=== PATIENT | male | born 1975 | race Caucasian/White ===

== ENCOUNTER 2016-04-25 22:19 | Emergency (ER) | payer SELFPAY ==
[~2016-04-25] VITALS: Ht 167.6 cm; Wt 68.0 kg
[~2016-04-25 22:19] MED LIST: AUGM875T PO; DILA8TAB4 PO; IBUP800T23 PO; MORP30SU PO; ZOFR4TAB3 SL
[2016-04-25 22:22] VITALS: BP 189/102; PULSE 88; RESP 16; TEMP 98.1; O2SAT 100
[2016-04-25 22:59] VITALS: BP 181/89; PULSE 107; RESP 18; O2SAT 100
[2016-04-25] MEDS ORDERED: SODIUM CHLORIDE 0.9% FLUSH 5 ML FLUSH IVF PRN (23:00)
[2016-04-25 23:10] VITALS: RESP 22; O2SAT 100
[2016-04-25 23:19] LABS: AUTOMATED NEUTROPHIL # 5.1 TH/MM3 (1.8-7.7); BASOPHIL # 0.1 TH/MM3 (0-0.2); BASOPHIL % 1.1 % (0.0-2.0); EOSINOPHIL # 0.7 TH/MM3 (0-0.4); EOSINOPHIL % 7.8 % (0.0-4.0); HEMATOCRIT 42.5 % (39.0-51.0); HEMO FLAGS DIFF FINAL; LYMPH % 28.8 % (9.0-44.0); LYMPHOCYTE # 2.7 TH/MM3 (1.0-4.8); MEAN CELL VOLUME 79.5 FL (80.0-100.0); MEAN CORPUSCULAR HEMOGLOBIN 27.2 PG (27.0-34.0); MEAN CORPUSCULAR HGB CONC 34.2 % (32.0-36.0); MONO % 7.2 % (0.0-8.0); NEUT % 55.1 % (16.0-70.0); PLATELET COUNT 148 TH/MM3 (150-450); RED BLOOD COUNT 5.35 MIL/MM3 (4.50-5.90); RED CELL DISTRIBUTION WIDTH 18.2 % (11.6-17.2); WHITE BLOOD COUNT 9.3 TH/MM3 (4.0-11.0)
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
[2016-04-25 23:21] LABS: AMPHETAMINE, URINE NEG (NEG); BARBITURATES, URINE NEG (NEG); COCAINE, URINE NEG (NEG)
--- NOTE | 2016-04-25 23:29 | RADRPT ---
EXAM DATE/TIME: 04/25/2016 23:21 [facility] COMPARISON: CHEST SINGLE AP, April 12, 2015, 0:45. INDICATIONS : Chest pain. MEDICAL HISTORY : None. SURGICAL HISTORY : None. ENCOUNTER: Initial ACUITY: 1 day PAIN SCORE: 6/10 LOCATION: Bilateral chest FINDINGS: A single view of the chest demonstrates the lungs to be symmetrically aerated without evidence of mas s, infiltrate or effusion. The cardiomediastinal contours are unremarkable. Osseous structures are intact. CONCLUSION: No acute disease. Silvestre Ashraf MD on April 25, 2016 at 23:27 Board Certified Radiologist. This report was verified electronically.
[2016-04-25 23:36] LABS: APTT (PATIENT) 25.6 SEC (24.3-30.1); INTERNATIONAL NORMALIZED RATIO 0.9 RATIO; PROTHROMBIN TIME - PATIENT 10.4 SEC (9.8-11.6)
[2016-04-25 23:46] LABS: ALT (GPT) 28 U/L (12-78); ANION GAP 9 MEQ/L (5-15); AST (GOT) 19 U/L (15-37); BICARBONATE 26.7 MEQ/L (21.0-32.0); BLOOD UREA NITROGEN 10 MG/DL (7-18); CHLORIDE 106 MEQ/L (98-107); GLOMERULAR FILTRATION RATE 81 ML/MIN (>89); POTASSIUM 3.6 MEQ/L (3.5-5.1); SODIUM (NA) 142 MEQ/L (136-145)
[2016-04-25 23:49] LABS: ALKALINE PHOSPHATASE 99 U/L (45-117); TOTAL BILIRUBIN ADULT 0.3 MG/DL (0.2-1.0)
[2016-04-25 23:55] LABS: CREATINE KINASE 72 U/L (39-308)
[2016-04-26] MEDS ORDERED: cloNIDine HCL 0.2 MG TAB PO ONE
[2016-04-26 00:18] VITALS: BP 170/79; PULSE 95; RESP 18; O2SAT 100
[2016-04-26] MEDS ORDERED: CLON0.2T PO (00:23)
--- NOTE | 2016-04-26 22:06 | EKG ---
Date Performed: 04/25/2016 Time Performed: 23:00:06 PTAGE: 40 years EKG: Sinus rhythm WITH MARKED SINUS ARRHYTHMIA WITH SHORT AK INTERVAL MODERATE ST DEPRESSION ABNORMAL ECG PREVIOUS TRACING : 04/12/2015 06.29 Compared to prior tracing no significant change DOCTOR: Lynne Graham Interpretating Date/Time 04/26/2016 22:05:34
== END 2016-04-26 00:51 | disposition home or self-care (01) ==
LOC: NEPC 22:19
DX: R07.89 Other chest pain (principal); F41.9 Anxiety disorder, unspecified; R00.2 Palpitations; F14.90 Cocaine use, unspecified, uncomplicated; F17.210 Nicotine dependence, cigarettes, uncomplicated; R94.31 Abnormal electrocardiogram [ECG] [EKG]
CPT/HCPCS: 71010; 80053; 80307; 82550; 83735; 84484; 85025; 85610; 85730; 93005

== ENCOUNTER 2016-09-02 13:13 | Inpatient (IN) | payer SELFPAY ==
[~2016-09-02] VITALS: Ht 167.6 cm; Wt 73.3 kg
[~2016-09-02 13:13] MED LIST changes: -AUGM875T PO; +CLON0.2T PO; -DILA8TAB4 PO; -IBUP800T23 PO; -MORP30SU PO; -ZOFR4TAB3 SL
[2016-09-02 13:17] VITALS: BP 100/67; PULSE 130; RESP 24; TEMP 99.9; O2SAT 98
[2016-09-02 13:50] VITALS: BP 105/59; PULSE 122; RESP 22; TEMP 103; O2SAT 96
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
[2016-09-02] MEDS ORDERED: IBUPROFEN 600 MG TAB PO ONE (14:00)
[2016-09-02] MEDS ORDERED: PIPERACIL-TAZO 3.375 GM PREMIX 50 ML IV ONE (14:00)
[2016-09-02] MEDS ORDERED: ACETAMINOPHEN 325 MG TAB PO ONE (14:00)
[2016-09-02] MEDS ORDERED: SODIUM CHLOR 0.9% 1000 ML INJ 1,000 ML IV ONE ×3 (14:00→16:00)
[2016-09-02 14:05] LABS: AUTOMATED NEUTROPHIL # 9.5 TH/MM3 (1.8-7.7); BASOPHIL % 0.2 % (0.0-2.0); EOSINOPHIL % 0.4 % (0.0-4.0); HEMATOCRIT 29.1 % (39.0-51.0); LYMPH % 4.9 % (9.0-44.0); LYMPHOCYTE # 0.5 TH/MM3 (1.0-4.8); MEAN CELL VOLUME 76.9 FL (80.0-100.0); MEAN CORPUSCULAR HEMOGLOBIN 25.4 PG (27.0-34.0); MONO % 8.2 % (0.0-8.0); NEUT % 86.3 % (16.0-70.0); PLATELET COUNT 112 TH/MM3 (150-450); RED BLOOD COUNT 3.78 MIL/MM3 (4.50-5.90); WHITE BLOOD COUNT 10.9 TH/MM3 (4.0-11.0)
[2016-09-02 14:07] LABS: HEMO FLAGS AUTO DIFF
--- NOTE | 2016-09-02 14:12 | RADRPT ---
EXAM DATE/TIME: 09/02/2016 13:58 [facility] COMPARISON: CHEST SINGLE AP, April 25, 2016, 23:21. INDICATIONS : Fever, flu-like symptoms for 3 days MEDICAL HISTORY : None. SURGICAL HISTORY : None. ENCOUNTER: Initial ACUITY: 3 days PAIN SCORE: 7/10 LOCATION: Bilateral chest FINDINGS: Mild basilar airspace disease predominantly on the right. Differential diagnosis includes mild bronch opneumonia. No significant effusion. No pneumothorax. CONCLUSION: 1. Mild basilar airspace disease. Differential diagnosis includes mild bronchopneumonia. No significa nt effusion. Wilfred Cho MD on September 02, 2016 at 14:09 Board Certified Radiologist. This report was verified electronically.
[2016-09-02 14:14] LABS: CHLORIDE 94 MEQ/L (98-107); POTASSIUM 3.8 MEQ/L (3.5-5.1); SODIUM (NA) 130 MEQ/L (136-145)
[2016-09-02 14:17] LABS: ANION GAP 9 MEQ/L (5-15); BLOOD UREA NITROGEN 13 MG/DL (7-18)
[2016-09-02 14:20] LABS: ALT (GPT) 20 U/L (12-78); AST (GOT) 21 U/L (15-37); GLOMERULAR FILTRATION RATE 74 ML/MIN (>89)
[2016-09-02 14:22] LABS: SCAN/DIFF AUTO DIFF CONFIRMED; TOTAL BILIRUBIN ADULT 0.5 MG/DL (0.2-1.0)
[2016-09-02 14:23] LABS: ALKALINE PHOSPHATASE 99 U/L (45-117)
[2016-09-02] MEDS ORDERED: Vancomycin Consult Pharmacy 1 EA OTHER SCH (15:00)
[2016-09-02] MEDS ORDERED: SODIUM CHLORIDE 0.9% FLUSH 10 ML FLUSH IV FLUSH PRN (15:00)
[2016-09-02 15:17] VITALS: BP 96/50; PULSE 106; RESP 20; TEMP 100; O2SAT 97
[2016-09-02 15:33] VITALS: BP 99/56; PULSE 104; RESP 18; O2SAT 98
[2016-09-02] MEDS: SODIUM CHLOR 0.9% 1000 ML INJ 1,000 ML IV SCH (15:35)
[2016-09-02 16:00] VITALS: BP 98/61; PULSE 97; RESP 21; TEMP 98.3; O2SAT 96
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
[2016-09-02] MEDS: AZITHROMYCIN INJ 500 MG in SODIUM CHLOR 0.9% 250 ML INJ 250 ML IV SCH (16:45)
[2016-09-02] MEDS: ENOXAPARIN SODIUM 80 MG/0.8 ML SYRINGE SQ SCH (16:46)
[2016-09-02 18:41] LABS: BLOOD, URINE LARGE (NEG); GLUCOSE,URINE NEG (NEG); KETONE, URINE NEG (NEG); NITRITE,URINE NEG (NEG)
[2016-09-02 18:43] LABS: METHOD OF COLLECTION CLEAN CATCH; URINE COLOR YELLOW (YELLW/STRAW)
[2016-09-02 18:44] LABS: WBC, URINE 0-2 /hpf (0-5)
[2016-09-02 18:45] LABS: COMMENT (UR) CULT NOT INDICATED; CULTURE IF INDICATED CULT NOT INDICATED
--- NOTE | 2016-09-02 19:14 | RADRPT ---
EXAM DATE/TIME: 09/02/2016 18:16 [facility] COMPARISON: No previous studies available for comparison. INDICATIONS : Left leg pain. MEDICAL HISTORY : Hepatitis C. Methicillin-resistant Staphylococcus aureus. Cervicle fracture. IV drug user. Blood transfusion. SURGICAL HISTORY : Neck surgery. Back surgery. Right leg surgery. ENCOUNTER: Initial ACUITY: 1 day PAIN SCORE: 0/10 LOCATION: Left leg. TECHNIQUE: Venous ultrasound of the leg was performed from the inguinal ligament to the proximal calf. Real-yue e, color Doppler and spectral tracing, compression and augmentation techniques were used. FINDINGS: There is normal compressibility of the deep venous system from the inguinal region to the proximal ca lf. No echogenic clot is seen in the lumen of the common femoral, femoral, popliteal, and posterior tibial veins. There is a normal response of the venous system to proximal and distal augmentation an d respiration. CONCLUSION: No DVT. Silvestre Ashraf MD on September 02, 2016 at 19:11 Board Certified Radiologist. This report was verified electronically.
[2016-09-02] MEDS: VANCOMYCIN INJ 1,000 MG in SODIUM CHLOR 0.9% 250 ML INJ 250 ML IV SCH (19:17)
[2016-09-02 20:43] VITALS: BP 88/48; PULSE 73; RESP 14; TEMP 96.9; O2SAT 99
[2016-09-02] MEDS: PIPERACIL-TAZO 4.5 GM PREMIX 100 ML IV SCH (21:36)
[2016-09-02] MEDS: SODIUM CHLORIDE 0.9% FLUSH 10 ML FLUSH IV FLUSH SCH (21:36)
[2016-09-03] VITALS (7 sets, daily range): BP systolic 90–110; BP diastolic 58–71; PULSE 83–106; RESP 12–20; TEMP 96.3–102.6; O2SAT 95–100
[2016-09-03] MEDS: ACETAMINOPHEN 325 MG TAB PO PRN ×2 (00:59→05:01)
[2016-09-03] MEDS ORDERED: IBUPROFEN 400 MG TAB PO ONE (02:30)
[2016-09-03] MEDS: SODIUM CHLOR 0.9% 1000 ML INJ 1,000 ML IV SCH ×3 (02:47→21:29)
[2016-09-03] MEDS: ENOXAPARIN SODIUM 80 MG/0.8 ML SYRINGE SQ SCH (04:49)
[2016-09-03] MEDS: PIPERACIL-TAZO 4.5 GM PREMIX 100 ML IV SCH ×3 (04:53→21:29)
[2016-09-03] MEDS: VANCOMYCIN INJ 1,000 MG in SODIUM CHLOR 0.9% 250 ML INJ 250 ML IV SCH ×2 (05:58→17:17)
[2016-09-03 07:40] LABS: AUTOMATED NEUTROPHIL # 9.5 TH/MM3 (1.8-7.7); BASOPHIL % 0.2 % (0.0-2.0); EOSINOPHIL # 0.1 TH/MM3 (0-0.4); HEMATOCRIT 28.8 % (39.0-51.0); LYMPH % 6.8 % (9.0-44.0); LYMPHOCYTE # 0.8 TH/MM3 (1.0-4.8); MEAN CELL VOLUME 79.1 FL (80.0-100.0); MEAN CORPUSCULAR HEMOGLOBIN 25.5 PG (27.0-34.0); MEAN CORPUSCULAR HGB CONC 32.2 % (32.0-36.0); PLATELET COUNT 114 TH/MM3 (150-450); RED BLOOD COUNT 3.64 MIL/MM3 (4.50-5.90); RED CELL DISTRIBUTION WIDTH 14.3 % (11.6-17.2); WHITE BLOOD COUNT 11.5 TH/MM3 (4.0-11.0)
[2016-09-03 07:42] LABS: HEMO FLAGS AUTO DIFF
[2016-09-03 08:11] LABS: POTASSIUM 3.3 MEQ/L (3.5-5.1)
--- NOTE | 2016-09-03 08:18 | HHI.PR ---
Subjective Remarks Patient seen today in follow-up for severe sepsis. Urine output improved. Blood pressure improved. Patient more awake. Still febrile with temperature 102.6. Patient's urine drug screens positive for cocaine and opioids. He is tolerating current antibiotics and is not asked for any narcotic pain medication. Care plan discussed with patient and significant other at bedside Objective Vitals Vital Signs Date Time Temp Pulse Resp B/P Pulse Ox O2 Delivery O2 Flow Rate FiO2 09/03/16 04:26 101.3 98 16 110/62 97 09/03/16 02:00 102.6 09/03/16 01:04 101.5 106 12 110/67 98 09/02/16 20:43 96.9 73 14 88/48 99 09/02/16 16:00 98.3 97 21 98/61 96 09/02/16 15:33 104 18 99/56 98 Room Air 09/02/16 15:17 100.0 106 20 96/50 97 Room Air 09/02/16 13:56 96 Room Air 09/02/16 13:50 103.0 122 22 105/59 96 Room Air 09/02/16 13:50 122 96 Room Air 09/02/16 13:17 99.9 130 24 100/67 98 I/O 09/02/16 09/02/16 09/02/16 09/03/16 09/03/16 09/03/16 07:00 15:00 23:00 07:00 15:00 23:00 Intake Total 1200 ml Output Total 620 ml Balance 1200 ml -620 ml Intake Oral 150 ml IV Total 1050 ml Output Urine Total 620 ml Result Diagram: 09/03/16 0627 09/02/16 1345 Imaging Last Impressions Chest X-Ray 09/02/16 1348 Signed Impressions: Service Date/Time: Friday, September 02, 2016 13:58 - CONCLUSION: 1. Mild basilar airspace disease. Differential diagnosis includes mild bronchopneumonia. No significant effusion. Wilfred Cho MD Lower Extremity Ultrasound 09/02/16 0000 Signed Impressions: Service Date/Time: Friday, September 02, 2016 18:16 - CONCLUSION: No DVT. Silvestre Ashraf MD Objective Remarks Diffuse track villarreal, improved swelling in the right upper extremity GENERAL: This is a well-nourished, well-developed patient, in no apparent distress. CARDIOVASCULAR: Regular rate and rhythm without murmurs, gallops, or rubs. RESPIRATORY: Clear to auscultation. Breath sounds equal bilaterally. No wheezes , rales, or rhonchi. GASTROINTESTINAL: Abdomen soft, non-tender, nondistended. Normal active bowel sounds MUSCULOSKELETAL: Extremities without clubbing, cyanosis, or edema. NEURO: Alert & Oriented x4 to person, place, time, situation. Moves all ext x4 A/P Problem List: (1) IVDU (intravenous drug user) ICD Code: F19.90 Status: Acute Plan: Patient with long-standing heroin and Dilaudid use. We'll add po narcotic pain medicine as tolerated as well as nonnarcotic medicine (2) Severe sepsis ICD Code: A41.9 Status: Acute Plan: Patient with fever and hypotension, tachypnea and tachycardia and abnormal chest x-ray possible pneumonia but with also a history of IV drug use and possible bacteremia/endocarditis. Right arm appears less swollen, no evidence of DVT Delirium is improved Continue with IV vancomycin, Zosyn and azithromycin Continue aggressive IV hydration ID consult pending echo pending (3) Thrombocytopenia ICD Code: D69.6 Status: Acute Plan: Chronic and recurrent, no evidence of bleeding at this time we'll continue to follow Ami Loco MD Sep 03, 2016 08:18
[2016-09-03] MEDS: SODIUM CHLORIDE 0.9% FLUSH 10 ML FLUSH IV FLUSH SCH ×2 (08:20→21:00)
[2016-09-03 08:35] LABS: CALCIUM-PROTEIN CORRECTED 8.1 MG/DL (8.5-10.1)
[2016-09-03 08:41] LABS: SCAN/DIFF AUTO DIFF CONFIRMED
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
--- NOTE | 2016-09-03 09:53 | ECHRPT ---
Indication: endocarditis CONCLUSIONS Normal left ventricular size. Wall thickness is normal. The left ventricular systolic function is normal with an estimated ejection fraction in the range of 55-60%. No regional wall motion abnormalities are present. The right ventricle is mildly dilated. The right ventricular systoilc function is mildly decreased. The right ventricular systoilc function is normal. The right atrial size is upper limits of normal. Mild thickening of the mitral valve leaflets. Trace mitral valve regurgitation. The aortic valve is not well visualized. No aortic valve regurgitation. No aortic valve stenosis. tricuspid valve vegetation measuring 1.1 x 1.8 There is moderate tricuspid regurgitation. There is estimated moderate pulmonary hypertension present (range 50-60 mmHg). The pulmonary valve is not well visualized. BP: / HR: Rhythm: MEASUREMENTS (Male / Female) Normal Values Technical Quality:Fair 2D ECHO LV Diastolic Diameter PLAX 4.9 cm 4.2 - 5.9 / 3.9 - 5.3 cm LV Systolic Diameter PLAX 3.8 cm IVS Diastolic Thickness 0.7 cm 0.6 - 1.0 / 0.6 - 0.9 cm LVPW Diastolic Thickness 0.8 cm 0.6 - 1.0 / 0.6 - 0.9 cm LV Relative Wall Thickness 0.3 RV Internal Dim ED PLAX 3.0 cm M-MODE Aortic Root Diameter MM 2.6 cm LA Systolic Diameter MM 3.0 cm LA Ao Ratio MM 1.2 AV Cusp Separation MM 1.8 cm DOPPLER TR Peak Velocity 326.0 cm/s TR Peak Gradient 42.5 mmHg FINDINGS LEFT VENTRICLE Normal left ventricular size. Wall thickness is normal. The left ventricular systolic function is normal with an estimated ejection fraction in the range of 55-60%. No regional wall motion abnormalities are present. RIGHT VENTRICLE The right ventricle is mildly dilated. The right ventricular systoilc function is mildly decreased. The right ventricular systoilc function is normal. LEFT ATRIUM The left atrial size is normal. RIGHT ATRIUM The right atrial size is upper limits of normal. ATRIAL SEPTUM Normal atrial septal thickness without atrial level shunting by limited color doppler interrogation. AORTA The aortic root and proximal ascending aorta are normal in size on limited imaging. MITRAL VALVE Mild thickening of the mitral valve leaflets. Trace mitral valve regurgitation. AORTIC VALVE The aortic valve is not well visualized. No aortic valve regurgitation. No aortic valve stenosis. TRICUSPID VALVE tricuspid valve vegetation measuring 1.1 x 1.8 There is moderate tricuspid regurgitation. There is estimated moderate pulmonary hypertension present (range 50-60 mmHg). PULMONARY VALVE No pulmonary valve regurgitation or stenosis. The pulmonary valve is not well visualized. VESSELS The inferior vena cava is normal in size. PERICARDIUM No pericardial effusion. Julián Santoyo MD (Electronically Signed) Final Date:03 September 2016 09:52
[2016-09-03] MEDS: ENOXAPARIN SODIUM 40 MG/0.4 ML SYRINGE SQ SCH (10:14)
[2016-09-03] MEDS: KETOROLAC TROMETHAMINE 30 MG/ML (IVP) VIAL IV PUSH PRN (11:27)
[2016-09-03] MEDS: AZITHROMYCIN INJ 500 MG in SODIUM CHLOR 0.9% 250 ML INJ 250 ML IV SCH (15:21)
[2016-09-04] VITALS (9 sets, daily range): BP systolic 101–135; BP diastolic 66–78; PULSE 78–114; RESP 16–20; TEMP 97.2–103.5; O2SAT 93–98
[2016-09-04] MEDS: ACETAMINOPHEN 325 MG TAB PO PRN (02:20)
[2016-09-04] MEDS ORDERED: IBUPROFEN 600 MG TAB PO ONE (03:30)
[2016-09-04] MEDS ORDERED: PHARMACY ORDERED LAB ONE (05:45)
[2016-09-04] MEDS: oxyCODONE/ACETAMINOPHEN 7.5 MG/325 MG TAB PO PRN ×2 (06:09→20:52)
[2016-09-04] MEDS: VANCOMYCIN INJ 1,000 MG in SODIUM CHLOR 0.9% 250 ML INJ 250 ML IV SCH ×3 (06:09→20:53)
[2016-09-04] MEDS: PIPERACIL-TAZO 4.5 GM PREMIX 100 ML IV SCH ×2 (08:26→14:11)
[2016-09-04] MEDS: SODIUM CHLOR 0.9% 1000 ML INJ 1,000 ML IV SCH (08:26)
[2016-09-04] MEDS: ENOXAPARIN SODIUM 40 MG/0.4 ML SYRINGE SQ SCH (08:26)
--- NOTE | 2016-09-04 10:31 | HHI.PR ---
Subjective Remarks Patient seen and evaluated today in follow-up for bacteremia and sepsis with known history of IV drug use. Blood cultures are positive for MRSA. Overall patient appears better although MAXIMUM TEMPERATURE was 100.5. Heart rate and blood pressure improved Treatment plan discussed with patient, significant other and nursing team Objective Vitals Vital Signs Date Time Temp Pulse Resp B/P Pulse Ox O2 Delivery O2 Flow Rate FiO2 09/04/16 08:00 97.2 78 18 101/70 98 09/04/16 07:30 22 09/04/16 06:00 98.7 09/04/16 04:35 100.4 09/04/16 03:13 103.5 09/04/16 02:20 101.5 09/04/16 00:00 99.8 90 18 105/70 96 09/03/16 20:00 99.4 96 18 110/71 100 09/03/16 16:00 97.3 95 20 97/63 96 09/03/16 12:00 96.3 83 17 90/58 95 I/O 09/03/16 09/03/16 09/03/16 09/04/16 09/04/16 09/04/16 07:00 15:00 23:00 07:00 15:00 23:00 Intake Total 1000 ml Output Total 620 ml 800 ml 350 ml 300 ml Balance -620 ml -800 ml -350 ml 700 ml Intake Oral 1000 ml Output Urine Total 620 ml 800 ml 350 ml 300 ml # Voids 1 # Bowel Movements 1 0 0 Result Diagram: 09/03/1662609/03/16626 Objective Remarks Diffuse track villarreal GENERAL: This is a well-nourished, well-developed patient, in no apparent distress. CARDIOVASCULAR: Regular rate and rhythm without murmurs, gallops, or rubs. RESPIRATORY: crackles and wheezes right greater than left GASTROINTESTINAL: Abdomen soft, non-tender, nondistended. Normal active bowel sounds MUSCULOSKELETAL: Extremities without clubbing, cyanosis, or edema. NEURO: Alert & Oriented x4 to person, place, time, situation. Moves all ext x4 A/P Problem List: (1) IVDU (intravenous drug user) ICD Code: F19.90 Status: Chronic Plan: Patient with long-standing heroin and Dilaudid use. Continue narcotic pain medicine as tolerated as well as nonnarcotic medicine Patient high-risk for outpatient treatment should long-term IV antibiotics be needed (2) Severe sepsis ICD Code: A41.9 Status: Acute Plan: Improved tachypnea and tachycardia and hypotension Fever persists Repeat chest x-ray pending IV drug use and MRSA bacteremia, possible endocarditis. Delirium is resolved Continue with IV vancomycin, Zosyn and azithromycin ID consult appreciated echo wnl (3) Thrombocytopenia ICD Code: D69.6 Status: Chronic Plan: Chronic and recurrent, no evidence of bleeding at this time we'll continue to follow Discharge Planning Will likely need long-term IV antibiotics Ami Loco MD Sep 04, 2016 10:31
--- NOTE | 2016-09-04 12:02 | RADRPT ---
EXAM DATE/TIME: 09/04/2016 11:40 [facility] COMPARISON: No previous studies available for comparison. INDICATIONS : Short of breath. MEDICAL HISTORY : None. SURGICAL HISTORY : None. ENCOUNTER: Subsequent ACUITY: 4 - 6 days PAIN SCORE: 0/10 LOCATION: Bilateral chest FINDINGS: There is a medial posterior small left pleural effusion with associated airspace disease in the media l left lower lobe. Mild diffuse interstitial prominence. Cardiomediastinal contours are within normal limits. Bony thorax is intact. CONCLUSION: 1. Medial left posterior lower lobe airspace disease and associated small pleural effusion. Cain Ferraro MD on September 04, 2016 at 11:58 Board Certified Radiologist. This report was verified electronically.
[2016-09-04] MEDS: NICOTINE 21 MG/24 HR PATCH T-DERMAL SCH (14:11)
[2016-09-04] MEDS: SODIUM CHLORIDE 0.9% FLUSH 10 ML FLUSH IV FLUSH SCH ×2 (14:12→20:52)
[2016-09-04] MEDS: AZITHROMYCIN INJ 500 MG in SODIUM CHLOR 0.9% 250 ML INJ 250 ML IV SCH (16:53)
--- NOTE | 2016-09-04 19:27 | HHI.IDPN ---
Subjective Subjective Remarks Fevers C/o pain all over Shortness of breath Antibiotics Vancomycin, Zosyn and Azithromycin Lines Peripheral IV line Past Medical History IVDU Allergies: Coded Allergies: Avocado (Verified Allergy, Severe, 04/25/16) Shrimp (Verified Allergy, Severe, Anaphylaxis, 04/25/16) *MDRO Multi-Drug Resistant Organism (Unverified Adverse Reaction, Unknown , 09/04/16) MRSA Blood 09/2016 MRSA FINGER WOUND 12/16/03 Review of Systems Constitutional Constitutional: Fever, Chills Pulmonary Respiratory: Coughing, Shortness of Breath Cardiology Cardiology: Chest Pain Objective . Vital Signs Date Time Temp Pulse Resp B/P Pulse Ox O2 Delivery O2 Flow Rate FiO2 09/04/16 16:00 99.3 92 18 124/78 98 09/04/16 12:00 98.2 87 16 102/66 93 09/04/16 08:00 97.2 78 18 101/70 98 09/04/16 07:30 22 09/04/16 06:00 98.7 09/04/16 04:35 100.4 09/04/16 03:13 103.5 09/04/16 02:20 101.5 09/04/16 00:00 99.8 90 18 105/70 96 09/03/16 20:00 99.4 96 18 110/71 100 09/03/16 09/03/16 09/04/16 15:00 23:00 07:00 Intake Total 1000 ml Output Total 800 ml 350 ml 300 ml Balance -800 ml -350 ml 700 ml Intake Oral 1000 ml Output Urine Total 800 ml 350 ml 300 ml # Voids 1 # Bowel Movements 1 0 0 . Laboratory Tests Test 09/03/16 06:27 White Blood Count 11.5 TH/MM3 Red Blood Count 3.64 MIL/MM3 Hemoglobin 9.3 GM/DL Hematocrit 28.8 % Mean Corpuscular Volume 79.1 FL Mean Corpuscular Hemoglobin 25.5 PG Mean Corpuscular Hemoglobin 32.2 % Concent Red Cell Distribution Width 14.3 % Platelet Count 114 TH/MM3 Mean Platelet Volume 10.4 FL Neutrophils (%) (Auto) 82.0 % Lymphocytes (%) (Auto) 6.8 % Monocytes (%) (Auto) 10.0 % Eosinophils (%) (Auto) 1.0 % Basophils (%) (Auto) 0.2 % Neutrophils # (Auto) 9.5 TH/MM3 Lymphocytes # (Auto) 0.8 TH/MM3 Monocytes # (Auto) 1.1 TH/MM3 Eosinophils # (Auto) 0.1 TH/MM3 Basophils # (Auto) 0.0 TH/MM3 CBC Comment AUTO DIFF Differential Comment AUTO DIFF CONFIRMED Laboratory Tests Test 09/02/16 09/03/16 22:52 06:27 Total Creatine Kinase 140 U/L Sodium Level 142 MEQ/L Potassium Level 3.3 MEQ/L Chloride Level 107 MEQ/L Carbon Dioxide Level 26.0 MEQ/L Anion Gap 9 MEQ/L Blood Urea Nitrogen 12 MG/DL Creatinine 0.82 MG/DL Estimat Glomerular Filtration 104 ML/MIN Rate Random Glucose 107 MG/DL Calcium Level 7.3 MG/DL Protein Corrected Calcium 8.1 MG/DL Total Protein 5.7 GM/DL Microbiology Date/Time Procedure Status Source Growth 09/02/16 13:45 Aerobic Blood Culture - Final Complete Blood Peripheral S. Aureus Mrsa 09/02/16 13:45 Anaerobic Blood Culture - Final Complete S. Aureus Mrsa 09/02/16 13:55 Aerobic Blood Culture - Preliminary Resulted Blood Peripheral S. Aureus Mrsa 09/02/16 13:55 Anaerobic Blood Culture - Final Resulted S. Aureus Mrsa Physical Exam GENERAL: This is a acutely ill patient - with shortness of breath. SKIN: Multiple lesions from IVDU on arms HEAD: Atraumatic. Normocephalic. No temporal or scalp tenderness. EYES: Pupils equal round and reactive. Extraocular motions intact. No scleral icterus. No injection or drainage. ENT: Nose without bleeding, purulent drainage or septal hematoma. Throat without erythema, tonsillar hypertrophy or exudate. Uvula midline. Airway patent. NECK: Trachea midline. No JVD or lymphadenopathy. Supple, nontender, no meningeal signs. CARDIOVASCULAR: Tachycardia with systolic murmur, gallops, or rubs. RESPIRATORY: . Breath sounds decreased bilaterally. No wheezes, rales, or rhonchi. GASTROINTESTINAL: Abdomen soft, non-tender, nondistended. No hepato-splenomegaly , or palpable masses. No guarding. MUSCULOSKELETAL: Extremities without clubbing, cyanosis, or edema. No joint tenderness, effusion, or edema noted. No calf tenderness. Negative Homans sign bilaterally. NEUROLOGICAL: Awake and alert. Cranial nerves II through XII intact. Motor and sensory grossly within normal limits. Five out of 5 muscle strength in all muscle groups. Normal speech. Assessment & Plan Diagnosis: (1) Sepsis Plan: Blood cultures with MRSA Echo with vegetation on Tricuspid valve Continue IV Vancomycin Stop Zosyn and Azithromycin Add Rifampin Re check Blood cultures on 09/05 Patient is going to need fdc IV antibiotics (2) Septicemia due to methicillin resistant Staphylococcus aureus (3) Endocarditis of tricuspid valve (4) IVDU (intravenous drug user) Plan: HIV test negative (5) Pneumonia Problem Qualifiers (1) Sepsis: Qualified Code: A41.02 - Sepsis due to methicillin resistant Staphylococcus aureus (MRSA) Ana Florez MD Sep 04, 2016 19:27
[2016-09-04] MEDS: RIFAMPIN 150 MG CAP PO SCH (20:52)
[2016-09-05] VITALS: BP 110/69; PULSE 102; RESP 20; TEMP 100; O2SAT 97
[2016-09-05 04:00] VITALS: TEMP 101.5
[2016-09-05] MEDS: oxyCODONE/ACETAMINOPHEN 7.5 MG/325 MG TAB PO PRN ×3 (04:44→20:05)
[2016-09-05] MEDS: VANCOMYCIN INJ 1,000 MG in SODIUM CHLOR 0.9% 250 ML INJ 250 ML IV SCH ×2 (05:40→13:55)
[2016-09-05 07:42] LABS: POTASSIUM 3.1 MEQ/L (3.5-5.1)
[2016-09-05 07:45] LABS: AUTOMATED NEUTROPHIL # 13.7 TH/MM3 (1.8-7.7); BASOPHIL # 0.1 TH/MM3 (0-0.2); BASOPHIL % 0.8 % (0.0-2.0); EOSINOPHIL # 0.3 TH/MM3 (0-0.4); EOSINOPHIL % 1.8 % (0.0-4.0); HEMATOCRIT 24.6 % (39.0-51.0); LYMPH % 9.1 % (9.0-44.0); LYMPHOCYTE # 1.5 TH/MM3 (1.0-4.8); MEAN CELL VOLUME 77.4 FL (80.0-100.0); MEAN CORPUSCULAR HGB CONC 33.6 % (32.0-36.0); MONO % 3.3 % (0.0-8.0); PLATELET COUNT 196 TH/MM3 (150-450); RED BLOOD COUNT 3.18 MIL/MM3 (4.50-5.90); WHITE BLOOD COUNT 16.1 TH/MM3 (4.0-11.0)
[2016-09-05 07:55] LABS: HEMO FLAGS AUTO DIFF
[2016-09-05 07:58] LABS: BICARBONATE 23.9 MEQ/L (21.0-32.0)
[2016-09-05 08:00] VITALS: BP 132/74; PULSE 98; RESP 18; TEMP 99.9; O2SAT 95
[2016-09-05] MEDS: NICOTINE 21 MG/24 HR PATCH T-DERMAL SCH (08:18)
[2016-09-05] MEDS: ENOXAPARIN SODIUM 40 MG/0.4 ML SYRINGE SQ SCH (08:19)
[2016-09-05] MEDS: KETOROLAC TROMETHAMINE 30 MG/ML (IVP) VIAL IV PUSH PRN ×2 (08:19→13:55)
[2016-09-05] MEDS: RIFAMPIN 150 MG CAP PO SCH ×2 (08:19→22:01)
[2016-09-05 08:46] LABS: SCAN/DIFF AUTO DIFF CONFIRMED
[2016-09-05] MEDS: SODIUM CHLORIDE 0.9% FLUSH 10 ML FLUSH IV FLUSH SCH ×2 (09:00→22:01)
[2016-09-05] MEDS: REMOVE OLD PATCH T-DERMAL SCH (09:00)
--- NOTE | 2016-09-05 09:57 | HHI.PR ---
Subjective Remarks Patient seen and evaluated today in follow-up for pneumonia and for endocarditis. Vegetation seen on transthoracic echocardiogram. Blood cultures are repeated this morning to evaluate for clearance. Patient repeat chest x- ray is positive for pneumonia. This morning patient planning of 10 out of 10 diffuse pain and reports he uses 8 mg Dilaudid at least 4 times a day illicitly. Does not seem to find relief with current dose of Percocet. I did discuss with patient regarding methadone versus Dilaudid and the patient would not like to use Dilaudid at this time. He would like to continue with the current Percocet. Apparently he had methadone in the past and did have some nausea and vomiting and associated with it. MAXIMUM TEMPERATURE 101.5 today Objective Vitals Vital Signs Date Time Temp Pulse Resp B/P Pulse Ox O2 Delivery O2 Flow Rate FiO2 09/05/16 08:00 99.9 98 18 132/74 95 09/05/16 04:00 101.5 09/05/16 00:00 100.0 102 20 110/69 97 09/04/16 20:00 100.7 114 20 135/73 96 09/04/16 16:00 99.3 92 18 124/78 98 09/04/16 12:00 98.2 87 16 102/66 93 I/O 09/04/16 09/04/16 09/04/16 09/05/16 09/05/16 09/05/16 07:00 15:00 23:00 07:00 15:00 23:00 Intake Total 1000 ml 1320 ml 1890 ml Output Total 300 ml 700 ml 350 ml Balance 700 ml 1320 ml 1190 ml -350 ml Intake Oral 1000 ml 280 ml 690 ml IV Total 1040 ml 1200 ml Output Urine Total 300 ml 700 ml 350 ml # Voids 1 1 # Bowel Movements 0 0 0 Result Diagram: 09/05/16 0715 09/05/16 0715 Objective Remarks Diffuse track villarreal GENERAL: This is a well-nourished, well-developed patient, diaphoretic and ill appearing this morning CARDIOVASCULAR: Regular rate and rhythm without murmurs, gallops, or rubs. RESPIRATORY: Clear to auscultation bilaterally, no wheezes appreciated GASTROINTESTINAL: Abdomen soft, non-tender, nondistended. Normal active bowel sounds MUSCULOSKELETAL: Extremities without clubbing, cyanosis, or edema. NEURO: Alert & Oriented x4 to person, place, time, situation. Moves all ext x4 A/P Problem List: (1) IVDU (intravenous drug user) ICD Code: F19.90 Status: Chronic Plan: Patient with long-standing heroin and Dilaudid use. Continue narcotic pain medicine as follows: Dilaudid 4mg po daily, Percocet prn , toradol prn; if this is unsuccessful ptn may need methadone trial Patient high-risk for outpatient treatment should long-term IV antibiotics be needed, once his blood cultures unclear patient may be candidate for a PICC line for IV antibiotic therapy (2) Severe sepsis ICD Code: A41.9 Status: Acute Plan: Improved tachypnea and tachycardia and hypotension Fever persists Repeat chest x-ray pending IV drug use and MRSA bacteremia and endocarditis and pneumonia Delirium is resolved Continue with IV vancomycin and Levaquin for pneumonia ID consult appreciated echo does show tricuspid valve vegetation (3) Thrombocytopenia ICD Code: D69.6 Status: Resolved Plan: Chronic and recurrent resolved Discharge Planning Will likely need long-term IV antibiotics Ami Loco MD Sep 05, 2016 09:57
[2016-09-05] MEDS ORDERED: CALCIUM GLUCONATE INJ 1 GM in SODIUM CHLORIDE 0.9% INJ 100 ML IV ONE (10:00)
[2016-09-05] MEDS ORDERED: HYDROmorphone HCL 4 MG TAB PO ONE (10:00)
[2016-09-05] MEDS: LEVOFLOXACIN 750 MG PREMIX INJ 150 ML IV SCH (10:35)
[2016-09-05 12:00] VITALS: BP 128/78; PULSE 95; RESP 19; TEMP 99.1; O2SAT 96
[2016-09-05] MEDS ORDERED: PHARMACY ORDERED LAB ONE (13:45)
[2016-09-05 16:00] VITALS: BP 130/76; PULSE 88; RESP 17; TEMP 97.7; O2SAT 98
[2016-09-05] MEDS: POTASSIUM CHLORIDE 20 MEQ CONTROLLED RELEASE TAB PO SCH (17:10)
[2016-09-05 20:00] VITALS: BP 118/80; PULSE 90; RESP 18; TEMP 97.5; O2SAT 99
[2016-09-05] MEDS: VANCOMYCIN INJ 1,100 MG in SODIUM CHLOR 0.9% 250 ML INJ 250 ML IV SCH (22:00)
[2016-09-05] MEDS: ACETAMINOPHEN 325 MG TAB PO PRN (23:53)
[2016-09-06] VITALS: BP 152/100; PULSE 111; RESP 20; TEMP 98.1; O2SAT 96
[2016-09-06] MEDS: oxyCODONE/ACETAMINOPHEN 7.5 MG/325 MG TAB PO PRN (02:04)
[2016-09-06] MEDS: VANCOMYCIN INJ 1,100 MG in SODIUM CHLOR 0.9% 250 ML INJ 250 ML IV SCH ×3 (05:58→22:05)
[2016-09-06] MEDS: RIFAMPIN 150 MG CAP PO SCH ×2 (08:26→22:05)
[2016-09-06] MEDS: POTASSIUM CHLORIDE 20 MEQ CONTROLLED RELEASE TAB PO SCH ×3 (08:26→18:21)
[2016-09-06] MEDS: ONDANSETRON HCL 4 MG/2 ML VIAL IVP PRN ×2 (08:27→22:12)
[2016-09-06] MEDS: ENOXAPARIN SODIUM 40 MG/0.4 ML SYRINGE SQ SCH (08:27)
[2016-09-06] MEDS: NICOTINE 21 MG/24 HR PATCH T-DERMAL SCH (08:27)
[2016-09-06] MEDS: LEVOFLOXACIN 750 MG PREMIX INJ 150 ML IV SCH (08:28)
[2016-09-06] MEDS: REMOVE OLD PATCH T-DERMAL SCH (08:28)
[2016-09-06] MEDS: SODIUM CHLORIDE 0.9% FLUSH 10 ML FLUSH IV FLUSH SCH ×2 (08:28→22:06)
[2016-09-06 08:42] VITALS: BP 118/71; PULSE 92; RESP 16; TEMP 99.8; O2SAT 98
[2016-09-06] MEDS ORDERED: HYDROmorphone HCL 4 MG TAB PO SCH (09:00)
[2016-09-06 12:25] VITALS: BP 117/75; PULSE 94; RESP 16; TEMP 96.3; O2SAT 97
--- NOTE | 2016-09-06 12:27 | HHI.PR ---
Subjective Remarks Patient seen today in follow-up for bacteremia/endocarditis and for pneumonia. Patient complaining of diaphoresis and anxiety and has diffuse pain with elevated blood pressure and he is requesting more narcotics. I did discuss with patient regarding methadone for his chronic heroin/Dilaudid usage. He will agree to a trial. Care plan discussed with nursing team. Patient had some dysuria with hematuria and is complaining of left knee pain. Objective Vitals Vital Signs Date Time Temp Pulse Resp B/P Pulse Ox O2 Delivery O2 Flow Rate FiO2 09/06/16 08:42 99.8 92 16 118/71 98 09/06/16 00:00 98.1 111 20 152/100 96 09/05/16 20:00 97.5 90 18 118/80 99 09/05/16 16:00 97.7 88 17 130/76 98 09/05/16 16:00 97.7 88 17 130/76 98 I/O 09/05/16 09/05/16 09/05/16 09/06/16 09/06/16 09/06/16 06:59 14:59 22:59 06:59 14:59 22:59 Intake Total 1890 ml 1320 ml 480 ml 250 ml Output Total 700 ml 1150 ml 150 ml Balance 1190 ml 170 ml 480 ml 100 ml Intake Oral 690 ml 820 ml 480 ml 250 ml IV Total 1200 ml 500 ml Output Urine Total 700 ml 1150 ml 150 ml # Voids 0 2 # Bowel Movements 0 0 Result Diagram: 09/05/16 0715 09/05/16 0715 Imaging Last Impressions Chest X-Ray 09/04/16 0000 Signed Impressions: Service Date/Time: Sunday, September 04, 2016 11:40 - CONCLUSION: 1. Medial left posterior lower lobe airspace disease and associated small pleural effusion. Cain Ferraro MD Lower Extremity Ultrasound 09/02/16 0000 Signed Impressions: Service Date/Time: Friday, September 02, 2016 18:16 - CONCLUSION: No DVT. Silvestre Ashraf MD Objective Remarks Diffuse track villarreal GENERAL: This is a well-nourished, well-developed patient, diaphoretic and ill appearing this morning CARDIOVASCULAR: Regular rate and rhythm without murmurs, gallops, or rubs. RESPIRATORY: Clear to auscultation bilaterally, no wheezes appreciated GASTROINTESTINAL: Abdomen soft, non-tender, nondistended. Normal active bowel sounds MUSCULOSKELETAL: Extremities without clubbing, cyanosis, or edema. Left knee decreased range of motion, tenderness and erythema NEURO: Alert & Oriented x4 to person, place, time, situation. Moves all ext x4 A/P Problem List: (1) IVDU (intravenous drug user) ICD Code: F19.90 Status: Chronic Plan: Patient with long-standing heroin and Dilaudid use. Evidence of withdrawal (40 mg day Dilaudid) Continue methadone tid trial Patient high-risk for outpatient treatment should long-term IV antibiotics, once his blood cultures clear patient may be candidate for a PICC line for IV antibiotic therapy (2) Severe sepsis ICD Code: A41.9 Status: Acute Plan: Improved tachypnea and tachycardia and hypotension Fever persists Repeat chest x-ray pending IV drug use and MRSA bacteremia/endocarditis and pneumonia Delirium is resolved Continue with IV vancomycin and Levaquin for pneumonia ID consult appreciated echo does show tricuspid valve vegetation (3) Thrombocytopenia ICD Code: D69.6 Status: Resolved Plan: Chronic and recurrent resolved (4) Hypomagnesemia ICD Code: E83.42 Status: Acute Plan: Replace and follow trend (5) Hypokalemia ICD Code: E87.6 Status: Acute Plan: Replace and follow trend (6) Hepatitis C ICD Code: B19.20 Status: Acute Plan: Asymptomatic at this time HIV negative Discharge Planning Will likely need long-term IV antibiotics Ami Loco MD Sep 06, 2016 12:27
[2016-09-06 12:41] LABS: AUTOMATED NEUTROPHIL # 13.8 TH/MM3 (1.8-7.7); BASOPHIL # 0.1 TH/MM3 (0-0.2); BASOPHIL % 0.7 % (0.0-2.0); EOSINOPHIL # 0.5 TH/MM3 (0-0.4); HEMATOCRIT 25.6 % (39.0-51.0); LYMPH % 8.8 % (9.0-44.0); LYMPHOCYTE # 1.4 TH/MM3 (1.0-4.8); MEAN CELL VOLUME 78.4 FL (80.0-100.0); MEAN CORPUSCULAR HEMOGLOBIN 26.1 PG (27.0-34.0); MEAN CORPUSCULAR HGB CONC 33.3 % (32.0-36.0); MONO % 3.7 % (0.0-8.0); NEUT % 83.8 % (16.0-70.0); PLATELET COUNT 266 TH/MM3 (150-450); RED BLOOD COUNT 3.27 MIL/MM3 (4.50-5.90); RED CELL DISTRIBUTION WIDTH 13.6 % (11.6-17.2); WHITE BLOOD COUNT 16.4 TH/MM3 (4.0-11.0)
[2016-09-06 12:52] LABS: HEMO FLAGS AUTO DIFF
[2016-09-06] MEDS: METHADONE HCL 10 MG TAB PO SCH ×2 (13:28→22:05)
--- NOTE | 2016-09-06 13:51 | RADRPT ---
EXAM DATE/TIME: 09/06/2016 13:06 [facility] COMPARISON: No previous studies available for comparison. INDICATIONS : Left knee pain and swelling, no known injury. MEDICAL HISTORY : None. SURGICAL HISTORY : None. ENCOUNTER: Subsequent ACUITY: 2 weeks PAIN SCORE: 10/10 LOCATION: Left knee FINDINGS: Four view examination of the left knee demonstrates no evidence of fracture or dislocation. Bony min eralization is normal. There is a nonspecific joint effusion. There is mild narrowing of the medial j oint compartment. No significant arthropathy. CONCLUSION: 1. Nonspecific joint effusion. 2. Mild narrowing of the medial joint compartment. Asaf Payne MD on September 06, 2016 at 13:47 Board Certified Radiologist. This report was verified electronically.
[2016-09-06 14:00] LABS: PLATELET ESTIMATE SMEAR NORMAL (NORMAL); PLATELET MORPHOLOGY NORMAL (NORMAL); SCAN/DIFF AUTO DIFF CONFIRMED; TOXIC GRANULATION 1+ (NORMAL)
[2016-09-06 15:21] LABS: BLOOD, URINE NEG (NEG); GLUCOSE,URINE NEG (NEG); NITRITE,URINE NEG (NEG)
[2016-09-06 15:32] LABS: KETONE, URINE 80 OR GREATER mg/dL (NEG)
[2016-09-06 15:41] LABS: METHOD OF COLLECTION CLEAN CATCH; URINE COLOR YELLOW (YELLW/STRAW)
[2016-09-06 15:42] LABS: COMMENT (UR) CULT NOT INDICATED; CULTURE IF INDICATED CULT NOT INDICATED; SQUAMOUS EPITHELIAL CELL URINE 0-2 /hpf (0-5); WBC, URINE 0-2 /hpf (0-5)
--- NOTE | 2016-09-06 16:52 | HHI.IDPN ---
Note Infectious Disease Note ID Coverage. Patient notes pain in the left knee. Notes aches and pains all over. Appears comfortable. Afebrile. Blood culture positive 09/05. Antibiotics Vancomycin. Lines Peripheral IV line Past Medical History IVDU Allergies: Coded Allergies: Avocado (Verified Allergy, Severe, 04/25/16) Shrimp (Verified Allergy, Severe, Anaphylaxis, 04/25/16) *MDRO Multi-Drug Resistant Organism (Unverified Adverse Reaction, Unknown , 09/04/16) MRSA Blood 09/2016 MRSA FINGER WOUND 12/16/03 Objective Vital Signs Date Time Temp Pulse Resp B/P Pulse Ox O2 Delivery O2 Flow Rate FiO2 09/06/16 12:25 96.3 94 16 117/75 97 09/06/16 08:42 99.8 92 16 118/71 98 09/06/16 00:00 98.1 111 20 152/100 96 09/05/16 20:00 97.5 90 18 118/80 99 09/05/16 09/05/16 09/06/16 15:00 23:00 07:00 Intake Total 1320 ml 480 ml 250 ml Output Total 1150 ml 150 ml Balance 170 ml 480 ml 100 ml Intake Oral 820 ml 480 ml 250 ml IV Total 500 ml Output Urine Total 1150 ml 150 ml # Voids 0 2 # Bowel Movements 0 0 Laboratory Tests Test 09/05/16 09/06/16 07:15 12:00 White Blood Count 16.1 TH/MM3 16.4 TH/MM3 Red Blood Count 3.18 MIL/MM3 3.27 MIL/MM3 Hemoglobin 8.3 GM/DL 8.5 GM/DL Hematocrit 24.6 % 25.6 % Mean Corpuscular Volume 77.4 FL 78.4 FL Mean Corpuscular Hemoglobin 26.0 PG 26.1 PG Mean Corpuscular Hemoglobin 33.6 % 33.3 % Concent Red Cell Distribution Width 14.0 % 13.6 % Platelet Count 196 TH/MM3 266 TH/MM3 Mean Platelet Volume 9.4 FL 8.4 FL Neutrophils (%) (Auto) 85.0 % 83.8 % Lymphocytes (%) (Auto) 9.1 % 8.8 % Monocytes (%) (Auto) 3.3 % 3.7 % Eosinophils (%) (Auto) 1.8 % 3.0 % Basophils (%) (Auto) 0.8 % 0.7 % Neutrophils # (Auto) 13.7 TH/MM3 13.8 TH/MM3 Lymphocytes # (Auto) 1.5 TH/MM3 1.4 TH/MM3 Monocytes # (Auto) 0.5 TH/MM3 0.6 TH/MM3 Eosinophils # (Auto) 0.3 TH/MM3 0.5 TH/MM3 Basophils # (Auto) 0.1 TH/MM3 0.1 TH/MM3 CBC Comment AUTO DIFF AUTO DIFF Differential Comment AUTO DIFF AUTO DIFF CONFIRMED CONFIRMED Toxic Granulation 1+ Platelet Estimate NORMAL Platelet Morphology Comment NORMAL Laboratory Tests Test 09/05/16 07:15 Sodium Level 141 MEQ/L Potassium Level 3.1 MEQ/L Chloride Level 107 MEQ/L Carbon Dioxide Level 23.9 MEQ/L Anion Gap 10 MEQ/L Blood Urea Nitrogen 9 MG/DL Creatinine 0.62 MG/DL Estimat Glomerular Filtration 144 ML/MIN Rate Random Glucose 101 MG/DL Calcium Level 7.1 MG/DL Protein Corrected Calcium 8.0 MG/DL Magnesium Level 1.4 MG/DL Total Protein 5.4 GM/DL Microbiology Date/Time Procedure Status Source Growth 09/04/16 19:52 Gram Stain - Final Complete Sputum Expectorated Sputum 09/04/16 19:52 Sputum Culture - Final Complete Sputum Expectorated Sputum HEAVY GROWTH NORMAL RESPIRATORY ABIGAIL 09/05/16 07:05 Aerobic Blood Culture - Preliminary Resulted Blood Peripheral S. Aureus Mrsa 09/05/16 07:05 Anaerobic Blood Culture - Preliminary Resulted Blood Peripheral NO GROWTH IN 1 DAY 09/05/16 07:15 Aerobic Blood Culture - Preliminary Resulted Blood Peripheral Gram Positive Cocci 09/05/16 07:15 Anaerobic Blood Culture - Preliminary Resulted Blood Peripheral NO GROWTH IN 1 DAY IMAGING: Knee X-Ray 09/06/16 0000 Signed Impressions: Service Date/Time: Tuesday, September 06, 2016 13:06 - CONCLUSION: 1. Nonspecific joint effusion. 2. Mild narrowing of the medial joint compartment. Asaf Payne MD Chest X-Ray 09/04/16 0000 Signed Impressions: Service Date/Time: Sunday, September 04, 2016 11:40 - CONCLUSION: 1. Medial left posterior lower lobe airspace disease and associated small pleural effusion. Cain Ferraro MD Lower Extremity Ultrasound 09/02/16 0000 Signed Impressions: Service Date/Time: Friday, September 02, 2016 18:16 - CONCLUSION: No DVT. Silvestre Ashraf MD Physical Exam GENERAL: Patient is in no acute distress. HEENT: EOMI, No icterus. No conjunctival erythema. NECK: Supple. no adenopathy. LUNGS: Clear breath sounds. CARDIAC: Regular rate and rhythm. DORENE LSB. ABDOMEN: Soft, non tender. EXTREMITIES: No CC, swelling at the left knee with tenderness. SKIN: No rash. Warm and moist. Assessment & Plan Diagnosis: (1) Sepsis (2) Septicemia due to methicillin resistant Staphylococcus aureus (3) Endocarditis of tricuspid valve (4) IVDU (intravenous drug user) (5) Pneumonia Plan: Follow up blood cultures with MRSA Continue IV Vancomycin Continue Rifampin Re check Blood cultures on 09/07. Consider aspiration of the left knee. Patient is going to need intermediate IV antibiotics Maicol Potter MD Sep 06, 2016 16:52
[2016-09-06 17:18] VITALS: BP 124/79; PULSE 82; RESP 15; TEMP 98.7; O2SAT 97
[2016-09-06 20:00] VITALS: BP 127/84; PULSE 84; RESP 20; TEMP 98; O2SAT 95
[2016-09-06] MEDS ORDERED: VANCOMYCIN TROUGH ONE (21:45)
[2016-09-06 22:43] LABS: ANION GAP 6 MEQ/L (5-15); BICARBONATE 24.2 MEQ/L (21.0-32.0); BLOOD UREA NITROGEN 10 MG/DL (7-18); CHLORIDE 109 MEQ/L (98-107); GLOMERULAR FILTRATION RATE 125 ML/MIN (>89); MAGNESIUM 1.7 MG/DL (1.5-2.5); POTASSIUM 4.2 MEQ/L (3.5-5.1); SODIUM (NA) 139 MEQ/L (136-145)
[2016-09-06 22:44] LABS: CREATINE KINASE 30 U/L (39-308)
[2016-09-07] VITALS: BP 125/79; PULSE 85; RESP 20; TEMP 100.1; O2SAT 94
[2016-09-07] MEDS: ACETAMINOPHEN 325 MG TAB PO PRN (00:36)
[2016-09-07 01:27] LABS: TRANSFERRIN IRON PROFILE 131 MG/DL (200-360); VANCOMYCIN TROUGH 12.3 MCG/ML (5.0-10.0)
[2016-09-07 04:00] VITALS: BP 113/70; PULSE 76; RESP 20; TEMP 97.9; O2SAT 96
[2016-09-07] MEDS: VANCOMYCIN INJ 1,100 MG in SODIUM CHLOR 0.9% 250 ML INJ 250 ML IV SCH (05:35)
[2016-09-07] MEDS: METHADONE HCL 10 MG TAB PO SCH ×3 (05:41→22:01)
[2016-09-07 08:52] VITALS: BP 113/73; PULSE 81; RESP 15; TEMP 99.7; O2SAT 99
--- NOTE | 2016-09-07 08:53 | HHI.PR ---
Subjective Remarks The patient is in bed. Says he has some pain in his left knee which is swollen. No redness. He denies any fever or chills. No shortness of breath. Has some chest pain at times. No nausea, vomiting, diarrhea or constipation. Objective Vitals Vital Signs Date Time Temp Pulse Resp B/P Pulse Ox O2 Delivery O2 Flow Rate FiO2 09/07/16 04:00 97.9 76 20 113/70 96 09/07/16 00:00 100.1 85 20 125/79 94 09/06/16 20:00 98.0 84 20 127/84 95 09/06/16 17:18 98.7 82 15 124/79 97 09/06/16 12:25 96.3 94 16 117/75 97 I/O 09/06/16 09/06/16 09/06/16 09/07/16 09/07/16 09/07/16 07:00 15:00 23:00 07:00 15:00 23:00 Intake Total 250 ml 720 ml 1460 ml Output Total 150 ml 2100 ml 1450 ml Balance 100 ml -1380 ml 10 ml Intake Oral 250 ml 720 ml 960 ml IV Total 500 ml Output Urine Total 150 ml 2100 ml 1450 ml # Voids 2 # Bowel Movements 0 Result Diagram: 09/06/16 1200 09/06/16 2155 Imaging Last Impressions Knee X-Ray 09/06/16 0000 Signed Impressions: Service Date/Time: Tuesday, September 06, 2016 13:06 - CONCLUSION: 1. Nonspecific joint effusion. 2. Mild narrowing of the medial joint compartment. Asaf Payne MD Chest X-Ray 09/04/16 0000 Signed Impressions: Service Date/Time: Sunday, September 04, 2016 11:40 - CONCLUSION: 1. Medial left posterior lower lobe airspace disease and associated small pleural effusion. Cain Ferraro MD Lower Extremity Ultrasound 09/02/16 0000 Signed Impressions: Service Date/Time: Friday, September 02, 2016 18:16 - CONCLUSION: No DVT. Silvestre Ashraf MD Objective Remarks GENERAL: This is a well-nourished, well-developed patient, diaphoretic and ill appearing this morning SKIN: Diffuse track villarreal, tattoos CARDIOVASCULAR: Regular rate and rhythm without murmurs, gallops, or rubs. RESPIRATORY: Clear to auscultation bilaterally, no wheezes appreciated GASTROINTESTINAL: Abdomen soft, non-tender, nondistended. Normal active bowel sounds MUSCULOSKELETAL: Extremities without clubbing, cyanosis, or edema. Left knee decreased range of motion, tenderness and mild edema. No erythema noted. NEURO: Alert & Oriented x4 to person, place, time, situation. Moves all ext x4 A/P Problem List: (1) IVDU (intravenous drug user) ICD Code: F19.90 Status: Chronic (2) Severe sepsis ICD Code: A41.9 Status: Acute (3) Thrombocytopenia ICD Code: D69.6 Status: Resolved (4) Hypomagnesemia ICD Code: E83.42 Status: Acute (5) Hypokalemia ICD Code: E87.6 Status: Acute (6) Hepatitis C ICD Code: B19.20 Status: Acute Assessment and Plan (1) IVDU (intravenous drug user) ICD Code: F19.90 Status: Chronic Plan: Patient with long-standing heroin and Dilaudid use. Evidence of withdrawal (40 mg day Dilaudid) Continue methadone tid trial Patient high-risk for outpatient treatment should long-term IV antibiotics, once his blood cultures clear patient may be candidate for a PICC line for IV antibiotic therapy (2) Severe sepsis ICD Code: A41.9 Status: Acute Plan: Improved tachypnea and tachycardia and hypotension Fever persists Repeat chest x-ray pending IV drug use and MRSA bacteremia/endocarditis and pneumonia Delirium is resolved Continue with IV vancomycin and Levaquin for pneumonia ID consult appreciated echo does show tricuspid valve vegetation (3) Thrombocytopenia ICD Code: D69.6 Status: Resolved Plan: Chronic and recurrent resolved (4) Hypomagnesemia ICD Code: E83.42 Status: Acute Plan: Replace and follow trend (5) Hypokalemia ICD Code: E87.6 Status: Acute Plan: Replace and follow trend (6) Hepatitis C ICD Code: B19.20 Status: Acute Plan: Asymptomatic at this time HIV negative Discharge Planning Will likely need long-term IV antibiotics Carline Troy MD Sep 07, 2016 08:53
[2016-09-07] MEDS: RIFAMPIN 150 MG CAP PO SCH ×2 (09:02→22:01)
[2016-09-07] MEDS: POTASSIUM CHLORIDE 20 MEQ CONTROLLED RELEASE TAB PO SCH ×3 (09:02→17:16)
[2016-09-07] MEDS: NICOTINE 21 MG/24 HR PATCH T-DERMAL SCH (09:03)
[2016-09-07] MEDS: REMOVE OLD PATCH T-DERMAL SCH (09:04)
[2016-09-07] MEDS: LEVOFLOXACIN 750 MG PREMIX INJ 150 ML IV SCH (09:04)
[2016-09-07] MEDS: ENOXAPARIN SODIUM 40 MG/0.4 ML SYRINGE SQ SCH (09:04)
[2016-09-07] MEDS: SODIUM CHLORIDE 0.9% FLUSH 10 ML FLUSH IV FLUSH SCH ×2 (09:05→22:02)
[2016-09-07 14:13] VITALS: BP 131/82; PULSE 95; RESP 15; TEMP 99.1; O2SAT 97
[2016-09-07] MEDS: VANCOMYCIN INJ 1,250 MG in SODIUM CHLOR 0.9% 250 ML INJ 250 ML IV SCH ×2 (15:16→22:05)
[2016-09-07] MEDS: oxyCODONE/ACETAMINOPHEN 7.5 MG/325 MG TAB PO PRN ×2 (15:27→21:39)
[2016-09-07 21:15] LABS: POTASSIUM 3.7 MEQ/L (3.5-5.1)
[2016-09-07 21:18] LABS: BICARBONATE 24.6 MEQ/L (21.0-32.0)
[2016-09-07 21:25] LABS: AUTOMATED NEUTROPHIL # 13.8 TH/MM3 (1.8-7.7); BASOPHIL % 0.3 % (0.0-2.0); EOSINOPHIL # 0.6 TH/MM3 (0-0.4); EOSINOPHIL % 3.8 % (0.0-4.0); HEMATOCRIT 28.6 % (39.0-51.0); LYMPH % 7.3 % (9.0-44.0); LYMPHOCYTE # 1.2 TH/MM3 (1.0-4.8); MEAN CELL VOLUME 79.3 FL (80.0-100.0); MEAN CORPUSCULAR HEMOGLOBIN 25.7 PG (27.0-34.0); MEAN CORPUSCULAR HGB CONC 32.4 % (32.0-36.0); MONO % 5.8 % (0.0-8.0); NEUT % 82.8 % (16.0-70.0); PLATELET COUNT 335 TH/MM3 (150-450); RED CELL DISTRIBUTION WIDTH 14.1 % (11.6-17.2); WHITE BLOOD COUNT 16.6 TH/MM3 (4.0-11.0)
[2016-09-07 21:28] LABS: HEMO FLAGS AUTO DIFF
[2016-09-07 21:56] LABS: SCAN/DIFF AUTO DIFF CONFIRMED
[2016-09-08] VITALS: BP_SYST 113; PULSE 90; RESP 21; TEMP 99.3; O2SAT 93
[2016-09-08] MEDS: oxyCODONE/ACETAMINOPHEN 7.5 MG/325 MG TAB PO PRN ×2 (03:25→09:29)
[2016-09-08] MEDS: VANCOMYCIN INJ 1,250 MG in SODIUM CHLOR 0.9% 250 ML INJ 250 ML IV SCH ×4 (06:11→22:47)
[2016-09-08] MEDS: METHADONE HCL 10 MG TAB PO SCH ×3 (06:12→20:11)
[2016-09-08 08:00] VITALS: BP 115/75; PULSE 86; RESP 18; TEMP 100.1; O2SAT 97
[2016-09-08] MEDS: POTASSIUM CHLORIDE 20 MEQ CONTROLLED RELEASE TAB PO SCH ×2 (08:41→13:30)
[2016-09-08] MEDS: RIFAMPIN 150 MG CAP PO SCH ×2 (08:41→20:11)
[2016-09-08] MEDS: REMOVE OLD PATCH T-DERMAL SCH (08:41)
[2016-09-08] MEDS: LEVOFLOXACIN 750 MG PREMIX INJ 150 ML IV SCH (08:41)
[2016-09-08] MEDS: ENOXAPARIN SODIUM 40 MG/0.4 ML SYRINGE SQ SCH (08:41)
[2016-09-08] MEDS: SODIUM CHLORIDE 0.9% FLUSH 10 ML FLUSH IV FLUSH SCH ×2 (08:42→20:10)
--- NOTE | 2016-09-08 08:49 | HHI.PR ---
Subjective Remarks In bed, says he can't move much his right knee, the knee is more swollen and painful than yesterday. No fever or chills. No n/v/d/c. No rash on his body. Objective Vitals Vital Signs Date Time Temp Pulse Resp B/P Pulse Ox O2 Delivery O2 Flow Rate FiO2 09/08/16 00:00 99.3 90 21 113/ 93 09/07/16 14:13 99.1 95 15 131/82 97 09/07/16 08:52 99.7 81 15 113/73 99 I/O 09/07/16 09/07/16 09/07/16 09/08/16 09/08/16 09/08/16 07:00 15:00 23:00 07:00 15:00 23:00 Intake Total 1460 ml 2180 ml 400 ml Output Total 1450 ml 3000 ml 200 ml Balance 10 ml -820 ml 200 ml Intake Oral 960 ml 2180 ml IV Total 500 ml 400 ml Output Urine Total 1450 ml 3000 ml 200 ml # Voids 2 # Bowel Movements 1 Result Diagram: 09/07/16204409/07/162044 Imaging Last Impressions Knee X-Ray 09/06/16 0000 Signed Impressions: Service Date/Time: Tuesday, September 06, 2016 13:06 - CONCLUSION: 1. Nonspecific joint effusion. 2. Mild narrowing of the medial joint compartment. Asaf Payne MD Chest X-Ray 09/04/16 0000 Signed Impressions: Service Date/Time: Sunday, September 04, 2016 11:40 - CONCLUSION: 1. Medial left posterior lower lobe airspace disease and associated small pleural effusion. Cain Ferraro MD Lower Extremity Ultrasound 09/02/16 0000 Signed Impressions: Service Date/Time: Friday, September 02, 2016 18:16 - CONCLUSION: No DVT. Silvestre Ashraf MD Objective Remarks GENERAL: This is a well-nourished, well-developed patient, diaphoretic and ill appearing this morning SKIN: Diffuse track villarreal, tattoos CARDIOVASCULAR: Regular rate and rhythm without murmurs, gallops, or rubs. RESPIRATORY: Clear to auscultation bilaterally, no wheezes appreciated GASTROINTESTINAL: Abdomen soft, non-tender, nondistended. Normal active bowel sounds MUSCULOSKELETAL: Extremities without clubbing, cyanosis, or edema. Left knee decreased range of motion, tenderness and worsening edema, warm and mild erythema noted. NEURO: Alert & Oriented x4 to person, place, time, situation. Moves all ext x4 A/P Problem List: (1) IVDU (intravenous drug user) ICD Code: F19.90 Status: Chronic (2) Severe sepsis ICD Code: A41.9 Status: Acute (3) Thrombocytopenia ICD Code: D69.6 Status: Resolved (4) Hypomagnesemia ICD Code: E83.42 Status: Acute (5) Hypokalemia ICD Code: E87.6 Status: Acute (6) Hepatitis C ICD Code: B19.20 Status: Acute Assessment and Plan (1) IVDU (intravenous drug user) ICD Code: F19.90 Status: Chronic Plan: Patient with long-standing heroin and Dilaudid use. Evidence of withdrawal (40 mg day Dilaudid) Continue methadone tid trial Patient high-risk for outpatient treatment should long-term IV antibiotics, once his blood cultures clear patient may be candidate for a PICC line for IV antibiotic therapy (2) Severe sepsis POss right knee septic joint ICD Code: A41.9 Status: Acute Plan: Improved tachypnea and tachycardia and hypotension Fever persists Repeat chest x-ray pending IV drug use and MRSA bacteremia/endocarditis and pneumonia Delirium is resolved Continue with IV vancomycin and Levaquin for pneumonia ID consult appreciated ECHO does show tricuspid valve vegetation Right knee edema and erythema, painful, poss septic right knee. Will do MRI of the knee. Will consult ortho for evaluation (3) Thrombocytopenia ICD Code: D69.6 Status: Resolved Plan: Chronic and recurrent resolved (4) Hypomagnesemia ICD Code: E83.42 Status: Acute Plan: Replace and follow trend (5) Hypokalemia ICD Code: E87.6 Status: Acute Plan: Replace and follow trend (6) Hepatitis C ICD Code: B19.20 Status: Acute Plan: Asymptomatic at this time HIV negative Discharge Planning Will likely need long-term IV antibiotics Carline Troy MD Sep 08, 2016 08:48
[2016-09-08] MEDS: ACETAMINOPHEN 325 MG TAB PO PRN (09:29)
[2016-09-08] MEDS: NICOTINE 21 MG/24 HR PATCH T-DERMAL SCH (09:30)
[2016-09-08] MEDS: KETOROLAC TROMETHAMINE 30 MG/ML (IVP) VIAL IV PUSH PRN ×3 (10:38→22:46)
[2016-09-08] MEDS ORDERED: GADODIAMIDE PF 287 MG/ML 5 ML VIAL (for RAD MRI) IV ONE (11:32)
[2016-09-08 12:00] VITALS: BP 113/76; PULSE 80; RESP 18; TEMP 98; O2SAT 94
--- NOTE | 2016-09-08 13:07 | RADRPT ---
EXAM DATE/TIME: 09/08/2016 11:07 [facility] COMPARISON: KNEE LEFT COMPLETE (4VWS), September 06, 2016, 13:06. INDICATIONS : Abscess. CONTRAST: 14 cc Omniscan (gadodiamide) IV MEDICAL HISTORY : Hepatitis C. Endocarditis. SURGICAL HISTORY : Cholecystectomy. Halo placement, right knee surgery ENCOUNTER: Initial ACUITY: 1 day PAIN SCORE: 7/10 LOCATION: Left Knee TECHNIQUE: Multiplanar multisequence MRI examination of the knee was performed with and without contrast. FINDINGS: CRUCIATE LIGAMENTS: ACL and PCL are intact. MENISCI: Medial and lateral menisci are intact with some grade 2 signal changes bilaterally.. COLLATERAL LIGAMENTS: MCL and LCL complexes are intact. BONE/CARTILAGE: Bone marrow signal is homogeneous. Articular cartilage signal is within normal limits. MISCELLANEOUS: There is a large joint effusion present. There is nonspecific edema in the soft tissues that surround s the knee joint. No loculated soft tissue fluid collections are seen. POST-CONTRAST: There is some enhancement of the synovium throughout the joint space. CONCLUSION: 1. There is a large nonspecific joint effusion with some enhancement of the synovial lining. This is nonspecific but is generally seen with synovitis. 2. There is normal signal intensity in the bony structures. There is no evidence of any bony erosions or destruction to suggest osteomyelitis. 3. Nonspecific soft tissue swelling and soft tissues that surrounds the knee joint. Asaf Payne MD on September 08, 2016 at 12:59 Board Certified Radiologist. This report was verified electronically.
[2016-09-08] MEDS ORDERED: PHARMACY ORDERED LAB ONE (13:45)
[2016-09-08 15:30] LABS: BLOOD GAS BASE EXCESS 1.2 mmol/L (-2-2); BLOOD GAS CARBOXYHEMOGLOBIN 2.2 % (0-4); BLOOD GAS HCO3 25 mmol/L (22-26); BLOOD GAS METHEMOGLOBIN 1.1 % (0-2); BLOOD GAS O2 HGB SATURATION 94 % (90-100); BLOOD GAS OXYGEN CONTENT 12.7 Vol % (12.0-20.0); BLOOD GAS PCO2 34 mmHG (38-42); BLOOD GAS PO2 88 mmHG (61-120); BLOOD GAS TOTAL HGB 9.5 G/DL (12.0-16.0); CRITICAL VALUE NO; DRAW SITE LT RADIAL; FIO2 21 %; NUMBER OF ARTERIAL PUNCTURES 1; STAT NO; TEMP CORR TO 98.6; ULNAR PULSE Y
[2016-09-08 16:00] VITALS: BP 105/65; PULSE 86; RESP 20; TEMP 97.6; O2SAT 98
--- NOTE | 2016-09-08 16:15 | HHI.IDPN ---
Note Infectious Disease Note ID Coverage. Patient notes severe pain in the left knee. No other complaints. Afebrile. Blood culture positive 09/05, 09/07 pending. Antibiotics Vancomycin. Rifampin. Levaquin. Lines Peripheral IV line Past Medical History IVDU Allergies: Coded Allergies: Avocado (Verified Allergy, Severe, 04/25/16) Shrimp (Verified Allergy, Severe, Anaphylaxis, 04/25/16) *MDRO Multi-Drug Resistant Organism (Unverified Adverse Reaction, Unknown , 09/04/16) MRSA Blood 09/2016 MRSA FINGER WOUND 12/16/03 Objective Vital Signs Date Time Temp Pulse Resp B/P Pulse Ox O2 Delivery O2 Flow Rate FiO2 09/08/16 12:00 98.0 80 18 113/76 94 09/08/16 08:00 100.1 86 18 115/75 97 09/08/16 00:00 99.3 90 21 113/ 93 09/07/16 09/07/16 09/08/16 15:00 23:00 07:00 Intake Total 2180 ml 400 ml Output Total 3000 ml 200 ml Balance -820 ml 200 ml Intake Oral 2180 ml IV Total 400 ml Output Urine Total 3000 ml 200 ml # Voids 2 # Bowel Movements 1 Laboratory Tests Test 09/07/16 20:45 White Blood Count 16.6 TH/MM3 Red Blood Count 3.60 MIL/MM3 Hemoglobin 9.3 GM/DL Hematocrit 28.6 % Mean Corpuscular Volume 79.3 FL Mean Corpuscular Hemoglobin 25.7 PG Mean Corpuscular Hemoglobin 32.4 % Concent Red Cell Distribution Width 14.1 % Platelet Count 335 TH/MM3 Mean Platelet Volume 8.4 FL Neutrophils (%) (Auto) 82.8 % Lymphocytes (%) (Auto) 7.3 % Monocytes (%) (Auto) 5.8 % Eosinophils (%) (Auto) 3.8 % Basophils (%) (Auto) 0.3 % Neutrophils # (Auto) 13.8 TH/MM3 Lymphocytes # (Auto) 1.2 TH/MM3 Monocytes # (Auto) 1.0 TH/MM3 Eosinophils # (Auto) 0.6 TH/MM3 Basophils # (Auto) 0.0 TH/MM3 CBC Comment AUTO DIFF Differential Comment AUTO DIFF CONFIRMED Laboratory Tests Test 09/06/16 09/07/16 21:55 20:45 Sodium Level 139 MEQ/L 136 MEQ/L Potassium Level 4.2 MEQ/L 3.7 MEQ/L Chloride Level 109 MEQ/L 104 MEQ/L Carbon Dioxide Level 24.2 MEQ/L 24.6 MEQ/L Blood Urea Nitrogen 10 MG/DL 8 MG/DL Creatinine 0.70 MG/DL 0.87 MG/DL Random Glucose 88 MG/DL 115 MG/DL Calcium Level 7.6 MG/DL 7.6 MG/DL Magnesium Level 1.7 MG/DL Anion Gap 6 MEQ/L 7 MEQ/L Estimat Glomerular Filtration 125 ML/MIN 97 ML/MIN Rate Iron Level 19 MCG/DL Total Iron Binding Capacity 183 MCG/DL Percent Iron Saturation 10.4 % Total Creatine Kinase 30 U/L Microbiology Date/Time Procedure Status Source Growth 09/07/16 20:45 Aerobic Blood Culture - Preliminary Resulted Blood Peripheral NO GROWTH IN 1 DAY 09/07/16 20:45 Anaerobic Blood Culture - Preliminary Resulted Blood Peripheral NO GROWTH IN 1 DAY 09/07/16 20:45 Aerobic Blood Culture - Preliminary Resulted Blood Peripheral NO GROWTH IN 1 DAY 09/07/16 20:45 Anaerobic Blood Culture - Preliminary Resulted Blood Peripheral NO GROWTH IN 1 DAY Microbiology Date/Time Procedure Status Source Growth 09/04/16 19:52 Gram Stain - Final Complete Sputum Expectorated Sputum 09/04/16 19:52 Sputum Culture - Final Complete Sputum Expectorated Sputum HEAVY GROWTH NORMAL RESPIRATORY ABIGAIL 09/05/16 07:05 Aerobic Blood Culture - Preliminary Resulted Blood Peripheral S. Aureus Mrsa 09/05/16 07:05 Anaerobic Blood Culture - Preliminary Resulted Blood Peripheral NO GROWTH IN 1 DAY 09/05/16 07:15 Aerobic Blood Culture - Preliminary Resulted Blood Peripheral Gram Positive Cocci 09/05/16 07:15 Anaerobic Blood Culture - Preliminary Resulted Blood Peripheral NO GROWTH IN 1 DAY IMAGING: Knee MRI 09/08/16 0000 Signed Impressions: Service Date/Time: Thursday, September 08, 2016 11:07 - CONCLUSION: 1. There is a large nonspecific joint effusion with some enhancement of the synovial lining. This is nonspecific but is generally seen with synovitis. 2. There is normal signal intensity in the bony structures. There is no evidence of any bony erosions or destruction to suggest osteomyelitis. 3. Nonspecific soft tissue swelling and soft tissues that surrounds the knee joint. Asaf Payne MD Knee X-Ray 09/06/16 0000 Signed Impressions: Service Date/Time: Tuesday, September 06, 2016 13:06 - CONCLUSION: 1. Nonspecific joint effusion. 2. Mild narrowing of the medial joint compartment. Asaf Payne MD Chest X-Ray 09/04/16 0000 Signed Impressions: Service Date/Time: Sunday, September 04, 2016 11:40 - CONCLUSION: 1. Medial left posterior lower lobe airspace disease and associated small pleural effusion. Cain Ferraro MD Lower Extremity Ultrasound 09/02/16 0000 Signed Impressions: Service Date/Time: Friday, September 02, 2016 18:16 - CONCLUSION: No DVT. Silvestre Ashraf MD Physical Exam GENERAL: Patient is in no acute distress. HEENT: EOMI, No icterus. No conjunctival erythema. NECK: Supple. no adenopathy. LUNGS: Clear breath sounds. CARDIAC: Regular rate and rhythm. DORENE LSB. ABDOMEN: Soft, non tender. EXTREMITIES: No CC, swelling at the left knee with tenderness. SKIN: No rash. Warm and moist. Assessment & Plan Diagnosis: (1) Sepsis (2) Septicemia due to methicillin resistant Staphylococcus aureus (3) Endocarditis of tricuspid valve (4) IVDU (intravenous drug user) (5) Pneumonia (6) Left knee joint effusion. Plan: Continue IV Vancomycin Continue Rifampin. Stop Levaquin. Follow blood cultures on 09/07. Consider aspiration of the left knee. Needs roasterman IV antibiotics for endocarditis. Maicol Potter MD Sep 08, 2016 16:15
[2016-09-08 20:00] VITALS: BP 107/66; PULSE 87; RESP 21; TEMP 95.9; O2SAT 98
[2016-09-09] VITALS: BP 105/57; PULSE 88; RESP 20; TEMP 97.5; O2SAT 98
[2016-09-09] MEDS: KETOROLAC TROMETHAMINE 30 MG/ML (IVP) VIAL IV PUSH PRN ×4 (04:41→23:33)
[2016-09-09] MEDS: METHADONE HCL 10 MG TAB PO SCH ×3 (04:41→20:59)
[2016-09-09] MEDS: VANCOMYCIN INJ 1,250 MG in SODIUM CHLOR 0.9% 250 ML INJ 250 ML IV SCH ×3 (07:50→23:27)
[2016-09-09 08:00] VITALS: BP 104/60; PULSE 77; RESP 15; TEMP 96.1; O2SAT 99
--- NOTE | 2016-09-09 08:32 | HHI.PR ---
Subjective Remarks This is a pleasant 41 y/o Male with IDU, admitted due to Sepsis, Septicemia due to MRSA, Endocarditis tricuspid valve Pneumonia, left knee joint effusion, on Vancomycin and Rifampin stopped Levaquin yesterday. 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 seen in his bedroom and dry mucous membranes giving IV fluids before procedure started. no nausea, vomit or diarrhea Objective Vital Signs Date Time Temp Pulse Resp B/P Pulse Ox O2 Delivery O2 Flow Rate FiO2 09/09/16 08:00 96.1 77 15 104/60 99 09/09/16 00:00 97.5 88 20 105/57 98 09/08/16 20:00 95.9 87 21 107/66 98 09/08/16 16:00 97.6 86 20 105/65 98 09/08/16 12:00 98.0 80 18 113/76 94 I/O 09/08/16 09/08/16 09/08/16 09/09/16 09/09/16 09/09/16 07:00 15:00 23:00 07:00 15:00 23:00 Intake Total 400 ml 240 ml 240 ml Output Total 200 ml 900 ml Balance 200 ml -900 ml 240 ml 240 ml Intake Oral 240 ml 240 ml IV Total 400 ml Output Urine Total 200 ml 900 ml # Voids 2 # Bowel Movements 2 Result Diagram: 09/07/16 2045 09/09/16 0356 Imaging Last Impressions Knee MRI 09/08/16 0000 Signed Impressions: Service Date/Time: Thursday, September 08, 2016 11:07 - CONCLUSION: 1. There is a large nonspecific joint effusion with some enhancement of the synovial lining. This is nonspecific but is generally seen with synovitis. 2. There is normal signal intensity in the bony structures. There is no evidence of any bony erosions or destruction to suggest osteomyelitis. 3. Nonspecific soft tissue swelling and soft tissues that surrounds the knee joint. Asaf Payne MD Knee X-Ray 09/06/16 0000 Signed Impressions: Service Date/Time: Tuesday, September 06, 2016 13:06 - CONCLUSION: 1. Nonspecific joint effusion. 2. Mild narrowing of the medial joint compartment. Asaf Payne MD Chest X-Ray 09/04/16 0000 Signed Impressions: Service Date/Time: Sunday, September 04, 2016 11:40 - CONCLUSION: 1. Medial left posterior lower lobe airspace disease and associated small pleural effusion. Cain Ferraro MD Lower Extremity Ultrasound 09/02/16 0000 Signed Impressions: Service Date/Time: Friday, September 02, 2016 18:16 - CONCLUSION: No DVT. Silvestre Ashraf MD Procedures No procedures performed. Other Results Laboratory Tests Test 09/05/16 09/06/16 09/06/16 09/06/16 07:15 11:30 12:00 15:00 Protein Corrected Calcium 8.0 MG/DL Total Protein 5.4 GM/DL Blood Type B POSITIVE Antibody Screen NEGATIVE Blood Bank Comment Toxic Granulation 1+ Platelet Estimate NORMAL Platelet Morphology Comment NORMAL Urine Collection Type CLEAN CATCH Urine Color YELLOW Urine Turbidity CLEAR Urine pH 8.0 Urine Specific [place] 1.011 Urine Protein NEG mg/dL Urine Glucose (UA) NEG mg/dL Urine Ketones 80 OR GREATER mg/dL Urine Occult Blood NEG Urine Nitrite NEG Urine Bilirubin NEG Urine Leukocyte Esterase NEG Urine WBC 0-2 /hpf Urine Squamous Epithelial 0-2 /hpf Cells Microscopic Urinalysis Comment CULT NOT INDICATED Test 09/06/16 09/07/16 09/08/16 09/08/16 21:55 20:45 15:24 15:45 Magnesium Level 1.7 MG/DL Iron Level 19 MCG/DL Total Iron Binding Capacity 183 MCG/DL Percent Iron Saturation 10.4 % Total Creatine Kinase 30 U/L White Blood Count 16.6 TH/MM3 Red Blood Count 3.60 MIL/MM3 Hemoglobin 9.3 GM/DL Hematocrit 28.6 % Mean Corpuscular Volume 79.3 FL Mean Corpuscular Hemoglobin 25.7 PG Mean Corpuscular Hemoglobin 32.4 % Concent Red Cell Distribution Width 14.1 % Platelet Count 335 TH/MM3 Mean Platelet Volume 8.4 FL Neutrophils (%) (Auto) 82.8 % Lymphocytes (%) (Auto) 7.3 % Monocytes (%) (Auto) 5.8 % Eosinophils (%) (Auto) 3.8 % Basophils (%) (Auto) 0.3 % Neutrophils # (Auto) 13.8 TH/MM3 Lymphocytes # (Auto) 1.2 TH/MM3 Monocytes # (Auto) 1.0 TH/MM3 Eosinophils # (Auto) 0.6 TH/MM3 Basophils # (Auto) 0.0 TH/MM3 CBC Comment AUTO DIFF Differential Comment AUTO DIFF CONFIRMED Sodium Level 136 MEQ/L Potassium Level 3.7 MEQ/L Chloride Level 104 MEQ/L Carbon Dioxide Level 24.6 MEQ/L Anion Gap 7 MEQ/L Blood Urea Nitrogen 8 MG/DL Random Glucose 115 MG/DL Calcium Level 7.6 MG/DL Blood Gas Puncture Site LT RADIAL Blood Gas Patient Temperature 98.6 Blood Gas HCO3 25 mmol/L Blood Gas Base Excess 1.2 mmol/L Blood Gas Oxygen Saturation 94 % Arterial Blood pH 7.48 Arterial Blood Partial 34 mmHG Pressure CO2 Arterial Blood Partial 88 mmHG Pressure O2 Arterial Blood Oxygen Content 12.7 Vol % Arterial Blood 2.2 % Carboxyhemoglobin Arterial Blood Methemoglobin 1.1 % Blood Gas Hemoglobin 9.5 G/DL Blood Gas Inspired Oxygen 21 % Vancomycin Level Trough 15.1 MCG/ML Test 09/09/16 03:56 Creatinine 0.79 MG/DL Estimat Glomerular Filtration 109 ML/MIN Rate Objective Remarks GENERAL: No acute distress, SKIN: Warm and dry. HEAD: Atraumatic. Normocephalic. EYES: Pupils equal and round. No scleral icterus. No injection or drainage. ENT: No nasal bleeding or discharge. Mucous membranes dry. NECK: Trachea midline. No JVD. CARDIOVASCULAR: Regular rate and rhythm. RESPIRATORY: Decreased breath sounds bilateral, no wheezing or crackles. GASTROINTESTINAL: Abdomen soft, non-tender, nondistended. Hepatic and splenic margins not palpable. MUSCULOSKELETAL: Extremities without clubbing, cyanosis, or edema. No obvious deformities. NEUROLOGICAL: Awake and alert. No obvious cranial nerve deficits. Motor grossly within normal limits. Five out of 5 muscle strength in the arms and legs. Normal speech. PSYCHIATRIC: Appropriate mood and affect; insight and judgment normal. Medications and IVs Current Medications Medications (Trade) Dose Ordered Sig/Jim Route Start Time Stop Time Status Last Admin (NS Flush) 2 ml UNSCH PRN IV FLUSH 09/02/16 15:00 (NS Flush) 2 ml BID IV FLUSH 09/02/16 21:00 09/08/16 20:10 (Tylenol) 650 mg Q4H PRN PO 09/02/16 15:00 09/08/16 09:29 Ondansetron HCl 4 mg 4 mg Q6H PRN IVP 09/02/16 15:00 09/06/16 22:12 (Vancomycin Consult Pharmacy) 0 ml @ 0 mls/hr UNSCH OTHER 09/02/16 15:00 (Lovenox Inj) 40 mg Q24H SQ 09/03/16 09:00 09/08/16 08:41 (Habitrol 21 Mg Patch.24 Hr) 1 patch DAILY T-DERMAL 09/04/16 10:27 09/08/16 09:30 Miscellaneous Information 1 DAILY T-DERMAL 09/05/16 09:00 09/08/16 08:41 (Rifampin) 300 mg Q12HR PO 09/04/16 21:00 09/08/16 20:11 (Dolophine) 30 mg Q8HR PO 09/06/16 14:00 09/09/16 04:41 Ketorolac Tromethamine 15 mg 15 mg Q6H PRN IV PUSH 09/08/16 09:45 09/13/16 09:44 09/09/16 04:41 (Vancomycin Inj/ NS 250 ml Inj) 262.5 ml @ 250 mls/hr Q8H IV 09/08/16 16:00 09/09/16 07:50 A/P Assessment and Plan 1. 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 strongly recommended to stop behavrior. 2. Severe Sepsis Right knee septic joint, had Tachypnea and tachycardia and Hypotension, fever persisted MRSA Bacteremia/Endocarditis and Pneumonia, Delirium resolved, on Vancomycin and Levaquin, ID specialist following, Echocardiogram showed tricuspid valve vegetation, Right Knee edema and erythema. MRI of the Knee and Orthopedic Surgery consulted. will have I and D of the left knee today. 3. Thrombocytopenia resolved. 4. Electrolyte derangement replaced and following. 5. Hepatitis C/HIV negative 6. Dehydration giving IV fluids and following. DVT prophylaxis with Lovenox. Discharge Planning Expected alarm mechanism adjuster of antibiotics. flight attendant/inflight manager consult in place. Shahram Fernando MD Sep 09, 2016 08:32
[2016-09-09] MEDS ORDERED: SODIUM CHLOR 0.9% 1000 ML INJ 1,000 ML IV ONE (08:45)
[2016-09-09] MEDS: RIFAMPIN 150 MG CAP PO SCH ×2 (09:00→20:58)
[2016-09-09] MEDS: ENOXAPARIN SODIUM 40 MG/0.4 ML SYRINGE SQ SCH (09:00)
[2016-09-09] MEDS: SODIUM CHLOR 0.9% 1000 ML INJ 1,000 ML IV SCH ×3 (09:01→23:28)
[2016-09-09] MEDS: SODIUM CHLORIDE 0.9% FLUSH 10 ML FLUSH IV FLUSH SCH ×2 (09:05→20:59)
[2016-09-09 12:00] VITALS: BP 118/66; PULSE 93; RESP 16; TEMP 96.9; O2SAT 96
[2016-09-09] MEDS ORDERED: ONDANSETRON HCL 4 MG/2 ML VIAL IV PUSH ONE (12:00)
[2016-09-09] MEDS ORDERED: PROPOFOL 200 MG/20 ML AMP IV ONE (12:00)
[2016-09-09] MEDS ORDERED: VANCOMYCIN HCL 1000 MG VIAL ONE (14:09)
[2016-09-09] MEDS ORDERED: GENTAMICIN SULFATE 80 MG/2 ML VIAL ONE (14:09)
[2016-09-09] MEDS ORDERED: DO NOT ADM ANY ANTICOAGULANT DRUGS PRN (14:38)
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
[2016-09-09] MEDS ORDERED: MIDAZOLAM HCL 2 MG/2 ML VIAL ONE (14:49)
[2016-09-09] MEDS ORDERED: fentaNYL CITRATE 250 MCG/5 ML AMP ONE (14:49)
[2016-09-09] MEDS ORDERED: *morphine SULFATE 8 MG/ML PERIprocedure ONLY ONE (15:05)
[2016-09-09 16:00] VITALS: BP 120/77; PULSE 94; RESP 19; TEMP 96.3; O2SAT 95
[2016-09-09 20:00] VITALS: BP 117/58; PULSE 89; RESP 17; TEMP 96.1; O2SAT 97
[2016-09-10] VITALS (8 sets, daily range): BP systolic 98–133; BP diastolic 58–73; PULSE 81–92; RESP 16–20; TEMP 95.5–98.8; O2SAT 94–99
[2016-09-10] MEDS: KETOROLAC TROMETHAMINE 30 MG/ML (IVP) VIAL IV PUSH PRN ×3 (05:18→19:38)
[2016-09-10] MEDS: METHADONE HCL 10 MG TAB PO SCH ×3 (05:19→20:19)
[2016-09-10 06:00] LABS: ANION GAP 7 MEQ/L (5-15); AST (GOT) 10 U/L (15-37); BICARBONATE 23.9 MEQ/L (21.0-32.0); BLOOD UREA NITROGEN 11 MG/DL (7-18); CHLORIDE 108 MEQ/L (98-107); GLOMERULAR FILTRATION RATE 131 ML/MIN (>89); SODIUM (NA) 139 MEQ/L (136-145)
[2016-09-10 06:01] LABS: ALT (GPT) 10 U/L (12-78)
[2016-09-10 06:03] LABS: ALKALINE PHOSPHATASE 69 U/L (45-117); TOTAL BILIRUBIN ADULT 0.3 MG/DL (0.2-1.0)
[2016-09-10] MEDS: REMOVE OLD PATCH T-DERMAL SCH (08:28)
[2016-09-10] MEDS: VANCOMYCIN INJ 1,250 MG in SODIUM CHLOR 0.9% 250 ML INJ 250 ML IV SCH ×3 (08:29→22:48)
[2016-09-10] MEDS: RIFAMPIN 150 MG CAP PO SCH ×2 (08:29→19:38)
[2016-09-10] MEDS: NICOTINE 21 MG/24 HR PATCH T-DERMAL SCH (08:29)
[2016-09-10] MEDS: SODIUM CHLOR 0.9% 1000 ML INJ 1,000 ML IV SCH ×3 (08:29→22:48)
[2016-09-10] MEDS: ENOXAPARIN SODIUM 40 MG/0.4 ML SYRINGE SQ SCH (08:30)
[2016-09-10] MEDS: SODIUM CHLORIDE 0.9% FLUSH 10 ML FLUSH IV FLUSH SCH ×2 (08:30→19:37)
--- NOTE | 2016-09-10 08:37 | HHI.PR ---
Subjective Remarks This is a pleasant 41 y/o Male with IDU, admitted due to Sepsis, Septicemia due to MRSA, Endocarditis tricuspid valve Pneumonia, left knee joint effusion, on Vancomycin and Rifampin stopped Levaquin yesterday. 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 seen in his bedroom and dry mucous membranes giving IV fluids. 09/10: Seen in his bedroom in the presence of his Mrs. Henry Friend asking , states has pain will add to his Medicines Tramadol 50 mg qid as needed for pain, also will add Ambien for insomnia at night, no nausea, vomit or diarrhea. Objective Vital Signs Date Time Temp Pulse Resp B/P Pulse Ox O2 Delivery O2 Flow Rate FiO2 09/10/16 06:15 20 09/10/16 06:15 20 09/10/16 04:31 95.5 84 20 120/72 98 09/10/16 00:00 97.4 90 16 120/69 97 09/09/16 20:00 96.1 89 17 117/58 97 09/09/16 16:00 96.3 94 19 120/77 95 09/09/16 15:15 97.8 85 16 107/64 98 Nasal Cannula 3 09/09/16 15:00 71 16 105/56 96 Nasal Cannula 3 09/09/16 14:45 97.5 70 15 92/53 96 Nasal Cannula 3 09/09/16 12:00 96.9 93 16 118/66 96 I/O 09/09/16 09/09/16 09/09/16 09/10/16 09/10/16 09/10/16 07:00 15:00 23:00 07:00 15:00 23:00 Intake Total 240 ml 600 ml 430 ml 440 ml Output Total 440 ml 400 ml 550 ml Balance 240 ml 160 ml 30 ml -110 ml Intake Oral 240 ml 100 ml 280 ml 440 ml IV Total 150 ml Other 500 ml Output Urine Total 425 ml 400 ml 550 ml Estimated Blood Loss 15 ml # Voids 1 # Bowel Movements 2 0 0 Result Diagram: 09/07/16204409/10/16 0515 Imaging Last Impressions Knee MRI 09/08/16 0000 Signed Impressions: Service Date/Time: Thursday, September 08, 2016 11:07 - CONCLUSION: 1. There is a large nonspecific joint effusion with some enhancement of the synovial lining. This is nonspecific but is generally seen with synovitis. 2. There is normal signal intensity in the bony structures. There is no evidence of any bony erosions or destruction to suggest osteomyelitis. 3. Nonspecific soft tissue swelling and soft tissues that surrounds the knee joint. Asaf Payne MD Knee X-Ray 09/06/16 0000 Signed Impressions: Service Date/Time: Tuesday, September 06, 2016 13:06 - CONCLUSION: 1. Nonspecific joint effusion. 2. Mild narrowing of the medial joint compartment. Asaf Payne MD Chest X-Ray 09/04/16 0000 Signed Impressions: Service Date/Time: Sunday, September 04, 2016 11:40 - CONCLUSION: 1. Medial left posterior lower lobe airspace disease and associated small pleural effusion. Cain Ferraro MD Lower Extremity Ultrasound 09/02/16 0000 Signed Impressions: Service Date/Time: Friday, September 02, 2016 18:16 - CONCLUSION: No DVT. Silvestre Ashraf MD Procedures I and D of the Left knee with diagnosis of septic arthritis. Other Results Laboratory Tests Test 09/06/16 09/06/16 09/06/16 09/06/16 11:30 12:00 15:00 21:55 Blood Type B POSITIVE Antibody Screen NEGATIVE Blood Bank Comment Toxic Granulation 1+ Platelet Estimate NORMAL Platelet Morphology Comment NORMAL Urine Collection Type CLEAN CATCH Urine Color YELLOW Urine Turbidity CLEAR Urine pH 8.0 Urine Specific [place] 1.011 Urine Protein NEG mg/dL Urine Glucose (UA) NEG mg/dL Urine Ketones 80 OR GREATER mg/dL Urine Occult Blood NEG Urine Nitrite NEG Urine Bilirubin NEG Urine Leukocyte Esterase NEG Urine WBC 0-2 /hpf Urine Squamous Epithelial 0-2 /hpf Cells Microscopic Urinalysis Comment CULT NOT INDICATED Iron Level 19 MCG/DL Total Iron Binding Capacity 183 MCG/DL Percent Iron Saturation 10.4 % Total Creatine Kinase 30 U/L Test 09/07/16 09/08/16 09/08/16 09/10/16 20:45 15:24 15:45 05:15 White Blood Count 16.6 TH/MM3 Red Blood Count 3.60 MIL/MM3 Hemoglobin 9.3 GM/DL Hematocrit 28.6 % Mean Corpuscular Volume 79.3 FL Mean Corpuscular Hemoglobin 25.7 PG Mean Corpuscular Hemoglobin 32.4 % Concent Red Cell Distribution Width 14.1 % Platelet Count 335 TH/MM3 Mean Platelet Volume 8.4 FL Neutrophils (%) (Auto) 82.8 % Lymphocytes (%) (Auto) 7.3 % Monocytes (%) (Auto) 5.8 % Eosinophils (%) (Auto) 3.8 % Basophils (%) (Auto) 0.3 % Neutrophils # (Auto) 13.8 TH/MM3 Lymphocytes # (Auto) 1.2 TH/MM3 Monocytes # (Auto) 1.0 TH/MM3 Eosinophils # (Auto) 0.6 TH/MM3 Basophils # (Auto) 0.0 TH/MM3 CBC Comment AUTO DIFF Differential Comment AUTO DIFF CONFIRMED Blood Gas Puncture Site LT RADIAL Blood Gas Patient Temperature 98.6 Blood Gas HCO3 25 mmol/L Blood Gas Base Excess 1.2 mmol/L Blood Gas Oxygen Saturation 94 % Arterial Blood pH 7.48 Arterial Blood Partial 34 mmHG Pressure CO2 Arterial Blood Partial 88 mmHG Pressure O2 Arterial Blood Oxygen Content 12.7 Vol % Arterial Blood 2.2 % Carboxyhemoglobin Arterial Blood Methemoglobin 1.1 % Blood Gas Hemoglobin 9.5 G/DL Blood Gas Inspired Oxygen 21 % Vancomycin Level Trough 15.1 MCG/ML Sodium Level 139 MEQ/L Potassium Level 4.0 MEQ/L Chloride Level 108 MEQ/L Carbon Dioxide Level 23.9 MEQ/L Anion Gap 7 MEQ/L Blood Urea Nitrogen 11 MG/DL Creatinine 0.67 MG/DL Estimat Glomerular Filtration 131 ML/MIN Rate Random Glucose 102 MG/DL Calcium Level 7.7 MG/DL Phosphorus Level 3.7 MG/DL Magnesium Level 2.0 MG/DL Total Bilirubin 0.3 MG/DL Aspartate Amino Transf 10 U/L (AST/SGOT) Alanine Aminotransferase 10 U/L (ALT/SGPT) Alkaline Phosphatase 69 U/L Total Protein 6.0 GM/DL Albumin 1.6 GM/DL Objective Remarks GENERAL: No acute distress, SKIN: Warm and dry. HEAD: Atraumatic. Normocephalic. EYES: Pupils equal and round. No scleral icterus. No injection or drainage. ENT: No nasal bleeding or discharge. Mucous membranes dry. NECK: Trachea midline. No JVD. CARDIOVASCULAR: Regular rate and rhythm. RESPIRATORY: Decreased breath sounds bilateral, no wheezing or crackles. GASTROINTESTINAL: Abdomen soft, non-tender, nondistended. MUSCULOSKELETAL: Extremities without clubbing, cyanosis, or edema. No obvious deformities. NEUROLOGICAL: Awake and alert. No obvious cranial nerve deficits. PSYCHIATRIC: Appropriate mood and affect; insight and judgment normal. Medications and IVs Current Medications Medications (Trade) Dose Ordered Sig/Jim Route Start Time Stop Time Status Last Admin (NS Flush) 2 ml UNSCH PRN IV FLUSH 09/02/16 15:00 (NS Flush) 2 ml BID IV FLUSH 09/02/16 21:00 09/10/16 08:30 (Tylenol) 650 mg Q4H PRN PO 09/02/16 15:00 09/08/16 09:29 Ondansetron HCl 4 mg 4 mg Q6H PRN IVP 09/02/16 15:00 09/06/16 22:12 (Vancomycin Consult Pharmacy) 0 ml @ 0 mls/hr UNSCH OTHER 09/02/16 15:00 (Lovenox Inj) 40 mg Q24H SQ 09/03/16 09:00 09/10/16 08:30 (Habitrol 21 Mg Patch.24 Hr) 1 patch DAILY T-DERMAL 09/04/16 10:27 09/10/16 08:29 Miscellaneous Information 1 DAILY T-DERMAL 09/05/16 09:00 09/10/16 08:28 (Rifampin) 300 mg Q12HR PO 09/04/16 21:00 09/10/16 08:29 (Dolophine) 30 mg Q8HR PO 09/06/16 14:00 09/10/16 05:19 Ketorolac Tromethamine 15 mg 15 mg Q6H PRN IV PUSH 09/08/16 09:45 09/13/16 09:44 09/10/16 05:18 Vancomycin HCl 1250 mg/Sodium Chloride 262.5 ml @ 250 mls/hr Q8H IV 09/08/16 16:00 09/10/16 08:29 (NS 1000 ml Inj) 1,000 ml @ 125 mls/hr Q8H IV 09/09/16 08:45 09/10/16 08:29 Miscellaneous Information ALL NURSING DEPARTME... UNSCH PRN .XX 09/09/16 14:38 09/10/16 14:37 A/P Assessment and Plan 1. IDU long standing Heroin and Dilaudid use had evidence of Withdrawal on Methadone TID trial he will need [facility] antibiotic use. strongly recommended to stop behavior. 2. Severe Sepsis Right knee septic joint, had Tachypnea and tachycardia and Hypotension, fever persisted MRSA Bacteremia/Endocarditis and Pneumonia, Delirium resolved, on Vancomycin and Levaquin, ID specialist following, Echocardiogram showed tricuspid valve vegetation, Right Knee edema and erythema. MRI of the Knee, status post I and D of the Left Knee. 3. Thrombocytopenia resolved. 4. Electrolyte derangement replaced and following. 5. Hepatitis C/HIV negative 6. Dehydration giving IV fluids and following. DVT prophylaxis with Lovenox. added Tramadol to his pain medicine and Ambien at night for Insomnia. Follow CBC in am tomorrow. Discharge Planning Expected correction of antibiotics. manager of pharmacy consult in place. Shahram Fernando MD Sep 10, 2016 08:37
--- NOTE | 2016-09-10 09:00 | PD.ORT.PN ---
Subjective Post Op Day #: 1 Subjective Remarks knee sore, but feels better than prior to sx. Objective Vitals Vital Signs Date Time Temp Pulse Resp B/P Pulse Ox O2 Delivery O2 Flow Rate FiO2 09/10/16 08:00 98.4 81 18 98/62 98 09/10/16 06:15 20 09/10/16 06:15 20 09/10/16 04:31 95.5 84 20 120/72 98 09/10/16 00:00 97.4 90 16 120/69 97 09/09/16 20:00 96.1 89 17 117/58 97 09/09/16 16:00 96.3 94 19 120/77 95 09/09/16 15:15 97.8 85 16 107/64 98 Nasal Cannula 3 09/09/16 15:00 71 16 105/56 96 Nasal Cannula 3 09/09/16 14:45 97.5 70 15 92/53 96 Nasal Cannula 3 09/09/16 12:00 96.9 93 16 118/66 96 I/O 09/09/16 09/09/16 09/09/16 09/10/16 09/10/16 09/10/16 07:00 15:00 23:00 07:00 15:00 23:00 Intake Total 240 ml 600 ml 430 ml 440 ml Output Total 440 ml 400 ml 550 ml Balance 240 ml 160 ml 30 ml -110 ml Intake Oral 240 ml 100 ml 280 ml 440 ml IV Total 150 ml Other 500 ml Output Urine Total 425 ml 400 ml 550 ml Estimated Blood Loss 15 ml # Voids 1 # Bowel Movements 2 0 0 Result Diagram: 09/07/16204409/10/16 0515 Objective Remarks in bed, nad dressing L knee c/d/i neg homans nvi Assessment & Plan Ortho Post Op Day #: 1 Problem List: Assessment and Plan s/p I&D septic L knee endocarditis wbat, ROM as tolerated daily dressing changes IV abx per ID med management f/up dr. soto 2 weeks Reuben Montana Sep 10, 2016 09:00
--- NOTE | 2016-09-10 16:39 | MP ---
cc: CLARKE OLGUIN M.D. DATE OF SURGERY: 09/09/2016. PREOPERATIVE DIAGNOSIS: Septic arthritis, left knee. POSTOPERATIVE DIAGNOSES Septic arthritis, left knee. OPERATIVE PROCEDURE PERFORMED: Left knee arthrotomy, irrigation and debridement. SURGEON: Dr. Clarke Olguin. RECREATION FACILITY MANAGER: Ana Napoles ANESTHESIA: General. ESTIMATED BLOOD LOSS: 50 cc. TOURNIQUET TIME: Zero minutes. COMPLICATIONS: None. JUSTIFICATION FOR THE PROCEDURE: This patient is a 41-year-old male with history of IV drug abuse and endocarditis. He has developed the acute onset of severe pain and swelling in his left knee. He was admitted for sepsis and does have methicillin-resistant staph aureus bacteremia based on blood cultures. Orthopedic surgery was consulted. The patient was counselled as to the risks, benefits and alternatives to the above-named proposed surgical procedure and did wish to proceed with surgery. DESCRIPTION OF THE PROCEDURE IN DETAIL: A written consent was obtained. The patient was identified by name and taken to the operating room and placed supine on the operating room table. General anesthesia was administered as well as 1 gram of IV vancomycin . The left lower extremity was prepped and draped using as isopropyl alcohol, Hibiclens solution and Chloraprep solution. After a time-out was performed, a longitudinal incision made over the anterior aspect of the left knee. A medial parapatellar arthrotomy was performed and there was a copious amount of purulent fluid coming from the knee joint, approximately 100 cc of pus. The knee was then thoroughly irrigated with 3 liters of sterile saline pulse lavage antibiotic-impregnated solution. The arthrotomy incision was closed with running #0 Vicryl suture. The skin incision was closed with 3-0 nylon. Sterile dressings were applied. The patient tolerated the procedure well. There were no intraoperative complications noted. MD ÁNGELA Lott/ROSS /2:38 PM /4:37 PM
--- NOTE | 2016-09-10 18:18 | HHI.IDPN ---
Note Infectious Disease Note ID Coverage. Patient is post arthrotomy, I&D of left knee. Still has positive blood cultures. No other complaints. Afebrile. Blood culture positive 09/05, 09/07 MRSA. . Antibiotics Vancomycin. Rifampin. Lines Peripheral IV line Past Medical History IVDU Allergies: Coded Allergies: Avocado (Verified Allergy, Severe, 04/25/16) Shrimp (Verified Allergy, Severe, Anaphylaxis, 04/25/16) *MDRO Multi-Drug Resistant Organism (Unverified Adverse Reaction, Unknown , 09/04/16) MRSA Blood 09/2016 MRSA FINGER WOUND 12/16/03 Objective Vital Signs Date Time Temp Pulse Resp B/P Pulse Ox O2 Delivery O2 Flow Rate FiO2 09/10/16 16:00 96.0 89 17 114/65 99 09/10/16 12:00 98.2 92 17 115/58 97 09/10/16 11:02 94 21 09/10/16 08:00 98.4 81 18 98/62 98 09/10/16 06:15 20 09/10/16 06:15 20 09/10/16 04:31 95.5 84 20 120/72 98 09/10/16 00:00 97.4 90 16 120/69 97 09/09/16 20:00 96.1 89 17 117/58 97 09/09/16 09/09/16 09/10/16 15:00 23:00 07:00 Intake Total 600 ml 430 ml 440 ml Output Total 440 ml 400 ml 550 ml Balance 160 ml 30 ml -110 ml Intake Oral 100 ml 280 ml 440 ml IV Total 150 ml Other 500 ml Output Urine Total 425 ml 400 ml 550 ml Estimated Blood Loss 15 ml # Voids 1 # Bowel Movements 0 0 Laboratory Tests Test 09/09/16 09/10/16 03:56 05:15 Creatinine 0.79 MG/DL 0.67 MG/DL Estimat Glomerular Filtration 109 ML/MIN 131 ML/MIN Rate Sodium Level 139 MEQ/L Potassium Level 4.0 MEQ/L Chloride Level 108 MEQ/L Carbon Dioxide Level 23.9 MEQ/L Anion Gap 7 MEQ/L Blood Urea Nitrogen 11 MG/DL Random Glucose 102 MG/DL Calcium Level 7.7 MG/DL Phosphorus Level 3.7 MG/DL Magnesium Level 2.0 MG/DL Total Bilirubin 0.3 MG/DL Aspartate Amino Transf 10 U/L (AST/SGOT) Alanine Aminotransferase 10 U/L (ALT/SGPT) Alkaline Phosphatase 69 U/L Total Protein 6.0 GM/DL Albumin 1.6 GM/DL Microbiology Date/Time Procedure Status Source Growth 09/07/16 20:45 Aerobic Blood Culture - Final Resulted Blood Peripheral S. Aureus Mrsa 09/07/16 20:45 Anaerobic Blood Culture - Preliminary Resulted Blood Peripheral NO GROWTH IN 3 DAYS 09/07/16 20:45 Aerobic Blood Culture - Final Resulted Blood Peripheral S. Aureus Mrsa 09/07/16 20:45 Anaerobic Blood Culture - Preliminary Resulted Blood Peripheral NO GROWTH IN 3 DAYS 09/09/16 14:15 Gram Stain - Final Resulted Wound Knee 09/09/16 14:15 Wound Culture - Preliminary Resulted Wound Knee NO GROWTH IN 24 HOURS. 09/09/16 14:15 Acid Fast Stain Received Wound Knee Pending 09/09/16 14:15 Mycobacterial Culture Received Wound Knee Pending 09/09/16 14:15 Fungal Smear - Final Resulted Wound Knee NO FUNGAL ELEMENTS SEEN. 09/09/16 14:15 Fungal Culture Resulted Wound Knee Pending Microbiology Date/Time Procedure Status Source Growth 09/04/16 19:52 Gram Stain - Final Complete Sputum Expectorated Sputum 09/04/16 19:52 Sputum Culture - Final Complete Sputum Expectorated Sputum HEAVY GROWTH NORMAL RESPIRATORY ABIGAIL 09/05/16 07:05 Aerobic Blood Culture - Preliminary Resulted Blood Peripheral S. Aureus Mrsa 09/05/16 07:05 Anaerobic Blood Culture - Preliminary Resulted Blood Peripheral NO GROWTH IN 1 DAY 09/05/16 07:15 Aerobic Blood Culture - Preliminary Resulted Blood Peripheral Gram Positive Cocci 09/05/16 07:15 Anaerobic Blood Culture - Preliminary Resulted Blood Peripheral NO GROWTH IN 1 DAY IMAGING: Knee MRI 09/08/16 0000 Signed Impressions: Service Date/Time: Thursday, September 08, 2016 11:07 - CONCLUSION: 1. There is a large nonspecific joint effusion with some enhancement of the synovial lining. This is nonspecific but is generally seen with synovitis. 2. There is normal signal intensity in the bony structures. There is no evidence of any bony erosions or destruction to suggest osteomyelitis. 3. Nonspecific soft tissue swelling and soft tissues that surrounds the knee joint. Asaf Payne MD Knee X-Ray 09/06/16 0000 Signed Impressions: Service Date/Time: Tuesday, September 06, 2016 13:06 - CONCLUSION: 1. Nonspecific joint effusion. 2. Mild narrowing of the medial joint compartment. Asaf Payne MD Chest X-Ray 09/04/16 0000 Signed Impressions: Service Date/Time: Sunday, September 04, 2016 11:40 - CONCLUSION: 1. Medial left posterior lower lobe airspace disease and associated small pleural effusion. Cain Ferraro MD Lower Extremity Ultrasound 09/02/16 0000 Signed Impressions: Service Date/Time: Friday, September 02, 2016 18:16 - CONCLUSION: No DVT. Silvestre Ashraf MD Physical Exam GENERAL: Patient is in no acute distress. HEENT: EOMI, No icterus. No conjunctival erythema. NECK: Supple. no adenopathy. LUNGS: Clear breath sounds. CARDIAC: Regular rate and rhythm. DORENE LSB. ABDOMEN: Soft, non tender. EXTREMITIES: No CCE, swelling/tenderness at the left knee. SKIN: No rash. Warm and moist. No peripheral embolic phenomena. Assessment & Plan Diagnosis: (1) Sepsis (2) Septicemia due to methicillin resistant Staphylococcus aureus. Persistent positive blood cultures. (3) Endocarditis of tricuspid valve (4) IVDU (intravenous drug user) (5) Pneumonia (6) Left knee joint effusion. Plan: Continue IV Vancomycin Continue Rifampin. Add Gentamycin. Difficulty clearing bacteremia. Follow blood cultures on 09/10. Cardiovascular consult to evaluate for valve replacement. Needs longterm IV antibiotics for endocarditis. Maicol Potter MD Sep 10, 2016 18:18
[2016-09-10] MEDS ORDERED: GENTAMICIN SULFATE 80 MG/2 ML VIAL IM SCH (18:30)
[2016-09-10] MEDS: traMADol HCL 50 MG TAB PO PRN (19:39)
[2016-09-10] MEDS: GENTAMICIN INJ 70 MG in SODIUM CHLORIDE 0.9% INJ 100 ML IV SCH (20:19)
[2016-09-10] MEDS: ZOLPIDEM TARTRATE 5 MG TAB PO PRN (20:19)
[2016-09-11] MEDS: GENTAMICIN INJ 70 MG in SODIUM CHLORIDE 0.9% INJ 100 ML IV SCH ×3 (02:26→19:37)
[2016-09-11] MEDS: KETOROLAC TROMETHAMINE 30 MG/ML (IVP) VIAL IV PUSH PRN ×4 (02:26→21:41)
[2016-09-11] MEDS: METHADONE HCL 10 MG TAB PO SCH ×3 (05:38→21:41)
[2016-09-11 06:54] LABS: AUTOMATED NEUTROPHIL # 6.9 TH/MM3 (1.8-7.7); BASOPHIL # 0.1 TH/MM3 (0-0.2); BASOPHIL % 0.9 % (0.0-2.0); EOSINOPHIL # 0.6 TH/MM3 (0-0.4); EOSINOPHIL % 6.1 % (0.0-4.0); HEMATOCRIT 24.6 % (39.0-51.0); HEMO FLAGS DIFF FINAL; LYMPH % 18.3 % (9.0-44.0); LYMPHOCYTE # 1.9 TH/MM3 (1.0-4.8); MEAN CELL VOLUME 79.1 FL (80.0-100.0); MEAN CORPUSCULAR HEMOGLOBIN 25.6 PG (27.0-34.0); MEAN CORPUSCULAR HGB CONC 32.4 % (32.0-36.0); MONO % 6.2 % (0.0-8.0); NEUT % 68.5 % (16.0-70.0); PLATELET COUNT 399 TH/MM3 (150-450); RED BLOOD COUNT 3.11 MIL/MM3 (4.50-5.90); RED CELL DISTRIBUTION WIDTH 14.3 % (11.6-17.2); WHITE BLOOD COUNT 10.1 TH/MM3 (4.0-11.0)
[2016-09-11 08:00] VITALS: BP_SYST 118; BP_SYST 147; BP_DIAS 66; BP_DIAS 70; PULSE 71; PULSE 75; RESP 12; RESP 13; TEMP 96.1; TEMP 97.6; O2SAT 96; O2SAT 97
--- NOTE | 2016-09-11 08:26 | HHI.PR ---
Subjective Remarks This is a pleasant 41 y/o Male with IDU, admitted due to Sepsis, Septicemia due to MRSA, Endocarditis tricuspid valve Pneumonia, left knee joint effusion, on Vancomycin and Rifampin stopped Levaquin yesterday. considered aspiration of the left knee and gum sprayer antibiotics needed. seen in his bedroom and dry mucous membranes giving IV fluids. 09/10: Seen in his bedroom in the presence of his Mrs. Henry Friend asking , states has pain will add to his Medicines Tramadol 50 mg qid as needed for pain, also will add Ambien for insomnia at night 09/11: Stable in his bedroom seen in the presence of his Mrs. Henry Friend , he is complaining again of Insomnia will increase the dose of Ambien, also he does not need IV fluids will discontinue and try to increase his activity to prevent complications, No nausea, vomit or diarrhea. Objective Vital Signs Date Time Temp Pulse Resp B/P Pulse Ox O2 Delivery O2 Flow Rate FiO2 09/10/16 22:58 98.8 83 16 131/73 98 09/10/16 20:00 95 21 09/10/16 20:00 98.8 91 16 133/72 98 09/10/16 16:00 96.0 89 17 114/65 99 09/10/16 12:00 98.2 92 17 115/58 97 09/10/16 11:02 94 21 I/O 09/10/16 09/10/16 09/10/16 09/11/16 09/11/16 09/11/16 07:00 15:00 23:00 07:00 15:00 23:00 Intake Total 440 ml 1991 ml 1675 ml 1440 ml Output Total 550 ml 1150 ml 1000 ml Balance -110 ml 841 ml 1675 ml 440 ml Intake Oral 440 ml 845 ml 720 ml 480 ml IV Total 1146 ml 955 ml 960 ml Output Urine Total 550 ml 1150 ml 1000 ml # Voids 2 # Bowel Movements 0 0 1 Result Diagram: 09/11/16 0534 09/11/16 0534 Imaging Last Impressions Knee MRI 09/08/16 0000 Signed Impressions: Service Date/Time: Thursday, September 08, 2016 11:07 - CONCLUSION: 1. There is a large nonspecific joint effusion with some enhancement of the synovial lining. This is nonspecific but is generally seen with synovitis. 2. There is normal signal intensity in the bony structures. There is no evidence of any bony erosions or destruction to suggest osteomyelitis. 3. Nonspecific soft tissue swelling and soft tissues that surrounds the knee joint. Asaf Payne MD Knee X-Ray 09/06/16 0000 Signed Impressions: Service Date/Time: Tuesday, September 06, 2016 13:06 - CONCLUSION: 1. Nonspecific joint effusion. 2. Mild narrowing of the medial joint compartment. Asaf Payne MD Chest X-Ray 09/04/16 0000 Signed Impressions: Service Date/Time: Sunday, September 04, 2016 11:40 - CONCLUSION: 1. Medial left posterior lower lobe airspace disease and associated small pleural effusion. Cain Ferraro MD Lower Extremity Ultrasound 09/02/16 0000 Signed Impressions: Service Date/Time: Friday, September 02, 2016 18:16 - CONCLUSION: No DVT. Silvestre Ashraf MD Procedures I and D of the Left knee with diagnosis of septic arthritis. Other Results Laboratory Tests Test 09/06/16 09/08/16 09/08/16 09/10/16 21:55 15:24 15:45 05:15 Iron Level 19 MCG/DL Total Iron Binding Capacity 183 MCG/DL Percent Iron Saturation 10.4 % Total Creatine Kinase 30 U/L Blood Gas Puncture Site LT RADIAL Blood Gas Patient Temperature 98.6 Blood Gas HCO3 25 mmol/L Blood Gas Base Excess 1.2 mmol/L Blood Gas Oxygen Saturation 94 % Arterial Blood pH 7.48 Arterial Blood Partial 34 mmHG Pressure CO2 Arterial Blood Partial 88 mmHG Pressure O2 Arterial Blood Oxygen Content 12.7 Vol % Arterial Blood 2.2 % Carboxyhemoglobin Arterial Blood Methemoglobin 1.1 % Blood Gas Hemoglobin 9.5 G/DL Blood Gas Inspired Oxygen 21 % Vancomycin Level Trough 15.1 MCG/ML Sodium Level 139 MEQ/L Potassium Level 4.0 MEQ/L Chloride Level 108 MEQ/L Carbon Dioxide Level 23.9 MEQ/L Anion Gap 7 MEQ/L Blood Urea Nitrogen 11 MG/DL Random Glucose 102 MG/DL Calcium Level 7.7 MG/DL Phosphorus Level 3.7 MG/DL Magnesium Level 2.0 MG/DL Total Bilirubin 0.3 MG/DL Aspartate Amino Transf 10 U/L (AST/SGOT) Alanine Aminotransferase 10 U/L (ALT/SGPT) Alkaline Phosphatase 69 U/L Total Protein 6.0 GM/DL Albumin 1.6 GM/DL Test 09/11/16 05:34 White Blood Count 10.1 TH/MM3 Red Blood Count 3.11 MIL/MM3 Hemoglobin 8.0 GM/DL Hematocrit 24.6 % Mean Corpuscular Volume 79.1 FL Mean Corpuscular Hemoglobin 25.6 PG Mean Corpuscular Hemoglobin 32.4 % Concent Red Cell Distribution Width 14.3 % Platelet Count 399 TH/MM3 Mean Platelet Volume 7.6 FL Neutrophils (%) (Auto) 68.5 % Lymphocytes (%) (Auto) 18.3 % Monocytes (%) (Auto) 6.2 % Eosinophils (%) (Auto) 6.1 % Basophils (%) (Auto) 0.9 % Neutrophils # (Auto) 6.9 TH/MM3 Lymphocytes # (Auto) 1.9 TH/MM3 Monocytes # (Auto) 0.6 TH/MM3 Eosinophils # (Auto) 0.6 TH/MM3 Basophils # (Auto) 0.1 TH/MM3 CBC Comment DIFF FINAL Differential Comment Creatinine 0.66 MG/DL Estimat Glomerular Filtration 134 ML/MIN Rate Objective Remarks GENERAL: No acute distress, SKIN: Warm and dry. HEAD: Atraumatic. Normocephalic. EYES: Pupils equal and round. No scleral icterus. No injection or drainage. ENT: No nasal bleeding or discharge. Mucous membranes dry. NECK: Trachea midline. No JVD. CARDIOVASCULAR: Regular rate and rhythm. RESPIRATORY: Decreased breath sounds bilateral, no wheezing or crackles. GASTROINTESTINAL: Abdomen soft, non-tender, nondistended. MUSCULOSKELETAL: Extremities without clubbing, cyanosis, dressed Left knee. NEUROLOGICAL: Awake and alert. No obvious cranial nerve deficits. PSYCHIATRIC: Appropriate mood and affect; insight and judgment normal. Medications and IVs Current Medications Medications (Trade) Dose Ordered Sig/Jim Route Start Time Stop Time Status Last Admin (NS Flush) 2 ml UNSCH PRN IV FLUSH 09/02/16 15:00 (NS Flush) 2 ml BID IV FLUSH 09/02/16 21:00 09/10/16 08:30 (Tylenol) 650 mg Q4H PRN PO 09/02/16 15:00 09/08/16 09:29 Ondansetron HCl 4 mg 4 mg Q6H PRN IVP 09/02/16 15:00 09/06/16 22:12 (Vancomycin Consult Pharmacy) 0 ml @ 0 mls/hr UNSCH OTHER 09/02/16 15:00 (Lovenox Inj) 40 mg Q24H SQ 09/03/16 09:00 09/10/16 08:30 (Habitrol 21 Mg Patch.24 Hr) 1 patch DAILY T-DERMAL 09/04/16 10:27 09/10/16 08:29 Miscellaneous Information 1 DAILY T-DERMAL 09/05/16 09:00 09/10/16 08:28 (Rifampin) 300 mg Q12HR PO 09/04/16 21:00 09/10/16 19:38 (Dolophine) 30 mg Q8HR PO 09/06/16 14:00 09/11/16 05:38 Ketorolac Tromethamine 15 mg 15 mg Q6H PRN IV PUSH 09/08/16 09:45 09/11/16 02:26 Vancomycin HCl 1250 mg/Sodium Chloride 262.5 ml @ 250 mls/hr Q8H IV 09/08/16 16:00 09/10/16 22:48 (NS 1000 ml Inj) 1,000 ml @ 83 mls/hr Q12H3M IV 09/09/16 08:45 09/10/16 22:48 (Ultram) 50 mg Q6H PRN PO 09/10/16 09:00 09/10/16 19:39 Zolpidem Tartrate 5 mg 5 mg HS PRN PO 09/10/16 21:00 09/10/16 20:19 (Gentamicin Inj/ NS Inj) 101.75 ml @ 200 mls/ hr Q8H IV 09/10/16 20:00 09/11/16 02:26 A/P Assessment and Plan 1. 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 strongly recommended to stop behavior. 2. Severe Sepsis Right knee septic joint, had Tachypnea and tachycardia and Hypotension, fever persisted MRSA Bacteremia/Endocarditis and Pneumonia, Delirium resolved, as per ID specialist to continue Vancomycin continue Rifampin, Added Gentamycin, Echocardiogram showed tricuspid valve vegetation, Leukocytosis Improving today from 16.6 to 10.1 3. Septic Arthritis of the Left knee status post I and D. Orthopedic Surgery following. 4. Electrolyte derangement replaced 5. Hepatitis C/HIV negative 6. Dehydration Improved, will discontinue IV fluids to improve activity. DVT prophylaxis with Lovenox. Discussed with patient in his bedroom, his and nurse Miss Baumann, all questions answered to the best of my abilities. Discharge Planning Expected pelletizer tender of antibiotics. litigation manager consult in place. Shahram Fernando MD Sep 11, 2016 08:26 Follow CBC in am tomorrow. Discharge Planning Expected [facility] of antibiotics. litigation manager consult in place. Shahram Fernando MD Sep 11, 2016 08:26
[2016-09-11] MEDS: REMOVE OLD PATCH T-DERMAL SCH (09:00)
[2016-09-11] MEDS: SODIUM CHLORIDE 0.9% FLUSH 10 ML FLUSH IV FLUSH SCH ×2 (09:00→19:37)
[2016-09-11] MEDS: RIFAMPIN 150 MG CAP PO SCH ×2 (09:07→19:37)
[2016-09-11] MEDS: VANCOMYCIN INJ 1,250 MG in SODIUM CHLOR 0.9% 250 ML INJ 250 ML IV SCH ×3 (09:07→23:11)
[2016-09-11] MEDS: ENOXAPARIN SODIUM 40 MG/0.4 ML SYRINGE SQ SCH (09:08)
[2016-09-11] MEDS: NICOTINE 21 MG/24 HR PATCH T-DERMAL SCH (09:09)
[2016-09-11] MEDS: traMADol HCL 50 MG TAB PO PRN ×3 (09:12→21:41)
[2016-09-11 12:00] VITALS: BP 117/68; PULSE 87; RESP 17; TEMP 96.5; O2SAT 97
--- NOTE | 2016-09-11 13:05 | PD.ORT.PN ---
Subjective Post Op Day #: 2 Subjective Remarks knee sore, but feels better than prior to sx. no new complaints. Objective Vitals Vital Signs Date Time Temp Pulse Resp B/P Pulse Ox O2 Delivery O2 Flow Rate FiO2 09/11/16 12:00 96.5 87 17 117/68 97 09/11/16 08:00 97.6 75 12 118/70 96 09/10/16 22:58 98.8 83 16 131/73 98 09/10/16 20:00 95 21 09/10/16 20:00 98.8 91 16 133/72 98 09/10/16 16:00 96.0 89 17 114/65 99 I/O 09/10/16 09/10/16 09/10/16 09/11/16 09/11/16 09/11/16 07:00 15:00 23:00 07:00 15:00 23:00 Intake Total 440 ml 1991 ml 1675 ml 1440 ml Output Total 550 ml 1150 ml 1000 ml Balance -110 ml 841 ml 1675 ml 440 ml Intake Oral 440 ml 845 ml 720 ml 480 ml IV Total 1146 ml 955 ml 960 ml Output Urine Total 550 ml 1150 ml 1000 ml # Voids 2 # Bowel Movements 0 0 1 Result Diagram: 09/11/16 0534 09/11/16533 Objective Remarks in bed, nad incision no erythema, slight bloody drainage neg homans nvi Assessment & Plan Ortho Post Op Day #: 2 Problem List: Assessment and Plan s/p I&D septic L knee endocarditis wbat, ROM as tolerated daily dressing changes IV abx per ID med management ortho stable f/up dr. soto 2 weeks Reuben Montana Sep 11, 2016 13:05
[2016-09-11 13:57] VITALS: O2SAT 97
--- NOTE | 2016-09-11 15:17 | HHI.IDPN ---
Note Infectious Disease Note ID Coverage. Still has positive blood cultures. Repeat blood culture pending. No complaints. Afebrile. Blood culture positive 09/05, 09/07 MRSA. 09/10 - pending. . Left knee culture no growth. Antibiotics Vancomycin. Rifampin. Gent added 09/10/16. Lines Peripheral IV line Past Medical History IVDU Allergies: Coded Allergies: Avocado (Verified Allergy, Severe, 04/25/16) Shrimp (Verified Allergy, Severe, Anaphylaxis, 04/25/16) *MDRO Multi-Drug Resistant Organism (Unverified Adverse Reaction, Unknown , 09/04/16) MRSA Blood 09/2016 MRSA FINGER WOUND 12/16/03 Objective Vital Signs Date Time Temp Pulse Resp B/P Pulse Ox O2 Delivery O2 Flow Rate FiO2 09/11/16 13:57 97 21 09/11/16 12:00 96.5 87 17 117/68 97 09/11/16 08:00 97.6 75 12 118/70 96 09/10/16 22:58 98.8 83 16 131/73 98 09/10/16 20:00 95 21 09/10/16 20:00 98.8 91 16 133/72 98 09/10/16 16:00 96.0 89 17 114/65 99 09/10/16 09/10/16 09/11/16 15:00 23:00 07:00 Intake Total 1991 ml 1675 ml 1440 ml Output Total 1150 ml 1000 ml Balance 841 ml 1675 ml 440 ml Intake Oral 845 ml 720 ml 480 ml IV Total 1146 ml 955 ml 960 ml Output Urine Total 1150 ml 1000 ml # Voids 2 # Bowel Movements 0 1 Laboratory Tests Test 09/11/16 05:34 White Blood Count 10.1 TH/MM3 Red Blood Count 3.11 MIL/MM3 Hemoglobin 8.0 GM/DL Hematocrit 24.6 % Mean Corpuscular Volume 79.1 FL Mean Corpuscular Hemoglobin 25.6 PG Mean Corpuscular Hemoglobin 32.4 % Concent Red Cell Distribution Width 14.3 % Platelet Count 399 TH/MM3 Mean Platelet Volume 7.6 FL Neutrophils (%) (Auto) 68.5 % Lymphocytes (%) (Auto) 18.3 % Monocytes (%) (Auto) 6.2 % Eosinophils (%) (Auto) 6.1 % Basophils (%) (Auto) 0.9 % Neutrophils # (Auto) 6.9 TH/MM3 Lymphocytes # (Auto) 1.9 TH/MM3 Monocytes # (Auto) 0.6 TH/MM3 Eosinophils # (Auto) 0.6 TH/MM3 Basophils # (Auto) 0.1 TH/MM3 CBC Comment DIFF FINAL Differential Comment Laboratory Tests Test 09/10/16 09/11/16 05:15 05:34 Sodium Level 139 MEQ/L Potassium Level 4.0 MEQ/L Chloride Level 108 MEQ/L Carbon Dioxide Level 23.9 MEQ/L Anion Gap 7 MEQ/L Blood Urea Nitrogen 11 MG/DL Creatinine 0.67 MG/DL 0.66 MG/DL Estimat Glomerular Filtration 131 ML/MIN 134 ML/MIN Rate Random Glucose 102 MG/DL Calcium Level 7.7 MG/DL Phosphorus Level 3.7 MG/DL Magnesium Level 2.0 MG/DL Total Bilirubin 0.3 MG/DL Aspartate Amino Transf 10 U/L (AST/SGOT) Alanine Aminotransferase 10 U/L (ALT/SGPT) Alkaline Phosphatase 69 U/L Total Protein 6.0 GM/DL Albumin 1.6 GM/DL Microbiology Date/Time Procedure Status Source Growth 09/09/16 14:15 Gram Stain - Final Resulted Wound Knee 09/09/16 14:15 Wound Culture - Preliminary Resulted Wound Knee NO GROWTH IN 48 HOURS. 09/09/16 14:15 Acid Fast Stain Received Wound Knee Pending 09/09/16 14:15 Mycobacterial Culture Received Wound Knee Pending 09/09/16 14:15 Fungal Smear - Final Resulted Wound Knee NO FUNGAL ELEMENTS SEEN. 09/09/16 14:15 Fungal Culture Resulted Wound Knee Pending 09/10/16 19:50 Aerobic Blood Culture - Preliminary Resulted Blood Peripheral NO GROWTH IN 1 DAY 09/10/16 19:50 Anaerobic Blood Culture - Preliminary Resulted Blood Peripheral NO GROWTH IN 1 DAY Microbiology Date/Time Procedure Status Source Growth 09/04/16 19:52 Gram Stain - Final Complete Sputum Expectorated Sputum 09/04/16 19:52 Sputum Culture - Final Complete Sputum Expectorated Sputum HEAVY GROWTH NORMAL RESPIRATORY ABIGAIL 09/05/16 07:05 Aerobic Blood Culture - Preliminary Resulted Blood Peripheral S. Aureus Mrsa 09/05/16 07:05 Anaerobic Blood Culture - Preliminary Resulted Blood Peripheral NO GROWTH IN 1 DAY 09/05/16 07:15 Aerobic Blood Culture - Preliminary Resulted Blood Peripheral Gram Positive Cocci 09/05/16 07:15 Anaerobic Blood Culture - Preliminary Resulted Blood Peripheral NO GROWTH IN 1 DAY IMAGING: Knee MRI 09/08/16 0000 Signed Impressions: Service Date/Time: Thursday, September 08, 2016 11:07 - CONCLUSION: 1. There is a large nonspecific joint effusion with some enhancement of the synovial lining. This is nonspecific but is generally seen with synovitis. 2. There is normal signal intensity in the bony structures. There is no evidence of any bony erosions or destruction to suggest osteomyelitis. 3. Nonspecific soft tissue swelling and soft tissues that surrounds the knee joint. Asaf Payne MD Knee X-Ray 09/06/16 0000 Signed Impressions: Service Date/Time: Tuesday, September 06, 2016 13:06 - CONCLUSION: 1. Nonspecific joint effusion. 2. Mild narrowing of the medial joint compartment. Asaf Payne MD Chest X-Ray 09/04/16 0000 Signed Impressions: Service Date/Time: Sunday, September 04, 2016 11:40 - CONCLUSION: 1. Medial left posterior lower lobe airspace disease and associated small pleural effusion. Cain Ferraro MD Lower Extremity Ultrasound 09/02/16 0000 Signed Impressions: Service Date/Time: Friday, September 02, 2016 18:16 - CONCLUSION: No DVT. Silvestre Ashraf MD Physical Exam GENERAL: Patient is in no acute distress. HEENT: EOMI, No icterus. No conjunctival erythema. NECK: Supple. no adenopathy. LUNGS: Clear breath sounds. CARDIAC: Regular rate and rhythm. 2/6 DORENE LSB. ABDOMEN: Soft, non tender. EXTREMITIES: No CCE, decreased swelling/tenderness at the left knee. SKIN: No rash. Warm and moist. No peripheral embolic phenomena. Assessment & Plan Diagnosis: 1. Septicemia due to methicillin resistant Staphylococcus aureus. Persistent positive blood cultures. 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 3. IVDU (intravenous drug user) 4. Pneumonia 5. Left knee joint effusion. Plan: Continue IV Vancomycin Continue Rifampin. Continue Gentamycin. Difficulty clearing bacteremia. Follow blood cultures on 09/10. Cardiovascular consult to evaluate for valve replacement. Needs longterm IV antibiotics for endocarditis. Maicol Potter MD Sep 11, 2016 15:16
[2016-09-11 16:00] VITALS: BP 120/69; PULSE 89; RESP 16; TEMP 96.3; O2SAT 99
[2016-09-11 20:00] VITALS: BP 123/71; PULSE 82; RESP 20; TEMP 97.9; O2SAT 96
[2016-09-11] MEDS: ZOLPIDEM TARTRATE 5 MG TAB PO PRN (21:41)
[2016-09-11 23:37] VITALS: BP 123/69; PULSE 77; RESP 20; TEMP 96.8; O2SAT 97
[2016-09-12] MEDS: GENTAMICIN INJ 70 MG in SODIUM CHLORIDE 0.9% INJ 100 ML IV SCH ×3 (04:17→20:24)
[2016-09-12] MEDS: METHADONE HCL 10 MG TAB PO SCH ×3 (04:17→20:25)
[2016-09-12] MEDS: KETOROLAC TROMETHAMINE 30 MG/ML (IVP) VIAL IV PUSH PRN ×2 (04:18→12:33)
[2016-09-12] MEDS: traMADol HCL 50 MG TAB PO PRN ×3 (04:18→20:25)
[2016-09-12] MEDS ORDERED: PHARMACY ORDERED LAB ONE (07:45)
[2016-09-12 08:00] VITALS: BP 120/68; PULSE 71; RESP 20; TEMP 98.7; O2SAT 98
--- NOTE | 2016-09-12 08:23 | HHI.PR ---
Subjective Remarks This is a pleasant 41 y/o Male with IDU, admitted due to Sepsis, Septicemia due to MRSA, Endocarditis tricuspid valve Pneumonia, left knee joint effusion, on Vancomycin and Rifampin stopped Levaquin yesterday. considered aspiration of the left knee and termite control servicer antibiotics needed. seen in his bedroom and dry mucous membranes giving IV fluids. 09/10: Seen in his bedroom in the presence of his Mrs. Henry Friend asking , states has pain will add to his Medicines Tramadol 50 mg qid as needed for pain, also will add Ambien for insomnia at night 09/11: Stable in his bedroom seen in the presence of his Mrs. Henry Friend , he is complaining again of Insomnia will increase the dose of Ambien, also he does not need IV fluids will discontinue and try to increase his activity to prevent complications. 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 to be followed by Orthopedic disease intervention specialist Doctor Dave in two weeks. no nausea, vomit or diarrhea, at this time with his nurse Pastor no complaint. Objective Vital Signs Date Time Temp Pulse Resp B/P Pulse Ox O2 Delivery O2 Flow Rate FiO2 09/11/16 23:37 96.8 77 20 123/69 97 09/11/16 20:56 21 09/11/16 20:00 97.9 82 20 123/71 96 09/11/16 16:00 96.3 89 16 120/69 99 09/11/16 13:57 97 21 09/11/16 12:00 96.5 87 17 117/68 97 I/O 09/11/16 09/11/16 09/11/16 09/12/16 09/12/16 09/12/16 07:00 15:00 23:00 07:00 15:00 23:00 Intake Total 1440 ml 1494 ml 360 ml 360 ml Output Total 1000 ml 1540 ml 1100 ml Balance 440 ml -46 ml 360 ml -740 ml Intake Oral 480 ml 720 ml 360 ml 360 ml IV Total 960 ml 774 ml Output Urine Total 1000 ml 1540 ml 1100 ml # Voids 2 # Bowel Movements 0 0 0 Result Diagram: 09/11/16 0534 09/11/16 0534 Imaging Last Impressions Knee MRI 09/08/16 0000 Signed Impressions: Service Date/Time: Thursday, September 08, 2016 11:07 - CONCLUSION: 1. There is a large nonspecific joint effusion with some enhancement of the synovial lining. This is nonspecific but is generally seen with synovitis. 2. There is normal signal intensity in the bony structures. There is no evidence of any bony erosions or destruction to suggest osteomyelitis. 3. Nonspecific soft tissue swelling and soft tissues that surrounds the knee joint. Asaf Payne MD Knee X-Ray 09/06/16 0000 Signed Impressions: Service Date/Time: Tuesday, September 06, 2016 13:06 - CONCLUSION: 1. Nonspecific joint effusion. 2. Mild narrowing of the medial joint compartment. Asaf Payne MD Chest X-Ray 09/04/16 0000 Signed Impressions: Service Date/Time: Sunday, September 04, 2016 11:40 - CONCLUSION: 1. Medial left posterior lower lobe airspace disease and associated small pleural effusion. Cain Ferraro MD Lower Extremity Ultrasound 09/02/16 0000 Signed Impressions: Service Date/Time: Friday, September 02, 2016 18:16 - CONCLUSION: No DVT. Silvestre Ashraf MD Procedures I and D of the Left knee with diagnosis of septic arthritis. Other Results Laboratory Tests Test 09/08/16 09/08/16 09/10/16 09/11/16 15:24 15:45 05:15 05:34 Blood Gas Puncture Site LT RADIAL Blood Gas Patient Temperature 98.6 Blood Gas HCO3 25 mmol/L Blood Gas Base Excess 1.2 mmol/L Blood Gas Oxygen Saturation 94 % Arterial Blood pH 7.48 Arterial Blood Partial 34 mmHG Pressure CO2 Arterial Blood Partial 88 mmHG Pressure O2 Arterial Blood Oxygen Content 12.7 Vol % Arterial Blood 2.2 % Carboxyhemoglobin Arterial Blood Methemoglobin 1.1 % Blood Gas Hemoglobin 9.5 G/DL Blood Gas Inspired Oxygen 21 % Vancomycin Level Trough 15.1 MCG/ML Sodium Level 139 MEQ/L Potassium Level 4.0 MEQ/L Chloride Level 108 MEQ/L Carbon Dioxide Level 23.9 MEQ/L Anion Gap 7 MEQ/L Blood Urea Nitrogen 11 MG/DL Random Glucose 102 MG/DL Calcium Level 7.7 MG/DL Phosphorus Level 3.7 MG/DL Magnesium Level 2.0 MG/DL Total Bilirubin 0.3 MG/DL Aspartate Amino Transf 10 U/L (AST/SGOT) Alanine Aminotransferase 10 U/L (ALT/SGPT) Alkaline Phosphatase 69 U/L Total Protein 6.0 GM/DL Albumin 1.6 GM/DL White Blood Count 10.1 TH/MM3 Red Blood Count 3.11 MIL/MM3 Hemoglobin 8.0 GM/DL Hematocrit 24.6 % Mean Corpuscular Volume 79.1 FL Mean Corpuscular Hemoglobin 25.6 PG Mean Corpuscular Hemoglobin 32.4 % Concent Red Cell Distribution Width 14.3 % Platelet Count 399 TH/MM3 Mean Platelet Volume 7.6 FL Neutrophils (%) (Auto) 68.5 % Lymphocytes (%) (Auto) 18.3 % Monocytes (%) (Auto) 6.2 % Eosinophils (%) (Auto) 6.1 % Basophils (%) (Auto) 0.9 % Neutrophils # (Auto) 6.9 TH/MM3 Lymphocytes # (Auto) 1.9 TH/MM3 Monocytes # (Auto) 0.6 TH/MM3 Eosinophils # (Auto) 0.6 TH/MM3 Basophils # (Auto) 0.1 TH/MM3 CBC Comment DIFF FINAL Differential Comment Creatinine 0.66 MG/DL Estimat Glomerular Filtration 134 ML/MIN Rate Objective Remarks GENERAL: No acute distress, SKIN: Warm and dry. multiple tattoo. HEAD: Atraumatic. Normocephalic. EYES: Pupils equal and round. No scleral icterus. No injection or drainage. ENT: No nasal bleeding or discharge. Mucous membranes dry. NECK: Trachea midline. No JVD. CARDIOVASCULAR: Regular rate and rhythm. RESPIRATORY: Decreased breath sounds bilateral, no wheezing or crackles. GASTROINTESTINAL: Abdomen soft, non-tender, nondistended. MUSCULOSKELETAL: Extremities without clubbing, cyanosis, dressed Left knee. NEUROLOGICAL: Awake and alert. No obvious cranial nerve deficits. PSYCHIATRIC: Appropriate mood and affect; insight and judgment normal. Medications and IVs Current Medications Medications (Trade) Dose Ordered Sig/Jim Route Start Time Stop Time Status Last Admin (NS Flush) 2 ml UNSCH PRN IV FLUSH 09/02/16 15:00 (NS Flush) 2 ml BID IV FLUSH 09/02/16 21:00 09/11/16 19:37 (Tylenol) 650 mg Q4H PRN PO 09/02/16 15:00 09/08/16 09:29 Ondansetron HCl 4 mg 4 mg Q6H PRN IVP 09/02/16 15:00 09/06/16 22:12 (Vancomycin Consult Pharmacy) 0 ml @ 0 mls/hr UNSCH OTHER 09/02/16 15:00 (Lovenox Inj) 40 mg Q24H SQ 09/03/16 09:00 09/11/16 09:08 (Habitrol 21 Mg Patch.24 Hr) 1 patch DAILY T-DERMAL 09/04/16 10:27 09/11/16 09:09 Miscellaneous Information 1 DAILY T-DERMAL 09/05/16 09:00 09/11/16 09:00 (Rifampin) 300 mg Q12HR PO 09/04/16 21:00 09/11/16 19:37 (Dolophine) 30 mg Q8HR PO 09/06/16 14:00 09/12/16 04:17 Ketorolac Tromethamine 15 mg 15 mg Q6H PRN IV PUSH 09/08/16 09:45 09/12/16 04:18 (Vancomycin Inj/ NS 250 ml Inj) 262.5 ml @ 250 mls/hr Q8H IV 09/08/16 16:00 09/11/16 23:11 (Ultram) 50 mg Q6H PRN PO 09/10/16 09:00 09/12/16 04:18 Zolpidem Tartrate 5 mg 5 mg HS PRN PO 09/10/16 21:00 09/11/16 21:41 (Gentamicin Inj/ NS Inj) 101.75 ml @ 200 mls/ hr Q8H IV 09/10/16 20:00 09/12/16 04:17 A/P Assessment and Plan 1. IDU long standing Heroin and Dilaudid use had evidence of Withdrawal on Methadone TID trial he will need termite control servicer antibiotic use. strongly recommended to stop behavior. 2. Severe Sepsis/Septicemia secondary to Methicillin resistant Staphylococcus Aureus, as per ID specialist with Persistent positive blood Cultures, has Pneumonia, Right knee septic joint , had Tachypnea and tachycardia and Hypotension, fever persisted, his Delirium has resolved, recommended to continue Vancomycin Rifampin, Gentamicin. 3. 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 as per Cardiovascular to continue antibiotics for six weeks and reevaluate to try to avoid Surgical procedure. 4. Septic Arthritis of the Left knee status post I and D. Orthopedic Surgery recommended follow up with Doctor Dave in two weeks if the patient continue Hospitalized to ask for this follow up or re consult in two weeks. 5. Electrolyte derangement replaced 6. Hepatitis C/HIV negative DVT prophylaxis with Lovenox. Discussed with patient in his bedroom and his nurse Miss Baumann, all questions answered to the best of my abilities. Discharge Planning Expected termite renewal inspector of antibiotics. location manager consult in place. Shahram Fernando MD Sep 12, 2016 08:23
[2016-09-12] MEDS: NICOTINE 21 MG/24 HR PATCH T-DERMAL SCH (08:24)
[2016-09-12] MEDS: REMOVE OLD PATCH T-DERMAL SCH (08:24)
[2016-09-12] MEDS: SODIUM CHLORIDE 0.9% FLUSH 10 ML FLUSH IV FLUSH SCH ×2 (08:25→20:25)
[2016-09-12] MEDS: RIFAMPIN 150 MG CAP PO SCH ×2 (08:25→20:25)
[2016-09-12] MEDS: ENOXAPARIN SODIUM 40 MG/0.4 ML SYRINGE SQ SCH (08:26)
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
[2016-09-12] MEDS: VANCOMYCIN INJ 1,250 MG in SODIUM CHLOR 0.9% 250 ML INJ 250 ML IV SCH (09:00)
[2016-09-12 12:00] VITALS: BP 117/72; PULSE 80; RESP 20; TEMP 96.9; O2SAT 98
[2016-09-12 16:00] VITALS: BP 131/77; PULSE 80; RESP 19; TEMP 97.2; O2SAT 98
[2016-09-12 20:00] VITALS: BP 128/75; PULSE 83; RESP 20; TEMP 97.5; O2SAT 99
[2016-09-12] MEDS: ZOLPIDEM TARTRATE 10 MG TAB PO PRN (21:55)
[2016-09-13] VITALS: BP 117/60; PULSE 78; RESP 20; TEMP 98.1; O2SAT 98
[2016-09-13] MEDS: KETOROLAC TROMETHAMINE 30 MG/ML (IVP) VIAL IV PUSH PRN ×2 (00:08→14:13)
[2016-09-13] MEDS: GENTAMICIN INJ 70 MG in SODIUM CHLORIDE 0.9% INJ 100 ML IV SCH ×3 (04:36→21:20)
[2016-09-13] MEDS: METHADONE HCL 10 MG TAB PO SCH ×3 (04:37→21:21)
[2016-09-13] MEDS: traMADol HCL 50 MG TAB PO PRN (06:23)
[2016-09-13 08:00] VITALS: BP 108/69; PULSE 80; RESP 20; TEMP 97.9; O2SAT 97
[2016-09-13] MEDS: REMOVE OLD NICOTINE PATCH T-DERMAL SCH (09:30)
[2016-09-13] MEDS ORDERED: VANCOMYCIN INJ 1,250 MG in SODIUM CHLOR 0.9% 250 ML INJ 250 ML IV SCH (10:00)
--- NOTE | 2016-09-13 10:13 | HHI.PR ---
Subjective Remarks Normalization of white blood cell count today. No further fevers. Continuing gentamicin, vancomycin, and rifampin for coverage of infective endocarditis and bacteremia. Septic joint has been draining and will be reevaluated in 2 weeks. Patient 4-6 week course of IV antibiotics to cover his infective endocarditis and bacteremia. Presently she is on methadone in an nicotine patch both of which are decreased today. Slow wean plan for both. Objective Vital Signs Date Time Temp Pulse Resp B/P Pulse Ox O2 Delivery O2 Flow Rate FiO2 09/13/16 08:00 97.9 80 20 108/69 97 09/13/16 00:00 98.1 78 20 117/60 98 09/12/16 20:00 97.5 83 20 128/75 99 09/12/16 16:00 97.2 80 19 131/77 98 09/12/16 12:00 96.9 80 20 117/72 98 I/O 09/12/16 09/12/16 09/12/16 09/13/16 09/13/16 09/13/16 07:00 15:00 23:00 07:00 15:00 23:00 Intake Total 360 ml 1496 ml 460 ml 580 ml 240 ml Output Total 1100 ml 1500 ml 1000 ml Balance -740 ml -4 ml 460 ml -420 ml 240 ml Intake Oral 360 ml 1080 ml 360 ml 480 ml 240 ml IV Total 416 ml 100 ml 100 ml Output Urine Total 1100 ml 1500 ml 1000 ml # Voids 1 # Bowel Movements 0 0 0 0 Result Diagram: 09/11/16 0534 09/13/16 0515 Procedures I and D of the Left knee with diagnosis of septic arthritis. Objective Remarks GENERAL: NAD, A&Ox3 HEAD: Normocephalic. NECK: Supple, trachea midline. No lymphadenopathy. EYES: No scleral icterus. No injection or drainage. CARDIOVASCULAR: Regular rate and rhythm without murmurs, gallops, or rubs. RESPIRATORY: Breath sounds equal bilaterally. No accessory muscle use. GASTROINTESTINAL: Abdomen soft, non-tender, nondistended. MUSCULOSKELETAL: No cyanosis, or edema. Bandage over left knee wound SKIN: Warm and dry. NEURO: No focal neurological deficitis. A/P Assessment and Plan Assessment and Plan 41-year-old male admitted with infective endocarditis, bacteremia, and septic joint secondary to IV drug abuse Sepsis Sepsis resolved Infective endocarditis Left septic knee joint Bacteremia Vancomycin, gentamicin, rifampin Follow blood cultures Infectious disease doctor following IV drug abuse history Methadone decreased to 20 mg 3 times a day today Nicotine dependence NicoDerm decreased to 14 mg today Hepatitis C Consider outpatient treatment Must abstain from drug abuse to be qualified for treatment DVT prophylaxis Lovenox. Discharge Planning Expected custodial of antibiotics. Lack of insurance and history of IV drug abuse makes this and difficult discharge situation. Nader Manrique MD Sep 13, 2016 10:13
[2016-09-13] MEDS: VANCOMYCIN INJ 1,500 MG in SODIUM CHLORID 0.9% 500 ML INJ 500 ML IV SCH ×2 (10:47→21:19)
[2016-09-13] MEDS: ENOXAPARIN SODIUM 40 MG/0.4 ML SYRINGE SQ SCH (10:47)
[2016-09-13] MEDS: NICOTINE 14 MG/24 HR PATCH T-DERMAL SCH (10:47)
[2016-09-13] MEDS: RIFAMPIN 150 MG CAP PO SCH ×2 (10:47→21:19)
[2016-09-13] MEDS: SODIUM CHLORIDE 0.9% FLUSH 10 ML FLUSH IV FLUSH SCH ×2 (10:48→21:20)
[2016-09-13 12:00] VITALS: BP 104/63; PULSE 90; RESP 20; TEMP 98; O2SAT 96
[2016-09-13 16:00] VITALS: BP 111/66; PULSE 86; RESP 20; TEMP 97.9; O2SAT 98
[2016-09-13 20:00] VITALS: BP 125/64; PULSE 89; RESP 20; TEMP 97.1; O2SAT 99
[2016-09-13] MEDS: ZOLPIDEM TARTRATE 10 MG TAB PO PRN (21:21)
[2016-09-13 23:55] VITALS: BP 131/68; PULSE 68; RESP 20; TEMP 96.8; O2SAT 99
[2016-09-14] MEDS: METHADONE HCL 10 MG TAB PO SCH ×3 (04:50→21:40)
[2016-09-14] MEDS: GENTAMICIN INJ 70 MG in SODIUM CHLORIDE 0.9% INJ 100 ML IV SCH ×3 (04:50→20:47)
[2016-09-14 06:58] LABS: HEMATOCRIT 26.6 % (39.0-51.0); MEAN CORPUSCULAR HEMOGLOBIN 25.4 PG (27.0-34.0); PLATELET COUNT 526 TH/MM3 (150-450); RED BLOOD COUNT 3.46 MIL/MM3 (4.50-5.90); RED CELL DISTRIBUTION WIDTH 14.6 % (11.6-17.2); REVIEW FLAG FINAL; WHITE BLOOD COUNT 10.3 TH/MM3 (4.0-11.0)
[2016-09-14 07:24] LABS: BICARBONATE 30.3 MEQ/L (21.0-32.0)
[2016-09-14 07:41] VITALS: BP 138/65; PULSE 102; RESP 20; TEMP 98.1; O2SAT 98
--- NOTE | 2016-09-14 08:24 | PD.ORT.PN ---
Subjective Post Op Day #: 5 Subjective Remarks doing ok. no new complaints. Objective Vitals Vital Signs Date Time Temp Pulse Resp B/P Pulse Ox O2 Delivery O2 Flow Rate FiO2 09/14/16 07:41 98.1 102 20 138/65 98 09/14/16 05:50 18 09/13/16 23:55 96.8 68 20 131/68 99 09/13/16 20:00 97.1 89 20 125/64 99 09/13/16 16:00 97.9 86 20 111/66 98 09/13/16 12:00 98.0 90 20 104/63 96 I/O 09/13/16 09/13/16 09/13/16 09/14/16 09/14/16 09/14/16 07:00 15:00 23:00 07:00 15:00 23:00 Intake Total 580 ml 1240 ml 360 ml 480 ml 240 ml Output Total 1000 ml 950 ml 1200 ml Balance -420 ml 290 ml 360 ml -720 ml 240 ml Intake Oral 480 ml 1240 ml 360 ml 480 ml 240 ml IV Total 100 ml Output Urine Total 1000 ml 950 ml 1200 ml # Voids 1 # Bowel Movements 0 0 0 0 Result Diagram: 09/14/16 0624 09/14/16 0624 Objective Remarks in bed, nad dressing c/d/i neg homans nvi Assessment & Plan Ortho Post Op Day #: 5 Problem List: Assessment and Plan s/p I&D septic L knee endocarditis wbat, ROM as tolerated daily dressing changes IV abx per ID med management ortho stable f/up dr. soto 2 weeks Reuben Montana Sep 14, 2016 08:23
[2016-09-14] MEDS: REMOVE OLD NICOTINE PATCH T-DERMAL SCH (09:00)
[2016-09-14] MEDS: RIFAMPIN 150 MG CAP PO SCH ×2 (10:00→20:47)
[2016-09-14] MEDS: SODIUM CHLORIDE 0.9% FLUSH 10 ML FLUSH IV FLUSH SCH ×2 (10:00→20:47)
[2016-09-14] MEDS: NICOTINE 14 MG/24 HR PATCH T-DERMAL SCH (10:00)
[2016-09-14] MEDS: ENOXAPARIN SODIUM 40 MG/0.4 ML SYRINGE SQ SCH (10:00)
[2016-09-14] MEDS: VANCOMYCIN INJ 1,500 MG in SODIUM CHLORID 0.9% 500 ML INJ 500 ML IV SCH ×2 (10:00→21:39)
[2016-09-14] MEDS ORDERED: ALUMINUM/MAGNESIUM/SIMETH 30 ML CUP PO PRN (11:30)
[2016-09-14 12:00] VITALS: BP 114/65; PULSE 98; RESP 20; TEMP 98.5; O2SAT 98
[2016-09-14] MEDS ORDERED: NITROGLYCERIN 0.4 MG SL 25 TABS/BTL SL PRN (12:00)
[2016-09-14 16:00] VITALS: BP 114/60; PULSE 98; RESP 17; TEMP 98.8; O2SAT 98
--- NOTE | 2016-09-14 17:18 | HHI.PR ---
Subjective Remarks Complaint of chest pain today. Etiology may be secondary to wean off methadone. EKG shows no cardiac changes. Following cardiac enzymes. Patient does have a strong history of coronary artery disease and HI in his mother heart issues started in her 30s. Objective Vital Signs Date Time Temp Pulse Resp B/P Pulse Ox O2 Delivery O2 Flow Rate FiO2 09/14/16 16:00 98.8 98 17 114/60 98 09/14/16 12:00 98.5 98 20 114/65 98 09/14/16 07:41 98.1 102 20 138/65 98 09/14/16 05:50 18 09/13/16 23:55 96.8 68 20 131/68 99 09/13/16 20:00 97.1 89 20 125/64 99 I/O 09/13/16 09/13/16 09/13/16 09/14/16 09/14/16 09/14/16 07:00 15:00 23:00 07:00 15:00 23:00 Intake Total 580 ml 1240 ml 360 ml 480 ml 2351 ml Output Total 1000 ml 950 ml 1200 ml 2500 ml Balance -420 ml 290 ml 360 ml -720 ml -149 ml Intake Oral 480 ml 1240 ml 360 ml 480 ml 1200 ml IV Total 100 ml 1151 ml Output Urine Total 1000 ml 950 ml 1200 ml 2500 ml # Voids 1 # Bowel Movements 0 0 0 0 0 Result Diagram: 09/14/1662309/14/16623 Procedures I and D of the Left knee with diagnosis of septic arthritis. Objective Remarks GENERAL: NAD, A&Ox3 HEAD: Normocephalic. NECK: Supple, trachea midline. No lymphadenopathy. EYES: No scleral icterus. No injection or drainage. CARDIOVASCULAR: Regular rate and rhythm without murmurs, gallops, or rubs. RESPIRATORY: Breath sounds equal bilaterally. No accessory muscle use. GASTROINTESTINAL: Abdomen soft, non-tender, nondistended. MUSCULOSKELETAL: No cyanosis, or edema. Bandage over left knee wound SKIN: Warm and dry. NEURO: No focal neurological deficitis. A/P Assessment and Plan Assessment and Plan 41-year-old male admitted with infective endocarditis, bacteremia, and septic joint secondary to IV drug abuse. Methadone return to 30 mg by mouth 3 times a day. Morphine IR for breakthrough at 15 mg every 6 hours. Chest pain Likely withdrawal versus related to infective endocarditis EKG shows no ischemic changes Follow cardiac enzymes Monitor on telemetry Nitroglycerin when necessary Infective endocarditis Left septic knee joint Bacteremia Vancomycin, gentamicin, rifampin Follow blood cultures Infectious disease doctor following IV drug abuse history Methadone 30 mg by mouth 3 times a day Nicotine dependence NicoDerm decreased to 14 mg today Hepatitis C Consider outpatient treatment Must abstain from drug abuse to be qualified for treatment DVT prophylaxis Lovenox. Discharge Planning Expected assisted of antibiotics. Lack of insurance and history of IV drug abuse makes this and difficult discharge situation. Nader Manrique MD Sep 14, 2016 17:18
[2016-09-14] MEDS: MORPHINE SULFATE 15 MG TAB PO PRN (18:42)
--- NOTE | 2016-09-14 18:57 | HHI.IDPN ---
Note Infectious Disease Note Patient complains of chest pain. No SOB. Sweats. Blood culture negative x 4 days. Afebrile. Blood culture positive 09/05, 09/07 MRSA. 09/10 - pending. . Left knee culture no growth. Antibiotics Vancomycin. Rifampin. Gent (added 09/10/16.) Lines Peripheral IV line Past Medical History IVDU Allergies: Coded Allergies: Avocado (Verified Allergy, Severe, 04/25/16) Shrimp (Verified Allergy, Severe, Anaphylaxis, 04/25/16) *MDRO Multi-Drug Resistant Organism (Unverified Adverse Reaction, Unknown , 09/04/16) MRSA Blood 09/2016 MRSA FINGER WOUND 12/16/03 Objective Vital Signs Date Time Temp Pulse Resp B/P Pulse Ox O2 Delivery O2 Flow Rate FiO2 09/14/16 16:00 98.8 98 17 114/60 98 09/14/16 12:00 98.5 98 20 114/65 98 09/14/16 07:41 98.1 102 20 138/65 98 09/14/16 05:50 18 09/13/16 23:55 96.8 68 20 131/68 99 09/13/16 20:00 97.1 89 20 125/64 99 Laboratory Tests Test 09/14/16 06:24 White Blood Count 10.3 TH/MM3 Red Blood Count 3.46 MIL/MM3 Hemoglobin 8.8 GM/DL Hematocrit 26.6 % Mean Corpuscular Volume 77.0 FL Mean Corpuscular Hemoglobin 25.4 PG Mean Corpuscular Hemoglobin 33.0 % Concent Red Cell Distribution Width 14.6 % Platelet Count 526 TH/MM3 Mean Platelet Volume 7.5 FL Laboratory Tests Test 09/13/16 09/14/16 09/14/16 05:15 06:24 15:20 Creatinine 0.87 MG/DL 0.83 MG/DL Estimat Glomerular Filtration 97 ML/MIN 103 ML/MIN Rate Sodium Level 140 MEQ/L Potassium Level 4.0 MEQ/L Chloride Level 102 MEQ/L Carbon Dioxide Level 30.3 MEQ/L Anion Gap 8 MEQ/L Blood Urea Nitrogen 12 MG/DL Random Glucose 93 MG/DL Calcium Level 8.6 MG/DL Troponin I LESS THAN 0.02 NG/ML Microbiology Date/Time Procedure Status Source Growth 09/09/16 14:15 Gram Stain - Final Resulted Wound Knee 09/09/16 14:15 Wound Culture - Preliminary Resulted Wound Knee NO GROWTH IN 48 HOURS. 09/09/16 14:15 Acid Fast Stain Received Wound Knee Pending 09/09/16 14:15 Mycobacterial Culture Received Wound Knee Pending 09/09/16 14:15 Fungal Smear - Final Resulted Wound Knee NO FUNGAL ELEMENTS SEEN. 09/09/16 14:15 Fungal Culture Resulted Wound Knee Pending 09/10/16 19:50 Aerobic Blood Culture - Preliminary Resulted Blood Peripheral NO GROWTH IN 1 DAY 09/10/16 19:50 Anaerobic Blood Culture - Preliminary Resulted Blood Peripheral NO GROWTH IN 1 DAY Microbiology Date/Time Procedure Status Source Growth 09/04/16 19:52 Gram Stain - Final Complete Sputum Expectorated Sputum 09/04/16 19:52 Sputum Culture - Final Complete Sputum Expectorated Sputum HEAVY GROWTH NORMAL RESPIRATORY ABIGAIL 09/05/16 07:05 Aerobic Blood Culture - Preliminary Resulted Blood Peripheral S. Aureus Mrsa 09/05/16 07:05 Anaerobic Blood Culture - Preliminary Resulted Blood Peripheral NO GROWTH IN 1 DAY 09/05/16 07:15 Aerobic Blood Culture - Preliminary Resulted Blood Peripheral Gram Positive Cocci 09/05/16 07:15 Anaerobic Blood Culture - Preliminary Resulted Blood Peripheral NO GROWTH IN 1 DAY IMAGING: Knee MRI 09/08/16 0000 Signed Impressions: Service Date/Time: Thursday, September 08, 2016 11:07 - CONCLUSION: 1. There is a large nonspecific joint effusion with some enhancement of the synovial lining. This is nonspecific but is generally seen with synovitis. 2. There is normal signal intensity in the bony structures. There is no evidence of any bony erosions or destruction to suggest osteomyelitis. 3. Nonspecific soft tissue swelling and soft tissues that surrounds the knee joint. Asaf Payne MD Knee X-Ray 09/06/16 0000 Signed Impressions: Service Date/Time: Tuesday, September 06, 2016 13:06 - CONCLUSION: 1. Nonspecific joint effusion. 2. Mild narrowing of the medial joint compartment. Asaf Payne MD Chest X-Ray 09/04/16 0000 Signed Impressions: Service Date/Time: Sunday, September 04, 2016 11:40 - CONCLUSION: 1. Medial left posterior lower lobe airspace disease and associated small pleural effusion. Cain Ferraro MD Lower Extremity Ultrasound 09/02/16 0000 Signed Impressions: Service Date/Time: Friday, September 02, 2016 18:16 - CONCLUSION: No DVT. Silvestre Ashraf MD Physical Exam GENERAL: Patient is in no acute distress. HEENT: EOMI, No icterus. No conjunctival erythema. NECK: Supple. no adenopathy. LUNGS: Clear breath sounds. CARDIAC: Regular rate and rhythm. 2/6 DORENE LSB. ABDOMEN: Soft, non tender. EXTREMITIES: No clubbing, cyanosis, edema, decreased swelling, no tenderness at the left knee. SKIN: No rash. Warm and moist. No peripheral embolic phenomena. Assessment & Plan Diagnosis: 1. Septicemia due to methicillin resistant Staphylococcus aureus. Persistent positive blood cultures. 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 CV surgery recommends antibiotic treatment prior to valve surgery. 3. IVDU (intravenous drug user) 4. Pneumonia 5. Left knee joint effusion. Plan: Continue IV Vancomycin Continue Rifampin. Continue Gentamycin. Difficulty clearing bacteremia. plan on 2 weeks of renal function allows. Follow blood cultures form 09/10. Repeat blood cultures x 2 today. Monitor weekly LFTs, CBC, while on Gent/rifampin. Monitor renal function every other day while on gentamycin and vancomycin. IV Vancomycin for 6 weeks post negative blood culture and repeat echo and reconsult cardiovascular surgery at end of treatment if no complications. sooner if not improving. Maicol Potter MD Sep 14, 2016 18:57
[2016-09-14 20:00] VITALS: BP 103/61; PULSE 101; RESP 16; TEMP 97.8; O2SAT 96
[2016-09-14] MEDS: ZOLPIDEM TARTRATE 10 MG TAB PO PRN (21:39)
[2016-09-15] VITALS (9 sets, daily range): BP systolic 97–142; BP diastolic 57–77; PULSE 92–121; RESP 16–20; TEMP 97.8–101.3; O2SAT 92–100
[2016-09-15] MEDS: MORPHINE SULFATE 15 MG TAB PO PRN ×5 (01:13→21:31)
[2016-09-15] MEDS: GENTAMICIN INJ 70 MG in SODIUM CHLORIDE 0.9% INJ 100 ML IV SCH ×3 (04:56→23:37)
[2016-09-15] MEDS: METHADONE HCL 10 MG TAB PO SCH ×4 (05:33→22:00)
[2016-09-15] MEDS: REMOVE OLD NICOTINE PATCH T-DERMAL SCH (09:00)
--- NOTE | 2016-09-15 09:12 | HHI.PR ---
Subjective Remarks Improved chest pain today. Negative cardiac workup. Pain in the leg and chest is still present and likely related to infections. Objective Vital Signs Date Time Temp Pulse Resp B/P Pulse Ox O2 Delivery O2 Flow Rate FiO2 09/15/16 08:00 99.1 116 17 97/62 95 09/15/16 06:33 18 09/15/16 04:00 100.4 99 16 112/57 98 09/15/16 01:08 114 20 142/72 100 09/15/16 00:00 97.8 101 16 142/73 92 09/14/16 20:00 97.8 101 16 103/61 96 09/14/16 19:45 18 09/14/16 16:00 98.8 98 17 114/60 98 09/14/16 12:00 98.5 98 20 114/65 98 I/O 09/14/16 09/14/16 09/14/16 09/15/16 09/15/16 09/15/16 07:00 15:00 23:00 07:00 15:00 23:00 Intake Total 480 ml 2351 ml 600 ml 340 ml Output Total 1200 ml 2500 ml 1460 ml Balance -720 ml -149 ml 600 ml -1120 ml Intake Oral 480 ml 1200 ml 240 ml IV Total 1151 ml 600 ml 100 ml Output Urine Total 1200 ml 2500 ml 1460 ml # Bowel Movements 0 0 0 Result Diagram: 09/14/1662309/14/16623 Procedures I and D of the Left knee with diagnosis of septic arthritis. Objective Remarks GENERAL: NAD, A&Ox3 HEAD: Normocephalic. NECK: Supple, trachea midline. No lymphadenopathy. EYES: No scleral icterus. No injection or drainage. CARDIOVASCULAR: Regular rate and rhythm without murmurs, gallops, or rubs. RESPIRATORY: Breath sounds equal bilaterally. No accessory muscle use. GASTROINTESTINAL: Abdomen soft, non-tender, nondistended. MUSCULOSKELETAL: No cyanosis, or edema. Bandage over left knee wound SKIN: Warm and dry. NEURO: No focal neurological deficitis. A/P Assessment and Plan Assessment and Plan 41-year-old male admitted with infective endocarditis, bacteremia, and septic joint secondary to IV drug abuse. Methadone return to 30 mg by mouth 3 times a day. Morphine IR for breakthrough at 15 mg changed every 4 hours. Chest pain is improving. Negative cardiac workup no further cardiac workup necessary. Chest pain Likely withdrawal versus related to infective endocarditis EKG shows no ischemic changes Follow cardiac enzymes Monitor on telemetry Nitroglycerin when necessary Infective endocarditis Left septic knee joint Bacteremia Vancomycin, gentamicin, rifampin Follow blood cultures Infectious disease doctor following IV drug abuse history Methadone 30 mg by mouth 3 times a day Nicotine dependence NicoDerm decreased to 14 mg today Hepatitis C Consider outpatient treatment Must abstain from drug abuse to be qualified for treatment DVT prophylaxis Lovenox. Discharge Planning Expected snf of antibiotics. Lack of insurance and history of IV drug abuse makes this and difficult discharge situation. Nader Manrique MD Sep 15, 2016 9:12 am
[2016-09-15] MEDS: RIFAMPIN 150 MG CAP PO SCH ×2 (09:21→21:31)
[2016-09-15] MEDS: NICOTINE 14 MG/24 HR PATCH T-DERMAL SCH (09:21)
[2016-09-15] MEDS: ENOXAPARIN SODIUM 40 MG/0.4 ML SYRINGE SQ SCH (09:21)
[2016-09-15] MEDS: SODIUM CHLORIDE 0.9% FLUSH 10 ML FLUSH IV FLUSH SCH (09:22)
[2016-09-15] MEDS ORDERED: PHARMACY ORDERED LAB ONE (09:45)
[2016-09-15] MEDS: VANCOMYCIN INJ 1,500 MG in SODIUM CHLORID 0.9% 500 ML INJ 500 ML IV SCH (11:54)
[2016-09-15] MEDS ORDERED: IBUPROFEN 400 MG TAB PO ONE (17:45)
[2016-09-15] MEDS: ZOLPIDEM TARTRATE 10 MG TAB PO PRN (22:43)
[2016-09-16] VITALS: BP 101/56; PULSE 111; RESP 20; TEMP 101.2; O2SAT 97
[2016-09-16] MEDS: SODIUM CHLORIDE 0.9% FLUSH 10 ML FLUSH IV FLUSH SCH ×3 (01:00→20:09)
[2016-09-16] MEDS: VANCOMYCIN INJ 1,250 MG in SODIUM CHLOR 0.9% 250 ML INJ 250 ML IV SCH ×3 (01:01→20:09)
[2016-09-16] MEDS: MORPHINE SULFATE 15 MG TAB PO PRN ×7 (01:37→23:03)
[2016-09-16] MEDS: GENTAMICIN INJ 70 MG in SODIUM CHLORIDE 0.9% INJ 100 ML IV SCH ×3 (03:23→20:09)
[2016-09-16] MEDS: METHADONE HCL 10 MG TAB PO SCH ×3 (06:30→21:28)
[2016-09-16 08:00] VITALS: BP 109/59; PULSE 97; RESP 24; TEMP 98.5; O2SAT 95
[2016-09-16] MEDS: RIFAMPIN 150 MG CAP PO SCH ×2 (08:05→20:09)
[2016-09-16] MEDS: REMOVE OLD NICOTINE PATCH T-DERMAL SCH (08:05)
[2016-09-16] MEDS: ENOXAPARIN SODIUM 40 MG/0.4 ML SYRINGE SQ SCH (08:05)
[2016-09-16] MEDS: NICOTINE 14 MG/24 HR PATCH T-DERMAL SCH (08:05)
--- NOTE | 2016-09-16 11:13 | EKG ---
Date Performed: 09/14/2016 Time Performed: 13:32:38 PTAGE: 41 years EKG: SINUS TACHYCARDIA ABNORMAL RHYTHM ECG PREVIOUS TRACING : 04/25/2016 23.00 DOCTOR: Omar Ford Interpretating Date/Time 09/16/2016 11:04:48
[2016-09-16 12:00] VITALS: BP 105/58; PULSE 109; RESP 17; TEMP 98.1; O2SAT 94
--- NOTE | 2016-09-16 14:58 | HHI.PR ---
Subjective Remarks Follow-up for endocarditis, bacteremia, and severe sepsis. Pt denied new concerns or complaints. Reported left knee pain associated with recent septic joint. Pt stated he is able to ambulate despite discomfort. Pt spoke of not wanting to take acetaminophen "because I have hepatitis C and I don't want it (the medication) messing up my liver." Denied fever, malaise, NVD, bloody urine or stool. Pt's at bedside. Per Rn (Tia) pt without acute issues or change in status overnight or since start of shift Objective Vitals Vital Signs Date Time Temp Pulse Resp B/P Pulse Ox O2 Delivery O2 Flow Rate FiO2 09/16/16 12:00 98.1 109 17 105/58 94 09/16/16 08:00 98.5 97 24 109/59 95 09/16/16 00:00 101.2 111 20 101/56 97 09/15/16 21:30 92 09/15/16 20:00 100.9 113 20 104/63 96 09/15/16 16:00 101.3 121 17 102/77 99 I/O 09/15/16 09/15/16 09/15/16 09/16/16 09/16/16 09/16/16 07:00 15:00 23:00 07:00 15:00 23:00 Intake Total 340 ml 1230 ml 490 ml Output Total 1460 ml 800 ml 1800 ml Balance -1120 ml 430 ml -1310 ml Intake Oral 240 ml 720 ml 240 ml IV Total 100 ml 510 ml 250 ml Output Urine Total 1460 ml 800 ml 1800 ml # Voids 2 # Bowel Movements 0 0 0 Result Diagram: 09/14/16 0624 09/15/16 1137 Imaging Last Impressions Knee MRI 09/08/16 0000 Signed Impressions: Service Date/Time: Thursday, September 08, 2016 11:07 - CONCLUSION: 1. There is a large nonspecific joint effusion with some enhancement of the synovial lining. This is nonspecific but is generally seen with synovitis. 2. There is normal signal intensity in the bony structures. There is no evidence of any bony erosions or destruction to suggest osteomyelitis. 3. Nonspecific soft tissue swelling and soft tissues that surrounds the knee joint. Asaf Payne MD Knee X-Ray 09/06/16 0000 Signed Impressions: Service Date/Time: Tuesday, September 06, 2016 13:06 - CONCLUSION: 1. Nonspecific joint effusion. 2. Mild narrowing of the medial joint compartment. Asaf Payne MD Chest X-Ray 09/04/16 0000 Signed Impressions: Service Date/Time: Sunday, September 04, 2016 11:40 - CONCLUSION: 1. Medial left posterior lower lobe airspace disease and associated small pleural effusion. Cain Ferraro MD Lower Extremity Ultrasound 09/02/16 0000 Signed Impressions: Service Date/Time: Friday, September 02, 2016 18:16 - CONCLUSION: No DVT. Silvestre Ashraf MD Objective Remarks GENERAL: Pt encountered laying a bed, watching TV, NAD SKIN: Warm and dry. Tattoos noted. HEAD: Normocephalic. EYES: No scleral icterus. No injection or drainage. NECK: Supple, trachea midline. No lymphadenopathy. CARDIOVASCULAR: Tachycardic rate and normal rhythm without murmurs, gallops, or rubs. RESPIRATORY: Breath sounds equal bilaterally. No accessory muscle use. GASTROINTESTINAL: Abdomen soft, non-tender, nondistended. MUSCULOSKELETAL: No cyanosis, or edema. PSYCHIATRIC: A&Ox3, pleasant and cooperative, no overt signs of anxiety or depression. Procedures Left knee arthrotomy, debridement and irrigation (09/09/16). Medications and IVs Current Medications Medications (Trade) Dose Ordered Sig/Jim Route Start Time Stop Time Status Last Admin (NS Flush) 2 ml UNSCH PRN IV FLUSH 09/02/16 15:00 (NS Flush) 2 ml BID IV FLUSH 09/02/16 21:00 09/16/16 08:06 (Tylenol) 650 mg Q4H PRN PO 09/02/16 15:00 09/08/16 09:29 Ondansetron HCl 4 mg 4 mg Q6H PRN IVP 09/02/16 15:00 09/06/16 22:12 (Vancomycin Consult Pharmacy) 0 ml @ 0 mls/hr UNSCH OTHER 09/02/16 15:00 (Lovenox Inj) 40 mg Q24H SQ 09/03/16 09:00 09/16/16 08:05 Rifampin 300 mg 300 mg Q12HR PO 09/04/16 21:00 09/16/16 08:05 (Gentamicin Inj/ NS Inj) 101.75 ml @ 200 mls/ hr Q8H IV 09/10/16 20:00 09/16/16 11:35 (Ambien) 10 mg HS PRN PO 09/12/16 08:30 09/15/16 22:43 (Habitrol 14 Mg Patch.24 Hr) 1 patch DAILY T-DERMAL 09/13/16 09:30 09/16/16 08:05 Miscellaneous Information 1 DAILY T-DERMAL 09/13/16 09:30 09/16/16 08:05 (Mag-Al Plus Susp Liq) 30 ml Q6H PRN PO 09/14/16 11:30 09/14/16 12:48 (Nitrostat Sl) 0.4 mg Q5M PRN SL 09/14/16 12:00 (Dolophine) 30 mg Q8HR PO 09/14/16 22:00 09/16/16 14:00 Morphine Sulfate 15 mg 15 mg Q4HR PRN PO 09/15/16 12:00 09/16/16 11:35 (Vancomycin Inj/ NS 250 ml Inj) 262.5 ml @ 262.5 mls/ hr Q12H IV 09/15/16 22:00 09/16/16 11:36 Miscellaneous Information SPECIFIC LAB TO BE DRAWN:[facility]... ONCE ONCE .XX 09/17/16 09:45 09/17/16 09:46 Urinary Catheter: No A/P Problem List: (1) IVDU (intravenous drug user) ICD Code: F19.90 Status: Chronic (2) Severe sepsis ICD Code: A41.9 Status: Acute (3) Thrombocytopenia ICD Code: D69.6 Status: Resolved (4) Hypomagnesemia ICD Code: E83.42 Status: Acute (5) Hypokalemia ICD Code: E87.6 Status: Acute (6) Hepatitis C ICD Code: B19.20 Status: Acute Assessment and Plan Assessment and Plan 41-year-old male admitted with infective endocarditis, bacteremia, and septic joint secondary to IV drug abuse. Methadone return to 30 mg by mouth 3 times a day. Morphine IR for breakthrough at 15 mg changed every 4 hours. Chest pain is improving. Negative cardiac workup no further cardiac workup necessary. Antibiotic regimen continues for endocarditis. Per Dr. Manrique, methadone regimen to continue for a week, then attempt reduction. Nicotine patch effective ; continue current dose. Chest pain -Likely withdrawal versus related to infective endocarditis -EKG shows no ischemic changes -Follow cardiac enzymes -Monitor on telemetry -Nitroglycerin when necessary Infective endocarditis Left septic knee joint Bacteremia -Vancomycin, gentamicin, rifampin -Follow blood cultures -Infectious disease doctor following IV drug abuse history -Methadone 30 mg by mouth 3 times a day Nicotine dependence -NicoDerm decreased to 14 mg today Hepatitis C -Consider outpatient treatment -Must abstain from drug abuse to be qualified for treatment DVT prophylaxis -Lovenox. Case discussed with pt, RN, and Dr. Manrique. Discharge Planning Discharge Planning Expected [facility] of antibiotics. Lack of insurance and history of IV drug abuse makes this and difficult discharge situation. Rusty Gamez Jr. SHANKAR Sep 16, 2016 14:58
[2016-09-16 18:00] VITALS: BP 107/63; PULSE 112; RESP 18; TEMP 99.4; O2SAT 95
[2016-09-16 20:00] VITALS: BP 101/61; PULSE 107; RESP 18; TEMP 100.2; O2SAT 94
[2016-09-16] MEDS: ZOLPIDEM TARTRATE 10 MG TAB PO PRN (21:28)
[2016-09-16] MEDS ORDERED: IBUPROFEN 800 MG TAB PO ONE (23:45)
[2016-09-17] VITALS (7 sets, daily range): BP systolic 90–111; BP diastolic 59–77; PULSE 81–114; RESP 15–20; TEMP 97.9–101.4; O2SAT 94–98
[2016-09-17] MEDS: GENTAMICIN INJ 70 MG in SODIUM CHLORIDE 0.9% INJ 100 ML IV SCH ×3 (02:57→20:15)
[2016-09-17] MEDS: MORPHINE SULFATE 15 MG TAB PO PRN ×5 (02:57→20:15)
[2016-09-17] MEDS: METHADONE HCL 10 MG TAB PO SCH ×3 (05:54→21:44)
[2016-09-17] MEDS: RIFAMPIN 150 MG CAP PO SCH ×2 (08:00→20:15)
[2016-09-17] MEDS: ENOXAPARIN SODIUM 40 MG/0.4 ML SYRINGE SQ SCH (08:00)
[2016-09-17] MEDS: SODIUM CHLORIDE 0.9% FLUSH 10 ML FLUSH IV FLUSH SCH ×2 (08:00→20:16)
[2016-09-17] MEDS: REMOVE OLD NICOTINE PATCH T-DERMAL SCH (08:00)
[2016-09-17] MEDS: NICOTINE 14 MG/24 HR PATCH T-DERMAL SCH (08:00)
[2016-09-17] MEDS ORDERED: PHARMACY ORDERED LAB ONE (09:45)
[2016-09-17] MEDS: VANCOMYCIN INJ 1,250 MG in SODIUM CHLOR 0.9% 250 ML INJ 250 ML IV SCH ×2 (10:00→20:15)
--- NOTE | 2016-09-17 14:50 | HHI.PR ---
Subjective Remarks Follow-up for endocarditis, bacteremia, and severe sepsis. Reported continued left knee pain. Stated he walks "but I don't put a lot of weight on that leg." Revisited pt's acetaminophen use and he is not wanting to take it for fear of liver damage. Pt had fever over night which was treated with ibuprofen. Pt denied new concerns or complaints. Denied malaise, NVD, bloody urine or stool. Pt's at bedside. Per RN (Tia) pt without acute issues or change in status overnight or since start of shift Objective Vitals Vital Signs Date Time Temp Pulse Resp B/P Pulse Ox O2 Delivery O2 Flow Rate FiO2 09/17/16 08:00 97.9 81 15 90/61 98 09/17/16 04:00 98.1 09/17/16 00:00 101.4 114 20 109/59 94 09/16/16 20:00 100.2 107 18 101/61 94 09/16/16 18:00 99.4 112 18 107/63 95 I/O 09/16/16 09/16/16 09/16/16 09/17/16 09/17/16 09/17/16 07:00 15:00 23:00 07:00 15:00 23:00 Intake Total 490 ml 1200 ml 360 ml 656 ml Output Total 1800 ml 900 ml 900 ml 1150 ml Balance -1310 ml 300 ml -540 ml -494 ml Intake Oral 240 ml 1200 ml 360 ml 240 ml IV Total 250 ml 416 ml Output Urine Total 1800 ml 900 ml 900 ml 1150 ml # Bowel Movements 0 Result Diagram: 09/14/16 0624 09/17/16 0358 Objective Remarks GENERAL: Pt encountered laying a bed, watching TV, NAD SKIN: Warm and dry. Tattoos noted. Left knee has bandage across it, skin to either side is warm to the touch. HEAD: Normocephalic. EYES: No scleral icterus. No injection or drainage. Upon cardinal eye movement exam, pt without noticeable lag or nystagmus. NECK: Supple, trachea midline. No lymphadenopathy. CARDIOVASCULAR: Tachycardic rate and normal rhythm without murmurs, gallops, or rubs. RESPIRATORY: Breath sounds equal bilaterally. No accessory muscle use. GASTROINTESTINAL: Abdomen soft, non-tender, nondistended. MUSCULOSKELETAL: No cyanosis, or edema. PSYCHIATRIC: A&Ox3, pleasant and cooperative, no overt signs of anxiety or depression. Procedures Left knee arthrotomy, debridement and irrigation (09/09/16). Medications and IVs Current Medications Medications (Trade) Dose Ordered Sig/Jim Route Start Time Stop Time Status Last Admin (NS Flush) 2 ml UNSCH PRN IV FLUSH 09/02/16 15:00 (NS Flush) 2 ml BID IV FLUSH 09/02/16 21:00 09/17/16 08:00 (Tylenol) 650 mg Q4H PRN PO 09/02/16 15:00 09/08/16 09:29 Ondansetron HCl 4 mg 4 mg Q6H PRN IVP 09/02/16 15:00 09/06/16 22:12 (Vancomycin Consult Pharmacy) 0 ml @ 0 mls/hr UNSCH OTHER 09/02/16 15:00 (Lovenox Inj) 40 mg Q24H SQ 09/03/16 09:00 09/17/16 08:00 Rifampin 300 mg 300 mg Q12HR PO 09/04/16 21:00 09/17/16 08:00 (Gentamicin Inj/ NS Inj) 101.75 ml @ 200 mls/ hr Q8H IV 09/10/16 20:00 09/17/16 12:17 (Ambien) 10 mg HS PRN PO 09/12/16 08:30 09/16/16 21:28 (Habitrol 14 Mg Patch.24 Hr) 1 patch DAILY T-DERMAL 09/13/16 09:30 09/17/16 08:00 Miscellaneous Information 1 DAILY T-DERMAL 09/13/16 09:30 09/17/16 08:00 (Mag-Al Plus Susp Liq) 30 ml Q6H PRN PO 09/14/16 11:30 09/14/16 12:48 (Nitrostat Sl) 0.4 mg Q5M PRN SL 09/14/16 12:00 (Dolophine) 30 mg Q8HR PO 09/14/16 22:00 09/17/16 13:55 Morphine Sulfate 15 mg 15 mg Q4HR PRN PO 09/15/16 12:00 09/17/16 12:17 (Vancomycin Inj/ NS 250 ml Inj) 262.5 ml @ 262.5 mls/ hr Q12H IV 09/15/16 22:00 09/17/16 10:00 Urinary Catheter: No A/P Problem List: (1) IVDU (intravenous drug user) ICD Code: F19.90 Status: Chronic (2) Severe sepsis ICD Code: A41.9 Status: Acute (3) Thrombocytopenia ICD Code: D69.6 Status: Resolved (4) Hypomagnesemia ICD Code: E83.42 Status: Acute (5) Hypokalemia ICD Code: E87.6 Status: Acute (6) Hepatitis C ICD Code: B19.20 Status: Acute Assessment and Plan Assessment and Plan 41-year-old male admitted with infective endocarditis, bacteremia, and septic joint secondary to IV drug abuse. Methadone return to 30 mg by mouth 3 times a day. Morphine IR for breakthrough at 15 mg changed every 4 hours. Chest pain is improving. Negative cardiac workup no further cardiac workup necessary. Antibiotic regimen continues for endocarditis. Pt reports pain with walking. Pt steadfastly declines acetaminophen use. Chest pain -Likely withdrawal versus related to infective endocarditis -EKG shows no ischemic changes -Follow cardiac enzymes -Monitor on telemetry -Nitroglycerin when necessary Infective endocarditis Left septic knee joint Bacteremia -Vancomycin, gentamicin, rifampin -Follow blood cultures -Infectious disease doctor following IV drug abuse history -Methadone 30 mg by mouth 3 times a day Nicotine dependence -NicoDerm decreased to 14 mg today Hepatitis C -Consider outpatient treatment -Must abstain from drug abuse to be qualified for treatment DVT prophylaxis -Lovenox. Case discussed with pt, RN, and Dr. Manrique. Discharge Planning Discharge Planning Expected [facility] of antibiotics. Lack of insurance and history of IV drug abuse makes this and difficult discharge situation. Rusty Gamez Jr. Sep 17, 2016 14:50
[2016-09-17] MEDS: ZOLPIDEM TARTRATE 10 MG TAB PO PRN (21:44)
[2016-09-18] VITALS (8 sets, daily range): BP systolic 94–111; BP diastolic 54–73; PULSE 80–113; RESP 16–20; TEMP 96.7–101.8; O2SAT 94–100
[2016-09-18] MEDS: MORPHINE SULFATE 15 MG TAB PO PRN ×5 (00:21→20:40)
[2016-09-18] MEDS ORDERED: IBUPROFEN 600 MG TAB PO ONE (01:00)
[2016-09-18] MEDS: GENTAMICIN INJ 70 MG in SODIUM CHLORIDE 0.9% INJ 100 ML IV SCH ×3 (05:40→20:08)
[2016-09-18] MEDS: METHADONE HCL 10 MG TAB PO SCH ×3 (06:09→21:52)
--- NOTE | 2016-09-18 08:43 | HHI.PR ---
Subjective Remarks Follow-up for endocarditis, bacteremia, and severe sepsis. Patient seen and examined. Lying in bed sleeping soundly. Awakens to voice, pleasant, alert and oriented. Does admit to spiking fevers overnight, TMAX 101.8. Does admit to associated diaphoresis. Denies any cough, headache, dizziness, shortness of breath, abdominal pain, n/v, diarrhea or dysuria. Has been tolerating PO intake. Does ambulate, admits to left knee pain with weight bearing. Dressing to left knee clean/dry/intact. Objective Vitals Vital Signs Date Time Temp Pulse Resp B/P Pulse Ox O2 Delivery O2 Flow Rate FiO2 09/18/16 06:10 86 101/56 09/18/16 04:00 97.6 80 19 94/54 94 09/18/16 00:00 101.8 107 20 108/62 94 09/17/16 20:37 111 09/17/16 20:00 100.6 84 20 111/65 95 09/17/16 16:00 98.1 110 20 98/71 96 09/17/16 12:00 98.9 105 17 97/77 97 I/O 09/17/16 09/17/16 09/17/16 09/18/16 09/18/16 09/18/16 06:59 14:59 22:59 06:59 14:59 22:59 Intake Total 656 ml 2030 ml 360 ml 710 ml Output Total 1150 ml 450 ml 500 ml 1200 ml Balance -494 ml 1580 ml -140 ml -490 ml Intake Oral 240 ml 1680 ml 360 ml 360 ml IV Total 416 ml 350 ml 350 ml Output Urine Total 1150 ml 450 ml 500 ml 1200 ml # Bowel Movements 0 0 Result Diagram: 09/14/16 0624 09/17/16 0358 Imaging Last Impressions Knee MRI 09/08/16 0000 Signed Impressions: Service Date/Time: Thursday, September 08, 2016 11:07 - CONCLUSION: 1. There is a large nonspecific joint effusion with some enhancement of the synovial lining. This is nonspecific but is generally seen with synovitis. 2. There is normal signal intensity in the bony structures. There is no evidence of any bony erosions or destruction to suggest osteomyelitis. 3. Nonspecific soft tissue swelling and soft tissues that surrounds the knee joint. Asaf Payne MD Knee X-Ray 09/06/16 0000 Signed Impressions: Service Date/Time: Tuesday, September 06, 2016 13:06 - CONCLUSION: 1. Nonspecific joint effusion. 2. Mild narrowing of the medial joint compartment. Asaf Payne MD Chest X-Ray 09/04/16 0000 Signed Impressions: Service Date/Time: Sunday, September 04, 2016 11:40 - CONCLUSION: 1. Medial left posterior lower lobe airspace disease and associated small pleural effusion. Cain Ferraro MD Lower Extremity Ultrasound 09/02/16 0000 Signed Impressions: Service Date/Time: Friday, September 02, 2016 18:16 - CONCLUSION: No DVT. Silvestre Ashraf MD Objective Remarks GENERAL: Well-nourished, well-developed patient in NAD. SKIN: Warm and dry. No rash. Left knee primapore dressing in place, c/d/i, no drainage noted. Warm to touch. HEENT: Normocephalic. Atraumatic. Pupils equal and round. No scleral icterus. No injection or drainage. No nasal bleeding or discharge. Mucous membranes pink and moist. NECK: Supple. Trachea midline. CARDIOVASCULAR: Regular rate and rhythm. S1, S2 noted. No murmur appreciated. RESPIRATORY: No accessory muscle use. Clear to auscultation. Breath sounds equal bilaterally. GASTROINTESTINAL: Abdomen soft, non-tender, nondistended. Normoactive bowel sounds x4. MUSCULOSKELETAL: No obvious deformities. Extremities without clubbing, cyanosis , or edema. NEUROLOGICAL: Awake and alert. No obvious cranial nerve deficits. Motor grossly within normal limits. 5/5 muscle strength in bilateral upper and lower extremities. Normal speech. PSYCHIATRIC: Appropriate mood and affect; insight and judgment normal. Procedures Left knee arthrotomy, debridement and irrigation (09/09/16). A/P Problem List: (1) IVDU (intravenous drug user) ICD Code: F19.90 Status: Chronic (2) Severe sepsis ICD Code: A41.9 Status: Acute (3) Thrombocytopenia ICD Code: D69.6 Status: Resolved (4) Hypomagnesemia ICD Code: E83.42 Status: Acute (5) Hypokalemia ICD Code: E87.6 Status: Acute (6) Hepatitis C ICD Code: B19.20 Status: Acute Assessment and Plan Patient is a 41-year-old homeless gentleman with a known history of IV Dilaudid and heroin use. He was brought to the emergency room by a long-time friend who said for the last 9 days he was sleeping and having fevers up to 105. He did come to the emergency room for further evaluation and has been found to the septic with evidence of pneumonia on chest x-ray and he is tachypneic, oliguric , tachycardic with gross delirium and tachypnea. Patient admitted for sepsis evaluation and treatment. 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 Patient refusing Tylenol for fever due to fear of harming liver, patient given Ibuprofen overnight. - HIV test negative. Sputum cultures negative. - Blood cultures initially with growth of MRSA on 09/02, 09/05 and 09/07. Repeat BC on 09/14 NGTD. - ID following, appreciate input. - Cardiovascular surgeon following, appreciate input. Note reviewed, patient in need of fpc IV antibiotics up to 8 weeks. Recommendations to follow up in the outpatient setting for possible repair/replacement of tricuspid valve. Chest pain suspect secondary to withdrawal versus related to infective endocarditis - Denies any further chest pain today. - EKG shows no ischemic changes - Cardiac enzymes WNL. - Monitor on telemetry - Nitroglycerin available PRN. Left septic knee joint - Knee MRI reviewed showing a large nonspecific joint effusion with some enhancement of the synovial lining. This is nonspecific but is generally seen with synovitis. Nonspecific soft tissue swelling and soft tissues that surrounds the knee joint. - Wound cultures obtained from knee NGTD. - Status post I & D of left knee joint on 09/12 by orthopedic surgeon. History of IV drug abuse - Continue Methadone 30 mg PO TID - Patient admits to adequate support from family and friends. Understands disease process and shows motivation to quit. Hepatitis C: Follow up for outpatient treatment Nicotine dependence: NicoDerm patch 14 mg. Encourage cessation. DVT prophylaxis: Lovenox. Case discussed with patient, RN, and Dr. Manrique. Discharge Planning Per cardiovascular note patient will need roughly 8 weeks of IV antibiotics. Difficult discharge, lack of insurance and IVDU. Last CM note: 09/15/16 PT BEING FOLLOWED BY [facility] FOR IV ANTIBIOTICS IF NEEDED FOR TIME OF DISCHARGE. PER [facility] HAS PROVIDED CM WITH QUOTE OF $76.00 PER DAY FOR INFUSIONS AT TIME OF DISCHARGE. [facility] WITH [facility] ALSO FOLLOWING THIS PT FOR ANY HOME HEALTH CARE NEEDS FOR DISCHARGE. CM WILL CONTINUE TO FOLLOW AND ASSESS FOR NEEDS AND MD ORDERS PRIOR TO HOSPITAL DISCHARGE. Stephie Russo Sep 18, 2016 08:43
[2016-09-18] MEDS: REMOVE OLD NICOTINE PATCH T-DERMAL SCH (09:00)
[2016-09-18] MEDS: NICOTINE 14 MG/24 HR PATCH T-DERMAL SCH (09:31)
[2016-09-18] MEDS: ENOXAPARIN SODIUM 40 MG/0.4 ML SYRINGE SQ SCH (09:32)
[2016-09-18] MEDS: RIFAMPIN 150 MG CAP PO SCH (09:32)
[2016-09-18] MEDS: SODIUM CHLORIDE 0.9% FLUSH 10 ML FLUSH IV FLUSH SCH (11:12)
[2016-09-18] MEDS: VANCOMYCIN INJ 1,250 MG in SODIUM CHLOR 0.9% 250 ML INJ 250 ML IV SCH ×2 (11:13→21:52)
--- NOTE | 2016-09-18 14:48 | HHI.IDPN ---
Note Infectious Disease Note Patient having fever last few days. No SOB, chills, N/V. Gets sweats. Has pain at prior IV sites. Blood culture negative x 4 days. Afebrile. Blood culture positive 09/05, 09/07 MRSA. 09/10 - pending. . Left knee culture no growth. Antibiotics Vancomycin. Rifampin. Gent (added 09/10/16.) Lines Peripheral IV line Past Medical History IVDU Allergies: Coded Allergies: Avocado (Verified Allergy, Severe, 04/25/16) Shrimp (Verified Allergy, Severe, Anaphylaxis, 04/25/16) *MDRO Multi-Drug Resistant Organism (Unverified Adverse Reaction, Unknown , 09/04/16) MRSA Blood 09/2016 MRSA FINGER WOUND 12/16/03 Objective Vital Signs Date Time Temp Pulse Resp B/P Pulse Ox O2 Delivery O2 Flow Rate FiO2 09/18/16 12:00 99.3 107 16 111/73 96 09/18/16 08:00 100.4 100 20 108/69 100 09/18/16 06:10 86 101/56 09/18/16 04:00 97.6 80 19 94/54 94 09/18/16 00:00 101.8 107 20 108/62 94 09/17/16 20:37 111 09/17/16 20:00 100.6 84 20 111/65 95 09/17/16 16:00 98.1 110 20 98/71 96 09/17/16 09/17/16 09/18/16 15:00 23:00 07:00 Intake Total 2030 ml 360 ml 710 ml Output Total 450 ml 500 ml 1200 ml Balance 1580 ml -140 ml -490 ml Intake Oral 1680 ml 360 ml 360 ml IV Total 350 ml 350 ml Output Urine Total 450 ml 500 ml 1200 ml # Bowel Movements 0 0 Laboratory Tests Test 09/17/16 03:58 Creatinine 1.03 MG/DL Estimat Glomerular Filtration 80 ML/MIN Rate Microbiology Date/Time Procedure Status Source Growth 09/04/16 19:52 Gram Stain - Final Complete Sputum Expectorated Sputum 09/04/16 19:52 Sputum Culture - Final Complete Sputum Expectorated Sputum HEAVY GROWTH NORMAL RESPIRATORY ABIGAIL 09/05/16 07:05 Aerobic Blood Culture - Preliminary Resulted Blood Peripheral S. Aureus Mrsa 09/05/16 07:05 Anaerobic Blood Culture - Preliminary Resulted Blood Peripheral NO GROWTH IN 1 DAY 09/05/16 07:15 Aerobic Blood Culture - Preliminary Resulted Blood Peripheral Gram Positive Cocci 09/05/16 07:15 Anaerobic Blood Culture - Preliminary Resulted Blood Peripheral NO GROWTH IN 1 DAY IMAGING: Knee MRI 09/08/16 0000 Signed Impressions: Service Date/Time: Thursday, September 08, 2016 11:07 - CONCLUSION: 1. There is a large nonspecific joint effusion with some enhancement of the synovial lining. This is nonspecific but is generally seen with synovitis. 2. There is normal signal intensity in the bony structures. There is no evidence of any bony erosions or destruction to suggest osteomyelitis. 3. Nonspecific soft tissue swelling and soft tissues that surrounds the knee joint. Asaf Payne MD Knee X-Ray 09/06/16 0000 Signed Impressions: Service Date/Time: Tuesday, September 06, 2016 13:06 - CONCLUSION: 1. Nonspecific joint effusion. 2. Mild narrowing of the medial joint compartment. Asaf Payne MD Chest X-Ray 09/04/16 0000 Signed Impressions: Service Date/Time: Sunday, September 04, 2016 11:40 - CONCLUSION: 1. Medial left posterior lower lobe airspace disease and associated small pleural effusion. Cain Ferraro MD Lower Extremity Ultrasound 09/02/16 0000 Signed Impressions: Service Date/Time: Friday, September 02, 2016 18:16 - CONCLUSION: No DVT. Silvestre Ashraf MD Physical Exam GENERAL: No acute distress. HEENT: EOMI, No icterus. No conjunctival erythema. NECK: Supple. no adenopathy. LUNGS: Clear breath sounds. CARDIAC: Regular rate and rhythm. 2/6 DORENE at LSB. ABDOMEN: Soft, non tender. EXTREMITIES: No clubbing, cyanosis, edema. No swelling, no tenderness at the left knee. tenderness over area of IV sites at the left antecubital and left inner arm above elbow. . SKIN: No rash. Warm and moist. No peripheral embolic phenomena. Assessment & Plan Diagnosis: 1. Septicemia due to methicillin resistant Staphylococcus aureus. Persistent positive blood cultures. 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 CV surgery recommends antibiotic treatment prior to valve surgery. 3. IVDU (intravenous drug user) 4. Pneumonia 5. Left knee joint effusion. 6. Fever new. ? drugs. ? Rifampin. Plan: Continue IV Vancomycin Stop Rifampin. Continue Gentamycin. Difficulty clearing bacteremia. plan on 2 weeks of renal function allows. Follow blood cultures form 09/14. Central line placement for infusions. Need to avoid PIC because of fever. Monitor weekly LFTs, CBC, while on Gent/rifampin. Monitor renal function every other day while on gentamycin and vancomycin. IV Vancomycin for 6 weeks post negative blood culture and repeat echo and reconsult cardiovascular surgery at end of treatment if no complications. sooner if not improving. Maicol Potter MD Sep 18, 2016 14:48
--- NOTE | 2016-09-18 16:08 | PD.RAD ---
Post Procedure Progress Note Pre Procedure Diagnosis: (1) IVDU history Post Procedure Diagnosis: (1) IVDU history Procedure Date: Sep 18, 2016 Supervising Radiologist: Cain Ferraro Proceduralist/Assist: Feliz Lou, RT(R), Lukas Horan RT(R) Anesthesia: Local Plan of Activity Patient to Unit: Nursing Unit Patient Condition: Good Additional Comments: placed right IJ central line See PACS Report for procedural detail/treatment Cain Ferraro MD Sep 18, 2016 16:08
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
[2016-09-18] MEDS: ZOLPIDEM TARTRATE 10 MG TAB PO PRN (21:51)
[2016-09-19] VITALS (7 sets, daily range): BP systolic 94–106; BP diastolic 55–75; PULSE 85–104; RESP 16–20; TEMP 96.3–100.6; O2SAT 93–99
[2016-09-19] MEDS: MORPHINE SULFATE 15 MG TAB PO PRN ×5 (00:59→20:13)
[2016-09-19 05:54] LABS: INDIRECT BILIRUBIN 0.2 MG/DL (0.0-0.8); TOTAL BILIRUBIN ADULT 0.3 MG/DL (0.2-1.0)
[2016-09-19] MEDS: GENTAMICIN INJ 70 MG in SODIUM CHLORIDE 0.9% INJ 100 ML IV SCH ×3 (06:07→20:13)
[2016-09-19] MEDS: METHADONE HCL 10 MG TAB PO SCH ×3 (06:07→22:51)
--- NOTE | 2016-09-19 08:16 | HHI.PR ---
Subjective Remarks Follow-up for endocarditis, bacteremia, and severe sepsis. Patient seen and examined standing up by ESTELITA beth at bedside. Patient denies any new acute events overnight. TMAX 100.6. Eating well. Pain relatively controlled on current regimen. Afebrile. Denies any recent cough, shortness of breath, abdominal pain, n/v, diarrhea or dysuria. Objective Vitals Vital Signs Date Time Temp Pulse Resp B/P Pulse Ox O2 Delivery O2 Flow Rate FiO2 09/19/16 04:00 100.6 104 20 103/55 93 09/19/16 00:00 96.8 92 19 103/60 96 09/18/16 20:00 97.5 90 19 104/69 96 09/18/16 19:59 113 09/18/16 16:00 96.7 99 20 106/59 96 09/18/16 12:00 99.3 107 16 111/73 96 I/O 09/18/16 09/18/16 09/18/16 09/19/16 09/19/16 09/19/16 07:00 15:00 23:00 07:00 15:00 23:00 Intake Total 710 ml 1460 ml 460 ml 480 ml Output Total 1200 ml 700 ml 800 ml Balance -490 ml 1460 ml -240 ml -320 ml Intake Oral 360 ml 1460 ml 360 ml 480 ml IV Total 350 ml 100 ml Output Urine Total 1200 ml 700 ml 800 ml # Bowel Movements 0 0 0 Result Diagram: 09/19/16 0511 Imaging Last Impressions Central Venous Line 09/18/16 0000 Signed Impressions: Service Date/Time: Sunday, September 18, 2016 15:39 - CONCLUSION: Uncomplicated line placement as above. Catheter tip is near the atriocaval junction. Cain Ferraro MD Knee MRI 09/08/16 0000 Signed Impressions: Service Date/Time: Thursday, September 08, 2016 11:07 - CONCLUSION: 1. There is a large nonspecific joint effusion with some enhancement of the synovial lining. This is nonspecific but is generally seen with synovitis. 2. There is normal signal intensity in the bony structures. There is no evidence of any bony erosions or destruction to suggest osteomyelitis. 3. Nonspecific soft tissue swelling and soft tissues that surrounds the knee joint. Asaf Payne MD Knee X-Ray 09/06/16 0000 Signed Impressions: Service Date/Time: Tuesday, September 06, 2016 13:06 - CONCLUSION: 1. Nonspecific joint effusion. 2. Mild narrowing of the medial joint compartment. Asaf Payne MD Chest X-Ray 09/04/16 0000 Signed Impressions: Service Date/Time: Sunday, September 04, 2016 11:40 - CONCLUSION: 1. Medial left posterior lower lobe airspace disease and associated small pleural effusion. Cain Ferraro MD Lower Extremity Ultrasound 09/02/16 0000 Signed Impressions: Service Date/Time: Friday, September 02, 2016 18:16 - CONCLUSION: No DVT. Silvestre Ashraf MD Objective Remarks GENERAL: Well-nourished, well-developed patient in NAD. SKIN: Warm and dry. No rash. Left knee primapore dressing in place, c/d/i, no drainage noted. Warm to touch. HEENT: Normocephalic. Atraumatic. Pupils equal and round. No scleral icterus. No injection or drainage. No nasal bleeding or discharge. Mucous membranes pink and moist. NECK: Supple. Trachea midline. CARDIOVASCULAR: Regular rate and rhythm. S1, S2 noted. No murmur appreciated. RESPIRATORY: No accessory muscle use. Clear to auscultation. Breath sounds equal bilaterally. GASTROINTESTINAL: Abdomen soft, non-tender, nondistended. Normoactive bowel sounds x4. MUSCULOSKELETAL: No obvious deformities. Extremities without clubbing, cyanosis , or edema. NEUROLOGICAL: Awake and alert. No obvious cranial nerve deficits. Motor grossly within normal limits. 5/5 muscle strength in bilateral upper and lower extremities. Normal speech. PSYCHIATRIC: Appropriate mood and affect; insight and judgment normal. Procedures Left knee arthrotomy, debridement and irrigation (09/09/16). A/P Problem List: (1) IVDU (intravenous drug user) ICD Code: F19.90 Status: Chronic (2) Severe sepsis ICD Code: A41.9 Status: Acute (3) Thrombocytopenia ICD Code: D69.6 Status: Resolved (4) Hypomagnesemia ICD Code: E83.42 Status: Acute (5) Hypokalemia ICD Code: E87.6 Status: Acute (6) Hepatitis C ICD Code: B19.20 Status: Acute Assessment and Plan Patient is a 41-year-old homeless gentleman with a known history of IV Dilaudid and heroin use. He was brought to the emergency room by a long-time friend who said for the last 9 days he was sleeping and having fevers up to 105. He did come to the emergency room for further evaluation and has been found to the septic with evidence of pneumonia on chest x-ray and he is tachypneic, oliguric , tachycardic with gross delirium and tachypnea. Patient admitted for sepsis evaluation and treatment. 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 Patient refusing Tylenol for fever due to fear of harming liver, patient given Ibuprofen overnight. - HIV test negative. Sputum cultures negative. - Blood cultures initially with growth of MRSA on 09/02, 09/05 and 09/07. Repeat BC on 09/14 NGTD. - ID following, appreciate input. - Cardiovascular surgeon following, appreciate input. 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 Recommendations to follow up in the outpatient setting for possible repair/replacement of tricuspid valve. Chest pain suspect secondary to withdrawal versus related to infective endocarditis, resolved. - Denies any further chest pain today. - EKG shows no ischemic changes. Continue continuous monitor technician for now , will continue to follow clinically. - Cardiac enzymes WNL. - Nitroglycerin available PRN. Constipation: No BM documented since 09/10/16. Milk of magnesium x [address] patient on ruben-colace PO BID scheduled. Please clearly document bowel movements. Left septic knee joint - Knee MRI reviewed showing a large nonspecific joint effusion with some enhancement of the synovial lining. This is nonspecific but is generally seen with synovitis. Nonspecific soft tissue swelling and soft tissues that surrounds the knee joint. - Wound cultures obtained from knee NGTD. - Status post I & D of left knee joint on 09/12 by orthopedic surgeon. History of IV drug abuse - Continue Methadone 30 mg PO TID - Patient admits to adequate support from family and friends. Understands disease process and shows motivation to quit. Hepatitis C: Follow up for outpatient treatment Nicotine dependence: NicoDerm patch 14 mg. Encourage cessation. DVT prophylaxis: Lovenox. Case discussed with patient, RN, and Dr. Manrique. Discharge Planning Per cardiovascular note patient will need roughly 8 weeks of IV antibiotics. Difficult discharge, lack of insurance and IVDU. Last CM note: * 09/18/16 PT CONTINUES WITH D/C PLANS TO RETURN TO HIS HOME ADDRESS LISTED ON THE FACE SHEET WHERE HE RESIDES WITH FAMILY. THE PT AT THIS TIME CONTINUES ON IV ABT AT THIS TIME AND POSSIBLE WILL CONTINUE FOR 6-8WEEKS. THE PT IS SELF PAY AND HAS A HISTORY OF IVDU. CM WILL CONTINUE TO FOLLOW THIS PT AND ASSESS FOR NEEDS AND MD ORDERS PRIOR TO HOSPITAL DISCHARGE. Stephie Russo Sep 19, 2016 08:15
[2016-09-19] MEDS: REMOVE OLD NICOTINE PATCH T-DERMAL SCH (09:00)
[2016-09-19] MEDS: NICOTINE 14 MG/24 HR PATCH T-DERMAL SCH (09:20)
[2016-09-19] MEDS: ENOXAPARIN SODIUM 40 MG/0.4 ML SYRINGE SQ SCH (09:21)
[2016-09-19] MEDS: SODIUM CHLORIDE 0.9% FLUSH 10 ML FLUSH IVF SCH (09:31)
[2016-09-19] MEDS: IBUPROFEN 400 MG TAB PO PRN (09:40)
[2016-09-19] MEDS: VANCOMYCIN INJ 1,250 MG in SODIUM CHLOR 0.9% 250 ML INJ 250 ML IV SCH ×2 (09:41→22:25)
[2016-09-19] MEDS: DOCUSATE SODIUM 50 MG/SENNA 8.6 MG TAB PO SCH ×2 (13:15→20:22)
[2016-09-19] MEDS ORDERED: MAGNESIUM HYDROXIDE SUSP 30 ML CUP PO ONE (13:15)
[2016-09-19] MEDS: ZOLPIDEM TARTRATE 10 MG TAB PO PRN (22:27)
[2016-09-20] VITALS (8 sets, daily range): BP systolic 102–112; BP diastolic 55–70; PULSE 74–111; RESP 16–18; TEMP 96.2–100; O2SAT 92–97
[2016-09-20] MEDS: MORPHINE SULFATE 15 MG TAB PO PRN ×6 (00:20→21:25)
[2016-09-20] MEDS: IBUPROFEN 400 MG TAB PO PRN (00:21)
[2016-09-20] MEDS: GENTAMICIN INJ 70 MG in SODIUM CHLORIDE 0.9% INJ 100 ML IV SCH ×3 (04:28→21:17)
[2016-09-20] MEDS: METHADONE HCL 10 MG TAB PO SCH ×3 (05:53→22:26)
[2016-09-20] MEDS: NICOTINE 14 MG/24 HR PATCH T-DERMAL SCH (08:31)
[2016-09-20] MEDS: ENOXAPARIN SODIUM 40 MG/0.4 ML SYRINGE SQ SCH (08:31)
[2016-09-20] MEDS: REMOVE OLD NICOTINE PATCH T-DERMAL SCH (09:00)
[2016-09-20] MEDS: DOCUSATE SODIUM 50 MG/SENNA 8.6 MG TAB PO SCH ×2 (09:00→21:00)
[2016-09-20] MEDS: SODIUM CHLORIDE 0.9% FLUSH 10 ML FLUSH IVF SCH (09:00)
--- NOTE | 2016-09-20 09:27 | HHI.PR ---
Subjective Remarks Follow-up for endocarditis, bacteremia, and severe sepsis. Patient seen and examined. at bedside. Denies any new acute events overnight. TMAX 100.0. Eating well. Denies any abdominal pain, nausea or vomiting. Denies any chest pain. Ambulating well. Objective Vitals Vital Signs Date Time Temp Pulse Resp B/P Pulse Ox O2 Delivery O2 Flow Rate FiO2 09/20/16 08:00 96.2 87 16 112/68 96 09/20/16 04:00 97.4 98 16 104/70 96 09/20/16 00:00 100.0 111 18 105/60 94 09/19/16 20:08 90 09/19/16 20:00 98.6 102 20 106/75 96 09/19/16 16:00 96.3 85 16 100/58 99 09/19/16 12:00 97.4 86 16 94/55 98 I/O 09/19/16 09/19/16 09/19/16 09/20/16 09/20/16 09/20/16 06:59 14:59 22:59 06:59 14:59 22:59 Intake Total 480 ml 1428 ml 205 ml 1080 ml Output Total 800 ml 800 ml 2050 ml Balance -320 ml 628 ml 205 ml -970 ml Intake Oral 480 ml 1080 ml 980 ml IV Total 348 ml 205 ml 100 ml Output Urine Total 800 ml 800 ml 2050 ml # Bowel Movements 0 0 0 Result Diagram: 09/19/16 0511 Imaging Last Impressions Central Venous Line 09/18/16 0000 Signed Impressions: Service Date/Time: Sunday, September 18, 2016 15:39 - CONCLUSION: Uncomplicated line placement as above. Catheter tip is near the atriocaval junction. Cain Ferraro MD Knee MRI 09/08/16 0000 Signed Impressions: Service Date/Time: Thursday, September 08, 2016 11:07 - CONCLUSION: 1. There is a large nonspecific joint effusion with some enhancement of the synovial lining. This is nonspecific but is generally seen with synovitis. 2. There is normal signal intensity in the bony structures. There is no evidence of any bony erosions or destruction to suggest osteomyelitis. 3. Nonspecific soft tissue swelling and soft tissues that surrounds the knee joint. Asaf Payne MD Knee X-Ray 09/06/16 0000 Signed Impressions: Service Date/Time: Tuesday, September 06, 2016 13:06 - CONCLUSION: 1. Nonspecific joint effusion. 2. Mild narrowing of the medial joint compartment. Asaf Payne MD Chest X-Ray 09/04/16 0000 Signed Impressions: Service Date/Time: Sunday, September 04, 2016 11:40 - CONCLUSION: 1. Medial left posterior lower lobe airspace disease and associated small pleural effusion. Cain Ferraro MD Lower Extremity Ultrasound 09/02/16 0000 Signed Impressions: Service Date/Time: Friday, September 02, 2016 18:16 - CONCLUSION: No DVT. Silvestre Ashraf MD Objective Remarks GENERAL: Well-nourished, well-developed patient in NAD. SKIN: Warm and dry. No rash. Left knee primapore dressing in place, c/d/i, no drainage noted. Right upper arm infiltrate from previous IV, reddened, small amount of serosanguineous drainage, tender to touch. HEENT: Normocephalic. Atraumatic. Pupils equal and round. No scleral icterus. No injection or drainage. No nasal bleeding or discharge. Mucous membranes pink and moist. NECK: Supple. Trachea midline. CARDIOVASCULAR: Regular rate and rhythm. S1, S2 noted. No murmur appreciated. RESPIRATORY: No accessory muscle use. Clear to auscultation. Breath sounds equal bilaterally. GASTROINTESTINAL: Abdomen soft, non-tender, nondistended. Normoactive bowel sounds x4. MUSCULOSKELETAL: No obvious deformities. Extremities without clubbing, cyanosis , or edema. NEUROLOGICAL: Awake and alert. No obvious cranial nerve deficits. Motor grossly within normal limits. 5/5 muscle strength in bilateral upper and lower extremities. Normal speech. PSYCHIATRIC: Appropriate mood and affect; insight and judgment normal. Procedures Left knee arthrotomy, debridement and irrigation (09/09/16). A/P Problem List: (1) IVDU (intravenous drug user) ICD Code: F19.90 Status: Chronic (2) Severe sepsis ICD Code: A41.9 Status: Acute (3) Thrombocytopenia ICD Code: D69.6 Status: Resolved (4) Hypomagnesemia ICD Code: E83.42 Status: Acute (5) Hypokalemia ICD Code: E87.6 Status: Acute (6) Hepatitis C ICD Code: B19.20 Status: Acute Assessment and Plan Patient is a 41-year-old homeless gentleman with a known history of IV Dilaudid and heroin use. He was brought to the emergency room by a long-time friend who said for the last 9 days he was sleeping and having fevers up to 105. He did come to the emergency room for further evaluation and has been found to the septic with evidence of pneumonia on chest x-ray and he is tachypneic, oliguric , tachycardic with gross delirium and tachypnea. Patient admitted for sepsis evaluation and treatment. Sepsis suspect secondary to ineffective carditis from IVDU Infective endocarditis with tricuspid valve vegetation secondary to history of IVDU - Continue IV Vancomycin, gentamicin, rifampin - TMAX overnight 100.0. Motrin PRN > fever 101. - HIV test negative. Sputum cultures negative. - Blood cultures initially with growth of MRSA on 09/02, 09/05 and 09/07. Repeat BC on 09/14 NGTD. - ID following, appreciate input. - Cardiovascular surgeon following, appreciate input. 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 Recommendations to follow up in the outpatient setting for possible repair/replacement of tricuspid valve. Chest pain suspect secondary to withdrawal versus related to infective endocarditis, resolved. - Denies any further chest pain today. - EKG shows no ischemic changes. Continue continuous glucose and syrup weigher for now , will continue to follow clinically. - Cardiac enzymes WNL. - Nitroglycerin available PRN. Constipation: No BM documented since 09/10/16. Continue Sarah-Colace PO BID scheduled. Please clearly document bowel movements. Left septic knee joint - Knee MRI reviewed showing a large nonspecific joint effusion with some enhancement of the synovial lining. This is nonspecific but is generally seen with synovitis. Nonspecific soft tissue swelling and soft tissues that surrounds the knee joint. - Wound cultures obtained from knee NGTD. - Status post I & D of left knee joint on 09/12 by orthopedic surgeon. History of IV drug abuse - Continue Methadone 30 mg PO TID - Patient admits to adequate support from family and friends. Understands disease process and shows motivation to quit. Hepatitis C: Follow up for outpatient treatment Nicotine dependence: NicoDerm patch 14 mg. Encourage cessation. DVT prophylaxis: Lovenox. Case discussed with patient, RN, and Dr. Manrique. Discharge Planning Per cardiovascular note patient will need roughly 8 weeks of IV antibiotics. Difficult discharge, lack of insurance and IVDU. Last CM note: * 09/18/16 PT CONTINUES WITH D/C PLANS TO RETURN TO HIS HOME ADDRESS LISTED ON THE FACE SHEET WHERE HE RESIDES WITH FAMILY. THE PT AT THIS TIME CONTINUES ON IV ABT AT THIS TIME AND POSSIBLE WILL CONTINUE FOR 6-8WEEKS. THE PT IS SELF PAY AND HAS A HISTORY OF IVDU. CM WILL CONTINUE TO FOLLOW THIS PT AND ASSESS FOR NEEDS AND MD ORDERS PRIOR TO HOSPITAL DISCHARGE. Stephie Russo Sep 20, 2016 09:27
[2016-09-20] MEDS ORDERED: PHARMACY ORDERED LAB ONE (09:45)
[2016-09-20] MEDS: VANCOMYCIN INJ 1,250 MG in SODIUM CHLOR 0.9% 250 ML INJ 250 ML IV SCH ×2 (12:37→21:17)
--- NOTE | 2016-09-20 15:19 | HHI.IDPN ---
Note Infectious Disease Note Patient notes feeling hot and feverish at night. Temp lower. Tammy chills. Blood culture positive 09/05, 09/07 MRSA. 09/10 - negative. Antibiotics Vancomycin. Rifampin stopped. Gent (added 09/10/16.) Lines Peripheral IV line Past Medical History IVDU Allergies: Coded Allergies: Avocado (Verified Allergy, Severe, 04/25/16) Shrimp (Verified Allergy, Severe, Anaphylaxis, 04/25/16) *MDRO Multi-Drug Resistant Organism (Unverified Adverse Reaction, Unknown , 09/04/16) MRSA Blood 09/2016 MRSA FINGER WOUND 12/16/03 Objective Vital Signs Date Time Temp Pulse Resp B/P Pulse Ox O2 Delivery O2 Flow Rate FiO2 09/20/16 12:00 97.9 87 18 107/60 97 09/20/16 08:00 96.2 87 16 112/68 96 09/20/16 04:00 97.4 98 16 104/70 96 09/20/16 00:00 100.0 111 18 105/60 94 09/19/16 20:08 90 09/19/16 20:00 98.6 102 20 106/75 96 09/19/16 16:00 96.3 85 16 100/58 99 Laboratory Tests Test 09/19/16 05:11 Creatinine 0.95 MG/DL Estimat Glomerular Filtration 88 ML/MIN Rate Total Bilirubin 0.3 MG/DL Direct Bilirubin 0.1 MG/DL Indirect Bilirubin 0.2 MG/DL Aspartate Amino Transf 85 U/L (AST/SGOT) Alanine Aminotransferase 84 U/L (ALT/SGPT) Alkaline Phosphatase 93 U/L Total Protein 8.0 GM/DL Albumin 2.2 GM/DL Physical Exam GENERAL: No acute distress. HEENT: EOMI, No icterus. No conjunctival erythema. NECK: Supple. no adenopathy. LUNGS: Breath sounds clear. CARDIAC: Regular rate and rhythm. 2/6 DORENE at LSB. ABDOMEN: Soft, no tenderness. EXTREMITIES: No clubbing, cyanosis, edema. SKIN: No rash. Warm and moist. No peripheral embolic phenomena. Assessment & Plan Diagnosis: 1. Septicemia due to methicillin resistant Staphylococcus aureus. Persistent positive blood cultures. 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 CV surgery recommends antibiotic treatment prior to valve surgery. 3. IVDU (intravenous drug user) 4. Pneumonia improved. 5. Left knee joint effusion. 6. Fever new. temp lower. May be due to Rifampin - stopped 09/18. Plan: Continue IV Vancomycin Continue Gentamycin. Difficulty clearing bacteremia. plan on 2 weeks of renal function allows. Monitor temps. Monitor Vancomycin levels while on Vancomycin. Monitor renal function every other day while on gentamycin and vancomycin. IV Vancomycin for 6 weeks post negative blood culture and repeat echo and reconsult cardiovascular surgery at end of treatment if no complications. sooner if not improving. Maicol Potter MD Sep 20, 2016 15:19
[2016-09-20] MEDS: ZOLPIDEM TARTRATE 10 MG TAB PO PRN (22:25)
[2016-09-21] MEDS: MORPHINE SULFATE 15 MG TAB PO PRN ×5 (02:02→19:40)
[2016-09-21] MEDS: GENTAMICIN INJ 70 MG in SODIUM CHLORIDE 0.9% INJ 100 ML IV SCH ×3 (04:24→19:39)
[2016-09-21] MEDS: METHADONE HCL 10 MG TAB PO SCH ×3 (05:57→21:26)
[2016-09-21 08:00] VITALS: BP 106/55; PULSE 83; RESP 16; TEMP 97; O2SAT 94
[2016-09-21] MEDS: NICOTINE 14 MG/24 HR PATCH T-DERMAL SCH (09:00)
[2016-09-21] MEDS: REMOVE OLD NICOTINE PATCH T-DERMAL SCH (09:00)
[2016-09-21] MEDS: DOCUSATE SODIUM 50 MG/SENNA 8.6 MG TAB PO SCH ×2 (09:00→19:44)
--- NOTE | 2016-09-21 09:43 | HHI.PR ---
Subjective Remarks Chest pain today. Patient still has left knee pain. About 17 days since surgery so sutures are removed today. No complaints from the patient. We discussed weaning his methadone that his current pain stated he does not want to attempt this yet. Objective Vital Signs Date Time Temp Pulse Resp B/P Pulse Ox O2 Delivery O2 Flow Rate FiO2 09/21/16 08:00 97.0 83 16 106/55 94 09/21/16 08:00 97.0 83 16 106/55 94 09/20/16 23:56 97.6 75 16 102/60 92 09/20/16 20:21 98.6 74 16 102/58 96 09/20/16 20:00 98.6 74 16 102/58 96 09/20/16 16:00 98.1 88 16 112/55 97 09/20/16 12:00 97.9 87 18 107/60 97 I/O 09/20/16 09/20/16 09/20/16 09/21/16 09/21/16 09/21/16 07:00 15:00 23:00 07:00 15:00 23:00 Intake Total 460 ml 1200 ml 447 ml Output Total 850 ml 775 ml 700 ml 1800 ml Balance -390 ml 425 ml -700 ml -1353 ml Intake Oral 360 ml 1200 ml IV Total 100 ml 0 ml 447 ml Output Urine Total 850 ml 775 ml 700 ml 1800 ml # Bowel Movements 0 0 Result Diagram: 09/21/16 0430 Procedures I and D of the Left knee with diagnosis of septic arthritis. Objective Remarks GENERAL: NAD, A&Ox3 HEAD: Normocephalic. NECK: Supple, trachea midline. No lymphadenopathy. EYES: No scleral icterus. No injection or drainage. CARDIOVASCULAR: Regular rate and rhythm without murmurs, gallops, or rubs. RESPIRATORY: Breath sounds equal bilaterally. No accessory muscle use. GASTROINTESTINAL: Abdomen soft, non-tender, nondistended. MUSCULOSKELETAL: No cyanosis, or edema. Bandage over left knee wound SKIN: Warm and dry. NEURO: No focal neurological deficitis. A/P Assessment and Plan Assessment and Plan 41-year-old male admitted with infective endocarditis, bacteremia, and septic joint secondary to IV drug abuse. Continue methadone 30 mg by mouth 3 times a day. When necessary morphine for breakthrough pain. Urine drug screen to ensure no cocaine abuse within the hospital, opioid levels are expected to be positive as he is on opioids here. Removed sutures at left knee. Decreased nicotine patch. Should be able to wean off his nicotine patch an approximate 7 days from now. Chest pain Likely withdrawal versus related to infective endocarditis EKG shows no ischemic changes Follow cardiac enzymes Monitor on telemetry Nitroglycerin when necessary Infective endocarditis Left septic knee joint Bacteremia Vancomycin, gentamicin, rifampin Follow blood cultures Infectious disease doctor following IV drug abuse history Methadone 30 mg by mouth 3 times a day Nicotine dependence NicoDerm decreased to 14 mg today Hepatitis C Consider outpatient treatment Must abstain from drug abuse to be qualified for treatment DVT prophylaxis Lovenox. Discharge Planning Expected senior living of antibiotics. Lack of insurance and history of IV drug abuse makes this and difficult discharge situation. Nader Manrique MD Sep 21, 2016 09:43
[2016-09-21] MEDS: ENOXAPARIN SODIUM 40 MG/0.4 ML SYRINGE SQ SCH (10:12)
[2016-09-21] MEDS: VANCOMYCIN INJ 1,250 MG in SODIUM CHLOR 0.9% 250 ML INJ 250 ML IV SCH ×2 (10:12→19:39)
[2016-09-21] MEDS: SODIUM CHLORIDE 0.9% FLUSH 10 ML FLUSH IVF SCH (10:13)
[2016-09-21 12:00] VITALS: BP 98/56; PULSE 96; RESP 16; TEMP 99; O2SAT 97
[2016-09-21 16:00] VITALS: BP 94/55; PULSE 80; RESP 16; TEMP 97.7; O2SAT 97
[2016-09-21 20:00] VITALS: BP 112/56; PULSE 110; RESP 20; TEMP 99.2; O2SAT 98
[2016-09-21] MEDS: ZOLPIDEM TARTRATE 10 MG TAB PO PRN (21:30)
[2016-09-22] VITALS: BP 112/52; PULSE 98; RESP 20; TEMP 99.6; O2SAT 98
[2016-09-22] MEDS: MORPHINE SULFATE 15 MG TAB PO PRN ×5 (01:40→23:14)
[2016-09-22] MEDS: GENTAMICIN INJ 70 MG in SODIUM CHLORIDE 0.9% INJ 100 ML IV SCH ×3 (06:08→22:07)
[2016-09-22] MEDS: METHADONE HCL 10 MG TAB PO SCH ×3 (06:08→22:06)
[2016-09-22 08:00] VITALS: BP 106/62; PULSE 89; RESP 16; TEMP 98.2; O2SAT 92
[2016-09-22] MEDS: ENOXAPARIN SODIUM 40 MG/0.4 ML SYRINGE SQ SCH (08:54)
[2016-09-22] MEDS: NICOTINE 7 MG/24 HR PATCH T-DERMAL SCH (08:55)
[2016-09-22] MEDS: DOCUSATE SODIUM 50 MG/SENNA 8.6 MG TAB PO SCH ×2 (08:56→21:00)
[2016-09-22] MEDS: REMOVE OLD PATCH T-DERMAL SCH (08:56)
[2016-09-22] MEDS: VANCOMYCIN INJ 1,250 MG in SODIUM CHLOR 0.9% 250 ML INJ 250 ML IV SCH ×2 (08:56→22:07)
[2016-09-22] MEDS: SODIUM CHLORIDE 0.9% FLUSH 10 ML FLUSH IVF SCH (08:57)
[2016-09-22 12:00] VITALS: BP 110/60; PULSE 91; RESP 16; TEMP 97.3; O2SAT 94
--- NOTE | 2016-09-22 13:50 | HHI.PR ---
Subjective Remarks Follow-up for endocarditis, bacteremia, and severe sepsis. Patient seen and examined. Sleeping comfortably in bed. Awakens to voice. Denies any new acute complaints overnight. Eating well. Positive BM. Pain continued but tolerable at this time. Objective Vitals Vital Signs Date Time Temp Pulse Resp B/P Pulse Ox O2 Delivery O2 Flow Rate FiO2 09/22/16 12:00 97.3 91 16 110/60 94 09/22/16 08:00 98.2 89 16 106/62 92 09/22/16 00:00 99.6 98 20 112/52 98 09/21/16 20:00 99.2 110 20 112/56 98 09/21/16 16:00 97.7 80 16 94/55 97 I/O 09/21/16 09/21/16 09/21/16 09/22/16 09/22/16 09/22/16 07:00 15:00 23:00 07:00 15:00 23:00 Intake Total 447 ml 340 ml 360 ml 450 ml 240 ml Output Total 1800 ml 530 ml 1000 ml 1250 ml 525 ml Balance -1353 ml -190 ml -640 ml -800 ml -285 ml Intake Oral 340 ml 360 ml 240 ml IV Total 447 ml 450 ml Output Urine Total 1800 ml 530 ml 1000 ml 1250 ml 525 ml # Bowel Movements 0 Result Diagram: 09/21/16 0430 Imaging Last Impressions Central Venous Line 09/18/16 0000 Signed Impressions: Service Date/Time: Sunday, September 18, 2016 15:39 - CONCLUSION: Uncomplicated line placement as above. Catheter tip is near the atriocaval junction. Cain Ferraro MD Knee MRI 09/08/16 0000 Signed Impressions: Service Date/Time: Thursday, September 08, 2016 11:07 - CONCLUSION: 1. There is a large nonspecific joint effusion with some enhancement of the synovial lining. This is nonspecific but is generally seen with synovitis. 2. There is normal signal intensity in the bony structures. There is no evidence of any bony erosions or destruction to suggest osteomyelitis. 3. Nonspecific soft tissue swelling and soft tissues that surrounds the knee joint. Asaf Payne MD Knee X-Ray 09/06/16 0000 Signed Impressions: Service Date/Time: Tuesday, September 06, 2016 13:06 - CONCLUSION: 1. Nonspecific joint effusion. 2. Mild narrowing of the medial joint compartment. Asaf Payne MD Chest X-Ray 09/04/16 0000 Signed Impressions: Service Date/Time: Sunday, September 04, 2016 11:40 - CONCLUSION: 1. Medial left posterior lower lobe airspace disease and associated small pleural effusion. Cain Ferraro MD Lower Extremity Ultrasound 09/02/16 0000 Signed Impressions: Service Date/Time: Friday, September 02, 2016 18:16 - CONCLUSION: No DVT. Silvestre Ashraf MD Objective Remarks GENERAL: Well-nourished, well-developed patient in NAD. SKIN: Warm and dry. No rash. Left leg incision JULIETTE, d/i. HEENT: Normocephalic. Atraumatic. Pupils equal and round. No scleral icterus. No injection or drainage. No nasal bleeding or discharge. Mucous membranes pink and moist. NECK: Supple. Trachea midline. CARDIOVASCULAR: Regular rate and rhythm. S1, S2 noted. No murmur appreciated. RESPIRATORY: No accessory muscle use. Clear to auscultation. Breath sounds equal bilaterally. GASTROINTESTINAL: Abdomen soft, non-tender, nondistended. Normoactive bowel sounds x4. MUSCULOSKELETAL: No obvious deformities. Extremities without clubbing, cyanosis , or edema. NEUROLOGICAL: Awake and alert. No obvious cranial nerve deficits. Motor grossly within normal limits. 5/5 muscle strength in bilateral upper and lower extremities. Normal speech. PSYCHIATRIC: Appropriate mood and affect; insight and judgment normal. Procedures Left knee arthrotomy, debridement and irrigation (09/09/16). A/P Problem List: (1) IVDU (intravenous drug user) ICD Code: F19.90 Status: Chronic (2) Severe sepsis ICD Code: A41.9 Status: Acute (3) Thrombocytopenia ICD Code: D69.6 Status: Resolved (4) Hypomagnesemia ICD Code: E83.42 Status: Acute (5) Hypokalemia ICD Code: E87.6 Status: Acute (6) Hepatitis C ICD Code: B19.20 Status: Acute Assessment and Plan Patient is a 41-year-old homeless gentleman with a known history of IV Dilaudid and heroin use. He was brought to the emergency room by a long-time friend who said for the last 9 days he was sleeping and having fevers up to 105. He did come to the emergency room for further evaluation and has been found to the septic with evidence of pneumonia on chest x-ray and he is tachypneic, oliguric , tachycardic with gross delirium and tachypnea. Patient admitted for sepsis evaluation and treatment. 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 Motrin PRN > fever 101. - HIV test negative. Sputum cultures negative. - Blood cultures initially with growth of MRSA on 09/02, 09/05 and 09/07. Repeat BC on 09/14 NGTD. - ID following, appreciate input. - Cardiovascular surgeon following, appreciate input. Patient in need of oil heaterman IV antibiotics up to 8 weeks. Recommendations to follow up in the outpatient setting for possible repair/replacement of tricuspid valve. - Knee MRI reviewed showing a large nonspecific joint effusion with some enhancement of the synovial lining. This is nonspecific but is generally seen with synovitis. Nonspecific soft tissue swelling and soft tissues that surrounds the knee joint. - Wound cultures obtained from knee NGTD. - Status post I & D of left knee joint on 09/12 by orthopedic surgeon. Chest pain suspect secondary to withdrawal versus related to infective endocarditis, resolved. - Denies any further chest pain today. - EKG shows no ischemic changes. 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 - Cardiac enzymes WNL. - Nitroglycerin available PRN. Constipation: Positive BM noted. Continue Sarah-Colace PO BID scheduled. History of IV drug abuse - Continue Methadone 30 mg PO TID Hepatitis C: Follow up for outpatient treatment Nicotine dependence: NicoDerm patch 7 mg. Encourage cessation. DVT prophylaxis: Lovenox. Case discussed with patient and Dr. Manrique. Discharge Planning Per cardiovascular note patient will need roughly 8 weeks of IV antibiotics. Difficult discharge, lack of insurance and IVDU. Last CM note: * 09/21/16 PT CONTINUES TO HAVE D/C PLANS TO RETURN TO HIS OWN HOME WITH FAMILY AT TIME OF HOSPITAL DISCHARGE. THE PT MAY REQUIRE EXTESNSIVE PERIOD OF IV ABT AND HAS A HISTORY OF IVDU. CM WILL CONTINUE TO FOLLOW AND ASSESS FOR NEEDS AND MD ORDERS PRIOR TO HOSPITAL DISCHARGE. Stephie Russo Sep 22, 2016 13:50
[2016-09-22 16:00] VITALS: BP 92/55; PULSE 98; RESP 16; TEMP 98; O2SAT 91
[2016-09-22 20:00] VITALS: BP 103/58; PULSE 59; RESP 16; TEMP 98.6; O2SAT 97
[2016-09-22] MEDS: ZOLPIDEM TARTRATE 10 MG TAB PO PRN (23:14)
[2016-09-23] VITALS: BP 113/61; PULSE 79; RESP 16; TEMP 98.3; O2SAT 96
[2016-09-23] MEDS: GENTAMICIN INJ 70 MG in SODIUM CHLORIDE 0.9% INJ 100 ML IV SCH ×3 (03:20→22:43)
[2016-09-23] MEDS: MORPHINE SULFATE 15 MG TAB PO PRN ×3 (03:20→13:26)
[2016-09-23] MEDS: METHADONE HCL 10 MG TAB PO SCH ×3 (06:16→22:20)
[2016-09-23 08:00] VITALS: BP 103/57; PULSE 88; RESP 16; TEMP 99.1; O2SAT 92
[2016-09-23] MEDS: DOCUSATE SODIUM 50 MG/SENNA 8.6 MG TAB PO SCH ×2 (08:55→21:00)
[2016-09-23] MEDS: NICOTINE 7 MG/24 HR PATCH T-DERMAL SCH (08:56)
[2016-09-23] MEDS: REMOVE OLD PATCH T-DERMAL SCH (08:56)
[2016-09-23] MEDS: ENOXAPARIN SODIUM 40 MG/0.4 ML SYRINGE SQ SCH (08:56)
[2016-09-23] MEDS: VANCOMYCIN INJ 1,250 MG in SODIUM CHLOR 0.9% 250 ML INJ 250 ML IV SCH (08:57)
[2016-09-23] MEDS: SODIUM CHLORIDE 0.9% FLUSH 10 ML FLUSH IVF SCH (09:00)
[2016-09-23 12:00] VITALS: BP 97/55; PULSE 93; RESP 18; TEMP 98; O2SAT 93
[2016-09-23 13:25] VITALS: BP 115/93
[2016-09-23 16:00] VITALS: BP 129/69; PULSE 96; RESP 16; TEMP 97.6; O2SAT 93
--- NOTE | 2016-09-23 17:14 | HHI.PR ---
Subjective Remarks Follow-up for endocarditis, bacteremia, and severe sepsis. Patient seen and examined. RN and at bedside. Patient awake and alert, admits to pain being controlled. Denies any new acute complaint overnight. Spoke to bedside RN, expresses concern with Morphine dose and intermittent lethargy and labile BP. Objective Vitals Vital Signs Date Time Temp Pulse Resp B/P Pulse Ox O2 Delivery O2 Flow Rate FiO2 09/23/16 16:00 97.6 96 16 129/69 93 09/23/16 13:25 115/93 09/23/16 12:00 98.0 93 18 97/55 93 09/23/16 08:00 99.1 88 16 103/57 92 09/23/16 00:00 98.3 79 16 113/61 96 09/22/16 20:00 98.6 59 16 103/58 97 I/O 09/22/16 09/22/16 09/22/16 09/23/16 09/23/16 09/23/16 07:00 15:00 23:00 07:00 15:00 23:00 Intake Total 450 ml 980 ml 720 ml 985 ml Output Total 1250 ml 1125 ml 1175 ml 300 ml 1725 ml Balance -800 ml -145 ml -1175 ml 420 ml -740 ml Intake Oral 580 ml 720 ml 985 ml IV Total 450 ml 400 ml Output Urine Total 1250 ml 1125 ml 1175 ml 300 ml 1725 ml # Bowel Movements 0 0 Result Diagram: 09/23/16 0600 Imaging Last Impressions Central Venous Line 09/18/16 0000 Signed Impressions: Service Date/Time: Sunday, September 18, 2016 15:39 - CONCLUSION: Uncomplicated line placement as above. Catheter tip is near the atriocaval junction. Cain Ferraro MD Knee MRI 09/08/16 0000 Signed Impressions: Service Date/Time: Thursday, September 08, 2016 11:07 - CONCLUSION: 1. There is a large nonspecific joint effusion with some enhancement of the synovial lining. This is nonspecific but is generally seen with synovitis. 2. There is normal signal intensity in the bony structures. There is no evidence of any bony erosions or destruction to suggest osteomyelitis. 3. Nonspecific soft tissue swelling and soft tissues that surrounds the knee joint. Asaf Payne MD Knee X-Ray 09/06/16 0000 Signed Impressions: Service Date/Time: Tuesday, September 06, 2016 13:06 - CONCLUSION: 1. Nonspecific joint effusion. 2. Mild narrowing of the medial joint compartment. Asaf Payne MD Chest X-Ray 09/04/16 0000 Signed Impressions: Service Date/Time: Sunday, September 04, 2016 11:40 - CONCLUSION: 1. Medial left posterior lower lobe airspace disease and associated small pleural effusion. Cain Ferraro MD Lower Extremity Ultrasound 09/02/16 0000 Signed Impressions: Service Date/Time: Friday, September 02, 2016 18:16 - CONCLUSION: No DVT. Silvestre Ashraf MD Objective Remarks GENERAL: Well-nourished, well-developed patient in NAD. SKIN: Warm and dry. No rash. 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 HEENT: Normocephalic. Atraumatic. Pupils equal and round. No scleral icterus. No injection or drainage. No nasal bleeding or discharge. Mucous membranes pink and moist. NECK: Supple. Trachea midline. CARDIOVASCULAR: Regular rate and rhythm. S1, S2 noted. No murmur appreciated. RESPIRATORY: No accessory muscle use. Clear to auscultation. Breath sounds equal bilaterally. GASTROINTESTINAL: Abdomen soft, non-tender, nondistended. Normoactive bowel sounds x4. MUSCULOSKELETAL: No obvious deformities. Extremities without clubbing, cyanosis , or edema. NEUROLOGICAL: Awake and alert. No obvious cranial nerve deficits. Motor grossly within normal limits. 5/5 muscle strength in bilateral upper and lower extremities. Normal speech. PSYCHIATRIC: Appropriate mood and affect; insight and judgment normal. Procedures Left knee arthrotomy, debridement and irrigation (09/09/16). A/P Problem List: (1) IVDU (intravenous drug user) ICD Code: F19.90 Status: Chronic (2) Severe sepsis ICD Code: A41.9 Status: Acute (3) Thrombocytopenia ICD Code: D69.6 Status: Resolved (4) Hypomagnesemia ICD Code: E83.42 Status: Acute (5) Hypokalemia ICD Code: E87.6 Status: Acute (6) Hepatitis C ICD Code: B19.20 Status: Acute Assessment and Plan Patient is a 41-year-old homeless gentleman with a known history of IV Dilaudid and heroin use. He was brought to the emergency room by a long-time friend who said for the last 9 days he was sleeping and having fevers up to 105. He did come to the emergency room for further evaluation and has been found to the septic with evidence of pneumonia on chest x-ray and he is tachypneic, oliguric , tachycardic with gross delirium and tachypnea. Patient admitted for sepsis evaluation and treatment. Sepsis suspect secondary to ineffective carditis from IVDU Infective endocarditis with tricuspid valve vegetation secondary to history of IVDU Left septic knee joint - Continue IV Vancomycin, gentamicin, rifampin - Fevers resolved. Motrin PRN > fever 101. - HIV test negative. Sputum cultures negative. - Blood cultures initially with growth of MRSA on 09/02, 09/05 and 09/07. Repeat BC on 09/14 NGTD. - ID following, appreciate input. - Cardiovascular surgeon following, appreciate input. Patient in need of intermediate IV antibiotics up to 8 weeks. Recommendations to follow up in the outpatient setting for possible repair/replacement of tricuspid valve. - Knee MRI showing a large nonspecific joint effusion with some enhancement of the synovial lining. This is nonspecific but is generally seen with synovitis. Nonspecific soft tissue swelling and soft tissues that surrounds the knee joint. - Wound cultures obtained from knee NGTD. - Status post I & D of left knee joint on 09/12 by orthopedic surgeon. - Wean Morphine 15 mg q4h PO PRN due to occasional lethargy. Place hold parameters. History of IV drug abuse - Continue Methadone 30 mg PO TID Hepatitis C: Follow up for outpatient treatment Nicotine dependence: NicoDerm patch 7 mg. Encourage cessation. DVT prophylaxis: Lovenox. Case discussed with patient and Dr. Malik Discharge Planning Per cardiovascular note patient will need roughly 8 weeks of IV antibiotics. Difficult discharge, lack of insurance and IVDU. Last CM note: * 09/21/16 PT CONTINUES TO HAVE D/C PLANS TO RETURN TO HIS OWN HOME WITH FAMILY AT TIME OF HOSPITAL DISCHARGE. THE PT MAY REQUIRE EXTESNSIVE PERIOD OF IV ABT AND HAS A HISTORY OF IVDU. CM WILL CONTINUE TO FOLLOW AND ASSESS FOR NEEDS AND MD ORDERS PRIOR TO HOSPITAL DISCHARGE. Stephie Russo Sep 23, 2016 17:14
[2016-09-23] MEDS ORDERED: MORPHINE SULFATE 15 MG TAB PO PRN (17:30)
[2016-09-23] MEDS: MORPHINE SULFATE ORAL SOLN 10 MG/0.5 ML SYRINGE PO PRN (18:15)
[2016-09-23 20:00] VITALS: BP 104/65; PULSE 97; RESP 18; TEMP 98.8; O2SAT 99
[2016-09-23] MEDS: ZOLPIDEM TARTRATE 10 MG TAB PO PRN (22:21)
[2016-09-24] VITALS: BP 114/58; PULSE 103; RESP 18; TEMP 98.6; O2SAT 97
[2016-09-24] MEDS: VANCOMYCIN INJ 1,250 MG in SODIUM CHLOR 0.9% 250 ML INJ 250 ML IV SCH ×3 (00:19→22:00)
[2016-09-24] MEDS: MORPHINE SULFATE ORAL SOLN 10 MG/0.5 ML SYRINGE PO PRN ×5 (00:19→15:27)
[2016-09-24] MEDS: GENTAMICIN INJ 70 MG in SODIUM CHLORIDE 0.9% INJ 100 ML IV SCH ×3 (03:16→21:34)
[2016-09-24 03:48] LABS: AUTOMATED NEUTROPHIL # 5.4 TH/MM3 (1.8-7.7); BASOPHIL # 0.1 TH/MM3 (0-0.2); BASOPHIL % 0.7 % (0.0-2.0); EOSINOPHIL # 2.3 TH/MM3 (0-0.4); EOSINOPHIL % 22.7 % (0.0-4.0); HEMATOCRIT 23.9 % (39.0-51.0); HEMO FLAGS DIFF FINAL; LYMPH % 16.2 % (9.0-44.0); LYMPHOCYTE # 1.6 TH/MM3 (1.0-4.8); MEAN CELL VOLUME 76.5 FL (80.0-100.0); MEAN CORPUSCULAR HEMOGLOBIN 25.4 PG (27.0-34.0); MEAN CORPUSCULAR HGB CONC 33.3 % (32.0-36.0); MONO % 6.6 % (0.0-8.0); NEUT % 53.8 % (16.0-70.0); PLATELET COUNT 206 TH/MM3 (150-450); RED BLOOD COUNT 3.13 MIL/MM3 (4.50-5.90); RED CELL DISTRIBUTION WIDTH 15.1 % (11.6-17.2)
[2016-09-24 04:03] LABS: BICARBONATE 29.6 MEQ/L (21.0-32.0); POTASSIUM 4.4 MEQ/L (3.5-5.1)
[2016-09-24] MEDS: METHADONE HCL 10 MG TAB PO SCH ×3 (06:01→21:33)
[2016-09-24 08:00] VITALS: BP 109/57; PULSE 102; RESP 19; TEMP 97.9; O2SAT 92
[2016-09-24] MEDS: DOCUSATE SODIUM 50 MG/SENNA 8.6 MG TAB PO SCH ×2 (09:00→21:32)
[2016-09-24] MEDS: REMOVE OLD PATCH T-DERMAL SCH (09:00)
--- NOTE | 2016-09-24 09:03 | HHI.PR ---
Subjective Remarks Follow-up for endocarditis, bacteremia, and severe sepsis. Patient seen and examined, lying in bed comfortably. at bedside. Patient states no new acute events overnight. Does complain of continued pain in left knee and swelling. Eating well. Ambulating well. Afebrile. Plan is to send patient to [facility] to finish IV antibiotic therapy. Objective Vitals Vital Signs Date Time Temp Pulse Resp B/P Pulse Ox O2 Delivery O2 Flow Rate FiO2 09/24/16 08:00 97.9 102 19 109/57 92 09/24/16 00:00 98.6 103 18 114/58 97 09/23/16 20:00 98.8 97 18 104/65 99 09/23/16 16:00 97.6 96 16 129/69 93 09/23/16 13:25 115/93 09/23/16 12:00 98.0 93 18 97/55 93 I/O 09/23/16 09/23/16 09/23/16 09/24/16 09/24/16 09/24/16 07:00 15:00 23:00 07:00 15:00 23:00 Intake Total 720 ml 985 ml 585 ml Output Total 300 ml 1725 ml 900 ml Balance 420 ml -740 ml -900 ml 585 ml Intake Oral 720 ml 985 ml IV Total 585 ml Output Urine Total 300 ml 1725 ml 900 ml # Voids 1 # Bowel Movements 0 0 Result Diagram: 09/24/16 0330 09/24/16 0330 Imaging Last Impressions Central Venous Line 09/18/16 0000 Signed Impressions: Service Date/Time: Sunday, September 18, 2016 15:39 - CONCLUSION: Uncomplicated line placement as above. Catheter tip is near the atriocaval junction. Cain Ferraro MD Knee MRI 09/08/16 0000 Signed Impressions: Service Date/Time: Thursday, September 08, 2016 11:07 - CONCLUSION: 1. There is a large nonspecific joint effusion with some enhancement of the synovial lining. This is nonspecific but is generally seen with synovitis. 2. There is normal signal intensity in the bony structures. There is no evidence of any bony erosions or destruction to suggest osteomyelitis. 3. Nonspecific soft tissue swelling and soft tissues that surrounds the knee joint. Asaf Payne MD Knee X-Ray 09/06/16 0000 Signed Impressions: Service Date/Time: Tuesday, September 06, 2016 13:06 - CONCLUSION: 1. Nonspecific joint effusion. 2. Mild narrowing of the medial joint compartment. Asaf Payne MD Chest X-Ray 09/04/16 0000 Signed Impressions: Service Date/Time: Sunday, September 04, 2016 11:40 - CONCLUSION: 1. Medial left posterior lower lobe airspace disease and associated small pleural effusion. Cain Ferraro MD Lower Extremity Ultrasound 09/02/16 0000 Signed Impressions: Service Date/Time: Friday, September 02, 2016 18:16 - CONCLUSION: No DVT. Silvestre Ashraf MD Objective Remarks GENERAL: Well-nourished, well-developed patient in NAD. SKIN: Warm and dry. No rash. Left leg incision JULIETTE, d/i. Slight swelling noted. HEENT: Normocephalic. Atraumatic. Pupils equal and round. No scleral icterus. No injection or drainage. No nasal bleeding or discharge. Mucous membranes pink and moist. NECK: Supple. Trachea midline. CARDIOVASCULAR: Regular rate and rhythm. S1, S2 noted. RESPIRATORY: No accessory muscle use. Clear to auscultation. Breath sounds equal bilaterally. GASTROINTESTINAL: Abdomen soft, non-tender, nondistended. Normoactive bowel sounds x4. MUSCULOSKELETAL: No obvious deformities. Extremities without clubbing, cyanosis , or edema. NEUROLOGICAL: Awake and alert. No obvious cranial nerve deficits. Motor grossly within normal limits. 5/5 muscle strength in bilateral upper and lower extremities. Normal speech. PSYCHIATRIC: Appropriate mood and affect; insight and judgment normal. Procedures Left knee arthrotomy, debridement and irrigation (09/09/16). A/P Problem List: (1) IVDU (intravenous drug user) ICD Code: F19.90 Status: Chronic (2) Severe sepsis ICD Code: A41.9 Status: Acute (3) Thrombocytopenia ICD Code: D69.6 Status: Resolved (4) Hypomagnesemia ICD Code: E83.42 Status: Acute (5) Hypokalemia ICD Code: E87.6 Status: Acute (6) Hepatitis C ICD Code: B19.20 Status: Acute Assessment and Plan Patient is a 41-year-old homeless gentleman with a known history of IV Dilaudid and heroin use. He was brought to the emergency room by a long-time friend who said for the last 9 days he was sleeping and having fevers up to 105. He did come to the emergency room for further evaluation and has been found to the septic with evidence of pneumonia on chest x-ray and he is tachypneic, oliguric , tachycardic with gross delirium and tachypnea. Patient admitted for sepsis evaluation and treatment. Sepsis suspect secondary to ineffective carditis from IVDU Infective endocarditis with tricuspid valve vegetation secondary to history of IVDU Left septic knee joint - Continue IV Vancomycin, gentamicin. - Fevers resolved. Motrin PRN > fever 101. - HIV test negative. Sputum cultures negative. - Blood cultures initially with growth of MRSA on 09/02, 09/05 and 09/07. Repeat BC on 09/14 NGTD. - ID following, appreciate input. - Cardiovascular surgeon following, appreciate input. Patient in need of halfway IV antibiotics up to 8 weeks. Recommendations to follow up in the outpatient setting for possible repair/replacement of tricuspid valve. - Knee MRI showing a large nonspecific joint effusion with some enhancement of the synovial lining. Status post I & D of left knee joint on 09/12 by orthopedic surgeon. - Wound cultures obtained from knee NGTD. - Morphine 10 mg q4h PO PRN. Hold parameters. History of IV drug abuse: Methadone 30 mg PO TID. Repeat EKG ordered, check for OT changes with dose change. Will follow. Hepatitis C: Follow up for outpatient treatment Nicotine dependence: NicoDerm patch 7 mg. Encourage cessation. DVT prophylaxis: Lovenox. Case discussed with patient and Dr. Malik Discharge Planning Per cardiovascular note patient will need roughly 8 weeks of IV antibiotics. Plan to transfer patient to [facility] to finish IV antibiotic course. Stephie Russo Sep 24, 2016 09:03
[2016-09-24] MEDS: ENOXAPARIN SODIUM 40 MG/0.4 ML SYRINGE SQ SCH (10:08)
[2016-09-24] MEDS: SODIUM CHLORIDE 0.9% FLUSH 10 ML FLUSH IVF SCH (10:08)
[2016-09-24] MEDS: NICOTINE 7 MG/24 HR PATCH T-DERMAL SCH (10:09)
[2016-09-24 12:00] VITALS: BP 108/58; PULSE 95; RESP 17; TEMP 98.9; O2SAT 94
--- NOTE | 2016-09-24 16:52 | EKG ---
Date Performed: 09/24/2016 Time Performed: 13:18:22 PTAGE: 41 years EKG: Sinus rhythm WITH SHORT VA INTERVAL BORDERLINE ECG PREVIOUS TRACING : 09/14/2016 13.32 No significant change from previous tracing noted. DOCTOR: Esau Cortés Interpretating Date/Time 09/24/2016 16:50:31
[2016-09-24 20:00] VITALS: BP 122/74; PULSE 90; RESP 20; TEMP 96.6; O2SAT 97
[2016-09-24] MEDS: ZOLPIDEM TARTRATE 10 MG TAB PO PRN (21:48)
[2016-09-25] MEDS: GENTAMICIN INJ 70 MG in SODIUM CHLORIDE 0.9% INJ 100 ML IV SCH ×2 (04:18→12:13)
[2016-09-25] MEDS: METHADONE HCL 10 MG TAB PO SCH (06:42)
[2016-09-25] MEDS: MORPHINE SULFATE ORAL SOLN 10 MG/0.5 ML SYRINGE PO PRN (08:59)
[2016-09-25 09:00] VITALS: BP 99/58; PULSE 84; RESP 14; TEMP 98.9; O2SAT 92
[2016-09-25] MEDS: DOCUSATE SODIUM 50 MG/SENNA 8.6 MG TAB PO SCH ×3 (09:00→21:24)
[2016-09-25] MEDS: REMOVE OLD PATCH T-DERMAL SCH (09:00)
[2016-09-25] MEDS: SODIUM CHLORIDE 0.9% FLUSH 10 ML FLUSH IVF SCH ×2 (09:02→09:06)
[2016-09-25] MEDS: NICOTINE 7 MG/24 HR PATCH T-DERMAL SCH (09:02)
[2016-09-25] MEDS: ENOXAPARIN SODIUM 40 MG/0.4 ML SYRINGE SQ SCH (09:03)
[2016-09-25] MEDS: VANCOMYCIN INJ 1,250 MG in SODIUM CHLOR 0.9% 250 ML INJ 250 ML IV SCH ×2 (10:38→21:29)
[2016-09-25] MEDS ORDERED: oxyCODONE/ACETAMINOPHEN 5 MG/325 MG TAB PO PRN (11:30)
--- NOTE | 2016-09-25 11:51 | HHI.PR ---
Subjective Remarks 41 year-old male who originally presented to hospital on 09/02/16 because of febrile illness. Patient does have history of IV drug use in which he states that is clean for a while however he started back up again injecting Dilaudid and heroin. 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 Patient also had significant left knee pain and swelling in which he underwent surgical intervention on 09/09/16 for septic arthritis. Patient underwent left knee arthrotomy with urination and debridement. Patient did have evaluation with cardiovascular surgery who agreed to entertain the possibility of valvular replacement when patient completes antibiotic regimen, repeat echocardiogram and clean drug screen. Patient is undergoing antibiotic treatment at this time with gentamicin and vancomycin. Patient has remained afebrile since 09/19/16. Patient has had clean blood cultures since 09/10/16. Infectious disease is following the patient and recommended total of 6 weeks of antibiotics from last negative blood culture which would be October 22, 2016. Patient is still requiring significant narcotic medication for subjective pain control. Dr. Forbes and myself reviewed the medication records. Patient was on Percocet 7.5 up until 09/06 when he was changed to methadone 30 mg every 8 hours. Then morphine breakthrough medication was added on 09/08/16. It was discussed with the patient extensively on need to wean off all pain medication and ordered to have a clean drug screen in order to undergo surgical intervention. Patient is reluctant to discontinue pain medication and is trying to manipulate and asked to start weaning in one week. This causes problems with him and his significant other in which they started fighting in the room because she wants him to live, however he wants to continue using the medication. After discussing with Dr. Forbes will plan on weaning off medication today. Objective Vitals Vital Signs Date Time Temp Pulse Resp B/P Pulse Ox O2 Delivery O2 Flow Rate FiO2 09/25/16 09:00 98.9 84 14 99/58 92 09/24/16 20:00 96.6 90 20 122/74 97 09/24/16 12:00 98.9 95 17 108/58 94 I/O 09/24/16 09/24/16 09/24/16 09/25/16 09/25/16 09/25/16 07:00 15:00 23:00 07:00 15:00 23:00 Intake Total 585 ml 940 ml 480 ml 720 ml 262 ml Output Total 600 ml 1000 ml Balance 585 ml 340 ml 480 ml -280 ml 262 ml Intake Oral 940 ml 480 ml 720 ml IV Total 585 ml 262 ml Output Urine Total 600 ml 1000 ml # Voids 1 2 # Bowel Movements 0 0 0 Result Diagram: 09/24/16 0330 09/25/16 0645 Objective Remarks GENERAL: Well-developed, well-nourished, in no acute distress. alert and orientated HEENT: Head is normocephalic without any lesions or masses noted. Facial features are symmetric. Eyes: extraocular muscles are intact. Conjunctivae were clear. NECK: Trachea midline no deviation. Rate that, right internal jugular central line noted CARDIAC: Regular rhythm, regular rate. S1/S2 are heard. No murmurs gallops or rubs. LUNGS: Clear to auscultation bilaterally. No wheeze, rhonchi or rales. No use of accessory muscles on inspiration or expiration. ABDOMEN: Soft, nontender. Nondistended. Bowel sounds heard in all 4 quadrants. No organomegaly or masses. Negative rebound, negative guarding EXTREMITIES: No edema, pulses are equal bilaterally. No cyanosis or clubbing NEUROLOGY: Mood and affect appear appropriate. Cranial nerves II through XII grossly intact. Moving all extremities, speech is clear Procedures Left knee arthrotomy, debridement and irrigation (09/09/16). Urinary Catheter: No Vascular Central Line Catheter: Yes Assessment to: Continue Date of Insertion: Sep 18, 2016 Line: Central Venous Catheter Side: Right Location: Internal, Jugular A/P Assessment and Plan 41 year-old male with known history of significant IV drug use with Dilaudid and heroin who presented initially because of febrile illness Bacterial endocarditis with tricuspid valve vegetation MRSA bacteremia Left septic knee joint Patient remains afebrile since 09/19/16 Echocardiogram indicates tricuspid valve vegetation 1.1 x 1.8 cm, repeat echocardiogram requested by cardiovascular surgeon after antibiotics completed MRI of the knee shows large nonspecific joint effusion with enhancement of synovial lining which is generally seen with synovitis Status post left knee arthrotomy, irrigation and debridement on 09/09/16 Negative blood culture since 09/10/16 Infectious disease following the patient and recommended total of 6 weeks of antibiotics from first negative culture, patient currently on vancomycin/ gentamicin, end date would be October 22, 2016 Cardiovascular surgery evaluated patient and recommended antibiotic therapy, and follow-up in the office but will need to have repeat echocardiogram will need to have a clean negative urine toxicology screen to evaluate for possible surgery Pain control, this will need to be adjusted weekly in order to be completely clean before discharge in order to meet criteria for surgical intervention Discontinue Methadone 30 mg every 8 hours Discontinue Morphine 10 mg every 4 hours as needed for breakthrough pain Start Percocet 5 every 6 hours as needed for pain 17 Start Percocet 10 every 6 hours as needed for pain 810 History of IV drug abuse: Patient counseled on cessation HIV testing negative Symptomatic treatment for withdrawal symptoms Insomnia Start trazodone 25 mg at bedtime Muscle spasms Flexeril 5 mg 3 times daily as needed Nausea vomiting Zofran Diarrhea Imodium Anxiety Benadryl Hepatitis C: Follow up for outpatient treatment Nicotine dependence: NicoDerm patch 7 mg. Encourage cessation. DVT prophylaxis: Lovenox. Mann Ramsey Sep 25, 2016 11:51
[2016-09-25] MEDS ORDERED: LOPERAMIDE HCL 2 MG CAP PO PRN (12:00)
[2016-09-25] MEDS ORDERED: diphenhydrAMINE HCL 50 MG CAP PO PRN (12:00)
[2016-09-25] MEDS ORDERED: PILL SPLITTER OTHER PRN (12:15)
[2016-09-25] MEDS: oxyCODONE/ACETAMINOPHEN 10 MG/325 MG TAB PO PRN ×2 (15:11→21:23)
[2016-09-25 20:00] VITALS: BP 104/63; PULSE 93; RESP 22; TEMP 97.3; O2SAT 98
[2016-09-25] MEDS: CYCLOBENZAPRINE HCL 10 MG TAB PO PRN (21:22)
[2016-09-25] MEDS: traZODone HCL 50 MG TAB PO PRN (21:23)
[2016-09-25] MEDS: SODIUM CHLORIDE 0.9% FLUSH 10 ML FLUSH IVF PRN (21:24)
[2016-09-26] MEDS: oxyCODONE/ACETAMINOPHEN 10 MG/325 MG TAB PO PRN ×3 (04:07→18:02)
[2016-09-26 08:39] VITALS: BP 88/52; PULSE 79; RESP 19; TEMP 97.3; O2SAT 97
[2016-09-26] MEDS: REMOVE OLD PATCH T-DERMAL SCH (09:00)
[2016-09-26] MEDS: DOCUSATE SODIUM 50 MG/SENNA 8.6 MG TAB PO SCH ×2 (09:00→21:00)
[2016-09-26] MEDS: CYCLOBENZAPRINE HCL 10 MG TAB PO PRN ×2 (09:47→21:45)
[2016-09-26] MEDS: NICOTINE 7 MG/24 HR PATCH T-DERMAL SCH (09:49)
[2016-09-26] MEDS: ENOXAPARIN SODIUM 40 MG/0.4 ML SYRINGE SQ SCH (09:50)
[2016-09-26] MEDS: SODIUM CHLORIDE 0.9% FLUSH 10 ML FLUSH IVF SCH (09:51)
[2016-09-26] MEDS: VANCOMYCIN INJ 1,250 MG in SODIUM CHLOR 0.9% 250 ML INJ 250 ML IV SCH ×2 (09:51→21:45)
[2016-09-26 10:03] VITALS: BP 95/54
--- NOTE | 2016-09-26 10:50 | HHI.PR ---
Subjective Remarks Follow-up for bacteremia, tricuspid valve endocarditis, septic arthritis left knee. Patient complains of significant pain in his entire body including his left knee. Notes a history of chronic pain from fractures to his cervical and lumbar spine as well. He states his pain is "through the roof" rating it an 11/ 10. He states he had chills overnight; crying due to the pain. He denies any lightheadedness, dizziness, chest pain, shortness of breath, vomiting, or diarrhea. States he is not eating and drinking well. Complains about his methadone being stopped. He states he was taking five to six 8 [address] out on [address]. Complains about receiving poor care since being here at [facility]. Objective Vitals Vital Signs Date Time Temp Pulse Resp B/P Pulse Ox O2 Delivery O2 Flow Rate FiO2 09/26/16 10:03 95/54 09/26/16 08:39 97.3 79 19 88/52 97 09/26/16 07:00 18 09/25/16 20:00 97.3 93 22 104/63 98 I/O 09/25/16 09/25/16 09/25/16 09/26/16 09/26/16 09/26/16 07:00 15:00 23:00 07:00 15:00 23:00 Intake Total 720 ml 262 ml 1740 ml 250 ml Output Total 1000 ml 700 ml Balance -280 ml 262 ml 1040 ml 250 ml Intake Oral 720 ml 1440 ml IV Total 262 ml 300 ml 250 ml Output Urine Total 1000 ml 700 ml # Voids 3 # Bowel Movements 0 1 Result Diagram: 09/24/16 0330 09/25/16 0645 Objective Remarks GENERAL: Well-nourished, well-developed patient in no apparent distress, but grimacing in pain. SKIN: Warm and dry. Incision is well-healed to the left knee. No erythema. NECK: R IJ central line noted. CARDIOVASCULAR: Tachycardic rate and regular rhythm. RESPIRATORY: No accessory muscle use. Clear to auscultation. Breath sounds equal bilaterally. GASTROINTESTINAL: Abdomen soft, non-tender, nondistended. MUSCULOSKELETAL: Mildly warm swelling to left knee. Limitation with active flexion of the left knee. Passive flexion not pursued due to patient's pain. 2 + DP and TP pulses bilaterally. NEUROLOGICAL: Awake and alert. Motor grossly within normal limits. Normal speech. PSYCHIATRIC: Disgruntled mood and affect. Procedures Left knee arthrotomy, debridement and irrigation (09/09/16). Urinary Catheter: No Vascular Central Line Catheter: Yes Assessment to: Continue Date of Insertion: Sep 18, 2016 Line: Central Venous Catheter Side: Right Location: Internal, Jugular Reason for Continuation antibiotics A/P Problem List: (1) IVDU (intravenous drug user) ICD Code: F19.90 Status: Chronic (2) Severe sepsis ICD Code: A41.9 Status: Acute (3) Thrombocytopenia ICD Code: D69.6 Status: Resolved (4) Hypomagnesemia ICD Code: E83.42 Status: Acute (5) Hypokalemia ICD Code: E87.6 Status: Acute (6) Hepatitis C ICD Code: B19.20 Status: Acute Assessment and Plan 41 year-old male with known history of significant IV drug use with Dilaudid and heroin who presented initially because of febrile illness 09/26: Hypotension this morning, but repeat manual pressure MAP improved. CBC today reviewed with normal WBC count. Hemoglobin stable at 8.1. BMP unremarkable. Likely attributed to narcotics. Patient advised to increase eating and oral hydration. 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 Afebrile since 09/19/1609/14 Blood cultures x 2 No growth in 5 days. Infectious disease following the patient and recommended total of 6 weeks of antibiotics from first negative culture, patient currently on vancomycin, end date would be October 22, 2016. Gentamicin ended 09/25/16. Monitor renal function every other day while on vancomycin. Cardiovascular surgery evaluated patient and recommended antibiotic therapy, and follow-up in the office but will need to have repeat echocardiogram and will need to have a clean negative urine toxicology screen to evaluate for possible surgery. Ortho last evaluated patient on 09/14/16. Advises WBAT, ROM as tolerated, f/u with Dr. Acosta 2 weeks which would be 09/28. Pain control, this will need to be adjusted weekly in order to be completely clean before discharge in order to meet criteria for surgical intervention Methadone was discontinued Continue Percocet 5 every 6 hours as needed for pain 17 Continue Percocet 10 every 6 hours as needed for pain 810 09/25: Dr. Forbes and Mann Ramsey PA-C spoke with patient regarding use of pain medication. Morphine 10 mg every 6 hours as needed for breakthrough pain was restarted. 09/26: Patient complains about receiving Percocet rather than oxycodone stating he does not take Tylenol due to his hepatitis. I discussed this with Dr. Forbes who advises having the patient remain on Percocet. L knee is swollen likely normal post-op and patient refuses ice application. Monitor clinically. History of IV drug abuse: Patient counseled on cessation HIV testing negative Symptomatic treatment for withdrawal symptoms Insomnia Trazodone 25 mg at bedtime Muscle spasms Flexeril 5 mg 3 times daily as needed Nausea vomiting Zofran Diarrhea Imodium Anxiety Benadryl Hepatitis C: Follow up for outpatient treatment Nicotine dependence: NicoDerm patch 7 mg. Encourage cessation. DVT prophylaxis: Lovenox. Reshma Acosta Sep 26, 2016 10:50
[2016-09-26 11:30] VITALS: BP 105/70; PULSE 70; RESP 18
[2016-09-26 11:44] LABS: AUTOMATED NEUTROPHIL # 3.5 TH/MM3 (1.8-7.7); BASOPHIL # 0.1 TH/MM3 (0-0.2); BASOPHIL % 0.7 % (0.0-2.0); EOSINOPHIL # 1.7 TH/MM3 (0-0.4); EOSINOPHIL % 23.1 % (0.0-4.0); HEMATOCRIT 25.1 % (39.0-51.0); LYMPH % 21.7 % (9.0-44.0); LYMPHOCYTE # 1.6 TH/MM3 (1.0-4.8); MEAN CELL VOLUME 76.7 FL (80.0-100.0); MEAN CORPUSCULAR HEMOGLOBIN 24.9 PG (27.0-34.0); MEAN CORPUSCULAR HGB CONC 32.5 % (32.0-36.0); MONO % 6.7 % (0.0-8.0); NEUT % 47.8 % (16.0-70.0); PLATELET COUNT 261 TH/MM3 (150-450); RED BLOOD COUNT 3.27 MIL/MM3 (4.50-5.90); RED CELL DISTRIBUTION WIDTH 14.5 % (11.6-17.2); WHITE BLOOD COUNT 7.4 TH/MM3 (4.0-11.0)
[2016-09-26 11:47] LABS: HEMO FLAGS AUTO DIFF
[2016-09-26] MEDS: MORPHINE SULFATE ORAL SOLN 10 MG/0.5 ML SYRINGE PO PRN ×3 (11:47→21:46)
[2016-09-26 11:50] LABS: POTASSIUM 3.7 MEQ/L (3.5-5.1)
[2016-09-26 11:53] LABS: BICARBONATE 29.1 MEQ/L (21.0-32.0)
[2016-09-26 12:17] LABS: SCAN/DIFF AUTO DIFF CONFIRMED
[2016-09-26 15:40] VITALS: BP 110/70; PULSE 72; RESP 18
[2016-09-26 20:00] VITALS: BP 104/67; PULSE 98; RESP 20; TEMP 97.4; O2SAT 98
[2016-09-26] MEDS: traZODone HCL 50 MG TAB PO PRN (21:46)
[2016-09-27] MEDS: oxyCODONE/ACETAMINOPHEN 10 MG/325 MG TAB PO PRN ×4 (00:04→18:15)
[2016-09-27] MEDS: MORPHINE SULFATE ORAL SOLN 10 MG/0.5 ML SYRINGE PO PRN ×6 (04:23→22:38)
[2016-09-27 08:00] VITALS: BP 104/68; PULSE 96; RESP 18; TEMP 97.7; O2SAT 97
[2016-09-27] MEDS: REMOVE OLD PATCH T-DERMAL SCH (09:00)
[2016-09-27] MEDS: DOCUSATE SODIUM 50 MG/SENNA 8.6 MG TAB PO SCH ×2 (09:00→21:00)
[2016-09-27] MEDS ORDERED: PHARMACY ORDERED LAB ONE (09:45)
--- NOTE | 2016-09-27 09:58 | HHI.PR ---
Subjective Remarks Follow-up for bacteremia, tricuspid valve endocarditis, septic arthritis left knee. The patient complains of having a lot of pain primarily in the left leg. He denies any fevers or chills, shortness of breath, vomiting, or diarrhea. Objective Vitals Vital Signs Date Time Temp Pulse Resp B/P Pulse Ox O2 Delivery O2 Flow Rate FiO2 09/27/16 07:00 18 09/27/16 05:23 16 09/26/16 20:00 97.4 98 20 104/67 98 09/26/16 15:40 72 18 110/70 09/26/16 11:30 70 18 105/70 09/26/16 10:03 95/54 I/O 09/26/16 09/26/16 09/26/16 09/27/16 09/27/16 09/27/16 06:59 14:59 22:59 06:59 14:59 22:59 Intake Total 500 ml 300 ml 480 ml Output Total 400 ml 300 ml Balance 100 ml 0 ml 480 ml Intake Oral 250 ml 300 ml 480 ml IV Total 250 ml Output Urine Total 400 ml 300 ml # Voids 2 Result Diagram: 09/26/16 1130 09/27/16 0615 Objective Remarks GENERAL: Well-nourished, well-developed patient in no apparent distress. SKIN: Warm and dry. Incision is well-healed to the left knee. No erythema. NECK: R IJ central line noted. CARDIOVASCULAR: Regular rate and rhythm. RESPIRATORY: No accessory muscle use. Clear to auscultation. Breath sounds equal bilaterally. GASTROINTESTINAL: Active bowel sounds in all 4 quadrants. Abdomen soft, non- tender, nondistended. MUSCULOSKELETAL: Tender swelling to the left knee. 2+ DP and TP pulses bilaterally. NEUROLOGICAL: Awake and alert. Motor grossly within normal limits. Normal speech. PSYCHIATRIC: Appears in pain. Procedures Left knee arthrotomy, debridement and irrigation (09/09/16). Urinary Catheter: No Vascular Central Line Catheter: Yes Assessment to: Continue Date of Insertion: Sep 18, 2016 Line: Central Venous Catheter Side: Right Location: Internal, Jugular A/P Problem List: (1) IVDU (intravenous drug user) ICD Code: F19.90 Status: Chronic (2) Severe sepsis ICD Code: A41.9 Status: Acute (3) Thrombocytopenia ICD Code: D69.6 Status: Resolved (4) Hypomagnesemia ICD Code: E83.42 Status: Acute (5) Hypokalemia ICD Code: E87.6 Status: Acute (6) Hepatitis C ICD Code: B19.20 Status: Acute Assessment and Plan 41 year-old male with known history of significant IV drug use with Dilaudid and heroin who presented initially because of febrile illness Bacterial endocarditis with tricuspid valve vegetation MRSA bacteremia Left septic knee joint Echocardiogram indicates tricuspid valve vegetation 1.1 x 1.8 cm, repeat echocardiogram requested by cardiovascular surgeon after antibiotics completed MRI of the knee shows large nonspecific joint effusion with enhancement of synovial lining which is generally seen with synovitis Status post left knee arthrotomy, irrigation and debridement on 09/09/16. Afebrile since 09/19/1609/14 Blood cultures x 2 No growth in 5 days. Infectious disease following the patient and recommended total of 6 weeks of antibiotics from first negative culture, patient currently on vancomycin, end date would be October 22, 2016. Gentamicin ended 09/25/16. Monitor renal function every other day while on vancomycin. Cardiovascular surgery evaluated patient and recommended antibiotic therapy, and follow-up in the office but will need to have repeat echocardiogram and will need to have a clean negative urine toxicology screen to evaluate for possible surgery. Ortho last evaluated patient on 09/14/16. Advises WBAT, ROM as tolerated, f/u with Dr. Acosta 2 weeks which would be 09/28. Pain control, this will need to be adjusted weekly in order to be completely clean before discharge in order to meet criteria for surgical intervention Methadone was discontinued Continue Percocet 5 every 6 hours as needed for pain 17 Continue Percocet 10 every 6 hours as needed for pain 810 Morphine 10 mg every 6 hours as needed for breakthrough pain. 09/26: Patient complains about receiving Percocet rather than oxycodone stating he does not take Tylenol due to his hepatitis. I discussed this with Dr. Forbes who advises having the patient remain on Percocet. L knee is swollen likely normal post-op and patient refuses ice application. Monitor clinically. 09/27: Patient did not request any increase in pain medication today, but states he is in significant pain. His left knee is swollen and quite tender. Afebrile. I have called [facility] and requested that Dr. Acosta or his PA re-evaluate the patient tomorrow as it will have been 2 weeks since last eval. [employer] states they are in surgery today, but will leave message on patient's chart for them as they will be in clinic tomorrow. History of IV drug abuse: Patient counseled on cessation HIV testing negative Symptomatic treatment for withdrawal symptoms Insomnia Trazodone 25 mg at bedtime Muscle spasms Flexeril 5 mg 3 times daily as needed Nausea vomiting Zofran Diarrhea Imodium Anxiety Benadryl Hepatitis C: Follow up for outpatient treatment Nicotine dependence: NicoDerm patch 7 mg. Encourage cessation. DVT prophylaxis: Lovenox. Discharge Planning Patient to remain hospitalized until completion of IV antibiotics. Reshma Acosta Sep 27, 2016 09:58
[2016-09-27] MEDS: ENOXAPARIN SODIUM 40 MG/0.4 ML SYRINGE SQ SCH (10:02)
[2016-09-27] MEDS: SODIUM CHLORIDE 0.9% FLUSH 10 ML FLUSH IVF SCH (10:02)
[2016-09-27] MEDS: NICOTINE 7 MG/24 HR PATCH T-DERMAL SCH (10:03)
[2016-09-27 10:20] VITALS: BP 110/72; RESP 20
[2016-09-27] MEDS: VANCOMYCIN INJ 1,250 MG in SODIUM CHLOR 0.9% 250 ML INJ 250 ML IV SCH ×2 (11:01→22:04)
[2016-09-27 20:00] VITALS: BP 100/72; PULSE 100; RESP 18; TEMP 97; O2SAT 99
[2016-09-27] MEDS: CYCLOBENZAPRINE HCL 10 MG TAB PO PRN ×2 (22:05→22:38)
[2016-09-27] MEDS: traZODone HCL 50 MG TAB PO PRN (22:35)
[2016-09-28] MEDS: oxyCODONE/ACETAMINOPHEN 10 MG/325 MG TAB PO PRN ×5 (00:04→18:42)
[2016-09-28] MEDS: MORPHINE SULFATE ORAL SOLN 10 MG/0.5 ML SYRINGE PO PRN ×4 (04:52→22:31)
[2016-09-28 08:00] VITALS: BP 106/74; PULSE 105; RESP 18; TEMP 100; O2SAT 97
[2016-09-28] MEDS: ENOXAPARIN SODIUM 40 MG/0.4 ML SYRINGE SQ SCH (08:37)
[2016-09-28] MEDS: DOCUSATE SODIUM 50 MG/SENNA 8.6 MG TAB PO SCH ×2 (08:37→21:00)
[2016-09-28] MEDS: SODIUM CHLORIDE 0.9% FLUSH 10 ML FLUSH IVF SCH (08:38)
[2016-09-28] MEDS: REMOVE OLD PATCH T-DERMAL SCH (08:49)
[2016-09-28] MEDS: VANCOMYCIN INJ 1,250 MG in SODIUM CHLOR 0.9% 250 ML INJ 250 ML IV SCH ×2 (11:24→22:28)
--- NOTE | 2016-09-28 11:48 | HHI.PR ---
Subjective Remarks Follow-up for bacteremia, tricuspid valve endocarditis, septic arthritis left knee. Patient admits to fevers and chills, but states this is because his methadone was discontinued. He denies any shortness of breath. Denies any vomiting or diarrhea. Objective Vitals Vital Signs Date Time Temp Pulse Resp B/P Pulse Ox O2 Delivery O2 Flow Rate FiO2 09/28/16 08:00 100.0 105 18 106/74 97 09/28/16 05:52 16 09/28/16 01:04 16 09/27/16 20:00 97.0 100 18 100/72 99 I/O 09/27/16 09/27/16 09/27/16 09/28/16 09/28/16 09/28/16 07:00 15:00 23:00 07:00 15:00 23:00 Intake Total 480 ml 280 ml 480 ml 480 ml Output Total 1400 ml 1025 ml 900 ml Balance 480 ml -1120 ml -545 ml -420 ml Intake Oral 480 ml 480 ml 480 ml IV Total 280 ml Output Urine Total 1400 ml 1025 ml 900 ml # Voids 2 2 # Bowel Movements 1 0 Result Diagram: 09/26/16 1130 09/27/16 0615 Objective Remarks GENERAL: Well-nourished, well-developed patient in no apparent distress. SKIN: Warm and dry. Incision is well-healed to the left knee. No erythema. NECK: R IJ central line noted. CARDIOVASCULAR: Tachycardic rate and regular rhythm. RESPIRATORY: No accessory muscle use. Clear to auscultation. Breath sounds equal bilaterally. GASTROINTESTINAL: Normoactive bowel sounds. Abdomen soft, non-tender, nondistended. MUSCULOSKELETAL: Swelling to the left knee, no worse than prior exam. 2+ DP and TP pulses bilaterally. NEUROLOGICAL: Awake and alert. Normal speech. Procedures Left knee arthrotomy, debridement and irrigation (09/09/16). Urinary Catheter: No Vascular Central Line Catheter: Yes Assessment to: Continue Date of Insertion: Sep 18, 2016 Line: Central Venous Catheter Side: Right Location: Internal, Jugular Reason for Continuation fdc antibiotics A/P Problem List: (1) IVDU (intravenous drug user) ICD Code: F19.90 Status: Chronic (2) Severe sepsis ICD Code: A41.9 Status: Acute (3) Thrombocytopenia ICD Code: D69.6 Status: Resolved (4) Hypomagnesemia ICD Code: E83.42 Status: Acute (5) Hypokalemia ICD Code: E87.6 Status: Acute (6) Hepatitis C ICD Code: B19.20 Status: Acute Assessment and Plan 41 year-old male with known history of significant IV drug use with Dilaudid and heroin who presented initially because of febrile illness. 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 09/14 Blood cultures x 2 No growth in 5 days. Infectious disease following the patient and recommended total of 6 weeks of antibiotics from first negative culture, patient currently on vancomycin, end date would be October 22, 2016. Gentamicin ended 09/25/16. Monitor renal function every other day while on vancomycin. Cardiovascular surgery evaluated patient and recommended antibiotic therapy, and follow-up in the office but will need to have repeat echocardiogram and will need to have a clean negative urine toxicology screen to evaluate for possible surgery. Ortho last evaluated patient on 09/14/16. Advises WBAT, ROM as tolerated, f/u with Dr. Acosta 2 weeks which would be 09/28. Pain control, this will need to be adjusted weekly in order to be completely clean before discharge in order to meet criteria for surgical intervention Methadone was discontinued Continue Percocet 5 every 6 hours as needed for pain 17 Continue Percocet 10 every 6 hours as needed for pain 810 Morphine 10 mg every 6 hours as needed for breakthrough pain. 09/26: Patient complains about receiving Percocet rather than oxycodone stating he does not take Tylenol due to his hepatitis. I discussed this with attending who advises having the patient remain on Percocet. L knee is swollen likely normal post-op and patient refuses ice application. 09/27: Patient did not request any increase in pain medication today, but states he is in significant pain. His left knee is swollen and quite tender. I have called [facility] and requested that Dr. Acosta or his PA re-evaluate the patient tomorrow as it will have been 2 weeks since last eval. [employer] states they are in surgery today, but will leave message on patient's chart for them as they will be in clinic tomorrow. 09/28: Patient had a low grade temp of 100 F this morning; could be due to Vancomycin. CBC today with normal WBC count. Normal neutrophil count. BMP relatively unremarkable. AST and ALT improved, now wnl. Discussed with Dr. Loco. No further workup necessary at this time. Monitor. Awaiting ortho to evaluate patient again. Will need to place formal consult if he is not evaluated today. History of IV drug abuse: Patient counseled on cessation HIV testing negative Symptomatic treatment for withdrawal symptoms Insomnia Trazodone 25 mg at bedtime Muscle spasms Flexeril 5 mg 3 times daily as needed Nausea vomiting Zofran Diarrhea Imodium Anxiety Benadryl Hepatitis C: Follow up for outpatient treatment Anemia: Microcytic. Hemoglobin stable at 8.3. Previous iron studies indicate anemia of chronic disease/inflammation. Nicotine dependence: NicoDerm patch 7 mg. Encourage cessation. DVT prophylaxis: Lovenox. Discharge Planning Patient to remain hospitalized until completion of IV antibiotics. Reshma Acosta Sep 28, 2016 11:48
[2016-09-28 14:41] LABS: AUTOMATED NEUTROPHIL # 5.7 TH/MM3 (1.8-7.7); BASOPHIL % 0.5 % (0.0-2.0); EOSINOPHIL # 0.9 TH/MM3 (0-0.4); EOSINOPHIL % 11.8 % (0.0-4.0); HEMATOCRIT 26.9 % (39.0-51.0); LYMPH % 13.7 % (9.0-44.0); LYMPHOCYTE # 1.1 TH/MM3 (1.0-4.8); MEAN CORPUSCULAR HEMOGLOBIN 23.8 PG (27.0-34.0); MEAN CORPUSCULAR HGB CONC 30.9 % (32.0-36.0); MONO % 4.3 % (0.0-8.0); NEUT % 69.7 % (16.0-70.0); PLATELET COUNT 264 TH/MM3 (150-450); RED BLOOD COUNT 3.49 MIL/MM3 (4.50-5.90)
[2016-09-28 14:46] LABS: CHLORIDE 103 MEQ/L (98-107); HEMO FLAGS AUTO DIFF; POTASSIUM 3.8 MEQ/L (3.5-5.1); SODIUM (NA) 138 MEQ/L (136-145)
[2016-09-28 14:49] LABS: ANION GAP 8 MEQ/L (5-15); BLOOD UREA NITROGEN 15 MG/DL (7-18)
[2016-09-28 14:52] LABS: ALT (GPT) 19 U/L (12-78)
[2016-09-28 14:53] LABS: AST (GOT) 12 U/L (15-37); GLOMERULAR FILTRATION RATE 67 ML/MIN (>89)
[2016-09-28 14:54] LABS: TOTAL BILIRUBIN ADULT 0.2 MG/DL (0.2-1.0)
[2016-09-28 14:55] LABS: ALKALINE PHOSPHATASE 90 U/L (45-117)
[2016-09-28 15:25] LABS: PLATELET ESTIMATE SMEAR NORMAL (NORMAL); PLATELET MORPHOLOGY NORMAL (NORMAL); SCAN/DIFF AUTO DIFF CONFIRMED
[2016-09-28 20:00] VITALS: BP 110/66; PULSE 91; RESP 20; TEMP 98.4; O2SAT 98
[2016-09-28] MEDS: CYCLOBENZAPRINE HCL 10 MG TAB PO PRN (22:27)
[2016-09-28] MEDS: traZODone HCL 50 MG TAB PO PRN (22:27)
[2016-09-29] MEDS: oxyCODONE/ACETAMINOPHEN 10 MG/325 MG TAB PO PRN ×4 (00:25→19:51)
[2016-09-29] MEDS: MORPHINE SULFATE ORAL SOLN 10 MG/0.5 ML SYRINGE PO PRN ×3 (06:21→18:48)
[2016-09-29 08:00] VITALS: BP 110/76; PULSE 92; RESP 18; TEMP 98.3; O2SAT 96
[2016-09-29] MEDS: ENOXAPARIN SODIUM 40 MG/0.4 ML SYRINGE SQ SCH (09:00)
[2016-09-29] MEDS: REMOVE OLD PATCH T-DERMAL SCH ×2 (09:00→14:00)
[2016-09-29] MEDS: DOCUSATE SODIUM 50 MG/SENNA 8.6 MG TAB PO SCH ×2 (09:00→19:51)
[2016-09-29] MEDS: SODIUM CHLORIDE 0.9% FLUSH 10 ML FLUSH IVF SCH (10:32)
[2016-09-29] MEDS: VANCOMYCIN INJ 1,250 MG in SODIUM CHLOR 0.9% 250 ML INJ 250 ML IV SCH ×2 (10:33→21:32)
[2016-09-29] MEDS ORDERED: ALTEPLASE RECOMBINANT 2 MG VIAL INTRACATH PRN (11:30)
--- NOTE | 2016-09-29 11:30 | HHI.PR ---
Subjective Remarks Follow-up for bacteremia, tricuspid valve endocarditis, septic arthritis left knee. Patient complains of abdominal pain on the right side attributing it to Tylenol use and also states he has had 2 episodes of diarrhea. When I ask him if it was complete water vs softer stools he states he does not know. He denies any vomiting. He admits to subjective fevers and chills overnight. He denies any shortness of breath. He states he can't sleep and he doesn't like the trazodone because it causes vivid dreams. He states he doesn't know why he was taken off of the Ambien. He again states he does not like taking the Tylenol present in the Percocet and states he never took Tylenol on the streets either. Objective Vitals Vital Signs Date Time Temp Pulse Resp B/P Pulse Ox O2 Delivery O2 Flow Rate FiO2 09/29/16 08:00 98.3 92 18 110/76 96 09/29/16 07:21 18 09/29/16 07:21 18 09/28/16 20:00 98.4 91 20 110/66 98 I/O 09/28/16 09/28/16 09/28/16 09/29/16 09/29/16 09/29/16 07:00 15:00 23:00 07:00 15:00 23:00 Intake Total 480 ml 1105 ml 120 ml Output Total 900 ml 275 ml 725 ml Balance -420 ml 830 ml -605 ml Intake Oral 480 ml 840 ml 120 ml IV Total 265 ml Output Urine Total 900 ml 275 ml 725 ml # Voids 4 3 # Bowel Movements 0 0 0 Result Diagram: 09/28/16 1430 09/29/16 0630 Objective Remarks GENERAL: Well-nourished, well-developed patient. SKIN: Warm and dry. No erythema to the L knee. EYES: No scleral icterus. NECK: R IJ central line noted. CARDIOVASCULAR: Regular rhythm. No murmurs. RESPIRATORY: No accessory muscle use. Clear to auscultation. Breath sounds equal bilaterally. GASTROINTESTINAL: Hyperactive bowel sounds. Abdomen soft, nondistended. Generalized abdominal tenderness. No hepatomegaly. MUSCULOSKELETAL: Swelling to the left knee, no worse than prior exam. NEUROLOGICAL: Awake and alert. Normal speech. Procedures Left knee arthrotomy, debridement and irrigation (09/09/16). Urinary Catheter: No Vascular Central Line Catheter: Yes Assessment to: Continue Date of Insertion: Sep 18, 2016 Line: Central Venous Catheter Side: Right Location: Internal, Jugular A/P Problem List: (1) IVDU (intravenous drug user) ICD Code: F19.90 Status: Chronic (2) Severe sepsis ICD Code: A41.9 Status: Acute (3) Thrombocytopenia ICD Code: D69.6 Status: Resolved (4) Hypomagnesemia ICD Code: E83.42 Status: Acute (5) Hypokalemia ICD Code: E87.6 Status: Acute (6) Hepatitis C ICD Code: B19.20 Status: Acute Assessment and Plan 41 year-old male with known history of significant IV drug use with Dilaudid and heroin who presented initially because of febrile illness. 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 09/14 Blood cultures x 2 No growth in 5 days. Infectious disease following the patient and recommended total of 6 weeks of antibiotics from first negative culture, patient currently on vancomycin, end date would be October 22, 2016. Gentamicin ended 09/25/16. Monitor renal function every other day while on vancomycin. Cardiovascular surgery evaluated patient and recommended antibiotic therapy, and follow-up in the office but will need to have repeat echocardiogram and will need to have a clean negative urine toxicology screen to evaluate for possible surgery. Ortho last evaluated patient on 09/14/16. Advises WBAT, ROM as tolerated, f/u with Dr. Acosta 2 weeks which would be 09/28. Pain control, this will need to be adjusted weekly in order to be completely clean before discharge in order to meet criteria for surgical intervention Methadone was discontinued Continue Percocet 5 every 6 hours as needed for pain 17 Continue Percocet 10 every 6 hours as needed for pain 810 Morphine 10 mg every 6 hours as needed for breakthrough pain. 09/28: Patient had a low grade temp of 100 F this morning; could be due to Vancomycin. CBC today with normal WBC count. Normal neutrophil count. BMP relatively unremarkable. AST and ALT improved, now wnl. Discussed with Dr. Loco. No further workup necessary at this time. Monitor. 09/29: Patient is afebrile. He believes the Tylenol present in the Percocet is responsible for his abdominal pain and diarrhea. The patient has some generalized abdominal tenderness on exam and hyperactive bowel sounds. I informed him I do not believe the Tylenol is causing his symptoms and informed him that his LFTs are within normal limits. I asked the nurse to monitor his bowel movements and if he does have persistent diarrhea we will need to order a C. difficile test as he is on antibiotics. I discussed patient with Dr. Loco who recommends a Tylenol level. She would like the patient to remain on Percocet as opposed to plain oxycodone. I placed new consult for orthopedics, Dr. Melissa Acosta and spoke with him today. He states he will come and see the patient next week. History of IV drug abuse: Patient counseled on cessation HIV testing negative Symptomatic treatment for withdrawal symptoms Insomnia Discontinue Trazodone. Start Vistaril 50 mg po hs prn. Muscle spasms Flexeril 5 mg 3 times daily as needed Nausea vomiting Zofran Diarrhea Patient does not desire to take Imodium Anxiety Benadryl Hepatitis C: Follow up for outpatient treatment Anemia: Microcytic. Hemoglobin stable. Previous iron studies indicate anemia of chronic disease inflammation. Nicotine dependence: NicoDerm patch 7 mg. Encourage cessation. DVT prophylaxis: Lovenox. Discharge Planning Patient to remain hospitalized until completion of IV antibiotics. Reshma Acosta Sep 29, 2016 11:30
[2016-09-29] MEDS: NICOTINE 7 MG/24 HR PATCH T-DERMAL SCH (15:24)
[2016-09-29 20:42] VITALS: BP 134/67; PULSE 97; RESP 20; TEMP 98.2; O2SAT 99
[2016-09-30] MEDS: MORPHINE SULFATE ORAL SOLN 10 MG/0.5 ML SYRINGE PO PRN ×2 (00:40→06:49)
[2016-09-30] MEDS: CYCLOBENZAPRINE HCL 10 MG TAB PO PRN (01:53)
[2016-09-30] MEDS: oxyCODONE/ACETAMINOPHEN 10 MG/325 MG TAB PO PRN ×2 (01:53→08:25)
[2016-09-30 08:00] VITALS: BP 111/79; PULSE 88; RESP 16; TEMP 98.1; O2SAT 99
[2016-09-30] MEDS: DOCUSATE SODIUM 50 MG/SENNA 8.6 MG TAB PO SCH ×2 (08:26→20:08)
[2016-09-30] MEDS: SODIUM CHLORIDE 0.9% FLUSH 10 ML FLUSH IVF SCH (08:26)
[2016-09-30] MEDS: REMOVE OLD PATCH T-DERMAL SCH (08:27)
[2016-09-30] MEDS: NICOTINE 7 MG/24 HR PATCH T-DERMAL SCH (08:27)
[2016-09-30] MEDS: ENOXAPARIN SODIUM 40 MG/0.4 ML SYRINGE SQ SCH (08:27)
[2016-09-30] MEDS: VANCOMYCIN INJ 1,250 MG in SODIUM CHLOR 0.9% 250 ML INJ 250 ML IV SCH ×2 (10:54→20:22)
--- NOTE | 2016-09-30 11:47 | HHI.PR ---
Subjective Remarks Patient seen and evaluated today in follow-up for narcotic dependency and endocarditis. Patient complaining increased anxiety, tearful and apologetic in regards to previous agitated behavior and outbursts. I did explain the goals of therapy. Patient agreeable to discontinue morphine and oxycodone. Patient will resume a low-dose of methadone and continue with plans for medical management of his narcotic dependency. Objective Vitals Vital Signs Date Time Temp Pulse Resp B/P Pulse Ox O2 Delivery O2 Flow Rate FiO2 09/30/16 08:00 98.1 88 16 111/79 99 09/29/16 20:42 98.2 97 20 134/67 99 09/29/16 14:47 18 09/29/16 13:47 18 I/O 09/29/16 09/29/16 09/29/16 09/30/16 09/30/16 09/30/16 06:59 14:59 22:59 06:59 14:59 22:59 Intake Total 390 ml 250 ml Output Total 1225 ml 650 ml 975 ml Balance -835 ml -400 ml -975 ml Intake Oral 120 ml IV Total 270 ml 250 ml Output Urine Total 1225 ml 650 ml 975 ml # Voids 3 2 2 # Bowel Movements 0 0 Result Diagram: 09/28/16 1430 09/29/16 0630 Objective Remarks GENERAL: This is a well-nourished, well-developed patient, in no acute distress CARDIOVASCULAR: Regular rate and rhythm without murmurs, gallops, or rubs. RESPIRATORY: Clear to auscultation bilaterally, no wheezes appreciated GASTROINTESTINAL: Abdomen soft, non-tender, nondistended. Normal active bowel sounds MUSCULOSKELETAL: Extremities without clubbing, cyanosis, or edema. Left knee decreased range of motion, tenderness and erythema NEURO: Alert & Oriented x4 to person, place, time, situation. Moves all ext x4 Procedures Left knee arthrotomy, debridement and irrigation (09/09/16). Date of Insertion: Sep 18, 2016 Line: Central Venous Catheter Side: Right Location: Internal, Jugular A/P Problem List: (1) IVDU (intravenous drug user) ICD Code: F19.90 Status: Chronic Plan: Patient with long-standing heroin and Dilaudid use. Chart reviewed regarding previous treatment plans with morphine/percocet and abrupt dc of methadone. Patient struggled with severe opioid addiction for many years. He is currently still experiencing opiate cravings, nausea, insomnia, muscle aches and anxiety. He is more likely to tolerate weaning with the addition of mood stabilizing medication such as anxiolytic therapy. Patient agreeable as he would like to be a candidate for surgery and must be drug free. He is likely to relapse to street drugs without an appropriate group home plan for dealing with his severe and longstanding narcotic dependence. He may be a candidate for Suboxone therapy at discharge. DC morphine, DC oxycodone, add NSAID indication for breakthrough pain Rx methadone 20 mg 3 times a day, possibly plans to continue to wean slowly with a gradual reduction 5-10 mg every 3 days through October. Add Klonopin as needed for anxiety and Ambien as needed for insomnia (2) Hepatitis C ICD Code: B19.20 Status: Acute Plan: Decreased Tylenol load (3) Endocarditis of tricuspid valve ICD Code: I36.8 Status: Acute Plan: MRSA + Blood cultures clean blood cultures since 09/10/16. continue IV vanco through October 22, 2016. He completed gentamicin 09/25 Discharge Planning Poor candidate for outpatient IV abx due to drug history Ami Loco MD Sep 30, 2016 11:47
[2016-09-30] MEDS: clonazePAM 0.5 MG TAB PO SCH ×2 (12:35→20:07)
[2016-09-30] MEDS: METHADONE HCL 10 MG TAB PO SCH ×2 (12:35→20:08)
[2016-09-30 20:00] VITALS: BP 130/83; PULSE 101; RESP 20; TEMP 97.3; O2SAT 96
[2016-09-30] MEDS: SODIUM CHLORIDE 0.9% FLUSH 10 ML FLUSH IVF PRN (20:08)
[2016-09-30] MEDS: ZOLPIDEM TARTRATE 10 MG TAB PO PRN (20:22)
[2016-10-01] MEDS: METHADONE HCL 10 MG TAB PO SCH ×3 (03:52→20:20)
[2016-10-01 08:00] VITALS: BP_SYST 116; BP_SYST 134; BP_DIAS 82; BP_DIAS 97; PULSE 103; PULSE 118; RESP 18; TEMP 98.7; TEMP 99.9; O2SAT 97
[2016-10-01] MEDS: REMOVE OLD PATCH T-DERMAL SCH (09:00)
[2016-10-01] MEDS: DOCUSATE SODIUM 50 MG/SENNA 8.6 MG TAB PO SCH ×2 (09:43→20:18)
[2016-10-01] MEDS: NICOTINE 7 MG/24 HR PATCH T-DERMAL SCH (09:43)
[2016-10-01] MEDS: ENOXAPARIN SODIUM 40 MG/0.4 ML SYRINGE SQ SCH (09:44)
[2016-10-01] MEDS: SODIUM CHLORIDE 0.9% FLUSH 10 ML FLUSH IVF SCH (09:44)
[2016-10-01] MEDS: VANCOMYCIN INJ 1,250 MG in SODIUM CHLOR 0.9% 250 ML INJ 250 ML IV SCH ×2 (09:44→22:13)
[2016-10-01] MEDS: clonazePAM 0.5 MG TAB PO SCH ×2 (09:44→20:19)
[2016-10-01] MEDS ORDERED: VANCOMYCIN TROUGH ONE (09:45)
--- NOTE | 2016-10-01 10:01 | HHI.PR ---
Subjective Remarks Follow-up for bacteremia, tricuspid valve endocarditis, septic arthritis left knee, narcotic dependency. Patient was started back on methadone by Dr. Loco yesterday. The patient denies any fevers or chills. Denies any abdominal pain , vomiting, or diarrhea. States his symptoms have resolved. He and his significant are apologetic regarding their behavior when I saw him the day before last. Objective Vitals Vital Signs Date Time Temp Pulse Resp B/P Pulse Ox O2 Delivery O2 Flow Rate FiO2 10/01/16 04:52 20 09/30/16 20:00 97.3 101 20 130/83 96 I/O 09/30/16 09/30/16 09/30/16 10/01/16 10/01/16 10/01/16 07:00 15:00 23:00 07:00 15:00 23:00 Intake Total 794 ml 250 ml Output Total 975 ml 900 ml Balance -975 ml -106 ml 250 ml Intake Oral 480 ml IV Total 314 ml 250 ml Output Urine Total 975 ml 900 ml # Voids 2 4 Result Diagram: 09/28/16 1430 10/01/16 0640 Objective Remarks GENERAL: Well-nourished, well-developed patient in no apparent distress. Appears comfortable. SKIN: Warm and dry. Scar over the L knee. No erythema to the L knee. NECK: R IJ central line noted. CARDIOVASCULAR: Tachycardic rate with regular rhythm RESPIRATORY: No accessory muscle use. Scattered mild inspiratory wheezing, but no rales. GASTROINTESTINAL: Active bowel sounds. Abdomen soft, non-tender, nondistended. MUSCULOSKELETAL: Tender swelling to the left knee, same. 2+ DP and TP pulses bilaterally. NEUROLOGICAL: Awake and alert. Normal speech. PSYCHIATRIC: Calm mood and affect. Procedures Left knee arthrotomy, debridement and irrigation (09/09/16). Urinary Catheter: No Vascular Central Line Catheter: Yes Assessment to: Continue Date of Insertion: Sep 18, 2016 Line: Central Venous Catheter Side: Right Location: Internal, Jugular Reason for Continuation alf antibiotics A/P Assessment and Plan 41 year-old male with known history of significant IV drug use with Dilaudid and heroin who presented initially because of febrile illness. 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 09/14 Blood cultures x 2 No growth in 5 days. Infectious disease following the patient and recommended total of 6 weeks of antibiotics from first negative culture, patient currently on vancomycin, end date would be October 22, 2016. Gentamicin ended 09/25/16. Monitor renal function every other day while on vancomycin. Cardiovascular surgery evaluated patient and recommended antibiotic therapy, and follow-up in the office but will need to have repeat echocardiogram and will need to have a clean negative urine toxicology screen to evaluate for possible surgery. Ortho last evaluated patient on 09/14/16. Advises WBAT, ROM as tolerated. 09/29: I spoke with Dr. Acosta, orthopedics. He will come to see patient this week. Continue Methadone 20 mg po q8h. Wean slowly with a gradual reduction 5-10 mg every 3 days through October. 09/30: Patient much more calm and relaxed today. Appears comfortable since restarting Methadone. History of IV drug abuse: Patient counseled on cessation HIV testing negative Symptomatic treatment for withdrawal symptoms Insomnia Ambien Muscle spasms Flexeril 5 mg 3 times daily as needed Nausea/vomiting Zofran Diarrhea Imodium Anxiety Klonopin Hepatitis C: Follow up for outpatient treatment Anemia: Microcytic. Hemoglobin stable. Previous iron studies indicate anemia of chronic disease inflammation. Nicotine dependence: NicoDerm patch 7 mg. Encourage cessation. DVT prophylaxis: Lovenox. Discharge Planning Patient to remain hospitalized until completion of IV antibiotics. Reshma Acosta Oct 01, 2016 10:01 Nicotine dependence: NicoDerm patch 7 mg. Encourage cessation. DVT prophylaxis: Lovenox. Discharge Planning Patient to remain hospitalized until completion of IV antibiotics. Reshma Acosta Oct 01, 2016 10:01
[2016-10-01 20:00] VITALS: BP 120/65; PULSE 126; RESP 18; TEMP 100.8; O2SAT 96
[2016-10-01] MEDS: ZOLPIDEM TARTRATE 10 MG TAB PO PRN (20:20)
[2016-10-01] MEDS: CYCLOBENZAPRINE HCL 10 MG TAB PO PRN (20:20)
[2016-10-02] MEDS: METHADONE HCL 10 MG TAB PO SCH ×3 (04:11→20:12)
[2016-10-02] MEDS: ACETAMINOPHEN 325 MG TAB PO PRN (07:47)
[2016-10-02] MEDS: ENOXAPARIN SODIUM 40 MG/0.4 ML SYRINGE SQ SCH (07:48)
[2016-10-02] MEDS: clonazePAM 0.5 MG TAB PO SCH ×2 (07:48→20:12)
[2016-10-02] MEDS: REMOVE OLD PATCH T-DERMAL SCH (07:48)
[2016-10-02] MEDS: NICOTINE 7 MG/24 HR PATCH T-DERMAL SCH (07:48)
[2016-10-02] MEDS: DOCUSATE SODIUM 50 MG/SENNA 8.6 MG TAB PO SCH ×2 (07:49→20:13)
[2016-10-02] MEDS: SODIUM CHLORIDE 0.9% FLUSH 10 ML FLUSH IVF SCH (07:49)
[2016-10-02] MEDS ORDERED: RESP: ALBUTEROL 2.5 MG/IPRATROPIUM 0.5 MG NEB (SCH) NEB STA (07:55)
--- NOTE | 2016-10-02 07:55 | HHI.PR ---
Subjective Remarks Follow-up for bacteremia, tricuspid valve endocarditis, septic arthritis left knee, narcotic dependency. Nurse called me and was suspicious that the patient may have used illicit drugs as he appeared "high", and also states he has a fever of 102.9 and an oxygen saturation of 85%. The [employer] states the patient he was picking at his blanket. He states he feels the best he has ever felt. Does have some pain in the left leg. He denies any headache, dizziness, visual changes, fevers or chills, chest pain or shortness of breath, cough, abdominal pain, nausea, vomiting, or diarrhea. Denies any AH or VH. Patient denies any new wounds to his body. He does complain of a bulge in the right inguinal region when he stands up, but states it is not visible currently. Objective Vitals Vital Signs Date Time Temp Pulse Resp B/P Pulse Ox O2 Delivery O2 Flow Rate FiO2 10/01/16 21:20 16 10/01/16 20:00 100.8 126 18 120/65 96 10/01/16 08:00 99.9 118 18 134/82 97 I/O 10/01/16 10/01/16 10/01/16 10/02/16 10/02/16 10/02/16 06:59 14:59 22:59 06:59 14:59 22:59 Intake Total 794 ml 250 ml 960 ml 420 ml Output Total 900 ml 400 ml Balance -106 ml 250 ml 960 ml 20 ml Intake Oral 480 ml 960 ml 420 ml IV Total 314 ml 250 ml Output Urine Total 900 ml 400 ml # Voids 4 3 # Bowel Movements 1 Result Diagram: 09/28/16 1430 10/02/16 0630 Imaging Last Impressions Chest X-Ray 10/02/16 0755 Signed Impressions: Service Date/Time: Sunday, October 02, 2016 08:30 - CONCLUSION: No acute cardiopulmonary abnormality is identified. Silvestre Brunner MD Central Venous Line 09/18/16 0000 Signed Impressions: Service Date/Time: Sunday, September 18, 2016 15:39 - CONCLUSION: Uncomplicated line placement as above. Catheter tip is near the atriocaval junction. Cain Ferraro MD Knee MRI 09/08/16 0000 Signed Impressions: Service Date/Time: Thursday, September 08, 2016 11:07 - CONCLUSION: 1. There is a large nonspecific joint effusion with some enhancement of the synovial lining. This is nonspecific but is generally seen with synovitis. 2. There is normal signal intensity in the bony structures. There is no evidence of any bony erosions or destruction to suggest osteomyelitis. 3. Nonspecific soft tissue swelling and soft tissues that surrounds the knee joint. Asaf Payne MD Knee X-Ray 09/06/16 0000 Signed Impressions: Service Date/Time: Tuesday, September 06, 2016 13:06 - CONCLUSION: 1. Nonspecific joint effusion. 2. Mild narrowing of the medial joint compartment. Asaf Payne MD Lower Extremity Ultrasound 09/02/16 0000 Signed Impressions: Service Date/Time: Friday, September 02, 2016 18:16 - CONCLUSION: No DVT. Silvestre Ashraf MD Objective Remarks Patient examined in the presence of a nurse. GENERAL: Well-nourished, well-developed patient in no apparent distress. Appears comfortable. SKIN: Warm and dry. No erythema to the L knee. EYES: 2 mm pupils equal round. NECK: R IJ central line noted. CARDIOVASCULAR: Tachycardic rate with regular rhythm. RESPIRATORY: No accessory muscle use. Inspiratory wheezing and mildly decreased expiratory breath sounds diffusely, but no rales. RR normal. GASTROINTESTINAL: Active bowel sounds on the right. Abdomen soft, non-tender, nondistended. There is no palpable protrusion noted at the R inguinal region when patient stands. MUSCULOSKELETAL: Warm swelling to the left knee; swelling no worse than prior exams. Intact distal pulses bilaterally. NEUROLOGICAL: Awake and alert. Oriented to place, date, month, year, and president. Normal speech. PSYCHIATRIC: Calm mood and affect. Procedures Left knee arthrotomy, debridement and irrigation (09/09/16). 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 SIRS: Acute. Fever 102.9. Tachycardic. Hypoxic. White blood cell count 12.8. Lactic acid normal. No new source of infection identified at this time. -Chest x-ray personally interpreted without obvious consolidation. Radiologist indicates there is a linear opacity R mid lung zone representing atelectasis. -EKG personally interpreted with sinus tachycardia 124 bpm; no ischemia. -Blood cultures x 2 pending. -UA pending. -1 L NS bolus ordered followed by IV NS @ 125 mL/hr. -Re-consult ID. -Continue antibiotics for existing endocarditis -UDS ordered -Monitor telemetry -Repeat am CBC with diff. Hypoxia: Acute. 85%. Rapidly improved with O2. ABG personally interpreted, relatively unremarkable with O2 saturation at 91% on RA. Patient has inspiratory wheezing on exam yet this was present yesterday with normal O2 saturation and patient appears to be breathing normally again today. Patient on Lovenox daily. -Continue O2 via NC prn -Chest x-ray as above with only atelectasis. Order Incentive spirometry. -Stat Duoneb with prn Duonebs was initially ordered but RT informed me patient' s HR was in the 140's. Will hold on breathing treatments for now as patient is stable. JORGE: Acute. BUN/Cr 22/1.50. Cr previously normal. Could be related to infection if present. 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 09/14 Blood cultures x 2 No growth in 5 days. Infectious disease following the patient and recommended total of 6 weeks of antibiotics from first negative culture, patient currently on vancomycin, end date would be October 22, 2016. Gentamicin ended 09/25/16. Monitor renal function every other day while on vancomycin. Cardiovascular surgery evaluated patient and recommended antibiotic therapy, and follow-up in the office but will need to have repeat echocardiogram and will need to have a clean negative urine toxicology screen to evaluate for possible surgery. Ortho last evaluated patient on 09/14/16. Advises WBAT, ROM as tolerated. 09/29: I spoke with Dr. Acsota, orthopedics. He will come to see patient this week. Continue Methadone 20 mg po q8h. Wean slowly with a gradual reduction 5-10 mg every 3 days through October. Patient comfortable since restarting Methadone. History of IV drug abuse: Patient counseled on cessation HIV testing negative Symptomatic treatment for withdrawal symptoms Insomnia Ambien Muscle spasms Flexeril 5 mg 3 times daily as needed Nausea/vomiting Zofran Diarrhea Imodium Anxiety Klonopin Hepatitis C: Follow up for outpatient treatment Anemia: Microcytic. Hemoglobin stable at 8.8. Previous iron studies indicate anemia of chronic disease inflammation. Nicotine dependence: NicoDerm patch 7 mg. Encourage cessation. DVT prophylaxis: Lovenox. Patient discussed with Dr. Loco, attending. Discharge Planning Patient to remain hospitalized until completion of IV antibiotics. Reshma Acosta Oct 02, 2016 07:54
[2016-10-02] MEDS ORDERED: RESP: ALBUTEROL 2.5 MG/IPRATROPIUM 0.5 MG NEB (PRN) NEB (08:00)
[2016-10-02] MEDS: IBUPROFEN 400 MG TAB PO PRN (08:02)
[2016-10-02 08:15] VITALS: BP 118/69; PULSE 129; RESP 20; TEMP 102.9; O2SAT 85; O2SAT 95
[2016-10-02] MEDS ORDERED: SODIUM CHLOR 0.9% 1000 ML INJ 1,000 ML IV ONE (08:15)
[2016-10-02] MEDS: SODIUM CHLOR 0.9% 1000 ML INJ 1,000 ML IV SCH ×2 (08:29→16:26)
[2016-10-02 08:51] LABS: AUTOMATED NEUTROPHIL # 8.4 TH/MM3 (1.8-7.7); BASOPHIL # 0.1 TH/MM3 (0-0.2); BASOPHIL % 0.5 % (0.0-2.0); EOSINOPHIL # 1.7 TH/MM3 (0-0.4); HEMATOCRIT 27.4 % (39.0-51.0); LYMPH % 14.1 % (9.0-44.0); LYMPHOCYTE # 1.8 TH/MM3 (1.0-4.8); MEAN CELL VOLUME 74.2 FL (80.0-100.0); MEAN CORPUSCULAR HEMOGLOBIN 23.9 PG (27.0-34.0); MEAN CORPUSCULAR HGB CONC 32.2 % (32.0-36.0); MONO % 6.2 % (0.0-8.0); NEUT % 66.2 % (16.0-70.0); PLATELET COUNT 237 TH/MM3 (150-450); RED CELL DISTRIBUTION WIDTH 14.2 % (11.6-17.2); WHITE BLOOD COUNT 12.8 TH/MM3 (4.0-11.0)
[2016-10-02 08:56] LABS: HEMO FLAGS AUTO DIFF
[2016-10-02 08:59] LABS: CHLORIDE 99 MEQ/L (98-107); SODIUM (NA) 134 MEQ/L (136-145)
--- NOTE | 2016-10-02 09:01 | RADRPT ---
EXAM DATE/TIME: 10/02/2016 08:30 [facility] COMPARISON: CHEST SINGLE AP, September 02, 2016, 13:58. INDICATIONS : Short of Breath MEDICAL HISTORY : Hepatitis C. Endocarditis SURGICAL HISTORY : Cholecystectomy. Halo placement, right knee surgery ENCOUNTER: Subsequent ACUITY: 1 month PAIN SCORE: 0/10 LOCATION: Bilateral chest FINDINGS: Portable AP view of the chest demonstrates a normal-sized cardiac silhouette. No effusion, consolidat ion, or pneumothorax is visualized. There is a linear opacity right mid lung zone, likely representin g atelectasis. The bones and soft tissues demonstrate no acute abnormality. Right IJ line distal tip is in the superior vena cava. CONCLUSION: No acute cardiopulmonary abnormality is identified. Silvestre Brunner MD on October 02, 2016 at 8:57 Board Certified Radiologist. This report was verified electronically.
[2016-10-02 09:02] LABS: ANION GAP 10 MEQ/L (5-15); BICARBONATE 24.8 MEQ/L (21.0-32.0)
[2016-10-02 09:03] LABS: APTT (PATIENT) 35.2 SEC (24.3-30.1); BLOOD UREA NITROGEN 22 MG/DL (7-18); INTERNATIONAL NORMALIZED RATIO 1.1 RATIO
[2016-10-02 09:05] LABS: ALT (GPT) 19 U/L (12-78); AST (GOT) 46 U/L (15-37)
[2016-10-02 09:06] LABS: GLOMERULAR FILTRATION RATE 52 ML/MIN (>89)
[2016-10-02 09:07] LABS: TOTAL BILIRUBIN ADULT 0.6 MG/DL (0.2-1.0)
[2016-10-02 09:08] LABS: ALKALINE PHOSPHATASE 89 U/L (45-117)
[2016-10-02 10:01] LABS: BANDS 1 % (0-6); BASOPHILS 3 % (0-2); EOSINOPHILS 11 % (0-4); NEUTROPHIL # MANUAL DIFF 9.1 TH/MM3 (1.8-7.7); POLYS (SEG NEUTROPHILS) 70 % (16-70); WBC DIFF SAMPLE 100
[2016-10-02 10:03] LABS: PLATELET ESTIMATE SMEAR NORMAL (NORMAL); PLATELET MORPHOLOGY NORMAL (NORMAL); SCAN/DIFF FINAL DIFF MANUAL; TOXIC GRANULATION 1+ (NORMAL)
[2016-10-02] MEDS: VANCOMYCIN INJ 1,250 MG in SODIUM CHLOR 0.9% 250 ML INJ 250 ML IV SCH (10:29)
[2016-10-02 11:38] LABS: BLOOD GAS BASE EXCESS 1.3 mmol/L (-2-2); BLOOD GAS CARBOXYHEMOGLOBIN 2.2 % (0-4); BLOOD GAS HCO3 25 mmol/L (22-26); BLOOD GAS O2 HGB SATURATION 91 % (90-100); BLOOD GAS OXYGEN CONTENT 11.2 Vol % (12.0-20.0); BLOOD GAS PCO2 39 mmHg (38-42); BLOOD GAS PO2 67 mmHg (61-120); BLOOD GAS TOTAL HGB 8.8 G/DL (12.0-16.0); CRITICAL VALUE NO; DRAW SITE RT RADIAL; FIO2 21 %; OXYGEN DEVICE RA
[2016-10-02 11:39] LABS: NUMBER OF ARTERIAL PUNCTURES 1; STAT NO; ULNAR PULSE PRESENT
[2016-10-02 12:05] VITALS: O2SAT 94
--- NOTE | 2016-10-02 13:58 | HHI.IDPN ---
Note Infectious Disease Note ID Xcover for . 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 ID Reconsulted for new fever/sepsis. Overnight events reviewed with RN. Fevers 102 F Syringe found at bedside today. Short of breath with sats 89 this am. Appears lethargic but arousable. On scheduled methadone. RN reports CL Rt IJ has access issues last few days. No rash No diarrhea No itching. Blood culture positive 09/05, 09/07 MRSA. 09/10 - negative. Antibiotics Vancomycin. Current Medications Medications (Trade) Dose Ordered Sig/Jim Route Start Time Stop Time Status Last Admin (Tylenol) 650 mg Q4H PRN PO 09/02/16 15:00 09/08/16 09:29 Ondansetron HCl 4 mg 4 mg Q6H PRN IVP 09/02/16 15:00 09/06/16 22:12 (Vancomycin Consult Pharmacy) 0 ml @ 0 mls/hr UNSCH OTHER 09/02/16 15:00 (Lovenox Inj) 40 mg Q24H SQ 09/03/16 09:00 10/02/16 07:48 (Mag-Al Plus Susp Liq) 30 ml Q6H PRN PO 09/14/16 11:30 09/14/16 12:48 (Nitrostat Sl) 0.4 mg Q5M PRN SL 09/14/16 12:00 (NS Flush) DAILY IVF 09/19/16 09:00 10/02/16 07:49 (NS Flush) UNSCH PRN IVF 09/18/16 16:15 09/30/16 20:08 (Motrin) 400 mg Q4H PRN PO 09/19/16 08:15 10/02/16 08:02 (Sarah-Colace) 2 tab BID PO 09/19/16 13:15 10/01/16 09:43 (Benadryl) 50 mg Q6H PRN PO 09/25/16 12:00 (Flexeril) 5 mg Q12HR PRN PO 09/25/16 12:00 10/01/16 20:20 (Imodium) 2 mg UNSCH PRN PO 09/25/16 12:00 (Pill Splitter) 1 ea UNSCH PRN OTHER 09/25/16 12:15 (Cathflo Activase Inj) 2 mg Q2H PRN INTRACATH 09/29/16 11:30 09/29/16 12:30 (Habitrol 7 Mg Patch.24 Hr) 1 patch DAILY T-DERMAL 09/29/16 14:00 10/02/16 07:48 Miscellaneous Information 1 DAILY T-DERMAL 09/29/16 14:00 (KlonoPIN) 0.5 mg Q12HR PO 09/30/16 12:00 10/02/16 07:48 (Ambien) 10 mg HS PRN PO 09/30/16 11:30 10/01/16 20:20 Methadone HCl 20 mg 20 mg Q8H PO 09/30/16 12:00 10/02/16 13:06 Sodium Chloride 1,000 ml @ 125 mls/hr Q8H IV 10/02/16 08:15 10/02/16 08:29 (Vancomycin Inj/ NS 250 ml Inj) 261 ml @ 262.5 mls/ hr Q18H IV 10/03/16 06:00 Lines Peripheral IV line Past Medical History IVDU Allergies: Coded Allergies: Avocado (Verified Allergy, Severe, 04/25/16) Shrimp (Verified Allergy, Severe, Anaphylaxis, 04/25/16) *MDRO Multi-Drug Resistant Organism (Unverified Adverse Reaction, Unknown , 09/04/16) MRSA Blood 09/2016 MRSA FINGER WOUND 12/16/03 Objective Vital Signs Date Time Temp Pulse Resp B/P Pulse Ox O2 Delivery O2 Flow Rate FiO2 10/02/16 12:05 94 Nasal Cannula 2.00 10/02/16 08:15 102.9 129 20 118/69 85 10/01/16 21:20 16 10/01/16 20:00 100.8 126 18 120/65 96 10/01/16 10/01/16 10/02/16 15:00 23:00 07:00 Intake Total 250 ml 960 ml 420 ml Output Total 400 ml Balance 250 ml 960 ml 20 ml Intake Oral 960 ml 420 ml IV Total 250 ml Output Urine Total 400 ml # Voids 3 # Bowel Movements 1 Laboratory Tests Laboratory Tests Test 10/02/16 10/02/16 10/02/16 06:30 08:25 11:25 Creatinine 1.50 MG/DL 1.50 MG/DL Estimat Glomerular Filtration 52 ML/MIN 52 ML/MIN Rate White Blood Count 12.8 TH/MM3 Red Blood Count 3.70 MIL/MM3 Hemoglobin 8.8 GM/DL Hematocrit 27.4 % Mean Corpuscular Volume 74.2 FL Mean Corpuscular Hemoglobin 23.9 PG Mean Corpuscular Hemoglobin 32.2 % Concent Red Cell Distribution Width 14.2 % Platelet Count 237 TH/MM3 Mean Platelet Volume 8.8 FL Neutrophils (%) (Auto) 66.2 % Lymphocytes (%) (Auto) 14.1 % Monocytes (%) (Auto) 6.2 % Eosinophils (%) (Auto) 13.0 % Basophils (%) (Auto) 0.5 % Neutrophils # (Auto) 8.4 TH/MM3 Lymphocytes # (Auto) 1.8 TH/MM3 Monocytes # (Auto) 0.8 TH/MM3 Eosinophils # (Auto) 1.7 TH/MM3 Basophils # (Auto) 0.1 TH/MM3 CBC Comment AUTO DIFF Differential Total Cells 100 Counted Neutrophils % (Manual) 70 % Band Neutrophils % 1 % Lymphocytes % 12 % Monocytes % 3 % Eosinophils % 11 % Basophils % 3 % Neutrophils # (Manual) 9.1 TH/MM3 Differential Comment FINAL DIFF MANUAL Toxic Granulation 1+ Platelet Estimate NORMAL Platelet Morphology Comment NORMAL Prothrombin Time 12.0 SEC Prothromb Time International 1.1 RATIO Ratio Activated Partial 35.2 SEC Thromboplast Time Sodium Level 134 MEQ/L Potassium Level 4.0 MEQ/L Chloride Level 99 MEQ/L Carbon Dioxide Level 24.8 MEQ/L Anion Gap 10 MEQ/L Blood Urea Nitrogen 22 MG/DL Random Glucose 99 MG/DL Lactic Acid Level 1.1 mmol/L Calcium Level 8.3 MG/DL Total Bilirubin 0.6 MG/DL Aspartate Amino Transf 46 U/L (AST/SGOT) Alanine Aminotransferase 19 U/L (ALT/SGPT) Alkaline Phosphatase 89 U/L Total Protein 8.1 GM/DL Albumin 2.8 GM/DL Blood Gas Puncture Site RT RADIAL Blood Gas Patient Temperature 37.0 Blood Gas HCO3 25 mmol/L Blood Gas Base Excess 1.3 mmol/L Blood Gas Oxygen Saturation 91 % Arterial Blood pH 7.43 Arterial Blood Partial 39 mmHg Pressure CO2 Arterial Blood Partial 67 mmHg Pressure O2 Arterial Blood Oxygen Content 11.2 Vol % Arterial Blood 2.2 % Carboxyhemoglobin Arterial Blood Methemoglobin 1.0 % Blood Gas Hemoglobin 8.8 G/DL Oxygen Delivery Device RA Blood Gas Inspired Oxygen 21 % Test 09/19/16 05:11 Creatinine 0.95 MG/DL Estimat Glomerular Filtration 88 ML/MIN Rate Total Bilirubin 0.3 MG/DL Direct Bilirubin 0.1 MG/DL Indirect Bilirubin 0.2 MG/DL Aspartate Amino Transf 85 U/L (AST/SGOT) Alanine Aminotransferase 84 U/L (ALT/SGPT) Alkaline Phosphatase 93 U/L Total Protein 8.0 GM/DL Albumin 2.2 GM/DL Microbiology Date/Time Procedure Status Source Growth 10/02/16 08:25 Aerobic Blood Culture Received Blood Peripheral Pending 10/02/16 08:25 Anaerobic Blood Culture Received Blood Peripheral Pending Physical Exam GENERAL: No acute distress. HEENT: EOMI, No icterus. No conjunctival erythema. NECK: Supple. no adenopathy. LUNGS: Breath sounds clear. CARDIAC: Regular rate and rhythm. 2/6 DORENE at LSB. ABDOMEN: Soft, no tenderness. EXTREMITIES: No clubbing, cyanosis, edema. SKIN: No rash. Warm and moist. No peripheral embolic phenomena. Neuro: lethargic, arousable, no focal deficit, no neck stiffness. UO good. No purvis. CL in RIJ site ok. Assessment & Plan Diagnosis: New Sepsis (fever, leucocytosis, source: possible new bacteremia or pneumonia. MRSA 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 IVDU (intravenous drug user) Possible new Pneumonia. Left knee joint effusion. Eosinophilia Acute renal failure: ? AIN from Vanco Plan: DC IV Vancomycin Start Teflaro IV (ASP: Vanco induced AIN, new sepsis on Vanco IV) Start Cefepime IV CT Pulm Angiogram (r/o new septic emboli or pneumonia) CXR reviewed by me. Doppler RUE include neck to r/o septic thrombophlebitis. follow cultures Follow clinically. to start covering [facility] from 10/03/2016. Cass Stovall MD Oct 02, 2016 13:58
[2016-10-02] MEDS: CEFEPIME INJ 2,000 MG in SODIUM CHLORIDE 0.9% INJ 100 ML IV SCH ×2 (14:24→21:42)
--- NOTE | 2016-10-02 15:04 | RADRPT ---
EXAM DATE/TIME: 10/02/2016 14:27 [facility] COMPARISON: No previous studies available for comparison. INDICATIONS : Right arm swelling. MEDICAL HISTORY : Hypertension. Hepatitis C. Methicillin-resistant Staphylococcus aureus. IV drug abuse. SURGICAL HISTORY : Cholecystectomy. Neck surgery. Back surgery. Right leg surgery. ENCOUNTER: Initial ACUITY: 2 day PAIN SCORE: 3/10 LOCATION: Right arm. FINDINGS: There is occlusive thrombus within the cephalic vein. There is spontaneous flow documented in the bra chial, basilic, axillary, and subclavian veins. The vessels are compressible and augmentation respon se is documented. No filling defects are seen. The flow is phasic with respiration. Direction of f low in the jugular vein is caudal. CONCLUSION: There is thrombus within the cephalic vein. Vero Murphy MD on October 02, 2016 at 15:02 Board Certified Radiologist. This report was verified electronically.
--- NOTE | 2016-10-02 15:34 | EKG ---
Date Performed: 10/02/2016 Time Performed: 08:23:11 PTAGE: 41 years EKG: SINUS TACHYCARDIA ABNORMAL RHYTHM ECG Compared to PREVIOUS TRACING , sinus rate has increased. PREVIOUS TRACIN09/24/2016 13.18 DOCTOR: Saúl Deluca Interpretating Date/Time 10/02/2016 15:33:40
[2016-10-02] MEDS ORDERED: IOHEXOL 350 MG/ML 10 ML VIAL (for RAD DIAG) IV ONE (15:57)
[2016-10-02] MEDS: CEFTAROLINE INJ 600 MG in SODIUM CHLORIDE 0.9% INJ 100 ML IV SCH (16:26)
--- NOTE | 2016-10-02 16:31 | RADRPT ---
EXAM DATE/TIME: 10/02/2016 15:40 [facility] COMPARISON: CT ABDOMEN & PELVIS W/O CONTRAST, September 30, 2013, 10:02. INDICATIONS : Evaluate for embolism. IV CONTRAST: 65 cc Omnipaque 350 (iohexol) IV RADIATION DOSE: 10.70 CTDIvol (mGy) MEDICAL HISTORY : MRSA tricuspid valve infection. Hypertension. SURGICAL HISTORY : Cholecystectomy. Orthopedic surgery. ENCOUNTER: Initial ACUITY: 1 day PAIN SCALE: 0/10 LOCATION: chest TECHNIQUE: Volumetric scanning of the chest was performed using a pulmonary embolism protocol MIP images were re constructed. Using automated exposure control and adjustment of the mA and/or kV according to patien t size, radiation dose was kept as low as reasonably achievable to obtain optimal diagnostic quality images. DICOM format image data is available electronically for review and comparison. Follow-up recommendations for incidentally detected pulmonary nodules are based at a minimum on nodul e size and patient risk factors according to Fleischner Society Guidelines. FINDINGS: Examination quality is significantly degraded by respiratory motion artifact. PULMONARY ARTERIES: No filling defects are seen in the pulmonary arteries through the segmental level. LUNGS: There is dependent atelectasis bilaterally possible consolidation in the left lower lobe. There are a t least 10 small pulmonary nodules bilaterally measuring up to 7 mm. There is no pneumothorax. PLEURAE: There is no pleural thickening or pleural effusion. MEDIASTINUM: The heart and great vessels demonstrate no acute finding. However, right atrium is mildly enlarged. T here is an enlarged pretracheal lymph node in the superior mediastinum measuring 14 mm and there are large bilateral hilar lymph nodes measuring 16 mm in short axis diameter. An enlarged subcarinal lymp h node measures 15 mm in short axis diameter. Right IJ line is present. MUSCULOSKELETAL: No acute osseous abnormality is identified. MISCELLANEOUS: The visualized upper abdominal organs demonstrate no acute abnormality. Spleen is enlarged measuring 15.3 cm. CONCLUSION: 1. Examination quality is degraded by respiratory motion artifact. However, no PE is identified. 2. There are at least 10 small pulmonary nodules bilaterally involving all lobes. The appearance and distribution is suggestive of either septic emboli or metastatic disease. Given the patient's history of endocarditis, septic emboli is the most likely etiology. 3. Mediastinal and bilateral hilar lymphadenopathy. 4. Mild splenomegaly. Silvestre Brunner MD on October 02, 2016 at 16:21 Board Certified Radiologist. This report was verified electronically.
[2016-10-02 20:00] VITALS: BP 98/62; PULSE 91; RESP 16; TEMP 98.8; O2SAT 95
[2016-10-02 20:10] LABS: BLOOD, URINE NEG (NEG); GLUCOSE,URINE NEG (NEG); KETONE, URINE NEG (NEG); NITRITE,URINE NEG (NEG)
[2016-10-02] MEDS: ZOLPIDEM TARTRATE 10 MG TAB PO PRN (20:12)
[2016-10-02 20:22] LABS: URINE COLOR YELLOW (YELLW/STRAW)
[2016-10-02 20:25] LABS: WHITE BLOOD CELL CAST, URINE 0-2 /lpf
[2016-10-02 20:26] LABS: COMMENT (UR) CULT NOT INDICATED; CULTURE IF INDICATED CULT NOT INDICATED; RBC, URINE 0-3 /hpf (0-3); SQUAMOUS EPITHELIAL CELL URINE 0-5 /hpf (0-5); WBC, URINE 0-2 /hpf (0-5)
[2016-10-03] MEDS: SODIUM CHLOR 0.9% 1000 ML INJ 1,000 ML IV SCH ×3 (00:03→15:19)
[2016-10-03] MEDS: METHADONE HCL 10 MG TAB PO SCH ×3 (03:37→20:17)
[2016-10-03] MEDS: CEFTAROLINE INJ 600 MG in SODIUM CHLORIDE 0.9% INJ 100 ML IV SCH ×2 (03:37→15:23)
[2016-10-03] MEDS: CEFEPIME INJ 2,000 MG in SODIUM CHLORIDE 0.9% INJ 100 ML IV SCH ×2 (05:32→12:32)
[2016-10-03 05:58] LABS: AUTOMATED NEUTROPHIL # 5.3 TH/MM3 (1.8-7.7); BASOPHIL # 0.1 TH/MM3 (0-0.2); BASOPHIL % 0.6 % (0.0-2.0); EOSINOPHIL # 1.7 TH/MM3 (0-0.4); EOSINOPHIL % 18.9 % (0.0-4.0); HEMATOCRIT 22.3 % (39.0-51.0); LYMPH % 13.6 % (9.0-44.0); LYMPHOCYTE # 1.2 TH/MM3 (1.0-4.8); MEAN CELL VOLUME 75.3 FL (80.0-100.0); MEAN CORPUSCULAR HEMOGLOBIN 24.2 PG (27.0-34.0); MEAN CORPUSCULAR HGB CONC 32.2 % (32.0-36.0); MONO % 6.5 % (0.0-8.0); NEUT % 60.4 % (16.0-70.0); PLATELET COUNT 192 TH/MM3 (150-450); RED BLOOD COUNT 2.96 MIL/MM3 (4.50-5.90); RED CELL DISTRIBUTION WIDTH 14.2 % (11.6-17.2); WHITE BLOOD COUNT 8.9 TH/MM3 (4.0-11.0)
[2016-10-03 06:00] LABS: HEMO FLAGS AUTO DIFF
[2016-10-03] MEDS ORDERED: VANCOMYCIN INJ 1,100 MG in SODIUM CHLOR 0.9% 250 ML INJ 250 ML IV SCH (06:00)
[2016-10-03 06:06] LABS: POTASSIUM 4.3 MEQ/L (3.5-5.1)
[2016-10-03 06:48] LABS: SCAN/DIFF AUTO DIFF CONFIRMED
[2016-10-03 08:00] VITALS: BP 116/73; PULSE 112; RESP 19; TEMP 101.4; O2SAT 93
[2016-10-03] MEDS: clonazePAM 0.5 MG TAB PO SCH ×2 (08:06→20:16)
[2016-10-03] MEDS: NICOTINE 7 MG/24 HR PATCH T-DERMAL SCH (08:07)
[2016-10-03] MEDS: IBUPROFEN 400 MG TAB PO PRN (08:07)
[2016-10-03] MEDS: REMOVE OLD PATCH T-DERMAL SCH (08:08)
[2016-10-03] MEDS: ENOXAPARIN SODIUM 40 MG/0.4 ML SYRINGE SQ SCH (08:08)
[2016-10-03] MEDS: DOCUSATE SODIUM 50 MG/SENNA 8.6 MG TAB PO SCH ×2 (08:08→20:18)
[2016-10-03] MEDS: SODIUM CHLORIDE 0.9% FLUSH 10 ML FLUSH IVF SCH (08:09)
--- NOTE | 2016-10-03 09:34 | PD.ORT.PN ---
Subjective Subjective Remarks complains of increase pain in L knee and lateral left hip since med changed his pain meds. Objective Vitals Vital Signs Date Time Temp Pulse Resp B/P Pulse Ox O2 Delivery O2 Flow Rate FiO2 10/03/16 08:00 101.4 112 19 116/73 93 10/03/16 04:49 18 10/02/16 21:00 Nasal Cannula 2.00 10/02/16 20:00 98.8 91 16 98/62 95 10/02/16 12:05 94 Nasal Cannula 2.00 I/O 10/02/16 10/02/16 10/02/16 10/03/16 10/03/16 10/03/16 07:00 15:00 23:00 07:00 15:00 23:00 Intake Total 420 ml 100 ml 1000 ml 1000 ml Output Total 400 ml 500 ml Balance 20 ml 100 ml 500 ml 1000 ml Intake Oral 420 ml 100 ml IV Total 1000 ml 1000 ml Output Urine Total 400 ml 500 ml # Bowel Movements 1 Result Diagram: 10/03/16 0530 10/03/16 0530 Objective Remarks in bed, nad L knee: incision well healed, swelling, no significant pain with PROM 0-60 degrees neg homans nvi L hip pain to palpation lateral hip over bursa. Assessment & Plan Assessment and Plan s/p I&D septic L knee endocarditis L knee arthrofibrosis - wbat, ROM as tolerated. needs to work on ROM L hip possible bursitis, MRI L hip IV abx per ID med management Reuben Montana Oct 03, 2016 09:34
--- NOTE | 2016-10-03 11:14 | HHI.PR ---
Subjective Remarks Patient seen and examined today for follow-up on sepsis, endocarditis, chronic pain, IV drug abuse, narcotic dependency. Patient with recurrent sepsis again. Patient still with fever, MAXIMUM TEMPERATURE 102.9. Patient indicating that have been worsened pain in his left hip as well as a mass in his right groin. Patient states that he cannot bear weight on his left lower extremity because the pain. Objective Vitals Vital Signs Date Time Temp Pulse Resp B/P Pulse Ox O2 Delivery O2 Flow Rate FiO2 10/03/16 08:00 101.4 112 19 116/73 93 10/03/16 04:49 18 10/02/16 21:00 Nasal Cannula 2.00 10/02/16 20:00 98.8 91 16 98/62 95 10/02/16 12:05 94 Nasal Cannula 2.00 I/O 10/02/16 10/02/16 10/02/16 10/03/16 10/03/16 10/03/16 07:00 15:00 23:00 07:00 15:00 23:00 Intake Total 420 ml 100 ml 1000 ml 1000 ml Output Total 400 ml 500 ml Balance 20 ml 100 ml 500 ml 1000 ml Intake Oral 420 ml 100 ml IV Total 1000 ml 1000 ml Output Urine Total 400 ml 500 ml # Bowel Movements 1 Result Diagram: 10/03/16 0530 10/03/16 0530 Objective Remarks GENERAL: Well-developed, well-nourished, in no acute distress. alert and orientated HEENT: Head is normocephalic without any lesions or masses noted. Facial features are symmetric. Eyes: extraocular muscles are intact. Conjunctivae were clear. NECK: Trachea midline no deviation. Rate that, right internal jugular central line noted CARDIAC: Regular rhythm, regular rate. S1/S2 are heard. No murmurs gallops or rubs. LUNGS: Clear to auscultation bilaterally. No wheeze, rhonchi or rales. No use of accessory muscles on inspiration or expiration. ABDOMEN: Soft, nontender. Nondistended. Bowel sounds heard in all 4 quadrants. No organomegaly or masses. Negative rebound, negative guarding, patient has enlarged lymph node in the right inguinal region EXTREMITIES: No edema, pulses are equal bilaterally. No cyanosis or clubbing. Pain noted over left greater trochanter NEUROLOGY: Mood and affect appear appropriate. Cranial nerves II through XII grossly intact. Moving all extremities, speech is clear Procedures Left knee arthrotomy, debridement and irrigation (09/09/16). Urinary Catheter: No Vascular Central Line Catheter: Yes (day 15) Date of Insertion: Sep 18, 2016 Line: Central Venous Catheter Side: Right Location: Internal, Jugular A/P Assessment and Plan 41 year-old male with known history of significant IV drug use with Dilaudid and heroin who presented initially because of febrile illness Recurrent sepsis, hypotensive, febrile, tachycardia. Unknown etiology at this time, could be secondary to recurrent endocarditis, septic arthritis, line sepsis, continued IV drug use while in the hospital Patient still febrile, MAXIMUM TEMPERATURE 102.9 Infectious disease consulted for recommendations CT scan chest shows septic emboli of at least 10 small areas involving all lobes. Previous chest x-rays do not indicate any abnormality indicating septic pneumonia Blood cultures are pending Likely need to remove central line, will defer this to infectious disease Antibiotics changed to Teflaro and cefepime Continue IV fluids Acute renal failure Could be secondary to sepsis, dehydration, septic emboli to the kidney Continue IV fluids Continue monitor renal function Avoid nephrotoxins Bacterial endocarditis with tricuspid valve vegetation MRSA bacteremia Left septic knee joint Patient remains afebrile since 09/19/16 Echocardiogram indicates tricuspid valve vegetation 1.1 x 1.8 cm, repeat echocardiogram requested by cardiovascular surgeon after antibiotics completed MRI of the knee shows large nonspecific joint effusion with enhancement of synovial lining which is generally seen with synovitis Status post left knee arthrotomy, irrigation and debridement on 09/09/16 Orthopedic following the patient Negative blood culture since 09/10/16 Infectious disease following the patient and recommended total of 6 weeks of antibiotics from first negative culture, end date would be October 22, 2016 Antibiotics changed to Teflaro, cefepime Cardiovascular surgery evaluated patient and recommended antibiotic therapy, and follow-up in the office but will need to have repeat echocardiogram will need to have a clean negative urine toxicology screen to evaluate for possible surgery Narcotic dependency, Pain control, patient is manipulative with his pain management and withdrawal symptoms, patient was restarted on methadone Methadone 20 mg every 8 hours, as indicated to wean down 510 milligrams every 3 days History of IV drug abuse, narcotic dependency: Patient counseled on cessation HIV testing negative Symptomatic treatment for withdrawal symptoms Insomnia Ambien 10 mg as needed Muscle spasms Flexeril 5 mg twice daily as needed Nausea vomiting Zofran Diarrhea Imodium Anxiety Klonopin 0.5 mg every 12 hours Benadryl Hepatitis C: Follow up for outpatient treatment Nicotine dependence: NicoDerm patch 7 mg. Encourage cessation. DVT prophylaxis: Lovenox. Discharge Planning Discharge planning after completion of antibiotics Mann Ramsey Oct 03, 2016 11:14
[2016-10-03 11:30] VITALS: O2SAT 97
[2016-10-03] MEDS ORDERED: GADODIAMIDE PF 287 MG/ML 5 ML VIAL (for RAD MRI) IV ONE (13:35)
--- NOTE | 2016-10-03 15:55 | RADRPT ---
EXAM DATE/TIME: 10/03/2016 13:02 [facility] COMPARISON: No previous studies available for comparison. INDICATIONS : Abscess. Left lateral hip pain. CONTRAST: 13 cc Omniscan (gadodiamide) IV MEDICAL HISTORY : Hepatitis C. Methicillin-resistant Staphylococcus aureus. IVDU. Endocarditis. SURGICAL HISTORY : Discectomy, cervical. Cholecystectomy. Right knee. ENCOUNTER: Subsequent ACUITY: 1 month PAIN SCORE: 4/10 LOCATION: Left hip5 TECHNIQUE: Multiplanar, multisequence MRI examination was performed without contrast and after the intravenous a dministration of gadolinium. FINDINGS: There is abnormal edema and swelling in the posterior gluteal musculature laterally, worse on the lef t side. There is also extensive subcutaneous edema in the lateral gluteal region extending into the p roximal thigh. There is also some edema around the proximal quadriceps muscle and there is some mild marrow edema in the greater trochanter. Similar findings on the right are noted, but less severe on t he right. There is no discrete or drainable fluid or no enhancing fluid collection to suggest abscess . No evidence for fracture. No significant hip joint effusion. CONCLUSION: 1. Abnormal edema and swelling in the lateral gluteal musculature, left greater than right extending over the greater trochanter into the proximal lateral thigh musculature. There is also subcutaneous e bree. Findings are most characteristic of a cellulitis and myositis. No enhancing fluid collections t o suggest abscess formation. There is a mild marrow edema in the greater trochanter on the left side and to a lesser extent on the right probably representing some reactive edema. Wilfred Cho MD on October 03, 2016 at 15:47 Board Certified Radiologist. This report was verified electronically.
--- NOTE | 2016-10-03 17:30 | HHI.IDPN ---
Note Infectious Disease Note ID Coverage. Notes reviewed. patient has fevers. Currently has severe itching and profuse sweating. Notes pain in the left hip and knee. Central line notes to not be infusing well. MRSA TV endocarditis. Cultures negative. Blood culture positive 09/05, 09/07 MRSA. 09/10 - negative. Antibiotics Vancomycin stopped. Ceftaroline. Cefepime. Lines R. central line. Past Medical History IVDU Allergies: Coded Allergies: Avocado (Verified Allergy, Severe, 04/25/16) Shrimp (Verified Allergy, Severe, Anaphylaxis, 04/25/16) *MDRO Multi-Drug Resistant Organism (Unverified Adverse Reaction, Unknown , 09/04/16) MRSA Blood 09/2016 MRSA FINGER WOUND 12/16/03 Objective Vital Signs Date Time Temp Pulse Resp B/P Pulse Ox O2 Delivery O2 Flow Rate FiO2 10/03/16 11:30 97 21 10/03/16 08:00 101.4 112 19 116/73 93 10/03/16 04:49 18 10/02/16 21:00 Nasal Cannula 2.00 10/02/16 20:00 98.8 91 16 98/62 95 10/02/16 10/02/16 10/03/16 15:00 23:00 07:00 Intake Total 100 ml 1000 ml 1000 ml Output Total 500 ml Balance 100 ml 500 ml 1000 ml Intake Oral 100 ml IV Total 1000 ml 1000 ml Output Urine Total 500 ml Laboratory Tests Test 10/02/16 10/03/16 08:25 05:30 White Blood Count 12.8 TH/MM3 8.9 TH/MM3 Red Blood Count 3.70 MIL/MM3 2.96 MIL/MM3 Hemoglobin 8.8 GM/DL 7.2 GM/DL Hematocrit 27.4 % 22.3 % Mean Corpuscular Volume 74.2 FL 75.3 FL Mean Corpuscular Hemoglobin 23.9 PG 24.2 PG Mean Corpuscular Hemoglobin 32.2 % 32.2 % Concent Red Cell Distribution Width 14.2 % 14.2 % Platelet Count 237 TH/MM3 192 TH/MM3 Mean Platelet Volume 8.8 FL 8.9 FL Neutrophils (%) (Auto) 66.2 % 60.4 % Lymphocytes (%) (Auto) 14.1 % 13.6 % Monocytes (%) (Auto) 6.2 % 6.5 % Eosinophils (%) (Auto) 13.0 % 18.9 % Basophils (%) (Auto) 0.5 % 0.6 % Neutrophils # (Auto) 8.4 TH/MM3 5.3 TH/MM3 Lymphocytes # (Auto) 1.8 TH/MM3 1.2 TH/MM3 Monocytes # (Auto) 0.8 TH/MM3 0.6 TH/MM3 Eosinophils # (Auto) 1.7 TH/MM3 1.7 TH/MM3 Basophils # (Auto) 0.1 TH/MM3 0.1 TH/MM3 CBC Comment AUTO DIFF AUTO DIFF Differential Total Cells 100 Counted Neutrophils % (Manual) 70 % Band Neutrophils % 1 % Lymphocytes % 12 % Monocytes % 3 % Eosinophils % 11 % Basophils % 3 % Neutrophils # (Manual) 9.1 TH/MM3 Differential Comment FINAL DIFF AUTO DIFF MANUAL CONFIRMED Toxic Granulation 1+ Platelet Estimate NORMAL Platelet Morphology Comment NORMAL Laboratory Tests Test 10/02/16 10/02/16 10/03/16 06:30 08:25 05:30 Creatinine 1.50 MG/DL 1.50 MG/DL 1.40 MG/DL Estimat Glomerular Filtration 52 ML/MIN 52 ML/MIN 56 ML/MIN Rate Sodium Level 134 MEQ/L 138 MEQ/L Potassium Level 4.0 MEQ/L 4.3 MEQ/L Chloride Level 99 MEQ/L 105 MEQ/L Carbon Dioxide Level 24.8 MEQ/L 25.0 MEQ/L Anion Gap 10 MEQ/L 8 MEQ/L Blood Urea Nitrogen 22 MG/DL 22 MG/DL Random Glucose 99 MG/DL 129 MG/DL Lactic Acid Level 1.1 mmol/L Calcium Level 8.3 MG/DL 7.8 MG/DL Total Bilirubin 0.6 MG/DL Aspartate Amino Transf 46 U/L (AST/SGOT) Alanine Aminotransferase 19 U/L (ALT/SGPT) Alkaline Phosphatase 89 U/L Total Protein 8.1 GM/DL Albumin 2.8 GM/DL Microbiology Date/Time Procedure Status Source Growth 10/02/16 08:15 Aerobic Blood Culture - Preliminary Resulted Blood Peripheral NO GROWTH IN 1 DAY 10/02/16 08:15 Anaerobic Blood Culture - Preliminary Resulted Blood Peripheral NO GROWTH IN 1 DAY 10/02/16 08:25 Aerobic Blood Culture - Preliminary Resulted Blood Peripheral NO GROWTH IN 1 DAY 10/02/16 08:25 Anaerobic Blood Culture - Preliminary Resulted Blood Peripheral NO GROWTH IN 1 DAY IMAGING: Hip MRI 10/03/16 0000 Signed Impressions: Service Date/Time: Monday, October 03, 2016 13:02 - CONCLUSION: 1. Abnormal edema and swelling in the lateral gluteal musculature, left greater than right extending over the greater trochanter into the proximal lateral thigh musculature. There is also subcutaneous edema. Findings are most characteristic of a cellulitis and myositis. No enhancing fluid collections to suggest abscess formation. There is a mild marrow edema in the greater trochanter on the left side and to a lesser extent on the right probably representing some reactive edema. Wilfred Cho MD Chest X-Ray 10/02/16 0755 Signed Impressions: Service Date/Time: Sunday, October 02, 2016 08:30 - CONCLUSION: No acute cardiopulmonary abnormality is identified. Silvestre Brunner MD Upper Extremity Ultrasound 10/02/16 0000 Signed Impressions: Service Date/Time: Sunday, October 02, 2016 14:27 - CONCLUSION: There is thrombus within the cephalic vein. Vero Murphy MD CT Angiography 10/02/16 0000 Signed Impressions: Service Date/Time: Sunday, October 02, 2016 15:40 - CONCLUSION: 1. Examination quality is degraded by respiratory motion artifact. However, no PE is identified. 2. There are at least 10 small pulmonary nodules bilaterally involving all lobes. The appearance and distribution is suggestive of either septic emboli or metastatic disease. Given the patient's history of endocarditis, septic emboli is the most likely etiology. 3. Mediastinal and bilateral hilar lymphadenopathy. 4. Mild splenomegaly. Silvestre Brunner MD Physical Exam GENERAL: No acute distress. HEENT: EOMI, No icterus. No conjunctival erythema. NECK: Supple. no adenopathy or swelling. LUNGS: Breath sounds clear. CARDIAC: Regular rate and rhythm. DORENE. ABDOMEN: (+) bowel sounds. Soft, no tenderness. EXTREMITIES: Tenderness at the left lateral thigh. No erythema. No clubbing, cyanosis, edema. SKIN: No rash. Warm and moist. No peripheral embolic phenomena. Assessment & Plan Diagnosis: 1. Septicemia due to methicillin resistant Staphylococcus aureus. 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 CV surgery recommends antibiotic treatment prior to valve surgery. 3. IVDU (intravenous drug user) 4. Septic lung lesions. 5. Left knee joint effusion. 6. Fever. ? infection. 7. L. thigh myositis. 8. Acute Renal Failure. 9. R. Cephalic vein thrombus. Plan: Continue Ceftaroline. D/C Cefepime. D/C central line and culture the tip. Monitor temps. Monitor cultures. IV antibiotic for 6 weeks ( till October 19) post negative blood culture and repeat echo and reconsult cardiovascular surgery at end of treatment if no complications. sooner if not improving. Maicol Potter MD Oct 03, 2016 17:30
[2016-10-03 20:00] VITALS: BP 111/71; PULSE 89; RESP 20; TEMP 96.1; O2SAT 98
[2016-10-03] MEDS: ZOLPIDEM TARTRATE 10 MG TAB PO PRN (20:18)
[2016-10-03] MEDS: CYCLOBENZAPRINE HCL 10 MG TAB PO PRN (20:18)
[2016-10-03 20:50] VITALS: O2SAT 94
[2016-10-04] VITALS (9 sets, daily range): BP systolic 96–118; BP diastolic 64–77; PULSE 100–111; RESP 16; TEMP 97.8–98.3; O2SAT 88–98
[2016-10-04] MEDS: SODIUM CHLOR 0.9% 1000 ML INJ 1,000 ML IV SCH ×3 (00:15→17:15)
[2016-10-04] MEDS: CEFTAROLINE INJ 600 MG in SODIUM CHLORIDE 0.9% INJ 100 ML IV SCH ×2 (03:50→17:14)
[2016-10-04] MEDS: METHADONE HCL 10 MG TAB PO SCH ×4 (03:51→21:00)
[2016-10-04 07:06] LABS: POTASSIUM 4.5 MEQ/L (3.5-5.1)
[2016-10-04 07:09] LABS: BICARBONATE 26.1 MEQ/L (21.0-32.0); MAGNESIUM 1.6 MG/DL (1.5-2.5)
[2016-10-04 07:14] LABS: AUTOMATED NEUTROPHIL # 4.8 TH/MM3 (1.8-7.7); BASOPHIL # 0.1 TH/MM3 (0-0.2); BASOPHIL % 0.6 % (0.0-2.0); EOSINOPHIL # 1.9 TH/MM3 (0-0.4); EOSINOPHIL % 22.3 % (0.0-4.0); HEMATOCRIT 21.9 % (39.0-51.0); LYMPH % 13.5 % (9.0-44.0); LYMPHOCYTE # 1.2 TH/MM3 (1.0-4.8); MEAN CELL VOLUME 75.9 FL (80.0-100.0); MEAN CORPUSCULAR HEMOGLOBIN 23.9 PG (27.0-34.0); MEAN CORPUSCULAR HGB CONC 31.5 % (32.0-36.0); MONO % 5.9 % (0.0-8.0); NEUT % 57.7 % (16.0-70.0); PLATELET COUNT 185 TH/MM3 (150-450); RED BLOOD COUNT 2.89 MIL/MM3 (4.50-5.90); WHITE BLOOD COUNT 8.5 TH/MM3 (4.0-11.0)
[2016-10-04 07:25] LABS: HEMO FLAGS AUTO DIFF
--- NOTE | 2016-10-04 07:28 | PD.ORT.PN ---
Subjective Subjective Remarks Objective Vitals Vital Signs Date Time Temp Pulse Resp B/P Pulse Ox O2 Delivery O2 Flow Rate FiO2 10/04/16 04:51 16 10/03/16 20:50 94 21 10/03/16 20:00 96.1 89 20 111/71 98 10/03/16 11:30 97 21 10/03/16 08:00 101.4 112 19 116/73 93 I/O 10/03/16 10/03/16 10/03/16 10/04/16 10/04/16 10/04/16 07:00 15:00 23:00 07:00 15:00 23:00 Intake Total 1000 ml 480 ml Output Total 800 ml Balance 1000 ml -800 ml 480 ml Intake Oral 480 ml IV Total 1000 ml Output Urine Total 800 ml # Voids 3 # Bowel Movements 0 Result Diagram: 10/03/16 0530 10/04/16 0650 Assessment & Plan Assessment and Plan s/p I&D septic L knee endocarditis, sepsis L knee arthrofibrosis - wbat, ROM as tolerated. needs to work on ROM L hip pain, MRI L hip showed no definable abscess continue IV abx per ID med management Reubne Montana Oct 04, 2016 07:28
[2016-10-04 07:35] LABS: PLATELET ESTIMATE SMEAR NORMAL (NORMAL); PLATELET MORPHOLOGY NORMAL (NORMAL); ROULEAUX PRESENT (NORMAL); SCAN/DIFF AUTO DIFF CONFIRMED
[2016-10-04 07:38] LABS: CKMB 2.3 NG/ML (0.5-3.6)
[2016-10-04] MEDS: clonazePAM 0.5 MG TAB PO SCH ×2 (07:50→21:00)
[2016-10-04] MEDS: NICOTINE 7 MG/24 HR PATCH T-DERMAL SCH (07:50)
[2016-10-04] MEDS: ENOXAPARIN SODIUM 40 MG/0.4 ML SYRINGE SQ SCH (07:50)
[2016-10-04] MEDS: DOCUSATE SODIUM 50 MG/SENNA 8.6 MG TAB PO SCH ×2 (07:51→21:00)
[2016-10-04] MEDS: SODIUM CHLORIDE 0.9% FLUSH 10 ML FLUSH IVF SCH (07:51)
[2016-10-04] MEDS: REMOVE OLD PATCH T-DERMAL SCH (07:51)
--- NOTE | 2016-10-04 11:02 | HHI.PR ---
Subjective Remarks Patient seen and examined today for follow-up on febrile illness, bacterial endocarditis, left knee pain, left hip pain. Patient continues to be febrile. MAXIMUM TEMPERATURE 101.4. Discussed with the patient was continued fever, sepsis. Patient was notified that central line will need to come out and peripheral IV will need replaced. Patient was not too happy about that. I also notify the patient of his anemia and the possible reason was because of antibiotic treatment. Patient is adamant that all of his problems is because he came to [place] and was started on acetaminophen. Objective Vitals Vital Signs Date Time Temp Pulse Resp B/P Pulse Ox O2 Delivery O2 Flow Rate FiO2 10/04/16 10:24 98.1 111 16 112/77 96 10/04/16 04:51 16 10/03/16 20:50 94 21 10/03/16 20:00 96.1 89 20 111/71 98 10/03/16 11:30 97 21 I/O 10/03/16 10/03/16 10/03/16 10/04/16 10/04/16 10/04/16 07:00 15:00 23:00 07:00 15:00 23:00 Intake Total 1000 ml 480 ml 100 ml Output Total 800 ml Balance 1000 ml -800 ml 480 ml 100 ml Intake Oral 480 ml 100 ml IV Total 1000 ml Output Urine Total 800 ml # Voids 3 # Bowel Movements 0 Result Diagram: 10/04/16 0650 10/04/16 0650 Objective Remarks GENERAL: Well-developed, well-nourished, in no acute distress. alert and orientated HEENT: Head is normocephalic without any lesions or masses noted. Facial features are symmetric. Eyes: extraocular muscles are intact. Conjunctivae were clear. NECK: Trachea midline no deviation. Rate that, right internal jugular central line noted CARDIAC: Regular rhythm, regular rate. S1/S2 are heard. No murmurs gallops or rubs. LUNGS: Clear to auscultation bilaterally. No wheeze, rhonchi or rales. No use of accessory muscles on inspiration or expiration. ABDOMEN: Soft, nontender. Nondistended. Bowel sounds heard in all 4 quadrants. No organomegaly or masses. Negative rebound, negative guarding, patient has enlarged lymph node in the right inguinal region EXTREMITIES: No edema, pulses are equal bilaterally. No cyanosis or clubbing. Pain noted over left greater trochanter NEUROLOGY: Mood and affect appear appropriate. Cranial nerves II through XII grossly intact. Moving all extremities, speech is clear Procedures Left knee arthrotomy, debridement and irrigation (09/09/16). Urinary Catheter: No Vascular Central Line Catheter: Yes (day 16) Assessment to: Remove Date of Insertion: Sep 18, 2016 Date of Removal: Oct 04, 2016 Line: Central Venous Catheter Side: Right Location: Internal, Jugular A/P Assessment and Plan 41 year-old male with known history of significant IV drug use with Dilaudid and heroin who presented initially because of febrile illness Recurrent sepsis, hypotensive, febrile, tachycardia. Unknown etiology at this time, could be secondary to recurrent endocarditis, septic arthritis, line sepsis, continued IV drug use while in the hospital Patient still febrile, MAXIMUM TEMPERATURE 101.4 Infectious disease consulted for recommendations CT scan chest shows septic emboli of at least 10 small areas involving all lobes. Previous chest x-rays do not indicate any abnormality indicating septic pneumonia Blood cultures negative for 1 day plus far Discontinue central line per infectious disease, place peripheral IV Antibiotics changed to Teflaro Continue IV fluids 10/04/16, discussed with infectious disease who recommended removal of central line. Continuation of Teflaro. Monitoring blood cultures. Acute on chronic microcytic anemia. With rouleaux effect on blood smear Possible etiology would be secondary to vancomycin, will need to rule out other etiologies Check B12, folate, ferritin, sedimentation rate, reticulocyte count, LDH, haptoglobin, stool for occult blood Continue monitor additional labs, if hemoglobin is still below 7.0 at 1300 will plan transfusion of one unit of packed red blood cells Acute renal failure, improving with IV fluids Could be secondary to sepsis, dehydration, septic emboli to the kidney Continue IV fluids Continue monitor renal function Avoid nephrotoxins Left hip pain MRI shows myositis and possible bone marrow edema Orthopedic to follow-up, who indicates continuation of IV antibiotics per ID and medical management Bacterial endocarditis with tricuspid valve vegetation MRSA bacteremia Left septic knee joint Patient remains afebrile since 09/19/16 Echocardiogram indicates tricuspid valve vegetation 1.1 x 1.8 cm, repeat echocardiogram requested by cardiovascular surgeon after antibiotics completed MRI of the knee shows large nonspecific joint effusion with enhancement of synovial lining which is generally seen with synovitis Status post left knee arthrotomy, irrigation and debridement on 09/09/16 Orthopedic following the patient Negative blood culture since 09/10/16 Infectious disease following the patient and recommended total of 6 weeks of antibiotics from first negative culture, end date would be October 19, 2016 Antibiotics changed to Teflaro, Cardiovascular surgery evaluated patient and recommended antibiotic therapy, and follow-up in the office but will need to have repeat echocardiogram will need to have a clean negative urine toxicology screen to evaluate for possible surgery Narcotic dependency, Pain control, patient is manipulative with his pain management and withdrawal symptoms, patient was restarted on methadone, will be unable to wean patient off methadone prior to completion of antibiotics. Patient will need outpatient rehabilitation upon discharge Methadone 20 mg every 8 hours, as indicated to wean down 510 milligrams every 3 days History of IV drug abuse, narcotic dependency: Patient counseled on cessation HIV testing negative Symptomatic treatment for withdrawal symptoms Insomnia Ambien 10 mg as needed Muscle spasms Flexeril 5 mg twice daily as needed Nausea vomiting Zofran Diarrhea Imodium Anxiety Klonopin 0.5 mg every 12 hours Benadryl Hepatitis C: Follow up for outpatient treatment Nicotine dependence: NicoDerm patch 7 mg. Encourage cessation. DVT prophylaxis: Lovenox. Discharge Planning Discharge planning after completion of antibiotics Mann Ramsey Oct 04, 2016 11:02
[2016-10-04 11:15] LABS: RETIC % 1.5 % (0.4-3.0)
[2016-10-04 11:22] LABS: REVIEW FLAG FINAL
[2016-10-04 11:41] LABS: FERRITIN 142 NG/ML (26-388); LDH SERUM 170 U/L (87-241)
[2016-10-04 14:28] LABS: HEMATOCRIT 22.5 % (39.0-51.0)
[2016-10-04] MEDS ORDERED: diphenhydrAMINE HCL 25 MG CAP PO PRN (15:00)
[2016-10-04] MEDS ORDERED: SODIUM CHLOR 0.9% 250 ML INJ 250 ML IV ONE (15:00)
[2016-10-04 15:17] LABS: CKMB 2.3 NG/ML (0.5-3.6)
[2016-10-04 19:49] LABS: CREATINE KINASE 275 U/L (39-308)
[2016-10-04 20:08] LABS: CKMB 1.8 NG/ML (0.5-3.6)
[2016-10-05] MEDS: SODIUM CHLOR 0.9% 1000 ML INJ 1,000 ML IV SCH ×3 (00:15→16:11)
[2016-10-05] MEDS: CEFTAROLINE INJ 600 MG in SODIUM CHLORIDE 0.9% INJ 100 ML IV SCH ×2 (04:00→16:10)
[2016-10-05] MEDS: METHADONE HCL 10 MG TAB PO SCH ×3 (04:00→20:06)
[2016-10-05 04:18] LABS: CREATINE KINASE 171 U/L (39-308)
[2016-10-05 04:37] LABS: CKMB 1.5 NG/ML (0.5-3.6)
[2016-10-05 08:00] VITALS: BP 123/74; PULSE 106; RESP 18; TEMP 99; O2SAT 97
[2016-10-05 08:36] LABS: AUTOMATED NEUTROPHIL # 5.2 TH/MM3 (1.8-7.7); BASOPHIL # 0.1 TH/MM3 (0-0.2); BASOPHIL % 0.8 % (0.0-2.0); EOSINOPHIL # 2.2 TH/MM3 (0-0.4); EOSINOPHIL % 23.3 % (0.0-4.0); LYMPH % 14.6 % (9.0-44.0); LYMPHOCYTE # 1.4 TH/MM3 (1.0-4.8); MEAN CELL VOLUME 76.3 FL (80.0-100.0); MEAN CORPUSCULAR HEMOGLOBIN 24.8 PG (27.0-34.0); MEAN CORPUSCULAR HGB CONC 32.5 % (32.0-36.0); MONO % 6.2 % (0.0-8.0); NEUT % 55.1 % (16.0-70.0); PLATELET COUNT 217 TH/MM3 (150-450); RED BLOOD COUNT 3.28 MIL/MM3 (4.50-5.90); WHITE BLOOD COUNT 9.5 TH/MM3 (4.0-11.0)
[2016-10-05 08:47] LABS: HEMO FLAGS AUTO DIFF
[2016-10-05] MEDS: REMOVE OLD PATCH T-DERMAL SCH (09:00)
[2016-10-05] MEDS: SODIUM CHLORIDE 0.9% FLUSH 10 ML FLUSH IVF SCH (09:00)
[2016-10-05] MEDS: ENOXAPARIN SODIUM 40 MG/0.4 ML SYRINGE SQ SCH (09:13)
[2016-10-05] MEDS: clonazePAM 0.5 MG TAB PO SCH ×2 (09:13→21:00)
[2016-10-05] MEDS: DOCUSATE SODIUM 50 MG/SENNA 8.6 MG TAB PO SCH ×2 (09:13→21:00)
[2016-10-05] MEDS: NICOTINE 7 MG/24 HR PATCH T-DERMAL SCH (09:14)
[2016-10-05 09:15] VITALS: O2SAT 96
[2016-10-05 09:57] LABS: PLATELET ESTIMATE SMEAR NORMAL (NORMAL); PLATELET MORPHOLOGY NORMAL (NORMAL); SCAN/DIFF AUTO DIFF CONFIRMED; TEARDROP RBCS 1+ (NORMAL)
[2016-10-05 12:03] VITALS: BP 106/59; PULSE 101; RESP 17; TEMP 99.1; O2SAT 94
--- NOTE | 2016-10-05 13:03 | HHI.PR ---
Subjective Remarks Patient seen and examined today for follow-up on endocarditis, narcotic dependency. Patient resting comfortably. States that he is still having pain in his right groin area where the palpable is a lymph node. Patient states that he has a hernia there that it's larger throughout the day and then just goes away periodically. Discussed with the patient that there is no way that we would be only get him weaned off methadone prior to his discharge unless he would want to change the way he can be detoxed. Patient is adamant that he does not want to stop the methadone at this time. Notified patient that he will not make the deadline to be evaluated by cardiac arrest for surgery and that he'll need a follow-up upon discharge. Objective Vitals Vital Signs Date Time Temp Pulse Resp B/P Pulse Ox O2 Delivery O2 Flow Rate FiO2 10/05/16 12:03 99.1 101 17 106/59 94 10/05/16 09:15 96 21 10/05/16 05:00 16 10/04/16 23:45 98.3 100 16 118/76 94 10/04/16 23:45 98.3 100 16 118/76 94 10/04/16 22:45 97.8 108 16 96/66 97 10/04/16 22:45 97.8 108 16 106/64 97 10/04/16 21:45 98.1 100 16 106/64 97 10/04/16 21:45 98.1 100 16 106/64 97 10/04/16 21:30 88 21 10/04/16 21:15 98.2 101 16 118/67 98 10/04/16 21:15 98.2 101 16 118/67 98 10/04/16 20:45 98.0 101 16 110/66 98 10/04/16 20:45 98.0 101 16 110/66 98 10/04/16 20:30 97.8 100 16 108/74 98 10/04/16 20:30 97.8 100 16 108/71 98 I/O 10/04/16 10/04/16 10/04/16 10/05/16 10/05/16 10/05/16 07:00 15:00 23:00 07:00 15:00 23:00 Intake Total 100 ml 1200 ml Balance 100 ml 1200 ml Intake Oral 100 ml 1200 ml # Voids 4 Result Diagram: 10/05/16 0820 10/05/16 0350 Objective Remarks GENERAL: Well-developed, well-nourished, in no acute distress. alert and orientated HEENT: Head is normocephalic without any lesions or masses noted. Facial features are symmetric. Eyes: extraocular muscles are intact. Conjunctivae were clear. NECK: Trachea midline no deviation. Rate that, right internal jugular central line noted CARDIAC: Regular rhythm, regular rate. S1/S2 are heard. No murmurs gallops or rubs. LUNGS: Clear to auscultation bilaterally. No wheeze, rhonchi or rales. No use of accessory muscles on inspiration or expiration. ABDOMEN: Soft, nontender. Nondistended. Bowel sounds heard in all 4 quadrants. No organomegaly or masses. Negative rebound, negative guarding, patient has enlarged lymph node in the right inguinal region EXTREMITIES: No edema, pulses are equal bilaterally. No cyanosis or clubbing. Pain noted over left greater trochanter NEUROLOGY: Mood and affect appear appropriate. Cranial nerves II through XII grossly intact. Moving all extremities, speech is clear Procedures Left knee arthrotomy, debridement and irrigation (09/09/16). Urinary Catheter: No Vascular Central Line Catheter: No Date of Insertion: Sep 18, 2016 Date of Removal: Oct 04, 2016 A/P Assessment and Plan 41 year-old male with known history of significant IV drug use with Dilaudid and heroin who presented initially because of febrile illness Recurrent sepsis, hypotensive, febrile, tachycardia. Unknown etiology at this time, could be secondary to recurrent endocarditis, septic arthritis, line sepsis, continued IV drug use while in the hospital Patient afebrile now, since central line removed Infectious disease consulted for recommendations CT scan chest shows septic emboli of at least 10 small areas involving all lobes. Previous chest x-rays do not indicate any abnormality indicating septic pneumonia Blood cultures negative for 3 day Discontinued central line per infectious disease, placed peripheral IV Antibiotics changed to Teflaro Continue IV fluids 10/04/16, discussed with infectious disease who recommended removal of central line. Continuation of Teflaro. Monitoring blood cultures. Acute on chronic microcytic anemia. With rouleaux effect on blood smear Possible etiology would be secondary to vancomycin, will need to rule out other etiologies B12 was mildly low, folate normal, ferritin was normal, sedimentation rate elevated, reticulocyte count was normal, LDH was normal, haptoglobin mildly elevated, stool for occult blood negative Status post transfusion of one unit packed red blood cell Acute renal failure, improving with IV fluids Could be secondary to sepsis, dehydration, septic emboli to the kidney Continue IV fluids Continue monitor renal function Avoid nephrotoxins Left hip pain MRI shows myositis and possible bone marrow edema Orthopedic to follow-up, who indicates continuation of IV antibiotics per ID and medical management CK was originally elevated, we continued IV fluids and CK has returned to normal Bacterial endocarditis with tricuspid valve vegetation MRSA bacteremia Left septic knee joint Patient remains afebrile since 09/19/16 Echocardiogram indicates tricuspid valve vegetation 1.1 x 1.8 cm, repeat echocardiogram requested by cardiovascular surgeon after antibiotics completed MRI of the knee shows large nonspecific joint effusion with enhancement of synovial lining which is generally seen with synovitis Status post left knee arthrotomy, irrigation and debridement on 09/09/16 Orthopedic following the patient Negative blood culture since 09/10/16 Infectious disease following the patient and recommended total of 6 weeks of antibiotics from first negative culture, end date would be October 19, 2016 Antibiotics changed to Teflaro, Cardiovascular surgery evaluated patient and recommended antibiotic therapy, and follow-up in the office but will need to have repeat echocardiogram will need to have a clean negative urine toxicology screen to evaluate for possible surgery Narcotic dependency, Pain control, patient is manipulative with his pain management and withdrawal symptoms, patient was restarted on methadone, will be unable to wean patient off methadone prior to completion of antibiotics. Patient will need outpatient rehabilitation upon discharge Methadone 20 mg every 8 hours, as indicated to wean down 510 milligrams every 3 days History of IV drug abuse, narcotic dependency: Patient counseled on cessation HIV testing negative Symptomatic treatment for withdrawal symptoms Insomnia Ambien 10 mg as needed Muscle spasms Flexeril 5 mg twice daily as needed Nausea vomiting Zofran Diarrhea Imodium Anxiety Klonopin 0.5 mg every 12 hours Benadryl Hepatitis C: Follow up for outpatient treatment Nicotine dependence: NicoDerm patch 7 mg. Encourage cessation. DVT prophylaxis: Lovenox. Discharge Planning Discharge planning after completion of antibiotics Mann Ramsey Oct 05, 2016 13:03
--- NOTE | 2016-10-05 15:23 | HHI.IDPN ---
Note Infectious Disease Note Patient is very somnolent. Awakens. Appears drowsy. Notes pain in the left hip and knee particularly when he walks. Afebrile. MRSA TV endocarditis. Blood culture positive 09/05, 09/07 MRSA. 09/10 - negative. Antibiotics Vancomycin stopped. Ceftaroline. Lines peripheral. central line removed 10/03/16. Past Medical History IVDU Allergies: Coded Allergies: Avocado (Verified Allergy, Severe, 04/25/16) Shrimp (Verified Allergy, Severe, Anaphylaxis, 04/25/16) *MDRO Multi-Drug Resistant Organism (Unverified Adverse Reaction, Unknown , 09/04/16) MRSA Blood 09/2016 MRSA FINGER WOUND 12/16/03 Objective Vital Signs Date Time Temp Pulse Resp B/P Pulse Ox O2 Delivery O2 Flow Rate FiO2 10/05/16 12:03 99.1 101 17 106/59 94 10/05/16 09:15 96 21 10/05/16 08:00 99.0 106 18 123/74 97 10/05/16 05:00 16 10/04/16 23:45 98.3 100 16 118/76 94 10/04/16 23:45 98.3 100 16 118/76 94 10/04/16 22:45 97.8 108 16 96/66 97 10/04/16 22:45 97.8 108 16 106/64 97 10/04/16 21:45 98.1 100 16 106/64 97 10/04/16 21:45 98.1 100 16 106/64 97 10/04/16 21:30 88 21 10/04/16 21:15 98.2 101 16 118/67 98 10/04/16 21:15 98.2 101 16 118/67 98 10/04/16 20:45 98.0 101 16 110/66 98 10/04/16 20:45 98.0 101 16 110/66 98 10/04/16 20:30 97.8 100 16 108/74 98 10/04/16 20:30 97.8 100 16 108/71 98 10/04/16 10/04/16 10/05/16 14:59 22:59 06:59 Intake Total 100 ml 1200 ml Balance 100 ml 1200 ml Intake Oral 100 ml 1200 ml # Voids 4 Vital Signs Date Time Temp Pulse Resp B/P Pulse Ox O2 Delivery O2 Flow Rate FiO2 10/03/16 11:30 97 21 10/03/16 08:00 101.4 112 19 116/73 93 10/03/16 04:49 18 10/02/16 21:00 Nasal Cannula 2.00 10/02/16 20:00 98.8 91 16 98/62 95 10/02/16 10/02/16 10/03/16 15:00 23:00 07:00 Intake Total 100 ml 1000 ml 1000 ml Output Total 500 ml Balance 100 ml 500 ml 1000 ml Intake Oral 100 ml IV Total 1000 ml 1000 ml Output Urine Total 500 ml Laboratory Tests Test 10/02/16 10/03/16 08:25 05:30 White Blood Count 12.8 TH/MM3 8.9 TH/MM3 Red Blood Count 3.70 MIL/MM3 2.96 MIL/MM3 Hemoglobin 8.8 GM/DL 7.2 GM/DL Hematocrit 27.4 % 22.3 % Mean Corpuscular Volume 74.2 FL 75.3 FL Mean Corpuscular Hemoglobin 23.9 PG 24.2 PG Mean Corpuscular Hemoglobin 32.2 % 32.2 % Concent Red Cell Distribution Width 14.2 % 14.2 % Platelet Count 237 TH/MM3 192 TH/MM3 Mean Platelet Volume 8.8 FL 8.9 FL Neutrophils (%) (Auto) 66.2 % 60.4 % Lymphocytes (%) (Auto) 14.1 % 13.6 % Monocytes (%) (Auto) 6.2 % 6.5 % Eosinophils (%) (Auto) 13.0 % 18.9 % Basophils (%) (Auto) 0.5 % 0.6 % Neutrophils # (Auto) 8.4 TH/MM3 5.3 TH/MM3 Lymphocytes # (Auto) 1.8 TH/MM3 1.2 TH/MM3 Monocytes # (Auto) 0.8 TH/MM3 0.6 TH/MM3 Eosinophils # (Auto) 1.7 TH/MM3 1.7 TH/MM3 Basophils # (Auto) 0.1 TH/MM3 0.1 TH/MM3 CBC Comment AUTO DIFF AUTO DIFF Differential Total Cells 100 Counted Neutrophils % (Manual) 70 % Band Neutrophils % 1 % Lymphocytes % 12 % Monocytes % 3 % Eosinophils % 11 % Basophils % 3 % Neutrophils # (Manual) 9.1 TH/MM3 Differential Comment FINAL DIFF AUTO DIFF MANUAL CONFIRMED Toxic Granulation 1+ Platelet Estimate NORMAL Platelet Morphology Comment NORMAL Laboratory Tests Test 10/02/16 10/02/16 10/03/16 06:30 08:25 05:30 Creatinine 1.50 MG/DL 1.50 MG/DL 1.40 MG/DL Estimat Glomerular Filtration 52 ML/MIN 52 ML/MIN 56 ML/MIN Rate Sodium Level 134 MEQ/L 138 MEQ/L Potassium Level 4.0 MEQ/L 4.3 MEQ/L Chloride Level 99 MEQ/L 105 MEQ/L Carbon Dioxide Level 24.8 MEQ/L 25.0 MEQ/L Anion Gap 10 MEQ/L 8 MEQ/L Blood Urea Nitrogen 22 MG/DL 22 MG/DL Random Glucose 99 MG/DL 129 MG/DL Lactic Acid Level 1.1 mmol/L Calcium Level 8.3 MG/DL 7.8 MG/DL Total Bilirubin 0.6 MG/DL Aspartate Amino Transf 46 U/L (AST/SGOT) Alanine Aminotransferase 19 U/L (ALT/SGPT) Alkaline Phosphatase 89 U/L Total Protein 8.1 GM/DL Albumin 2.8 GM/DL Microbiology Date/Time Procedure Status Source Growth 10/02/16 08:15 Aerobic Blood Culture - Preliminary Resulted Blood Peripheral NO GROWTH IN 1 DAY 10/02/16 08:15 Anaerobic Blood Culture - Preliminary Resulted Blood Peripheral NO GROWTH IN 1 DAY 10/02/16 08:25 Aerobic Blood Culture - Preliminary Resulted Blood Peripheral NO GROWTH IN 1 DAY 10/02/16 08:25 Anaerobic Blood Culture - Preliminary Resulted Blood Peripheral NO GROWTH IN 1 DAY Physical Exam GENERAL: No acute distress. HEENT: EOMI, No icterus. No conjunctival erythema. NECK: Supple. no adenopathy or swelling. LUNGS: Breath sounds clear. CARDIAC: Regular rate and rhythm. DORENE at LSB. ABDOMEN: (+) bowel sounds. Soft, non tender. EXTREMITIES: Tenderness at the left lateral thigh. No erythema. No clubbing, cyanosis, edema. SKIN: No rash. Warm and moist. No peripheral embolic phenomena. Assessment & Plan Diagnosis: 1. Septicemia due to methicillin resistant Staphylococcus aureus. 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 CV surgery recommends antibiotic treatment prior to valve surgery. 3. IVDU (intravenous drug user) 4. Septic lung lesions. 5. Left knee joint effusion. 6. Fever. ? infection. improved after removing central line. 7. L. thigh myositis. 8. Acute Renal Failure. 9. R. Cephalic vein thrombus. Plan: Continue Ceftaroline. Monitor temps. Monitor cultures. IV Ceftaroline until (October 19) ( 6 weeks antibiotics post negative blood culture) Would repeat ECHO next week. Reconsult cardiovascular surgery re surgery at end of antibiotic treatment as per their recommendation. Maicol Potter MD Oct 05, 2016 15:23
[2016-10-05 20:00] VITALS: BP 132/91; PULSE 93; RESP 18; TEMP 96; O2SAT 98
[2016-10-05 20:25] VITALS: O2SAT 98
[2016-10-05] MEDS: CYCLOBENZAPRINE HCL 10 MG TAB PO PRN ×2 (21:54→21:56)
[2016-10-05] MEDS: ZOLPIDEM TARTRATE 10 MG TAB PO PRN (21:54)
[2016-10-06] MEDS: SODIUM CHLOR 0.9% 1000 ML INJ 1,000 ML IV SCH ×2 (00:15→09:42)
[2016-10-06] MEDS: CEFTAROLINE INJ 600 MG in SODIUM CHLORIDE 0.9% INJ 100 ML IV SCH ×3 (04:00→23:28)
[2016-10-06] MEDS: METHADONE HCL 10 MG TAB PO SCH ×3 (04:54→12:26)
[2016-10-06 08:00] VITALS: BP 106/69; PULSE 84; RESP 18; TEMP 98.1; O2SAT 96
[2016-10-06 08:58] VITALS: O2SAT 98
[2016-10-06] MEDS: REMOVE OLD PATCH T-DERMAL SCH (09:00)
[2016-10-06] MEDS: DOCUSATE SODIUM 50 MG/SENNA 8.6 MG TAB PO SCH ×2 (09:00→21:00)
[2016-10-06] MEDS: SODIUM CHLORIDE 0.9% FLUSH 10 ML FLUSH IVF SCH (09:00)
[2016-10-06] MEDS: NICOTINE 7 MG/24 HR PATCH T-DERMAL SCH (09:50)
[2016-10-06] MEDS: clonazePAM 0.5 MG TAB PO SCH ×2 (09:50→21:00)
[2016-10-06] MEDS: ENOXAPARIN SODIUM 40 MG/0.4 ML SYRINGE SQ SCH (09:50)
--- NOTE | 2016-10-06 10:37 | HHI.PR ---
Subjective Remarks Patient seen and examined today for follow-up on bacterial endocarditis, narcotic dependency. Patient denies any new complaints today. No change in clinical status. Continue present treatment plan. Patient has remained afebrile since remove central line Objective Vitals Vital Signs Date Time Temp Pulse Resp B/P Pulse Ox O2 Delivery O2 Flow Rate FiO2 10/06/16 08:58 98 21 10/06/16 08:00 98.1 84 18 106/69 96 10/06/16 05:54 16 10/05/16 20:25 98 21 10/05/16 20:00 96.0 93 18 132/91 98 10/05/16 12:03 99.1 101 17 106/59 94 I/O 10/05/16 10/05/16 10/05/16 10/06/16 10/06/16 10/06/16 06:59 14:59 22:59 06:59 14:59 22:59 Intake Total 2880 ml 360 ml Output Total 850 ml 1500 ml 800 ml Balance -850 ml 1380 ml -440 ml Intake Oral 1380 ml 360 ml IV Total 1500 ml Output Urine Total 850 ml 1500 ml 800 ml # Voids 4 1 # Bowel Movements 1 Result Diagram: 10/05/16 0820 10/05/16 0350 Objective Remarks GENERAL: Well-developed, well-nourished, in no acute distress. alert and orientated HEENT: Head is normocephalic without any lesions or masses noted. Facial features are symmetric. Eyes: extraocular muscles are intact. Conjunctivae were clear. NECK: Trachea midline no deviation. Rate that, right internal jugular central line noted CARDIAC: Regular rhythm, regular rate. S1/S2 are heard. No murmurs gallops or rubs. LUNGS: Clear to auscultation bilaterally. No wheeze, rhonchi or rales. No use of accessory muscles on inspiration or expiration. ABDOMEN: Soft, nontender. Nondistended. Bowel sounds heard in all 4 quadrants. No organomegaly or masses. Negative rebound, negative guarding, patient has enlarged lymph node in the right inguinal region EXTREMITIES: No edema, pulses are equal bilaterally. No cyanosis or clubbing. Pain noted over left greater trochanter NEUROLOGY: Mood and affect appear appropriate. Cranial nerves II through XII grossly intact. Moving all extremities, speech is clear Procedures Left knee arthrotomy, debridement and irrigation (09/09/16). Urinary Catheter: No Vascular Central Line Catheter: No Date of Insertion: Sep 18, 2016 Date of Removal: Oct 04, 2016 A/P Assessment and Plan 41 year-old male with known history of significant IV drug use with Dilaudid and heroin who presented initially because of febrile illness Recurrent sepsis, hypotensive, febrile, tachycardia. Unknown etiology at this time, could be secondary to recurrent endocarditis, septic arthritis, line sepsis, continued IV drug use while in the hospital Patient afebrile now, since central line removed Infectious disease consulted for recommendations CT scan chest shows septic emboli of at least 10 small areas involving all lobes. Previous chest x-rays do not indicate any abnormality indicating septic pneumonia Blood cultures negative for 3 day Discontinued central line per infectious disease, placed peripheral IV Antibiotics changed to Teflaro Discontinue IV fluids 10/04/16, discussed with infectious disease who recommended removal of central line. Continuation of Teflaro. Monitoring blood cultures. Acute on chronic microcytic anemia. With rouleaux effect on blood smear Possible etiology would be secondary to vancomycin, will need to rule out other etiologies B12 was mildly low, folate normal, ferritin was normal, sedimentation rate elevated, reticulocyte count was normal, LDH was normal, haptoglobin mildly elevated, stool for occult blood negative Status post transfusion of one unit packed red blood cell Acute renal failure, improving with IV fluids Could be secondary to sepsis, dehydration, septic emboli to the kidney Continue IV fluids Continue monitor renal function Avoid nephrotoxins Left hip pain MRI shows myositis and possible bone marrow edema Orthopedic to follow-up, who indicates continuation of IV antibiotics per ID and medical management CK was originally elevated, we continued IV fluids and CK has returned to normal Bacterial endocarditis with tricuspid valve vegetation MRSA bacteremia Left septic knee joint Patient remains afebrile since 09/19/16 Echocardiogram indicates tricuspid valve vegetation 1.1 x 1.8 cm, repeat echocardiogram requested by cardiovascular surgeon after antibiotics completed MRI of the knee shows large nonspecific joint effusion with enhancement of synovial lining which is generally seen with synovitis Status post left knee arthrotomy, irrigation and debridement on 09/09/16 Orthopedic following the patient Negative blood culture since 09/10/16 Infectious disease following the patient and recommended total of 6 weeks of antibiotics from first negative culture, end date would be October 19, 2016 Antibiotics changed to Teflaro, Cardiovascular surgery evaluated patient and recommended antibiotic therapy, and follow-up in the office but will need to have repeat echocardiogram will need to have a clean negative urine toxicology screen to evaluate for possible surgery Narcotic dependency, Pain control, patient is manipulative with his pain management and withdrawal symptoms, patient was restarted on methadone, will be unable to wean patient off methadone prior to completion of antibiotics. Patient will need outpatient rehabilitation upon discharge Methadone 20 mg every 8 hours, History of IV drug abuse, narcotic dependency: Patient counseled on cessation HIV testing negative Symptomatic treatment for withdrawal symptoms Insomnia Ambien 10 mg as needed Muscle spasms Flexeril 5 mg twice daily as needed Nausea vomiting Zofran Diarrhea Imodium Anxiety Klonopin 0.5 mg every 12 hours Benadryl Hepatitis C: Follow up for outpatient treatment Nicotine dependence: NicoDerm patch 7 mg. Encourage cessation. DVT prophylaxis: Lovenox. Discharge Planning Discharge planning after completion of antibiotics Mann Ramsey Oct 06, 2016 10:37
[2016-10-06] MEDS ORDERED: ONDANSETRON ODT 4 MG TAB PO PRN (10:45)
[2016-10-06] MEDS ORDERED: METHADONE HCL 10 MG/10 ML ORAL SOLUTION PO SCH (14:45)
[2016-10-06 20:00] VITALS: BP 109/80; PULSE 90; RESP 18; TEMP 96.3; O2SAT 96
[2016-10-06] MEDS: METHADONE HCL 10 MG/10 ML ORAL SOLUTION PO SCH (20:00)
[2016-10-06 20:20] VITALS: O2SAT 95
[2016-10-07] MEDS: METHADONE HCL 10 MG/10 ML ORAL SOLUTION PO SCH ×3 (05:10→21:15)
[2016-10-07 09:00] VITALS: O2SAT 95
[2016-10-07] MEDS: DOCUSATE SODIUM 50 MG/SENNA 8.6 MG TAB PO SCH ×2 (09:00→21:16)
[2016-10-07] MEDS: REMOVE OLD PATCH T-DERMAL SCH (09:00)
[2016-10-07] MEDS: ENOXAPARIN SODIUM 40 MG/0.4 ML SYRINGE SQ SCH (09:02)
[2016-10-07] MEDS: NICOTINE 7 MG/24 HR PATCH T-DERMAL SCH (09:02)
[2016-10-07] MEDS: SODIUM CHLORIDE 0.9% FLUSH 10 ML FLUSH IVF SCH (09:03)
[2016-10-07] MEDS: clonazePAM 0.5 MG TAB PO SCH ×2 (09:03→21:15)
[2016-10-07 11:41] VITALS: BP 102/72; PULSE 89; RESP 16; TEMP 97.6; O2SAT 95
[2016-10-07] MEDS: CEFTAROLINE INJ 600 MG in SODIUM CHLORIDE 0.9% INJ 100 ML IV SCH ×2 (11:49→22:49)
--- NOTE | 2016-10-07 11:54 | HHI.PR ---
Subjective Remarks Patient seen and examined today on follow-up for endocarditis. Patient denies any new complaints. Patient's indicates that he had a really good day yesterday. Patient is afebrile. Apparently pain is controlled Objective Vitals Vital Signs Date Time Temp Pulse Resp B/P Pulse Ox O2 Delivery O2 Flow Rate FiO2 10/07/16 11:41 97.6 89 16 102/72 95 10/06/16 20:20 95 21 10/06/16 20:00 96.3 90 18 109/80 96 I/O 10/06/16 10/06/16 10/06/16 10/07/16 10/07/16 10/07/16 07:00 15:00 23:00 07:00 15:00 23:00 Intake Total 360 ml 900 ml 100 ml Output Total 800 ml 700 ml 1100 ml Balance -440 ml 200 ml -1100 ml 100 ml Intake Oral 360 ml 900 ml 100 ml Output Urine Total 800 ml 700 ml 1100 ml # Voids 1 4 # Bowel Movements 1 1 Result Diagram: 10/05/16 0820 10/05/16 0350 Objective Remarks GENERAL: Well-developed, well-nourished, in no acute distress. alert and orientated HEENT: Head is normocephalic without any lesions or masses noted. Facial features are symmetric. Eyes: extraocular muscles are intact. Conjunctivae were clear. NECK: Trachea midline no deviation. Rate that, right internal jugular central line noted CARDIAC: Regular rhythm, regular rate. S1/S2 are heard. No murmurs gallops or rubs. LUNGS: Clear to auscultation bilaterally. No wheeze, rhonchi or rales. No use of accessory muscles on inspiration or expiration. ABDOMEN: Soft, nontender. Nondistended. Bowel sounds heard in all 4 quadrants. No organomegaly or masses. Negative rebound, negative guarding, patient has enlarged lymph node in the right inguinal region EXTREMITIES: No edema, pulses are equal bilaterally. No cyanosis or clubbing. Pain noted over left greater trochanter NEUROLOGY: Mood and affect appear appropriate. Cranial nerves II through XII grossly intact. Moving all extremities, speech is clear Procedures Left knee arthrotomy, debridement and irrigation (09/09/16). Urinary Catheter: No Vascular Central Line Catheter: No Date of Insertion: Sep 18, 2016 Date of Removal: Oct 04, 2016 A/P Assessment and Plan 41 year-old male with known history of significant IV drug use with Dilaudid and heroin who presented initially because of febrile illness Recurrent sepsis, hypotensive, febrile, tachycardia. Unknown etiology at this time, could be secondary to recurrent endocarditis, septic arthritis, line sepsis, continued IV drug use while in the hospital Patient afebrile now, since central line removed Infectious disease consulted for recommendations CT scan chest shows septic emboli of at least 10 small areas involving all lobes. Previous chest x-rays do not indicate any abnormality indicating septic pneumonia Blood cultures negative for 3 day Discontinued central line per infectious disease, placed peripheral IV Antibiotics changed to Teflaro Discontinue IV fluids 10/04/16, discussed with infectious disease who recommended removal of central line. Continuation of Teflaro. Monitoring blood cultures. Acute on chronic microcytic anemia. With rouleaux effect on blood smear Possible etiology would be secondary to vancomycin, will need to rule out other etiologies B12 was mildly low, folate normal, ferritin was normal, sedimentation rate elevated, reticulocyte count was normal, LDH was normal, haptoglobin mildly elevated, stool for occult blood negative Status post transfusion of one unit packed red blood cell Acute renal failure, improving with IV fluids Could be secondary to sepsis, dehydration, septic emboli to the kidney Continue IV fluids Continue monitor renal function Avoid nephrotoxins Left hip pain MRI shows myositis and possible bone marrow edema Orthopedic to follow-up, who indicates continuation of IV antibiotics per ID and medical management CK was originally elevated, we continued IV fluids and CK has returned to normal Bacterial endocarditis with tricuspid valve vegetation MRSA bacteremia Left septic knee joint Patient remains afebrile since 09/19/16 Echocardiogram indicates tricuspid valve vegetation 1.1 x 1.8 cm, repeat echocardiogram requested by cardiovascular surgeon after antibiotics completed MRI of the knee shows large nonspecific joint effusion with enhancement of synovial lining which is generally seen with synovitis Status post left knee arthrotomy, irrigation and debridement on 09/09/16 Orthopedic following the patient Negative blood culture since 09/10/16 Infectious disease following the patient and recommended total of 6 weeks of antibiotics from first negative culture, end date would be October 19, 2016 Antibiotics changed to Teflaro, Cardiovascular surgery evaluated patient and recommended antibiotic therapy, and follow-up in the office but will need to have repeat echocardiogram will need to have a clean negative urine toxicology screen to evaluate for possible surgery Narcotic dependency, Pain control, patient is manipulative with his pain management and withdrawal symptoms, patient was restarted on methadone, will be unable to wean patient off methadone prior to completion of antibiotics. Patient will need outpatient rehabilitation upon discharge Methadone 20 mg every 8 hours, History of IV drug abuse, narcotic dependency: Patient counseled on cessation HIV testing negative Symptomatic treatment for withdrawal symptoms Insomnia Ambien 10 mg as needed Muscle spasms Flexeril 5 mg twice daily as needed Nausea vomiting Zofran Diarrhea Imodium Anxiety Klonopin 0.5 mg every 12 hours Benadryl Hepatitis C: Follow up for outpatient treatment Nicotine dependence: NicoDerm patch 7 mg. Encourage cessation. DVT prophylaxis: Lovenox. Discharge Planning Discharge planning after completion of antibiotics Mann Ramsey Oct 07, 2016 11:53
[2016-10-07 20:57] VITALS: BP 103/71; PULSE 95; RESP 14; TEMP 96.3; O2SAT 98
[2016-10-07] MEDS: CYCLOBENZAPRINE HCL 10 MG TAB PO PRN (21:16)
[2016-10-07] MEDS: ZOLPIDEM TARTRATE 10 MG TAB PO PRN (21:16)
[2016-10-07 23:30] VITALS: O2SAT 95
[2016-10-08] MEDS: METHADONE HCL 10 MG/10 ML ORAL SOLUTION PO SCH ×3 (05:10→21:02)
[2016-10-08 07:35] VITALS: O2SAT 94
[2016-10-08] MEDS: REMOVE OLD PATCH T-DERMAL SCH (08:10)
[2016-10-08] MEDS: NICOTINE 7 MG/24 HR PATCH T-DERMAL SCH (08:10)
[2016-10-08] MEDS: SODIUM CHLORIDE 0.9% FLUSH 10 ML FLUSH IVF SCH (08:11)
[2016-10-08] MEDS: DOCUSATE SODIUM 50 MG/SENNA 8.6 MG TAB PO SCH ×2 (08:11→21:03)
[2016-10-08] MEDS: clonazePAM 0.5 MG TAB PO SCH ×2 (08:11→21:03)
[2016-10-08] MEDS: ENOXAPARIN SODIUM 40 MG/0.4 ML SYRINGE SQ SCH (08:11)
--- NOTE | 2016-10-08 10:03 | HHI.PR ---
Subjective Remarks Patient seen and examined today for follow-up on bacterial endocarditis. Patient denies any new complaints today. Does not indicate that his pain is not controlled. Objective Vitals Vital Signs Date Time Temp Pulse Resp B/P Pulse Ox O2 Delivery O2 Flow Rate FiO2 10/07/16 23:30 95 21 10/07/16 20:57 96.3 95 14 103/71 98 10/07/16 11:41 97.6 89 16 102/72 95 I/O 10/07/16 10/07/16 10/07/16 10/08/16 10/08/16 10/08/16 07:00 15:00 23:00 07:00 15:00 23:00 Intake Total 100 ml Output Total 1100 ml Balance -1100 ml 100 ml Intake Oral 100 ml Output Urine Total 1100 ml # Voids 2 # Bowel Movements 1 Result Diagram: 10/05/16 0820 10/05/16 0350 Objective Remarks GENERAL: Well-developed, well-nourished, in no acute distress. alert and orientated HEENT: Head is normocephalic without any lesions or masses noted. Facial features are symmetric. Eyes: extraocular muscles are intact. Conjunctivae were clear. NECK: Trachea midline no deviation. Rate that, right internal jugular central line noted CARDIAC: Regular rhythm, regular rate. S1/S2 are heard. No murmurs gallops or rubs. LUNGS: Clear to auscultation bilaterally. No wheeze, rhonchi or rales. No use of accessory muscles on inspiration or expiration. ABDOMEN: Soft, nontender. Nondistended. Bowel sounds heard in all 4 quadrants. No organomegaly or masses. Negative rebound, negative guarding, patient has enlarged lymph node in the right inguinal region EXTREMITIES: No edema, pulses are equal bilaterally. No cyanosis or clubbing. Pain noted over left greater trochanter NEUROLOGY: Mood and affect appear appropriate. Cranial nerves II through XII grossly intact. Moving all extremities, speech is clear Procedures Left knee arthrotomy, debridement and irrigation (09/09/16). Urinary Catheter: No Vascular Central Line Catheter: No Date of Insertion: Sep 18, 2016 Date of Removal: Oct 04, 2016 A/P Assessment and Plan 41 year-old male with known history of significant IV drug use with Dilaudid and heroin who presented initially because of febrile illness Recurrent sepsis, hypotensive, febrile, tachycardia. Unknown etiology at this time, could be secondary to recurrent endocarditis, septic arthritis, line sepsis, continued IV drug use while in the hospital Patient afebrile now, since central line removed Infectious disease consulted for recommendations CT scan chest shows septic emboli of at least 10 small areas involving all lobes. Previous chest x-rays do not indicate any abnormality indicating septic pneumonia Blood cultures negative for 3 day Discontinued central line per infectious disease, placed peripheral IV Antibiotics changed to Teflaro Discontinue IV fluids 10/04/16, discussed with infectious disease who recommended removal of central line. Continuation of Teflaro. Monitoring blood cultures. Acute on chronic microcytic anemia. With rouleaux effect on blood smear Possible etiology would be secondary to vancomycin, will need to rule out other etiologies B12 was mildly low, folate normal, ferritin was normal, sedimentation rate elevated, reticulocyte count was normal, LDH was normal, haptoglobin mildly elevated, stool for occult blood negative Status post transfusion of one unit packed red blood cell Acute renal failure, improving with IV fluids Could be secondary to sepsis, dehydration, septic emboli to the kidney Continue IV fluids Continue monitor renal function Avoid nephrotoxins Left hip pain MRI shows myositis and possible bone marrow edema Orthopedic to follow-up, who indicates continuation of IV antibiotics per ID and medical management CK was originally elevated, we continued IV fluids and CK has returned to normal Bacterial endocarditis with tricuspid valve vegetation MRSA bacteremia Left septic knee joint Patient remains afebrile since 09/19/16 Echocardiogram indicates tricuspid valve vegetation 1.1 x 1.8 cm, repeat echocardiogram requested by cardiovascular surgeon after antibiotics completed MRI of the knee shows large nonspecific joint effusion with enhancement of synovial lining which is generally seen with synovitis Status post left knee arthrotomy, irrigation and debridement on 09/09/16 Orthopedic following the patient Negative blood culture since 09/10/16 Infectious disease following the patient and recommended total of 6 weeks of antibiotics from first negative culture, end date would be October 19, 2016 Antibiotics changed to Teflaro, Cardiovascular surgery evaluated patient and recommended antibiotic therapy, and follow-up in the office but will need to have repeat echocardiogram will need to have a clean negative urine toxicology screen to evaluate for possible surgery Narcotic dependency, Pain control, patient is manipulative with his pain management and withdrawal symptoms, patient was restarted on methadone, will be unable to wean patient off methadone prior to completion of antibiotics. Patient will need outpatient rehabilitation upon discharge Methadone 18 mg every 8 hours, History of IV drug abuse, narcotic dependency: Patient counseled on cessation HIV testing negative Symptomatic treatment for withdrawal symptoms Insomnia Ambien 10 mg as needed Muscle spasms Flexeril 5 mg twice daily as needed Nausea vomiting Zofran Diarrhea Imodium Anxiety Klonopin 0.5 mg every 12 hours Benadryl Hepatitis C: Follow up for outpatient treatment Nicotine dependence: NicoDerm patch 7 mg. Encourage cessation. DVT prophylaxis: Lovenox. Discharge Planning Discharge planning after completion of antibiotics Mann Ramsey Oct 08, 2016 10:02
[2016-10-08 10:08] VITALS: BP 99/54; PULSE 103; RESP 14; TEMP 98.3; O2SAT 93
[2016-10-08] MEDS: CEFTAROLINE INJ 600 MG in SODIUM CHLORIDE 0.9% INJ 100 ML IV SCH ×2 (12:05→23:25)
[2016-10-08 19:02] VITALS: BP 115/70; PULSE 99; RESP 14; TEMP 97.7; O2SAT 97
[2016-10-08 20:00] VITALS: BP 115/70; PULSE 99; RESP 14; TEMP 97.7; O2SAT 95; O2SAT 97
[2016-10-08] MEDS: ZOLPIDEM TARTRATE 10 MG TAB PO PRN (21:03)
[2016-10-08] MEDS: CYCLOBENZAPRINE HCL 10 MG TAB PO PRN (21:03)
[2016-10-09] MEDS: METHADONE HCL 10 MG/10 ML ORAL SOLUTION PO SCH ×3 (04:44→20:15)
[2016-10-09] MEDS: NICOTINE 7 MG/24 HR PATCH T-DERMAL SCH (07:14)
[2016-10-09] MEDS: SODIUM CHLORIDE 0.9% FLUSH 10 ML FLUSH IVF SCH (07:14)
[2016-10-09] MEDS: DOCUSATE SODIUM 50 MG/SENNA 8.6 MG TAB PO SCH ×2 (07:14→20:16)
[2016-10-09] MEDS: ENOXAPARIN SODIUM 40 MG/0.4 ML SYRINGE SQ SCH (07:14)
[2016-10-09] MEDS: clonazePAM 0.5 MG TAB PO SCH ×2 (07:15→20:14)
[2016-10-09] MEDS: REMOVE OLD PATCH T-DERMAL SCH (07:15)
--- NOTE | 2016-10-09 07:44 | HHI.PR ---
Subjective Remarks Patient seen and examined today for follow-up on endocarditis, narcotic dependency. Patient still mentions his right inguinal hernia. States that it does bulge whenever he stands up and when he lays down it goes away. I counseled patient extensively on inguinal hernia. It is reducible, nonincarcerated. Offer the patient a truss to wear, however he deferred it. Patient is eating well, vitals are stable, afebrile, denies any diarrhea Objective Vitals Vital Signs Date Time Temp Pulse Resp B/P Pulse Ox O2 Delivery O2 Flow Rate FiO2 10/08/16 20:00 95 21 10/08/16 20:00 97.7 99 14 115/70 97 10/08/16 19:02 97.7 99 14 115/70 97 10/08/16 10:08 98.3 103 14 99/54 93 I/O 10/08/16 10/08/16 10/08/16 10/09/16 10/09/16 10/09/16 07:00 15:00 23:00 07:00 15:00 23:00 Intake Total 100 ml 1960 ml Output Total 750 ml Balance 100 ml 1210 ml Intake Oral 100 ml 1960 ml Output Urine Total 750 ml # Voids 3 # Bowel Movements 1 Result Diagram: 10/05/16 0820 10/05/16 0350 Objective Remarks GENERAL: Well-developed, well-nourished, in no acute distress. alert and orientated HEENT: Head is normocephalic without any lesions or masses noted. Facial features are symmetric. Eyes: extraocular muscles are intact. Conjunctivae were clear. NECK: Trachea midline no deviation. CARDIAC: Regular rhythm, regular rate. S1/S2 are heard. No murmurs gallops or rubs. LUNGS: Clear to auscultation bilaterally. No wheeze, rhonchi or rales. No use of accessory muscles on inspiration or expiration. ABDOMEN: Soft, nontender. Nondistended. Bowel sounds heard in all 4 quadrants. No organomegaly or masses. Negative rebound, negative guarding, right inguinal hernia, does have a bulge when standing up, however goes away when he lays down EXTREMITIES: No edema, pulses are equal bilaterally. No cyanosis or clubbing. NEUROLOGY: Mood and affect appear appropriate. Cranial nerves II through XII grossly intact. Moving all extremities, speech is clear. Patient jumped up out of bed today to show me his hernia, did not indicate or observe any painful movement when standing. Patient was lying in bed with his left leg crossed over his right leg, does not appear to be any pain Procedures Left knee arthrotomy, debridement and irrigation (09/09/16). Urinary Catheter: No Vascular Central Line Catheter: No Date of Insertion: Sep 18, 2016 Date of Removal: Oct 04, 2016 A/P Assessment and Plan 41 year-old male with known history of significant IV drug use with Dilaudid and heroin who presented initially because of febrile illness Recurrent sepsis, hypotensive, febrile, tachycardia. Unknown etiology at this time, could be secondary to recurrent endocarditis, septic arthritis, line sepsis, continued IV drug use while in the hospital Patient afebrile now, since central line removed Infectious disease consulted for recommendations CT scan chest shows septic emboli of at least 10 small areas involving all lobes. Previous chest x-rays do not indicate any abnormality indicating septic pneumonia Blood cultures negative for 5 day Discontinued central line per infectious disease, placed peripheral IV Antibiotics changed to Teflaro 10/04/16, discussed with infectious disease who recommended removal of central line. Continuation of Teflaro. Monitoring blood cultures. Acute on chronic microcytic anemia. With rouleaux effect on blood smear Possible etiology would be secondary to vancomycin, will need to rule out other etiologies B12 was mildly low, folate normal, ferritin was normal, sedimentation rate elevated, reticulocyte count was normal, LDH was normal, haptoglobin mildly elevated, stool for occult blood negative Status post transfusion of one unit packed red blood cell Acute renal failure, improving with IV fluids Could be secondary to sepsis, dehydration, septic emboli to the kidney Continue IV fluids Continue monitor renal function Avoid nephrotoxins Left hip pain MRI shows myositis and possible bone marrow edema Orthopedic to follow-up, who indicates continuation of IV antibiotics per ID and medical management CK was originally elevated, we continued IV fluids and CK has returned to normal Bacterial endocarditis with tricuspid valve vegetation MRSA bacteremia Left septic knee joint Patient remains afebrile since 09/19/16 Echocardiogram indicates tricuspid valve vegetation 1.1 x 1.8 cm, repeat echocardiogram requested by cardiovascular surgeon after antibiotics completed MRI of the knee shows large nonspecific joint effusion with enhancement of synovial lining which is generally seen with synovitis Status post left knee arthrotomy, irrigation and debridement on 09/09/16 Orthopedic following the patient Negative blood culture since 09/10/16 Infectious disease following the patient and recommended total of 6 weeks of antibiotics from first negative culture, end date would be October 19, 2016 Infectious disease recommended repeat echocardiogram to be done this week Antibiotics changed to Teflaro, Cardiovascular surgery evaluated patient and recommended antibiotic therapy, and follow-up in the office but will need to have repeat echocardiogram will need to have a clean negative urine toxicology screen to evaluate for possible surgery Narcotic dependency, Pain control, patient is manipulative with his pain management and withdrawal symptoms, patient was restarted on methadone, will be unable to wean patient off methadone prior to completion of antibiotics. Patient will need outpatient rehabilitation upon discharge Pain control, continue to wean off methadone every 5 days, if pain allows Methadone 18 mg every 8 hours, History of IV drug abuse, narcotic dependency: Patient counseled on cessation HIV testing negative Symptomatic treatment for withdrawal symptoms Insomnia Ambien 10 mg as needed Muscle spasms Flexeril 5 mg twice daily as needed Nausea vomiting Zofran Diarrhea Imodium Anxiety Klonopin 0.5 mg every 12 hours Benadryl Hepatitis C: Follow up for outpatient treatment Nicotine dependence: NicoDerm patch 7 mg. Encourage cessation. DVT prophylaxis: Lovenox. Discharge Planning Discharge planning after completion of antibiotics Mann Ramsey Oct 09, 2016 07:44
[2016-10-09 08:40] VITALS: BP 127/74; PULSE 107; RESP 19; TEMP 98.9; O2SAT 97
[2016-10-09] MEDS: CEFTAROLINE INJ 600 MG in SODIUM CHLORIDE 0.9% INJ 100 ML IV SCH ×2 (11:06→23:06)
[2016-10-09 19:50] VITALS: O2SAT 95
[2016-10-09 20:00] VITALS: BP 98/64; PULSE 85; RESP 16; TEMP 98.7; O2SAT 97
[2016-10-09] MEDS: CYCLOBENZAPRINE HCL 10 MG TAB PO PRN (20:14)
[2016-10-09] MEDS: ZOLPIDEM TARTRATE 10 MG TAB PO PRN (20:14)
[2016-10-10] MEDS: METHADONE HCL 10 MG/10 ML ORAL SOLUTION PO SCH ×3 (04:01→20:55)
[2016-10-10] MEDS: NICOTINE 7 MG/24 HR PATCH T-DERMAL SCH (07:20)
[2016-10-10] MEDS: REMOVE OLD PATCH T-DERMAL SCH (07:20)
[2016-10-10] MEDS: clonazePAM 0.5 MG TAB PO SCH ×2 (07:20→20:54)
[2016-10-10] MEDS: SODIUM CHLORIDE 0.9% FLUSH 10 ML FLUSH IVF SCH (07:21)
[2016-10-10] MEDS: ENOXAPARIN SODIUM 40 MG/0.4 ML SYRINGE SQ SCH (07:21)
[2016-10-10] MEDS: DOCUSATE SODIUM 50 MG/SENNA 8.6 MG TAB PO SCH ×2 (07:21→20:55)
[2016-10-10 08:00] VITALS: BP 110/74; PULSE 95; RESP 18; TEMP 98.5; O2SAT 95
--- NOTE | 2016-10-10 11:01 | HHI.PR ---
Subjective Remarks Follow-up for tricuspid valve endocarditis, septic emboli, septic arthritis left knee, narcotic dependency. When I ask the patient how he is he states "I' m alive". He denies any fevers or chills. Denies shortness of breath, abdominal pain, vomiting, or diarrhea. Objective Vitals Vital Signs Date Time Temp Pulse Resp B/P Pulse Ox O2 Delivery O2 Flow Rate FiO2 10/10/16 05:03 18 10/09/16 20:00 98.7 85 16 98/64 97 10/09/16 19:50 95 21 I/O 10/09/16 10/09/16 10/09/16 10/10/16 10/10/16 10/10/16 07:00 15:00 23:00 07:00 15:00 23:00 Intake Total 100 ml 1670 ml 100 ml Balance 100 ml 1670 ml 100 ml Intake Oral 100 ml 1670 ml 100 ml # Voids 6 # Bowel Movements 1 Objective Remarks GENERAL: Well-nourished, well-developed patient in no apparent distress. Appears comfortable. SKIN: Warm and dry. No erythema to the L knee. CARDIOVASCULAR: Regular rate and rhythm. Murmur over pulmonic region. RESPIRATORY: No accessory muscle use. CTAB. GASTROINTESTINAL: Normoactive bowel sounds in all 4 quadrants. Abdomen soft, non -tender, nondistended. MUSCULOSKELETAL: Swelling to the left knee, unchanged. Intact DP and TP pulses bilaterally. Patient witnessed to have his L knee flexed at 90 comfortably resting on his opposite knee while lying supine in bed. NEUROLOGICAL: Awake and alert. Normal speech. PSYCHIATRIC: Calm mood and affect. Procedures Left knee arthrotomy, debridement and irrigation (09/09/16). Urinary Catheter: No Vascular Central Line Catheter: No Date of Insertion: Sep 18, 2016 Date of Removal: Oct 04, 2016 A/P Problem List: (1) Sepsis ICD Code: A41.9 Status: Resolved (2) Endocarditis of tricuspid valve ICD Code: I36.8 Status: Acute (3) Septic embolism ICD Code: I26.90 Status: Acute (4) Myositis of thigh ICD Code: M60.859 Status: Acute (5) JORGE (acute kidney injury) ICD Code: N17.9 Status: Resolved (6) Hypoxia ICD Code: R09.02 Status: Resolved (7) IVDU (intravenous drug user) ICD Code: F19.90 Status: Chronic (8) Hepatitis C ICD Code: B19.20 Status: Chronic Assessment and Plan 41 year-old male with known history of significant IV drug use with Dilaudid and heroin who presented initially because of febrile illness. Recurrent Sepsis: Resolved. -Septic emboli on CTA. RUE Doppler with thrombus within the cephalic vein. L thigh cellulitis/myositis on hip MRI. -Central line removed. -Catheter tip culture without growth -10/02 Blood cultures x 2 NGTD. -10/02 UA clean -10/02 chest x-ray with atelectasis -ID reevaluated patient, changed antibiotics as below. 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 MRI of the knee shows large nonspecific joint effusion with enhancement of synovial lining which is generally seen with synovitis Status post left knee arthrotomy, irrigation and debridement on 09/09/16. Orthopedics following, recommends WBAT, ROM as tolerated. Multiple blood cultures with MRSA. Blood cultures without growth since 09/10. Infectious disease following the patient and recommended total of 6 weeks of antibiotics from first negative culture, end date would be October 19, 2016. S/p gentamicin and vancomycin. Changed to Teflaro. Cardiovascular surgery evaluated patient and recommended antibiotic therapy, and follow-up in the office but will need to have repeat echocardiogram and will need to have a clean negative urine toxicology screen to evaluate for possible surgery. Per ID reconsult cardiovascular surgery re surgery at end of antibiotic treatment as per their recommendation. Pain control, continue to wean off methadone every 5 days, if pain allows Methadone 18 mg every 8 hours 10/10: Repeat Echo advised by ID, performed today. Results pending. Left hip pain: MRI shows myositis and mild bone marrow edema Orthopedics following; indicates continuation of IV antibiotics per ID and medical management CK was originally elevated, but CK has returned to normal s/p IVF. Acute on chronic microcytic anemia: Improved. With rouleaux effect on blood smear Possible etiology could be secondary to vancomycin B12 was mildly low, folate normal, ferritin was normal, sedimentation rate elevated, reticulocyte count was normal, LDH was normal, haptoglobin mildly elevated, stool for occult blood negative Status post transfusion of one unit packed red blood cell on 10/04 Follow CBC Hypoxia: Resolved. -10/02 Chest x-ray with only atelectasis. -CTA with septic emboli -Incentive spirometry. -Lung exam now normal. JORGE: Resolved. Could be related to sepsis. Infectious disease thought it could be AIN related to Vancomycin. -S/p IVF -Monitor BMP periodically History of IV drug abuse: Patient counseled on cessation; currently on methadone but weaning. HIV testing negative Symptomatic treatment for withdrawal symptoms Insomnia Ambien Muscle spasms Flexeril 5 mg 3 times daily as needed Nausea/vomiting Zofran Diarrhea Imodium Anxiety Klonopin Benadryl Hepatitis C: Follow up for outpatient treatment Nicotine dependence: NicoDerm patch 7 mg. Encourage cessation. DVT prophylaxis: Lovenox. Discharge Planning Patient to remain hospitalized until completion of IV antibiotics. Problem Qualifiers (1) Sepsis: Qualified Code: A41.02 - Sepsis due to methicillin resistant Staphylococcus aureus (MRSA) Reshma Acosta Oct 10, 2016 11:01
--- NOTE | 2016-10-10 12:35 | ECHRPT ---
Indication: Acute and subacute endocarditis, unspecified CONCLUSIONS Normal left ventricular size. Wall thickness is normal. The left ventricular systolic function is low normal with an estimated ejection fraction in the rang e of 50- 55%. The right atrial size is mildly dilated. Trace aortic valve regurgitation. There is moderate tricuspid regurgitation. Findings consistent with vegetation on the tricuspid valve 1.3 x 1.6 cm on the inflow side of the an terior leaflet.The pulmonary valve is not well visualized. BP: / HR: Rhythm: Sinus MEASUREMENTS (Male / Female) Normal Values Technical Quality:Good 2D ECHO LV Diastolic Diameter PLAX 4.5 cm 4.2 - 5.9 / 3.9 - 5.3 cm LV Systolic Diameter PLAX 3.5 cm IVS Diastolic Thickness 0.9 cm 0.6 - 1.0 / 0.6 - 0.9 cm LVPW Diastolic Thickness 0.8 cm 0.6 - 1.0 / 0.6 - 0.9 cm LV Relative Wall Thickness 0.4 DOPPLER Mitral E Point Velocity 75.5 cm/s Mitral A Point Velocity 72.1 cm/s Mitral E to A Ratio 1.0 LV E' Lateral Velocity 16.9 cm/s Mitral E to LV E' Lateral Ratio 4.5 TR Peak Velocity 289.0 cm/s TR Peak Gradient 33.4 mmHg FINDINGS LEFT VENTRICLE Normal left ventricular size. Wall thickness is normal. The left ventricular systolic function is low normal with an estimated ejection fraction in the rang e of 50- 55%. RIGHT VENTRICLE Normal right ventricular size and systolic function. LEFT ATRIUM The left atrial size is normal. RIGHT ATRIUM The right atrial size is mildly dilated. ATRIAL SEPTUM Normal atrial septal thickness without atrial level shunting by limited color doppler interrogation. AORTA The aortic root and proximal ascending aorta are normal in size on limited imaging. MITRAL VALVE Structurally normal mitral valve. No mitral valve stenosis or regurgitation. AORTIC VALVE Trace aortic valve regurgitation. TRICUSPID VALVE There is moderate tricuspid regurgitation. Findings consistent with vegetation on the tricuspid valve 1.3 x 1.6 cm on the inflow side of the an terior leaflet. PULMONARY VALVE The pulmonary valve is not well visualized. VESSELS The inferior vena cava is normal in size. PERICARDIUM No pericardial effusion. Omar Ford MD, FACC (Electronically Signed) Final Date:10 October 2016 12:35
[2016-10-10] MEDS: CEFTAROLINE INJ 600 MG in SODIUM CHLORIDE 0.9% INJ 100 ML IV SCH ×2 (13:07→23:07)
[2016-10-10 20:00] VITALS: BP 97/65; PULSE 83; RESP 22; TEMP 97; O2SAT 98
[2016-10-10] MEDS: CYCLOBENZAPRINE HCL 10 MG TAB PO PRN (20:54)
[2016-10-10] MEDS: ZOLPIDEM TARTRATE 10 MG TAB PO PRN (20:54)
[2016-10-11] MEDS: METHADONE HCL 10 MG/10 ML ORAL SOLUTION PO SCH ×3 (04:00→19:59)
[2016-10-11 08:00] VITALS: BP 101/63; PULSE 88; RESP 18; TEMP 98; O2SAT 97
[2016-10-11] MEDS: clonazePAM 0.5 MG TAB PO SCH ×2 (08:06→20:00)
[2016-10-11] MEDS: NICOTINE 7 MG/24 HR PATCH T-DERMAL SCH (08:06)
[2016-10-11] MEDS: DOCUSATE SODIUM 50 MG/SENNA 8.6 MG TAB PO SCH ×2 (08:06→20:03)
[2016-10-11] MEDS: REMOVE OLD PATCH T-DERMAL SCH (08:06)
[2016-10-11] MEDS: ENOXAPARIN SODIUM 40 MG/0.4 ML SYRINGE SQ SCH (08:07)
[2016-10-11] MEDS: SODIUM CHLORIDE 0.9% FLUSH 10 ML FLUSH IVF SCH (08:09)
[2016-10-11] MEDS: CEFTAROLINE INJ 600 MG in SODIUM CHLORIDE 0.9% INJ 100 ML IV SCH ×2 (11:07→23:00)
--- NOTE | 2016-10-11 11:55 | HHI.PR ---
Subjective Remarks Follow-up for tricuspid valve endocarditis, septic emboli, septic arthritis left knee, narcotic dependency. Nurse is suspicious that the patient may be shooting up his liquid methadone stating he follows it with drinking soda but there is residue on the can implying that he may be spitting it back up. Significant other expresses concern that the patient was not woken up for his methadone so he did not receive it this morning. Patient sleeping when I enter the room. Patient denies any fevers or chills, chest pain, shortness of breath , abdominal pain, vomiting, or diarrhea. Objective Vitals Vital Signs Date Time Temp Pulse Resp B/P Pulse Ox O2 Delivery O2 Flow Rate FiO2 10/10/16 20:00 97.0 83 22 97/65 98 I/O 10/10/16 10/10/16 10/10/16 10/11/16 10/11/16 10/11/16 07:00 15:00 23:00 07:00 15:00 23:00 Intake Total 100 ml 480 ml 340 ml Balance 100 ml 480 ml 340 ml Intake Oral 100 ml 480 ml 240 ml IV Total 100 ml # Voids 2 2 # Bowel Movements 0 0 Objective Remarks GENERAL: Well-nourished, well-developed patient in no apparent distress sleeping when I enter the room. SKIN: Warm and dry. Well healed incision L knee. No erythema to the L knee. EYES: Pupils normal in size, equal. No scleral icterus. CARDIOVASCULAR: Regular rate and rhythm. Murmur over LLSB. RESPIRATORY: No accessory muscle use. CTAB. GASTROINTESTINAL: Abdomen soft, non-tender, nondistended. MUSCULOSKELETAL: Swelling to the left knee, unchanged. NEUROLOGICAL: Awake and alert. Normal speech. PSYCHIATRIC: Calm mood and affect. Procedures Left knee arthrotomy, debridement and irrigation (09/09/16). Urinary Catheter: No Vascular Central Line Catheter: No Date of Insertion: Sep 18, 2016 Date of Removal: Oct 04, 2016 A/P Problem List: (1) Sepsis ICD Code: A41.9 Status: Resolved (2) Endocarditis of tricuspid valve ICD Code: I36.8 Status: Acute (3) Septic embolism ICD Code: I26.90 Status: Acute (4) Myositis of thigh ICD Code: M60.859 Status: Acute (5) JORGE (acute kidney injury) ICD Code: N17.9 Status: Resolved (6) Hypoxia ICD Code: R09.02 Status: Resolved (7) IVDU (intravenous drug user) ICD Code: F19.90 Status: Chronic (8) Hepatitis C ICD Code: B19.20 Status: Chronic Assessment and Plan 41 year-old male with known history of significant IV drug use with Dilaudid and heroin who presented initially because of febrile illness. Recurrent Sepsis: Resolved. -Septic emboli on CTA. RUE Doppler with thrombus within the cephalic vein. L thigh cellulitis/myositis on hip MRI. -Central line removed. -Catheter tip culture without growth -10/02 Blood cultures x 2 NGTD. -10/02 UA clean -10/02 chest x-ray with atelectasis -ID reevaluated patient, changed antibiotics as below. 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 MRI of the knee shows large nonspecific joint effusion with enhancement of synovial lining which is generally seen with synovitis Status post left knee arthrotomy, irrigation and debridement on 09/09/16. Orthopedics following, recommends WBAT, ROM as tolerated. Multiple blood cultures with MRSA. Blood cultures without growth since 09/10. Infectious disease following the patient and recommended total of 6 weeks of antibiotics from first negative culture, end date would be October 19, 2016. S/p gentamicin and vancomycin. Changed to Teflaro. Cardiovascular surgery evaluated patient and recommended antibiotic therapy, and follow-up in the office but will need to have repeat echocardiogram and will need to have a clean negative urine toxicology screen to evaluate for possible surgery. Per ID reconsult cardiovascular surgery re surgery at end of antibiotic treatment as per their recommendation. Pain control, continue to wean off methadone every 5 days, if pain allows Methadone 18 mg every 8 hours decreased to 16 mg every 8 hours starting morning of 10/12 Repeat Echo 10/10 (advised by ID) still showing tricuspid valve vegetation measuring 1.3 x 1.6 cm. Left hip pain: MRI shows myositis and mild bone marrow edema Orthopedics following; indicates continuation of IV antibiotics per ID and medical management CK was originally elevated, but CK has returned to normal s/p IVF. Acute on chronic microcytic anemia: Improved. With rouleaux effect on blood smear Possible etiology could be secondary to vancomycin B12 was mildly low, folate normal, ferritin was normal, sedimentation rate elevated, reticulocyte count was normal, LDH was normal, haptoglobin mildly elevated, stool for occult blood negative Status post transfusion of one unit packed red blood cell on 10/04 Follow CBC Hypoxia: Resolved. -10/02 Chest x-ray with only atelectasis. -CTA with septic emboli -Incentive spirometry. -Lung exam now normal. JORGE: Resolved. Could be related to sepsis. Infectious disease thought it could be AIN related to Vancomycin. -S/p IVF -Monitor BMP periodically History of IV drug abuse: Patient counseled on cessation; currently on methadone but weaning. Nurse concerned about patient possibly injecting his liquid methadone. She is advised that patient needs to open his mouth after swallowing it to ensure he is not retaining any in his mouth. HIV testing negative Symptomatic treatment for withdrawal symptoms Insomnia Ambien Muscle spasms Flexeril 5 mg 3 times daily as needed Nausea/vomiting Zofran Diarrhea Imodium Anxiety Klonopin Benadryl Hepatitis C: Follow up for outpatient treatment Nicotine dependence: NicoDerm patch 7 mg. Encourage cessation. DVT prophylaxis: Lovenox Discharge Planning Patient to remain hospitalized until completion of IV antibiotics. Problem Qualifiers (1) Sepsis: Qualified Code: A41.02 - Sepsis due to methicillin resistant Staphylococcus aureus (MRSA) Reshma Acosta Oct 11, 2016 11:55
[2016-10-11 20:00] VITALS: BP 97/67; PULSE 91; RESP 16; TEMP 97; O2SAT 93
[2016-10-11] MEDS: CYCLOBENZAPRINE HCL 10 MG TAB PO PRN (20:17)
[2016-10-11] MEDS: ZOLPIDEM TARTRATE 10 MG TAB PO PRN (20:17)
[2016-10-12] MEDS: METHADONE HCL 10 MG/10 ML ORAL SOLUTION PO SCH ×3 (04:08→20:37)
[2016-10-12 07:17] LABS: AUTOMATED NEUTROPHIL # 5.2 TH/MM3 (1.8-7.7); BASOPHIL # 0.1 TH/MM3 (0-0.2); BASOPHIL % 0.7 % (0.0-2.0); EOSINOPHIL # 2.4 TH/MM3 (0-0.4); EOSINOPHIL % 25.3 % (0.0-4.0); HEMATOCRIT 28.7 % (39.0-51.0); LYMPH % 15.6 % (9.0-44.0); LYMPHOCYTE # 1.5 TH/MM3 (1.0-4.8); MEAN CELL VOLUME 75.9 FL (80.0-100.0); MEAN CORPUSCULAR HGB CONC 31.6 % (32.0-36.0); MONO % 5.4 % (0.0-8.0); PLATELET COUNT 272 TH/MM3 (150-450); RED BLOOD COUNT 3.79 MIL/MM3 (4.50-5.90); RED CELL DISTRIBUTION WIDTH 15.9 % (11.6-17.2); WHITE BLOOD COUNT 9.7 TH/MM3 (4.0-11.0)
[2016-10-12 07:18] LABS: HEMO FLAGS DIFF FINAL
[2016-10-12 07:25] LABS: CHLORIDE 100 MEQ/L (98-107); POTASSIUM 4.2 MEQ/L (3.5-5.1); SODIUM (NA) 136 MEQ/L (136-145)
[2016-10-12 07:30] LABS: ANION GAP 5 MEQ/L (5-15); BICARBONATE 30.7 MEQ/L (21.0-32.0); BLOOD UREA NITROGEN 22 MG/DL (7-18)
[2016-10-12 07:33] LABS: ALT (GPT) 12 U/L (12-78); AST (GOT) 11 U/L (15-37); GLOMERULAR FILTRATION RATE 61 ML/MIN (>89)
[2016-10-12 07:35] LABS: TOTAL BILIRUBIN ADULT 0.2 MG/DL (0.2-1.0)
[2016-10-12 07:36] LABS: ALKALINE PHOSPHATASE 96 U/L (45-117)
[2016-10-12 07:39] LABS: CREATINE KINASE 22 U/L (39-308)
[2016-10-12 08:00] VITALS: BP 102/60; PULSE 89; RESP 18; TEMP 96.8; O2SAT 96
[2016-10-12 08:51] LABS: WESTERGREN SEDIMENTATION RATE 79 mm/hr (0-15)
[2016-10-12] MEDS: REMOVE OLD PATCH T-DERMAL SCH (09:00)
[2016-10-12] MEDS: DOCUSATE SODIUM 50 MG/SENNA 8.6 MG TAB PO SCH ×2 (09:00→20:38)
[2016-10-12] MEDS: SODIUM CHLORIDE 0.9% FLUSH 10 ML FLUSH IVF SCH (09:00)
[2016-10-12] MEDS ORDERED: IBUPROFEN 800 MG TAB PO ONE (09:00)
[2016-10-12] MEDS: ENOXAPARIN SODIUM 40 MG/0.4 ML SYRINGE SQ SCH (09:35)
[2016-10-12] MEDS: clonazePAM 0.5 MG TAB PO SCH ×2 (09:35→20:38)
[2016-10-12] MEDS: NICOTINE 7 MG/24 HR PATCH T-DERMAL SCH (09:35)
--- NOTE | 2016-10-12 10:27 | HHI.PR ---
Subjective Remarks Follow-up for tricuspid valve endocarditis, septic emboli, septic arthritis left knee, narcotic dependency. Patient eating breakfast when I enter the room. Patient states his IV blew out in his R arm. He denies any fevers or chills, chest pain or shortness of breath, abdominal pain, vomiting, or diarrhea. Urinating normally. Objective Vitals Vital Signs Date Time Temp Pulse Resp B/P Pulse Ox O2 Delivery O2 Flow Rate FiO2 10/12/16 08:00 96.8 89 18 102/60 96 10/12/16 05:08 16 10/11/16 20:00 97.0 91 16 97/67 93 I/O 10/11/16 10/11/16 10/11/16 10/12/16 10/12/16 10/12/16 06:59 14:59 22:59 06:59 14:59 22:59 Intake Total 340 ml 580 ml 480 ml Balance 340 ml 580 ml 480 ml Intake Oral 240 ml 580 ml 480 ml IV Total 100 ml # Voids 2 2 3 # Bowel Movements 0 0 0 Result Diagram: 10/12/16 0700 10/12/16 0700 Objective Remarks GENERAL: Well-nourished, well-developed patient in no apparent distress. SKIN: Warm and dry. Light erythema to volar R forearm. Well healed incision L knee. No erythema or warmth of the L knee. CARDIOVASCULAR: Regular rate and rhythm. Left sided 2/6 murmur. RESPIRATORY: No accessory muscle use. CTAB. GASTROINTESTINAL: Normoactive bowel sounds. Abdomen soft, non-tender, nondistended. MUSCULOSKELETAL: Swelling and tender palpable cord to lateral volar Right forearm in area of previous peripheral IV. Much improved swelling of the left knee. Intact distal lower extremity pulses. NEUROLOGICAL: Awake and alert. Normal speech. PSYCHIATRIC: Calm mood and affect. Procedures Left knee arthrotomy, debridement and irrigation (09/09/16). Urinary Catheter: No Vascular Central Line Catheter: No Date of Insertion: Sep 18, 2016 Date of Removal: Oct 04, 2016 A/P Problem List: (1) Sepsis ICD Code: A41.9 Status: Resolved (2) Endocarditis of tricuspid valve ICD Code: I36.8 Status: Acute (3) Septic embolism ICD Code: I26.90 Status: Acute (4) Myositis of thigh ICD Code: M60.859 Status: Acute (5) JORGE (acute kidney injury) ICD Code: N17.9 Status: Resolved (6) Hypoxia ICD Code: R09.02 Status: Resolved (7) IVDU (intravenous drug user) ICD Code: F19.90 Status: Chronic (8) Hepatitis C ICD Code: B19.20 Status: Chronic Assessment and Plan 41 year-old male with known history of significant IV drug use with Dilaudid and heroin who presented initially because of febrile illness. Superficial thrombophlebitis: Acute SVT in R forearm today based on clinical exam. Had previously diagnosed thrombus in cephalic vein. -Patient advised to apply warm compresses and elevate the R arm. -One dose of 800 mg po ibuprofen ordered now, but will avoid regular use for now due to increasing Cr level. -Monitor clinically. If swelling worsens, will need to obtain Doppler to evaluate for DVT. 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 MRI of the knee shows large nonspecific joint effusion with enhancement of synovial lining which is generally seen with synovitis Status post left knee arthrotomy, irrigation and debridement on 09/09/16. Orthopedics following, recommends WBAT, ROM as tolerated. Multiple blood cultures with MRSA. Blood cultures without growth since 09/10. Infectious disease following the patient and recommended total of 6 weeks of antibiotics from first negative culture, end date would be October 19, 2016. S/p gentamicin and vancomycin. Changed to Teflaro. Cardiovascular surgery evaluated patient and recommended antibiotic therapy, and follow-up in the office but will need to have repeat echocardiogram and will need to have a clean negative urine toxicology screen to evaluate for possible surgery. Per ID reconsult cardiovascular surgery re surgery at end of antibiotic treatment as per their recommendation. Pain control, continue to wean off methadone every 5 days, if pain allows Methadone 16 mg every 8 hours (last adjusted 10/12) Repeat Echo 10/10 (advised by ID) still showing tricuspid valve vegetation measuring 1.3 x 1.6 cm. 10/12: WBC normal. ESR increasing 67-->79 and CRP elevated at 5.9 although could be related to superficial clots. LFTs normal. I have informed ID, Dr. Mello, who has been reconsulted. Myositis L hip: Stable. MRI shows myositis and mild bone marrow edema Orthopedics following; indicates continuation of IV antibiotics per ID and medical management CK was originally elevated, but CK has returned to normal s/p IVF. 10/12: CK today normal. Recurrent Sepsis: Resolved. -Septic emboli on CTA. RUE Doppler with thrombus within the cephalic vein. L thigh cellulitis/myositis on hip MRI. -Central line removed. -Catheter tip culture without growth -10/02 Blood cultures x 2 NGTD. -10/02 UA clean -10/02 chest x-ray with atelectasis -ID reevaluated patient, changed antibiotics as below. Acute on chronic microcytic anemia: Improved. With rouleaux effect on blood smear Possible etiology could be secondary to vancomycin B12 was mildly low, folate normal, ferritin was normal, sedimentation rate elevated, reticulocyte count was normal, LDH was normal, haptoglobin mildly elevated, stool for occult blood negative Status post transfusion of one unit packed red blood cell on 10/04 10/12: Anemia improving. Hemoglobin 9.1. Hypoxia: Resolved. -10/02 Chest x-ray with only atelectasis. -CTA with septic emboli -Incentive spirometry. -Lung exam now normal. JORGE: Resolved. Could be related to sepsis. Infectious disease thought it could be AIN related to Vancomycin. -S/p IVF -Avoid nephrotoxins -Monitor BMP periodically -10/12: Cr increasing but still wnl, 1.30 today. BUN mildly elevated at 22. Patient advised to push po fluids (water) although does not appear to be pre- renal. Repeat am BMP. History of IV drug abuse: Patient counseled on cessation; currently on methadone but weaning. Nurse concerned about patient possibly injecting his liquid methadone. She is advised that patient needs to open his mouth after swallowing it to ensure he is not retaining any in his mouth. HIV testing negative Symptomatic treatment for withdrawal symptoms Insomnia Ambien Muscle spasms Flexeril 5 mg 3 times daily as needed Nausea/vomiting Zofran Diarrhea Imodium Anxiety Klonopin Benadryl Hepatitis C: Follow up for outpatient treatment Nicotine dependence: NicoDerm patch 7 mg. Encourage cessation. DVT prophylaxis: Lovenox Discharge Planning Patient to remain hospitalized until completion of IV antibiotics. Problem Qualifiers (1) Sepsis: Qualified Code: A41.02 - Sepsis due to methicillin resistant Staphylococcus aureus (MRSA) Reshma Acosta Oct 12, 2016 10:27
[2016-10-12] MEDS: CEFTAROLINE INJ 600 MG in SODIUM CHLORIDE 0.9% INJ 100 ML IV SCH ×2 (11:00→23:05)
[2016-10-12 20:00] VITALS: BP 99/53; PULSE 85; RESP 16; TEMP 96.8; O2SAT 96
[2016-10-12] MEDS: ZOLPIDEM TARTRATE 10 MG TAB PO PRN (20:38)
[2016-10-12] MEDS: CYCLOBENZAPRINE HCL 10 MG TAB PO PRN (20:38)
[2016-10-12] MEDS: SODIUM CHLORIDE 0.9% FLUSH 10 ML FLUSH IVF PRN (20:38)
[2016-10-13] MEDS: METHADONE HCL 10 MG/10 ML ORAL SOLUTION PO SCH ×4 (04:06→23:13)
[2016-10-13 06:57] LABS: POTASSIUM 4.6 MEQ/L (3.5-5.1)
[2016-10-13 07:00] LABS: BICARBONATE 29.4 MEQ/L (21.0-32.0)
[2016-10-13 08:00] VITALS: BP 92/54; PULSE 76; RESP 18; TEMP 97.2; O2SAT 96
[2016-10-13] MEDS: DOCUSATE SODIUM 50 MG/SENNA 8.6 MG TAB PO SCH ×2 (09:00→21:00)
[2016-10-13] MEDS: REMOVE OLD PATCH T-DERMAL SCH (09:00)
[2016-10-13] MEDS: clonazePAM 0.5 MG TAB PO SCH ×2 (09:39→20:24)
[2016-10-13] MEDS: SODIUM CHLORIDE 0.9% FLUSH 10 ML FLUSH IVF SCH (09:39)
[2016-10-13] MEDS: ENOXAPARIN SODIUM 40 MG/0.4 ML SYRINGE SQ SCH (09:40)
[2016-10-13] MEDS: NICOTINE 7 MG/24 HR PATCH T-DERMAL SCH (09:40)
[2016-10-13] MEDS: CEFTAROLINE INJ 600 MG in SODIUM CHLORIDE 0.9% INJ 100 ML IV SCH ×2 (11:09→23:15)
--- NOTE | 2016-10-13 12:59 | HHI.PR ---
Subjective Remarks Follow-up for tricuspid valve endocarditis, septic emboli, septic arthritis left knee, narcotic dependency, and superficial thrombophlebitis R forearm. Patient states the swelling is worse in his right forearm today. His significant other states he was crying in pain because of it last night. Patient denies any fevers or chills, vomiting, or diarrhea. Objective Vitals Vital Signs Date Time Temp Pulse Resp B/P Pulse Ox O2 Delivery O2 Flow Rate FiO2 10/13/16 08:00 97.2 76 18 92/54 96 10/12/16 20:00 96.8 85 16 99/53 96 I/O 10/12/16 10/12/16 10/12/16 10/13/16 10/13/16 10/13/16 07:00 15:00 23:00 07:00 15:00 23:00 Intake Total 480 ml 1350 ml 580 ml 580 ml Balance 480 ml 1350 ml 580 ml 580 ml Intake Oral 480 ml 1350 ml 580 ml 480 ml IV Total 100 ml # Voids 3 3 2 2 # Bowel Movements 0 0 1 0 Result Diagram: 10/12/16 0700 10/13/16 0640 Objective Remarks GENERAL: Well-nourished, well-developed patient in no apparent distress. SKIN: Warm and dry. Well healed incision L knee. No erythema to the L knee. CARDIOVASCULAR: Regular rate and rhythm. Left sided 2/6 murmur. RESPIRATORY: No accessory muscle use. Mild wheeze on the left but otherwise clear. GASTROINTESTINAL: Normoactive bowel sounds. Abdomen soft, non-tender, nondistended. MUSCULOSKELETAL: Significantly tender palpable cord along the lateral volar right forearm. Swelling of the volar Right forearm. R upper arm is soft and non -edematous. 2+ B/L distal radial pulses. Mildly swollen Left knee. 2+ DP and TP pulses bilaterally. NEUROLOGICAL: Awake and alert. Normal speech. Procedures Left knee arthrotomy, debridement and irrigation (09/09/16). Urinary Catheter: No Vascular Central Line Catheter: No Date of Insertion: Sep 18, 2016 Date of Removal: Oct 04, 2016 A/P Problem List: (1) Sepsis ICD Code: A41.9 Status: Resolved (2) Endocarditis of tricuspid valve ICD Code: I36.8 Status: Acute (3) Septic embolism ICD Code: I26.90 Status: Acute (4) Myositis of thigh ICD Code: M60.859 Status: Acute (5) JORGE (acute kidney injury) ICD Code: N17.9 Status: Resolved (6) Hypoxia ICD Code: R09.02 Status: Resolved (7) IVDU (intravenous drug user) ICD Code: F19.90 Status: Chronic (8) Hepatitis C ICD Code: B19.20 Status: Chronic Assessment and Plan 41 year-old male with known history of significant IV drug use with Dilaudid and heroin who presented initially because of febrile illness. Superficial thrombophlebitis: Worse. Acute SVT in R forearm based on clinical exam. Had previously diagnosed thrombus in cephalic vein related to central line Right IJ. -Patient advised to apply warm compresses and elevate the R arm. -One dose of 800 mg po ibuprofen was given on 10/12 but did want to start regular use due to increasing Cr. -10/13: Pain in R forearm is worse today and is quite swollen. Doppler US ordered and shows occlusive thrombus throughout the cephalic vein. No DVT. Discussed with Dr. Monte, attending. Considering worsening symptoms and previously diagnosed cephalic vein thrombosis likely more proximal related to Right IJ on 10/02, will consult hematology for consideration of anticoagulation in this case. 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 MRI of the knee shows large nonspecific joint effusion with enhancement of synovial lining which is generally seen with synovitis Status post left knee arthrotomy, irrigation and debridement on 09/09/16. Orthopedics following, recommends WBAT, ROM as tolerated. Multiple blood cultures with MRSA. Blood cultures without growth since 09/10. Infectious disease following the patient and recommended total of 6 weeks of antibiotics from first negative culture, end date would be October 19, 2016. S/p gentamicin and vancomycin. Changed to Teflaro. Cardiovascular surgery evaluated patient and recommended antibiotic therapy, and follow-up in the office but will need to have repeat echocardiogram and will need to have a clean negative urine toxicology screen to evaluate for possible surgery. Per ID reconsult cardiovascular surgery re surgery at end of antibiotic treatment as per their recommendation. Pain control, continue to wean off methadone every 5 days, if pain allows Methadone 16 mg every 8 hours (last adjusted 10/12) Repeat Echo 10/10 (advised by ID) still showing tricuspid valve vegetation measuring 1.3 x 1.6 cm. 10/12: WBC normal. ESR increasing 67-->79 and CRP elevated at 5.9 although could be related to superficial clots. LFTs normal. I have informed ID, Dr. Mello, who has been reconsulted. 10/13: ID reevaluation pending. Remains afebrile. Myositis L hip: Stable. MRI shows myositis and mild bone marrow edema Orthopedics following; indicates continuation of IV antibiotics per ID and medical management CK was originally elevated, but CK has returned to normal s/p IVF. Recurrent Sepsis: Resolved. -Septic emboli on CTA. RUE Doppler with thrombus within the cephalic vein. L thigh cellulitis/myositis on hip MRI. -Central line removed. -Catheter tip culture without growth -10/02 Blood cultures x 2 NGTD. -10/02 UA clean -10/02 chest x-ray with atelectasis -ID reevaluated patient, changed antibiotics as below. Acute on chronic microcytic anemia: Improved. With rouleaux effect on blood smear Possible etiology could be secondary to vancomycin B12 was mildly low, folate normal, ferritin was normal, sedimentation rate elevated, reticulocyte count was normal, LDH was normal, haptoglobin mildly elevated, stool for occult blood negative Status post transfusion of one unit packed red blood cell on 10/04 Hypoxia: Resolved. -10/02 Chest x-ray with only atelectasis. -CTA with septic emboli -Incentive spirometry. -Lung exam now normal. JORGE: Resolved. Could be related to sepsis. Infectious disease thought it could be AIN related to Vancomycin. -S/p IVF -Avoid nephrotoxins -Monitor BMP periodically Azotemia: Worse. -10/12: Cr increasing but still wnl, 1.30 today. BUN mildly elevated at 22. Patient advised to push po fluids (water) although does not appear to be pre- renal. -10/13: Cr stable at 1.30 but BUN worse at 24. Hypotensive but MAP intact and this is chronic. Nurse states patient is drinking fluids. Repeat Bun/Cr in the am. History of IV drug abuse: Patient counseled on cessation; currently on methadone but weaning. Nurse concerned about patient possibly injecting his liquid methadone. She is advised that patient needs to open his mouth after swallowing it to ensure he is not retaining any in his mouth. HIV testing negative Symptomatic treatment for withdrawal symptoms Insomnia Ambien Muscle spasms Flexeril 5 mg 3 times daily as needed Nausea/vomiting Zofran Diarrhea Imodium Anxiety Klonopin Benadryl Hepatitis C: Follow up for outpatient treatment Nicotine dependence: NicoDerm patch 7 mg. Encourage cessation. DVT prophylaxis: Lovenox Discharge Planning Patient to remain hospitalized until completion of IV antibiotics. Problem Qualifiers (1) Sepsis: Qualified Code: A41.02 - Sepsis due to methicillin resistant Staphylococcus aureus (MRSA) Reshma Acosta Oct 13, 2016 12:59
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
[2016-10-13 16:17] VITALS: BP 92/62
[2016-10-13] MEDS: PANTOPRAZOLE SOD 20 MG DELAYED RELEASE TAB PO SCH ×2 (18:15→18:53)
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
--- NOTE | 2016-10-13 19:42 | HHI.IDPN ---
Subjective Subjective Remarks ID reconsult 2/2 increasing ESR chart reviewed 41 yo M with IVDU tricuspid valve encocarditis co R forearm pain swelling aw IV line (removed) co back pain, old, unchanged in many yrs co new CP Antibiotics teflaro Lines Peripheral IV line Past Medical History IVDU Allergies: Coded Allergies: Avocado (Verified Allergy, Severe, 04/25/16) Shrimp (Verified Allergy, Severe, Anaphylaxis, 04/25/16) *MDRO Multi-Drug Resistant Organism (Verified Adverse Reaction, Unknown, ) MRSA (blood)-09/02/16, 09/05/16 MRSA (finger)-12/16/03 Objective . Vital Signs Date Time Temp Pulse Resp B/P Pulse Ox O2 Delivery O2 Flow Rate FiO2 10/13/16 16:17 92/62 10/13/16 13:35 18 10/13/16 08:00 97.2 76 18 92/54 96 10/12/16 20:00 96.8 85 16 99/53 96 10/12/16 10/12/16 10/13/16 15:00 23:00 07:00 Intake Total 1350 ml 580 ml 580 ml Balance 1350 ml 580 ml 580 ml Intake Oral 1350 ml 580 ml 480 ml IV Total 100 ml # Voids 3 2 2 # Bowel Movements 0 1 0 . Laboratory Tests Test 10/12/16 07:00 White Blood Count 9.7 TH/MM3 Red Blood Count 3.79 MIL/MM3 Hemoglobin 9.1 GM/DL Hematocrit 28.7 % Mean Corpuscular Volume 75.9 FL Mean Corpuscular Hemoglobin 24.0 PG Mean Corpuscular Hemoglobin 31.6 % Concent Red Cell Distribution Width 15.9 % Platelet Count 272 TH/MM3 Mean Platelet Volume 8.2 FL Neutrophils (%) (Auto) 53.0 % Lymphocytes (%) (Auto) 15.6 % Monocytes (%) (Auto) 5.4 % Eosinophils (%) (Auto) 25.3 % Basophils (%) (Auto) 0.7 % Neutrophils # (Auto) 5.2 TH/MM3 Lymphocytes # (Auto) 1.5 TH/MM3 Monocytes # (Auto) 0.5 TH/MM3 Eosinophils # (Auto) 2.4 TH/MM3 Basophils # (Auto) 0.1 TH/MM3 CBC Comment DIFF FINAL Differential Comment Erythrocyte Sedimentation Rate 79 mm/hr Laboratory Tests Test 10/12/16 10/13/16 07:00 06:40 Sodium Level 136 MEQ/L 139 MEQ/L Potassium Level 4.2 MEQ/L 4.6 MEQ/L Chloride Level 100 MEQ/L 103 MEQ/L Carbon Dioxide Level 30.7 MEQ/L 29.4 MEQ/L Anion Gap 5 MEQ/L 7 MEQ/L Blood Urea Nitrogen 22 MG/DL 24 MG/DL Creatinine 1.30 MG/DL 1.30 MG/DL Estimat Glomerular Filtration 61 ML/MIN 61 ML/MIN Rate Random Glucose 105 MG/DL 86 MG/DL Calcium Level 8.9 MG/DL 9.3 MG/DL Total Bilirubin 0.2 MG/DL Aspartate Amino Transf 11 U/L (AST/SGOT) Alanine Aminotransferase 12 U/L (ALT/SGPT) Alkaline Phosphatase 96 U/L Total Creatine Kinase 22 U/L C-Reactive Protein 5.90 MG/DL Total Protein 8.0 GM/DL Albumin 2.7 GM/DL Imaging Last Impressions Upper Extremity Ultrasound 10/13/16 1111 Signed Impressions: Service Date/Time: Thursday, October 13, 2016 12:06 - CONCLUSION: Superficial venous thrombosis involving the cephalic vein. No evidence of DVT. Jacob Najera MD Hip MRI 10/03/16 0000 Signed Impressions: Service Date/Time: Monday, October 03, 2016 13:02 - CONCLUSION: 1. Abnormal edema and swelling in the lateral gluteal musculature, left greater than right extending over the greater trochanter into the proximal lateral thigh musculature. There is also subcutaneous edema. Findings are most characteristic of a cellulitis and myositis. No enhancing fluid collections to suggest abscess formation. There is a mild marrow edema in the greater trochanter on the left side and to a lesser extent on the right probably representing some reactive edema. Wilfred Cho MD Chest X-Ray 10/02/16 0755 Signed Impressions: Service Date/Time: Sunday, October 02, 2016 08:30 - CONCLUSION: No acute cardiopulmonary abnormality is identified. Silvestre Brunner MD CT Angiography 10/02/16 0000 Signed Impressions: Service Date/Time: Sunday, October 02, 2016 15:40 - CONCLUSION: 1. Examination quality is degraded by respiratory motion artifact. However, no PE is identified. 2. There are at least 10 small pulmonary nodules bilaterally involving all lobes. The appearance and distribution is suggestive of either septic emboli or metastatic disease. Given the patient's history of endocarditis, septic emboli is the most likely etiology. 3. Mediastinal and bilateral hilar lymphadenopathy. 4. Mild splenomegaly. Silvestre Brunner MD Central Venous Line 09/18/16 0000 Signed Impressions: Service Date/Time: Sunday, September 18, 2016 15:39 - CONCLUSION: Uncomplicated line placement as above. Catheter tip is near the atriocaval junction. Cain Ferraro MD Knee MRI 09/08/16 0000 Signed Impressions: Service Date/Time: Thursday, September 08, 2016 11:07 - CONCLUSION: 1. There is a large nonspecific joint effusion with some enhancement of the synovial lining. This is nonspecific but is generally seen with synovitis. 2. There is normal signal intensity in the bony structures. There is no evidence of any bony erosions or destruction to suggest osteomyelitis. 3. Nonspecific soft tissue swelling and soft tissues that surrounds the knee joint. Asaf Payne MD Knee X-Ray 09/06/16 0000 Signed Impressions: Service Date/Time: Tuesday, September 06, 2016 13:06 - CONCLUSION: 1. Nonspecific joint effusion. 2. Mild narrowing of the medial joint compartment. Asaf Payne MD Lower Extremity Ultrasound 09/02/16 0000 Signed Impressions: Service Date/Time: Friday, September 02, 2016 18:16 - CONCLUSION: No DVT. Silvestre Ashraf MD Physical Exam GENERAL: No acute distress. Chronically ill appearing HEENT: EOMI, No icterus. No conjunctival erythema. oral mucosae moist, no oral thrush NECK: Supple. no adenopathy or swelling. LUNGS: Breath sounds clear. CARDIAC: Regular rate and rhythm. systolic ejection murmur 2-3/6 LLSB ABDOMEN: (+) bowel sounds. Soft, non tender. No hepatosplenomegaly R inguinal fully reducible hernia EXTREMITIES: Tenderness at the left lateral thigh. No edema No erythema. No clubbing, cyanosis, edema. R forearm is mildly ewelina,atous, non erythematous, no fluctuance L knee incision well healed SKIN: No rash. Warm and moist. No peripheral embolic phenomena. NEURO: awake, alert, non focal; moving all 4 extremeties PSYCH: calm and cooperative Assessment & Plan Remarks Diagnosis: 1. Septicemia due to methicillin resistant Staphylococcus aureus. 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 CV surgery recommends antibiotic treatment prior to valve surgery. repeat echo with 1.3x1.6 veg 3. IVDU (intravenous drug user) 4. Septic lung lesions. 5. Left knee joint effusion. sp surgery 6. Fever. ? infection. improved after removing central line. 7. L. thigh myositis. 8. Acute Renal Failure. 9. R. Cephalic vein thrombus. - superficial worsning ESR New CP Plan: Continue Ceftaroline.IV Ceftaroline until (October 19) ( 6 weeks antibiotics post negative blood culture) Monitor temps. chk CXR rechk blood cultures. Reconsult cardiovascular surgery re surgery at end of antibiotic treatment as per their recommendation. Shanice Mello MD Oct 13, 2016 19:42
[2016-10-13 20:00] VITALS: BP 119/74; PULSE 98; RESP 20; TEMP 97.1; O2SAT 98
[2016-10-13] MEDS ORDERED: IRON SUCROSE INJ 100 MG in SODIUM CHLORIDE 0.9% INJ 100 ML IV ONE (20:00)
[2016-10-13] MEDS: CYCLOBENZAPRINE HCL 10 MG TAB PO PRN (20:24)
[2016-10-13] MEDS: ZOLPIDEM TARTRATE 10 MG TAB PO PRN (20:24)
[2016-10-13] MEDS: IBUPROFEN 400 MG TAB PO SCH ×2 (20:25→23:14)
[2016-10-14] MEDS: METHADONE HCL 10 MG/10 ML ORAL SOLUTION PO SCH ×3 (04:18→20:30)
--- NOTE | 2016-10-14 06:43 | RADRPT ---
EXAM DATE/TIME: 10/14/2016 06:05 [facility] COMPARISON: CHEST SINGLE AP, October 02, 2016, 8:30. INDICATIONS : Chest pain. MEDICAL HISTORY : Hypertension. Hepatitis C. Palpitations. Asthma. Dyspnea. Depression. Anxiety, Dilaudid IV user. MRSA . Anticoagulant therapy, Lovenox SURGICAL HISTORY : Cholecystectomy. Fracture neck with halo. Right leg surgery, ORIF right ankle ENCOUNTER: Subsequent ACUITY: 2 weeks PAIN SCORE: 2/10 LOCATION: Bilateral chest FINDINGS: A single view of the chest demonstrates subtle patchy densities. Heart normal in size. Questionable r ight apical pneumothorax. The cardiomediastinal contours are unremarkable. Osseous structures are i ntact. CONCLUSION: 1. Subtle patchy densities. 2. Questionable tiny right apical pneumothorax. Vel Mariano MD on October 14, 2016 at 6:39 Board Certified Radiologist. This report was verified electronically.
[2016-10-14 08:00] VITALS: BP_SYST 106; BP_SYST 142; BP_DIAS 85; BP_DIAS 93; PULSE 81; PULSE 86; RESP 20; TEMP 96.3; TEMP 96.6; O2SAT 98; O2SAT 99
[2016-10-14] MEDS: DOCUSATE SODIUM 50 MG/SENNA 8.6 MG TAB PO SCH ×2 (09:00→20:40)
[2016-10-14] MEDS: REMOVE OLD PATCH T-DERMAL SCH (09:00)
[2016-10-14] MEDS: NICOTINE 7 MG/24 HR PATCH T-DERMAL SCH (09:17)
[2016-10-14] MEDS: SODIUM CHLORIDE 0.9% FLUSH 10 ML FLUSH IVF SCH (09:17)
[2016-10-14] MEDS: ENOXAPARIN SODIUM 40 MG/0.4 ML SYRINGE SQ SCH (09:17)
[2016-10-14] MEDS: clonazePAM 0.5 MG TAB PO SCH ×2 (09:18→20:30)
[2016-10-14] MEDS: PANTOPRAZOLE SOD 20 MG DELAYED RELEASE TAB PO SCH (09:18)
[2016-10-14] MEDS: CEFTAROLINE INJ 600 MG in SODIUM CHLORIDE 0.9% INJ 100 ML IV SCH (11:26)
--- NOTE | 2016-10-14 12:20 | HHI.PR ---
Subjective Remarks Follow-up for tricuspid valve endocarditis, septic emboli, septic arthritis left knee, narcotic dependency, and superficial venous thromboses of the cephalic vein. Nurse informed me that the patient was much better than usual, pleasant, more awake and alert, walking around without pain, and without hypotension this morning. When I walked into the room the patient was squatting down on the floor cleaning up coffee, and when I told him we could have someone clean it up, he expressed that he didn't mind doing it. He admits to having more energy today. The patient was evaluated by radio mechanic yesterday and did receive IV dose of iron last night. States his pain is much improved in the R forearm. Denies any fevers or chills, abdominal pain, vomiting, or diarrhea. ID ordered chest x-ray this morning which does show questionable tiny right apical pneumothorax, but patient denies any chest pain, pleuritic pain, or shortness of breath. Objective Vitals Vital Signs Date Time Temp Pulse Resp B/P Pulse Ox O2 Delivery O2 Flow Rate FiO2 10/14/16 08:00 96.3 86 20 142/93 99 10/13/16 20:00 97.1 98 20 119/74 98 10/13/16 16:17 92/62 10/13/16 13:35 18 I/O 10/13/16 10/13/16 10/13/16 10/14/16 10/14/16 10/14/16 06:59 14:59 22:59 06:59 14:59 22:59 Intake Total 580 ml 480 ml Balance 580 ml 480 ml Intake Oral 480 ml 480 ml IV Total 100 ml # Voids 2 3 # Bowel Movements 0 Result Diagram: 10/12/16 0700 10/14/16 0608 Imaging Last Impressions Chest X-Ray 10/14/16 0600 Signed Impressions: Service Date/Time: Friday, October 14, 2016 06:05 - CONCLUSION: 1. Subtle patchy densities. 2. Questionable tiny right apical pneumothorax. Vel Mariano MD Upper Extremity Ultrasound 10/13/16 1111 Signed Impressions: Service Date/Time: Thursday, October 13, 2016 12:06 - CONCLUSION: Superficial venous thrombosis involving the cephalic vein. No evidence of DVT. Jacob Najera MD Hip MRI 10/03/16 0000 Signed Impressions: Service Date/Time: Monday, October 03, 2016 13:02 - CONCLUSION: 1. Abnormal edema and swelling in the lateral gluteal musculature, left greater than right extending over the greater trochanter into the proximal lateral thigh musculature. There is also subcutaneous edema. Findings are most characteristic of a cellulitis and myositis. No enhancing fluid collections to suggest abscess formation. There is a mild marrow edema in the greater trochanter on the left side and to a lesser extent on the right probably representing some reactive edema. Wilfred Cho MD CT Angiography 10/02/16 0000 Signed Impressions: Service Date/Time: Sunday, October 02, 2016 15:40 - CONCLUSION: 1. Examination quality is degraded by respiratory motion artifact. However, no PE is identified. 2. There are at least 10 small pulmonary nodules bilaterally involving all lobes. The appearance and distribution is suggestive of either septic emboli or metastatic disease. Given the patient's history of endocarditis, septic emboli is the most likely etiology. 3. Mediastinal and bilateral hilar lymphadenopathy. 4. Mild splenomegaly. Silvestre rBunner MD Central Venous Line 09/18/16 0000 Signed Impressions: Service Date/Time: Sunday, September 18, 2016 15:39 - CONCLUSION: Uncomplicated line placement as above. Catheter tip is near the atriocaval junction. Cain Ferraro MD Knee MRI 09/08/16 0000 Signed Impressions: Service Date/Time: Thursday, September 08, 2016 11:07 - CONCLUSION: 1. There is a large nonspecific joint effusion with some enhancement of the synovial lining. This is nonspecific but is generally seen with synovitis. 2. There is normal signal intensity in the bony structures. There is no evidence of any bony erosions or destruction to suggest osteomyelitis. 3. Nonspecific soft tissue swelling and soft tissues that surrounds the knee joint. Asaf Payne MD Knee X-Ray 09/06/16 0000 Signed Impressions: Service Date/Time: Tuesday, September 06, 2016 13:06 - CONCLUSION: 1. Nonspecific joint effusion. 2. Mild narrowing of the medial joint compartment. Asaf Payne MD Lower Extremity Ultrasound 09/02/16 0000 Signed Impressions: Service Date/Time: Friday, September 02, 2016 18:16 - CONCLUSION: No DVT. Silvestre Ashraf MD Objective Remarks GENERAL: Well-nourished, well-developed patient in no apparent distress. SKIN: Healed incision to L knee. No erythema or warmth to the L knee. CARDIOVASCULAR: Regular rate and rhythm. RESPIRATORY: No accessory muscle use. CTAB. Decreased expiratory breath sound at R apex. GASTROINTESTINAL: Normoactive bowel sounds. Abdomen soft, non-tender, nondistended. MUSCULOSKELETAL: Palpable cord along the lateral volar right forearm. Swelling of the volar Right forearm is improved from yesterday; the compartment is soft compared to tense feeling yesterday. 2+ B/L distal radial pulses. Mildly swollen Left knee. 2+ DP and TP pulses bilaterally. Ambulating with ease and without visible pain. NEUROLOGICAL: Awake and alert. Normal speech. PSYCHIATRIC: Improved mood and affect, pleasant. Procedures Left knee arthrotomy, debridement and irrigation (09/09/16). Urinary Catheter: No Vascular Central Line Catheter: No Date of Insertion: Sep 18, 2016 Date of Removal: Oct 04, 2016 A/P Problem List: (1) Sepsis ICD Code: A41.9 Status: Resolved (2) Endocarditis of tricuspid valve ICD Code: I36.8 Status: Acute (3) Septic embolism ICD Code: I26.90 Status: Acute (4) Myositis of thigh ICD Code: M60.859 Status: Acute (5) JORGE (acute kidney injury) ICD Code: N17.9 Status: Resolved (6) Hypoxia ICD Code: R09.02 Status: Resolved (7) IVDU (intravenous drug user) ICD Code: F19.90 Status: Chronic (8) Hepatitis C ICD Code: B19.20 Status: Chronic Assessment and Plan 41 year-old male with known history of significant IV drug use with Dilaudid and heroin who presented initially because of febrile illness. Superficial thrombophlebitis: Improved. Acute SVT in R forearm based on clinical exam. Had previously diagnosed thrombus in cephalic vein related to central line Right IJ. -Patient advised to apply warm compresses and elevate the R arm. -One dose of 800 mg po ibuprofen was given on 10/12 but did want to start regular use due to increasing Cr. -10/13: Pain in R forearm is worse today and is quite swollen. Doppler US ordered and shows occlusive thrombus throughout the cephalic vein. No DVT. Considering worsening symptoms and previously diagnosed cephalic vein thrombosis likely more proximal related to Right IJ on 10/02, will consult hematology for consideration of anticoagulation in this case. -10/14: Swelling improved. Pain in R forearm greatly improved. Hematology evaluated the patient yesterday. Started scheduled Motrin 400 mg po bid with Protonix; advised continuing prophylactic Lovenox dose. Bacterial endocarditis with tricuspid valve vegetation: Stable MRSA bacteremia Left septic knee joint Echocardiogram indicates tricuspid valve vegetation 1.1 x 1.8 cm. MRI of the knee shows large nonspecific joint effusion with enhancement of synovial lining which is generally seen with synovitis Status post left knee arthrotomy, irrigation and debridement on 09/09/16. Orthopedics following, recommends WBAT, ROM as tolerated. Multiple blood cultures with MRSA. Blood cultures without growth since 09/10. Infectious disease following the patient and recommended total of 6 weeks of antibiotics from first negative culture, end date would be October 19, 2016. S/p gentamicin and vancomycin. Changed to Teflaro. Cardiovascular surgery evaluated patient and recommended antibiotic therapy, and follow-up in the office but will need to have repeat echocardiogram and will need to have a clean negative urine toxicology screen to evaluate for possible surgery. Per ID reconsult cardiovascular surgery re surgery at end of antibiotic treatment as per their recommendation. Pain control, continue to wean off methadone every 5 days, if pain allows Methadone 16 mg every 8 hours (last adjusted 10/12) Repeat Echo 10/10 (advised by ID) still showing tricuspid valve vegetation measuring 1.3 x 1.6 cm. 10/12: WBC normal. ESR increasing 67-->79 and CRP elevated at 5.9 although could be related to superficial clots. LFTs normal. I have informed ID, Dr. Mello, who has been reconsulted. 10/14: ID reevaluated the patient yesterday. New blood cultures x 2 show no growth in 1 day. Chest x-ray shows a questionable Right apical pneumothorax and subtle patchy densities as read by radiologist. Chest x-ray was personally interpreted by myself and Dr. Monte and there does appear to be a tiny R apical pneumothorax; otherwise film appears similar to previous chest x-ray on . Patient's oxygen saturation is normal at 99% on RA. Lungs clear although expiratory sounds diminished over R apex. He is afebrile and asymptomatic. No indication of pneumonia. Will monitor clinically. Patient informed to alert the nurse if he feels short of breath. Myositis L hip: Stable. MRI shows myositis and mild bone marrow edema Orthopedics following; indicates continuation of IV antibiotics per ID and medical management CK was originally elevated, but CK has returned to normal s/p IVF. Recurrent Sepsis: Resolved. -Septic emboli on CTA. RUE Doppler with thrombus within the cephalic vein. L thigh cellulitis/myositis on hip MRI. -Central line removed. -Catheter tip culture without growth -10/02 Blood cultures x 2 NGTD. -10/02 UA clean -10/02 chest x-ray with atelectasis -ID following on antibiotics as above. Acute on chronic microcytic anemia: Improved. With rouleaux effect on blood smear Fe low, TIBC and %saturation low, ferritin normal. B12 was mildly low, folate normal, reticulocyte count was normal, LDH was normal, haptoglobin mildly elevated, stool for occult blood negative Status post transfusion of one unit packed red blood cell on 10/04 10/14: Evaluated by hematology yesterday and transfused with IV iron. Patient's clinical condition is much improved today. He has a lot of energy compared to lethargy and pain in prior days. Hypoxia: Resolved. -10/02 Chest x-ray with only atelectasis. -CTA with septic emboli -Incentive spirometry. -Lung exam now normal. JORGE: Resolved. Could be related to sepsis. Infectious disease thought it could be AIN related to Vancomycin. -S/p IVF -Avoid nephrotoxins -Monitor BMP periodically Azotemia: Worse. -10/14: Cr stable at 1.30 but BUN worse at 25. Patient drinking fluids normally, although does not appear to be prerenal. -Continue to monitor renal function. -Needs to continue ibuprofen on short term basis, but avoid nephrotoxins if possible. History of IV drug abuse: Patient counseled on cessation; currently on methadone but weaning. Nurse concerned about patient possibly injecting his liquid methadone. She is advised that patient needs to open his mouth after swallowing it to ensure he is not retaining any in his mouth. HIV testing negative Symptomatic treatment for withdrawal symptoms Insomnia Ambien Muscle spasms Flexeril 5 mg 3 times daily as needed Nausea/vomiting Zofran Diarrhea Imodium Anxiety Klonopin Benadryl Hepatitis C: Follow up for outpatient treatment Nicotine dependence: NicoDerm patch 7 mg. Encourage cessation. DVT prophylaxis: Lovenox Discharge Planning Patient to remain hospitalized until completion of IV antibiotics. Problem Qualifiers (1) Sepsis: Qualified Code: A41.02 - Sepsis due to methicillin resistant Staphylococcus aureus (MRSA) Reshma Acosta Oct 14, 2016 12:20
[2016-10-14 20:00] VITALS: BP 107/63; PULSE 87; RESP 18; TEMP 97.9; O2SAT 97
[2016-10-14] MEDS: CYCLOBENZAPRINE HCL 10 MG TAB PO PRN (20:29)
[2016-10-14] MEDS: ZOLPIDEM TARTRATE 10 MG TAB PO PRN (20:30)
[2016-10-14] MEDS: IBUPROFEN 400 MG TAB PO SCH (20:30)
[2016-10-15] MEDS: CEFTAROLINE INJ 600 MG in SODIUM CHLORIDE 0.9% INJ 100 ML IV SCH ×2 (00:37→12:34)
[2016-10-15] MEDS: METHADONE HCL 10 MG/10 ML ORAL SOLUTION PO SCH ×3 (03:54→21:11)
[2016-10-15 08:00] VITALS: BP 99/67; PULSE 88; RESP 18; TEMP 98.3; O2SAT 96
[2016-10-15] MEDS: IBUPROFEN 400 MG TAB PO SCH ×2 (08:03→21:11)
[2016-10-15] MEDS: clonazePAM 0.5 MG TAB PO SCH ×2 (08:03→21:11)
[2016-10-15] MEDS: DOCUSATE SODIUM 50 MG/SENNA 8.6 MG TAB PO SCH ×2 (08:03→21:00)
[2016-10-15] MEDS: NICOTINE 7 MG/24 HR PATCH T-DERMAL SCH (08:03)
[2016-10-15] MEDS: REMOVE OLD PATCH T-DERMAL SCH (08:03)
[2016-10-15] MEDS: PANTOPRAZOLE SOD 20 MG DELAYED RELEASE TAB PO SCH (08:03)
[2016-10-15] MEDS: ENOXAPARIN SODIUM 40 MG/0.4 ML SYRINGE SQ SCH (08:03)
[2016-10-15] MEDS: SODIUM CHLORIDE 0.9% FLUSH 10 ML FLUSH IVF SCH (08:05)
--- NOTE | 2016-10-15 10:18 | HHI.PR ---
Subjective Remarks Follow-up for tricuspid valve endocarditis, septic emboli, septic arthritis left knee, narcotic dependency, superficial venous thromboses of the cephalic vein, and questionable R apical pneumothorax. He states the pain in his right forearm is improved. The patient denies any fevers or chills, chest pain, pleuritic pain, shortness of breath, abdominal pain, nausea, vomiting, or diarrhea. Objective Vitals Vital Signs Date Time Temp Pulse Resp B/P Pulse Ox O2 Delivery O2 Flow Rate FiO2 10/15/16 08:00 98.3 88 18 99/67 96 10/14/16 20:00 97.9 87 18 107/63 97 10/14/16 13:10 18 I/O 10/14/16 10/14/16 10/14/16 10/15/16 10/15/16 10/15/16 06:59 14:59 22:59 06:59 14:59 22:59 Intake Total 480 ml 720 ml Balance 480 ml 720 ml Intake Oral 480 ml 720 ml # Voids 3 5 Result Diagram: 10/12/16 0700 10/14/16 0608 Objective Remarks GENERAL: Well-nourished, well-developed patient in no apparent distress. SKIN: Healed incision to L knee. No erythema or notable warmth to the L knee. CARDIOVASCULAR: Regular rate and rhythm. 2/6 murmur at LLSB. RESPIRATORY: No accessory muscle use. CTAB. Normal breath sounds at R apex. GASTROINTESTINAL: Bowel sounds slightly hyperactive at RLQ but otherwise normal. Abdomen soft, non-tender, nondistended. MUSCULOSKELETAL: Palpable cord along the lateral volar right forearm, but it is less extensive than prior exams. Swelling of the volar Right forearm same as yesterday; the compartment is soft. New palpable cord over Left upper arm proximal to current IV. Mildly swollen Left knee, same. 2+ DP and TP pulses bilaterally. Ambulating with ease and without visible pain. NEUROLOGICAL: Awake and alert. Normal speech. PSYCHIATRIC: Pleasant mood and affect. Insight normal. Procedures Left knee arthrotomy, debridement and irrigation (09/09/16). Urinary Catheter: No Vascular Central Line Catheter: No Date of Insertion: Sep 18, 2016 Date of Removal: Oct 04, 2016 A/P Problem List: (1) Superficial venous thrombosis of both arms ICD Code: I82.613 Status: Acute (2) Sepsis ICD Code: A41.9 Status: Resolved (3) Endocarditis of tricuspid valve ICD Code: I36.8 Status: Acute (4) Septic embolism ICD Code: I26.90 Status: Acute (5) Myositis of thigh ICD Code: M60.859 Status: Acute (6) JORGE (acute kidney injury) ICD Code: N17.9 Status: Resolved (7) Hypoxia ICD Code: R09.02 Status: Resolved (8) IVDU (intravenous drug user) ICD Code: F19.90 Status: Chronic (9) Hepatitis C ICD Code: B19.20 Status: Chronic Assessment and Plan 41 year-old male with known history of significant IV drug use with Dilaudid and heroin who presented initially because of febrile illness. Superficial thrombophlebitis: SVT in R forearm with previously diagnosed thrombus in cephalic vein related to central line Right IJ. -Doppler US 10/13 RUE with occlusive thrombus throughout the cephalic vein. No DVT. -Patient advised to apply warm compresses and elevate the R arm. -Currently on ibuprofen 400 mg po bid per hematology. -Continue Lovenox at prophylactic dose per hematology. -R forearm swelling and pain improving. -10/15: New SVT to Left upper arm in area of current IV. Vascular access consulted to place new peripheral line. Bacterial endocarditis with tricuspid valve vegetation: Stable MRSA bacteremia Left septic knee joint Echocardiogram indicates tricuspid valve vegetation 1.1 x 1.8 cm. MRI of the knee shows large nonspecific joint effusion with enhancement of synovial lining which is generally seen with synovitis Status post left knee arthrotomy, irrigation and debridement on 09/09/16. Orthopedics following, recommends WBAT, ROM as tolerated. Multiple blood cultures with MRSA. Blood cultures without growth since 09/10. Infectious disease following the patient and recommended total of 6 weeks of antibiotics from first negative culture, end date would be October 19, 2016. S/p gentamicin and vancomycin. Changed to Teflaro. Cardiovascular surgery evaluated patient and recommended antibiotic therapy, and follow-up in the office but will need to have repeat echocardiogram and will need to have a clean negative urine toxicology screen to evaluate for possible surgery. Pain control, continue to wean off methadone every 5 days, if pain allows Methadone 16 mg every 8 hours (last adjusted 10/12) Repeat Echo 10/10 (advised by ID) still showing tricuspid valve vegetation measuring 1.3 x 1.6 cm. 10/12: WBC normal. ESR increasing 67-->79 and CRP elevated at 5.9 although could be related to superficial clots. LFTs normal. I have informed ID, Dr. Mello, who has been reconsulted. ID reevaluated the patient on 10/13. New blood cultures x 2 show no growth in 2 days. Continue with current antibiotics. Reconsult cardiovascular surgery regarding surgery at end of antibiotic treatment as per their recommendation. R apical pneumothorax: Stable -10/14 chest x-ray shows a questionable Right apical pneumothorax and subtle patchy densities as read by radiologist. Chest x-ray was reviewed by myself and Dr. Monte and there does appear to be a tiny R apical pneumothorax; otherwise film appears similar to previous chest x-ray on 10/02. Patient's oxygen saturation is normal at 96% on RA. He is afebrile and asymptomatic. No indication of pneumonia. Will monitor clinically. Patient informed to alert the nurse if he feels short of breath. Myositis L hip: Stable. MRI shows myositis and mild bone marrow edema Orthopedics following; indicates continuation of IV antibiotics per ID and medical management CK was originally elevated, but CK has returned to normal s/p IVF. Recurrent Sepsis: Resolved. -Septic emboli on CTA. RUE Doppler with thrombus within the cephalic vein. L thigh cellulitis/myositis on hip MRI. -Central line removed. -Catheter tip culture without growth -10/02 Blood cultures x 2 NGTD. -10/02 UA clean -10/02 chest x-ray with atelectasis -ID following on antibiotics as above. Acute on chronic microcytic anemia: Improved. With rouleaux effect on blood smear Fe low, TIBC and %saturation low, ferritin normal. B12 was mildly low, folate normal, reticulocyte count was normal, LDH was normal, haptoglobin mildly elevated, stool for occult blood negative Status post transfusion of one unit packed red blood cell on 10/04 Evaluated by hematology on 10/13 and transfused with IV iron. Patient's clinical condition improved with more energy. Hypoxia: Resolved. -10/02 Chest x-ray with only atelectasis. -CTA with septic emboli -Incentive spirometry. -Lung exam now normal. JORGE: Resolved. Could be related to sepsis. Infectious disease thought it could be AIN related to Vancomycin. -S/p IVF -Avoid nephrotoxins -Monitor BMP periodically Azotemia: Worse. -10/14: Cr stable at 1.30 but BUN worse at 25. Patient drinking fluids normally, although does not appear to be prerenal. -Needs to continue ibuprofen on short term basis, but avoid nephrotoxins if possible. -10/15: Repeat Bun/Cr tomorrow morning. History of IV drug abuse: Patient counseled on cessation; currently on methadone but weaning. Nurse concerned about patient possibly injecting his liquid methadone. She is advised that patient needs to open his mouth after swallowing it to ensure he is not retaining any in his mouth. HIV testing negative Symptomatic treatment for withdrawal symptoms Insomnia Ambien Muscle spasms Flexeril 5 mg 3 times daily as needed Nausea/vomiting Zofran Diarrhea Imodium Anxiety Klonopin Benadryl Hepatitis C: Follow up for outpatient treatment Nicotine dependence: NicoDerm patch 7 mg. Encourage cessation. DVT prophylaxis: Lovenox Discharge Planning Patient to remain hospitalized until completion of IV antibiotics. Problem Qualifiers (1) Sepsis: Qualified Code: A41.02 - Sepsis due to methicillin resistant Staphylococcus aureus (MRSA) Reshma Acosta Oct 15, 2016 10:18
[2016-10-15 20:00] VITALS: BP 114/72; PULSE 95; RESP 16; TEMP 96.3; O2SAT 100
[2016-10-15] MEDS: CYCLOBENZAPRINE HCL 10 MG TAB PO PRN (21:11)
[2016-10-15] MEDS: ZOLPIDEM TARTRATE 10 MG TAB PO PRN (21:11)
[2016-10-16] MEDS: METHADONE HCL 10 MG/10 ML ORAL SOLUTION PO SCH ×3 (04:06→20:52)
[2016-10-16 08:00] VITALS: BP 99/63; PULSE 86; RESP 19; TEMP 97.7; O2SAT 99
[2016-10-16] MEDS: DOCUSATE SODIUM 50 MG/SENNA 8.6 MG TAB PO SCH ×2 (09:00→20:52)
[2016-10-16] MEDS: REMOVE OLD PATCH T-DERMAL SCH (09:00)
[2016-10-16] MEDS: SODIUM CHLORIDE 0.9% FLUSH 10 ML FLUSH IVF SCH (09:00)
[2016-10-16] MEDS: clonazePAM 0.5 MG TAB PO SCH ×2 (09:38→20:52)
[2016-10-16] MEDS: PANTOPRAZOLE SOD 20 MG DELAYED RELEASE TAB PO SCH (09:39)
[2016-10-16] MEDS: IBUPROFEN 400 MG TAB PO SCH ×2 (09:39→20:51)
[2016-10-16] MEDS: NICOTINE 7 MG/24 HR PATCH T-DERMAL SCH (09:40)
[2016-10-16] MEDS: ENOXAPARIN SODIUM 40 MG/0.4 ML SYRINGE SQ SCH (09:40)
--- NOTE | 2016-10-16 10:22 | HHI.PR ---
Subjective Remarks Follow-up for tricuspid valve endocarditis, septic emboli, septic arthritis left knee, narcotic dependency, multiple superficial venous thromboses, and questionable R apical pneumothorax. Patient denies any fevers or chills, chest pain, shortness of breath, pleuritic pain, abdominal pain, nausea, vomiting, or diarrhea. Right forearm is improved. Objective Vitals Vital Signs Date Time Temp Pulse Resp B/P Pulse Ox O2 Delivery O2 Flow Rate FiO2 10/16/16 08:00 97.7 86 19 99/63 99 10/15/16 20:00 96.3 95 16 114/72 100 I/O 10/15/16 10/15/16 10/15/16 10/16/16 10/16/16 10/16/16 07:00 15:00 23:00 07:00 15:00 23:00 Intake Total 720 ml 100 ml 1920 ml Balance 720 ml 100 ml 1920 ml Intake Oral 720 ml 100 ml 1920 ml # Voids 5 5 Result Diagram: 10/12/16 0700 10/16/16 0805 Objective Remarks GENERAL: Well-nourished, well-developed patient in no apparent distress. Eating breakfast on the side of the bed when I enter the room. SKIN: No erythema to the arms. Healed incision to L knee. No erythema or warmth to the L knee. CARDIOVASCULAR: Regular rate and rhythm. 2/6 murmur at LLSB. RESPIRATORY: No accessory muscle use. CTAB. Normal breath sounds at R apex. GASTROINTESTINAL: Abdomen soft, non-tender, nondistended. MUSCULOSKELETAL: Palpable cord along the lateral volar right forearm. Swelling of the volar Right forearm same as yesterday, soft, non-tender. Palpable cord over Left upper arm, but no swelling. Old cord palpable over volar Left forearm. 2+ B/L distal radial pulses. Mildly swollen Left knee, same. 2+ DP and TP pulses bilaterally. NEUROLOGICAL: Awake and alert. Normal speech. PSYCHIATRIC: Pleasant mood and affect. Insight normal. Procedures Left knee arthrotomy, debridement and irrigation (09/09/16). Urinary Catheter: No Vascular Central Line Catheter: No Date of Insertion: Sep 18, 2016 Date of Removal: Oct 04, 2016 A/P Problem List: (1) Superficial venous thrombosis of both arms ICD Code: I82.613 Status: Acute (2) Sepsis ICD Code: A41.9 Status: Resolved (3) Endocarditis of tricuspid valve ICD Code: I36.8 Status: Acute (4) Septic embolism ICD Code: I26.90 Status: Acute (5) Myositis of thigh ICD Code: M60.859 Status: Acute (6) JORGE (acute kidney injury) ICD Code: N17.9 Status: Resolved (7) Hypoxia ICD Code: R09.02 Status: Resolved (8) IVDU (intravenous drug user) ICD Code: F19.90 Status: Chronic (9) Hepatitis C ICD Code: B19.20 Status: Chronic Assessment and Plan 41 year-old male with known history of significant IV drug use with Dilaudid and heroin who presented initially because of febrile illness. Superficial thrombophlebitis: Stable. SVT in R forearm with previously diagnosed thrombus in cephalic vein related to central line Right IJ. -Doppler US 10/13 RUE with occlusive thrombus throughout the cephalic vein. No DVT. -Patient advised to apply warm compresses and elevate the R arm. -Currently on ibuprofen 400 mg po bid per hematology. -Continue Lovenox at prophylactic dose per hematology. -R forearm swelling and pain improving. -10/15: New SVT to Left upper arm. Vascular access placed new IV. Bacterial endocarditis with tricuspid valve vegetation: Stable MRSA bacteremia Left septic knee joint Echocardiogram indicates tricuspid valve vegetation 1.1 x 1.8 cm. MRI of the knee shows large nonspecific joint effusion with enhancement of synovial lining which is generally seen with synovitis Status post left knee arthrotomy, irrigation and debridement on 09/09/16. Orthopedics following, recommends WBAT, ROM as tolerated. Multiple blood cultures with MRSA. Blood cultures without growth since 09/10. Infectious disease following the patient and recommended total of 6 weeks of antibiotics from first negative culture, end date would be October 19, 2016. S/p gentamicin and vancomycin. Changed to Teflaro. Cardiovascular surgery evaluated patient and recommended antibiotic therapy, and follow-up in the office but will need to have repeat echocardiogram and will need to have a clean negative urine toxicology screen to evaluate for possible surgery. Pain control, continue to wean off methadone every 5 days, if pain allows Methadone 16 mg every 8 hours (last adjusted 10/12) Repeat Echo 10/10 (advised by ID) still showing tricuspid valve vegetation measuring 1.3 x 1.6 cm. 10/12: WBC normal. ESR increasing 67-->79 and CRP elevated at 5.9 although could be related to superficial clots. LFTs normal. I have informed ID, Dr. Mello, who has been reconsulted. ID reevaluated the patient on 10/13. New blood cultures x 2 show no growth in 3 days. Continue with current antibiotics. Reconsult cardiovascular surgery regarding surgery at end of antibiotic treatment as per their recommendation. R apical pneumothorax: Stable -10/14 chest x-ray shows a questionable Right apical pneumothorax and subtle patchy densities as read by radiologist. Chest x-ray was reviewed by myself and Dr. Monte and there does appear to be a tiny R apical pneumothorax; otherwise film appears similar to previous chest x-ray on 10/02. Patient's oxygen saturation is normal at 96% on RA. He is afebrile and asymptomatic. No indication of pneumonia. Will monitor clinically. Patient informed to alert the nurse if he feels short of breath. Myositis L hip: Stable. MRI shows myositis and mild bone marrow edema Orthopedics following; indicates continuation of IV antibiotics per ID and medical management CK was originally elevated, but CK has returned to normal s/p IVF. Recurrent Sepsis: Resolved. -Septic emboli on CTA. RUE Doppler with thrombus within the cephalic vein. L thigh cellulitis/myositis on hip MRI. -Central line removed. -Catheter tip culture without growth -10/02 Blood cultures x 2 NGTD. -10/02 UA clean -10/02 chest x-ray with atelectasis -ID following on antibiotics as above. Acute on chronic microcytic anemia: Improved. With rouleaux effect on blood smear Fe low, TIBC and %saturation low, ferritin normal. B12 was mildly low, folate normal, reticulocyte count was normal, LDH was normal, haptoglobin mildly elevated, stool for occult blood negative Status post transfusion of one unit packed red blood cell on 10/04 Evaluated by hematology on 10/13 and transfused with IV iron. Patient's clinical condition improved with more energy. Hypoxia: Resolved. -10/02 Chest x-ray with only atelectasis. -CTA with septic emboli -Incentive spirometry. -Lung exam now normal. JORGE: Resolved. Could be related to sepsis. Infectious disease thought it could be AIN related to Vancomycin. -S/p IVF -Avoid nephrotoxins -Monitor BMP periodically Azotemia: Resolved. -10/16: Repeat Bun/Cr 21/03.20. History of IV drug abuse: Patient counseled on cessation; currently on methadone but weaning. Nurse concerned about patient possibly injecting his liquid methadone. She is advised that patient needs to open his mouth after swallowing it to ensure he is not retaining any in his mouth. HIV testing negative Symptomatic treatment for withdrawal symptoms Insomnia Ambien Muscle spasms Flexeril 5 mg 3 times daily as needed Nausea/vomiting Zofran Diarrhea Imodium Anxiety Klonopin Benadryl Hepatitis C: Follow up for outpatient treatment Nicotine dependence: NicoDerm patch 7 mg. Encourage cessation. DVT prophylaxis: Lovenox Discharge Planning Patient to remain hospitalized until completion of IV antibiotics. Problem Qualifiers (1) Sepsis: Qualified Code: A41.02 - Sepsis due to methicillin resistant Staphylococcus aureus (MRSA) Reshma Acosta Oct 16, 2016 10:22 Qualified Code: A41.02 - Sepsis due to methicillin resistant Staphylococcus aureus (MRSA) Reshma Acosta Oct 16, 2016 10:22
[2016-10-16] MEDS: CEFTAROLINE INJ 600 MG in SODIUM CHLORIDE 0.9% INJ 100 ML IV SCH ×4 (11:04→22:53)
[2016-10-16 20:00] VITALS: BP 107/64; PULSE 91; RESP 20; TEMP 96.1; O2SAT 97
[2016-10-16] MEDS: ZOLPIDEM TARTRATE 10 MG TAB PO PRN (21:00)
[2016-10-17] MEDS: METHADONE HCL 10 MG/10 ML ORAL SOLUTION PO SCH ×3 (04:09→20:04)
[2016-10-17] MEDS: REMOVE OLD PATCH T-DERMAL SCH (09:00)
[2016-10-17] MEDS: DOCUSATE SODIUM 50 MG/SENNA 8.6 MG TAB PO SCH ×2 (09:00→20:05)
[2016-10-17 09:07] VITALS: BP 126/72; PULSE 87; RESP 20; TEMP 96.9; O2SAT 98
[2016-10-17] MEDS: SODIUM CHLORIDE 0.9% FLUSH 10 ML FLUSH IVF SCH (09:45)
[2016-10-17] MEDS: PANTOPRAZOLE SOD 20 MG DELAYED RELEASE TAB PO SCH (09:45)
[2016-10-17] MEDS: clonazePAM 0.5 MG TAB PO SCH ×2 (09:45→20:06)
[2016-10-17] MEDS: IBUPROFEN 400 MG TAB PO SCH ×2 (09:45→20:06)
[2016-10-17] MEDS: ENOXAPARIN SODIUM 40 MG/0.4 ML SYRINGE SQ SCH (09:45)
[2016-10-17] MEDS: NICOTINE 7 MG/24 HR PATCH T-DERMAL SCH (09:46)
[2016-10-17] MEDS: CEFTAROLINE INJ 600 MG in SODIUM CHLORIDE 0.9% INJ 100 ML IV SCH ×2 (11:04→23:00)
--- NOTE | 2016-10-17 11:27 | HHI.PR ---
Subjective Remarks Patient seen and examined today for follow-up on bacterial endocarditis, narcotic dependency, superficial venous thrombosis. Patient lying in bed comfortable does not appear to be any pain. Denies any new complaints. Stating "same ole ####". Asking about the cardiovascular surgery evaluation. Notified him I'll contact them to see if it's going to happen inpatient versus outpatient. As indicated by nursing staff that he was witnessed to patient getting his methadone to his girlfriend. Hence, patient is not allowed to have any visitors at this time. Objective Vitals Vital Signs Date Time Temp Pulse Resp B/P Pulse Ox O2 Delivery O2 Flow Rate FiO2 10/17/16 10:52 18 10/17/16 09:07 96.9 87 20 126/72 98 10/17/16 05:09 18 10/16/16 20:00 96.1 91 20 107/64 97 10/16/16 13:20 19 I/O 10/16/16 10/16/16 10/16/16 10/17/16 10/17/16 10/17/16 06:59 14:59 22:59 06:59 14:59 22:59 Intake Total 520 ml 480 ml Balance 520 ml 480 ml Intake Oral 520 ml 480 ml # Voids 3 Result Diagram: 10/16/16 0805 Objective Remarks GENERAL: Well-developed, well-nourished, in no acute distress. alert and orientated HEENT: Head is normocephalic without any lesions or masses noted. Facial features are symmetric. Eyes: extraocular muscles are intact. Conjunctivae were clear. NECK: Trachea midline no deviation. CARDIAC: Regular rhythm, regular rate. S1/S2 are heard. No murmurs gallops or rubs. LUNGS: Clear to auscultation bilaterally. No wheeze, rhonchi or rales. No use of accessory muscles on inspiration or expiration. ABDOMEN: Soft, nontender. Nondistended. Bowel sounds heard in all 4 quadrants. No organomegaly or masses. Negative rebound, negative guarding, EXTREMITIES: No edema, pulses are equal bilaterally. No cyanosis or clubbing. NEUROLOGY: Mood and affect appear appropriate. Cranial nerves II through XII grossly intact. Moving all extremities, speech is clear. Procedures Left knee arthrotomy, debridement and irrigation (09/09/16). 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 Left septic knee joint Patient remains afebrile since 09/19/16 Echocardiogram indicates tricuspid valve vegetation 1.1 x 1.8 cm, Repeat echocardiogram shows tricuspid valve vegetation 1.3 x 1.6 cm MRI of the knee shows large nonspecific joint effusion with enhancement of synovial lining which is generally seen with synovitis Status post left knee arthrotomy, irrigation and debridement on 09/09/16 Orthopedic following the patient Negative blood culture since 09/10/16 Infectious disease following the patient and recommended total of 6 weeks of antibiotics from first negative culture, end date would be October 19, 2016 Infectious disease recommended repeat echocardiogram to be done this week Antibiotics changed to Teflaro, Cardiovascular surgery evaluated patient and recommended antibiotic therapy, and follow-up in the office but will need to have repeat echocardiogram will need to have a clean negative urine toxicology screen to evaluate for possible surgery. Discussed with legal clerk for surgery 10/17/16 who indicated they'll review the echocardiogram. Need to arrange for outpatient urine drug screen, follow-up for outpatient appointment. Reiterated the fact that he still needed to be off narcotic medication and to be cleaned prior to surgery Narcotic dependency, Pain control, patient is manipulative with his pain management and withdrawal symptoms, patient was restarted on methadone, will be unable to wean patient off methadone prior to completion of antibiotics. Patient will need outpatient rehabilitation upon discharge Pain control, continue to wean off methadone every 5 days, if pain allows Methadone 10 mg every 8 hours, Superficial thrombophlebitis, improving Doppler ultrasound was performed and indicates occlusive thrombus throughout the cephalic vein, no DVT Patient was seen by hematology who recommended warm compresses, ibuprofen, continue DVT prophylactic dose of Lovenox Questionable right apical pneumothorax Patient had chest x-ray performed which did show questional right apical pneumothorax with subtle patchy densities Patient is asymptomatic. Continue monitor Recurrent sepsis, hypotensive, febrile, tachycardia. Unknown etiology at this time, could be secondary to recurrent endocarditis, septic arthritis, line sepsis, continued IV drug use while in the hospital, resolved Patient afebrile now, since central line removed Infectious disease consulted for recommendations CT scan chest shows septic emboli of at least 10 small areas involving all lobes. Previous chest x-rays do not indicate any abnormality indicating septic pneumonia Blood cultures negative for 5 day Discontinued central line per infectious disease, placed peripheral IV Antibiotics changed to Teflaro 10/04/16, discussed with infectious disease who recommended removal of central line. Continuation of Teflaro. Monitoring blood cultures. Acute on chronic microcytic anemia. With rouleaux effect on blood smear Possible etiology would be secondary to vancomycin, will need to rule out other etiologies B12 was mildly low, folate normal, ferritin was normal, sedimentation rate elevated, reticulocyte count was normal, LDH was normal, haptoglobin mildly elevated, stool for occult blood negative Status post transfusion of one unit packed red blood cell Hematology evaluated patient and recommended IV iron 1 Acute renal failure, improved Could be secondary to sepsis, dehydration, septic emboli to the kidney Continue IV fluids Continue monitor renal function Avoid nephrotoxins Left hip pain MRI shows myositis and possible bone marrow edema Orthopedic to follow-up, who indicates continuation of IV antibiotics per ID and medical management CK was originally elevated, we continued IV fluids and CK has returned to normal History of IV drug abuse, narcotic dependency: Patient counseled on cessation HIV testing negative Symptomatic treatment for withdrawal symptoms Insomnia Ambien 10 mg as needed Muscle spasms Flexeril 5 mg twice daily as needed Nausea vomiting Zofran Diarrhea Imodium Anxiety Klonopin 0.5 mg every 12 hours Benadryl Hepatitis C: Follow up for outpatient treatment Nicotine dependence: NicoDerm patch 7 mg. Encourage cessation. DVT prophylaxis: Lovenox. Discharge Planning Discharge planning after completion of antibiotics, with likely outpatient follow-up with cardiovascular surgery Mann Ramsey Oct 17, 2016 11:27
--- NOTE | 2016-10-17 18:00 | PD.ONC.PN ---
Subjective Subjective Remarks Unfortunate man with addiction. Found sharing his methadone by spitting in a cup for his to swallow it. No visitors. States his arms feels better < 5 days of the NSAIDs. No bleeding. Objective Data Date Time Temp Pulse Resp B/P Pulse Ox O2 Delivery O2 Flow Rate FiO2 10/17/16 13:02 16 10/17/16 10:52 18 10/17/16 09:07 96.9 87 20 126/72 98 10/16/16 20:00 96.1 91 20 107/64 97 10/17/16 10/17/16 10/17/16 06:59 14:59 22:59 Intake Total 480 ml Balance 480 ml Result Diagram: 10/16/16 0805 Administered Medications Medications (Trade) Dose Ordered Sig/Jim Route PRN Reason Start Time Stop Time Status Last Admin Dose Admin Acetaminophen (Tylenol) 650 mg Q4H PRN PO TEMP > 100.4 09/02/16 15:00 09/08/16 09:29 Enoxaparin Sodium (Lovenox Inj) 40 mg Q24H SQ 09/03/16 09:00 10/17/16 09:45 Al Hydrox/Mg Hydrox/Simethicone (Mag-Al Plus Susp Liq) 30 ml Q6H PRN PO Dyspepsia 09/14/16 11:30 09/14/16 12:48 Sodium Chloride (NS Flush) DAILY IVF 09/19/16 09:00 10/17/16 09:45 Sodium Chloride (NS Flush) UNSCH PRN IVF SEE PROTOCOL 09/18/16 16:15 10/12/16 20:38 Senna/Docusate Sodium (Sarah-Colace) 2 tab BID PO 09/19/16 13:15 10/15/16 08:03 Diphenhydramine HCl (Benadryl) 50 mg Q6H PRN PO ANXIETY 09/25/16 12:00 10/04/16 19:41 Cyclobenzaprine HCl (Flexeril) 5 mg Q12HR PRN PO muscle spasm 09/25/16 12:00 10/15/16 21:11 Nicotine (Habitrol 7 Mg Patch.24 Hr) 1 patch DAILY T-DERMAL 09/29/16 14:00 10/17/16 09:46 Miscellaneous Information 1 DAILY T-DERMAL 09/29/16 14:00 8/15/17 09:00 Clonazepam (KlonoPIN) 0.5 mg Q12HR PO 09/30/16 12:00 10/17/16 09:45 Zolpidem Tartrate 10 mg 10 mg HS PRN PO insomnia 09/30/16 11:30 10/16/16 21:00 Ceftaroline Fosamil/Sodium Chloride (Teflaro Inj/NS Inj) 100 ml @ 100 mls/hr Q12H IV 10/06/16 11:00 10/17/16 11:04 Ibuprofen (Motrin) 400 mg BID PO 10/13/16 21:00 10/18/16 20:59 10/17/16 09:45 Pantoprazole Sodium (Protonix) 20 mg DAILY PO 10/13/16 18:15 10/18/16 18:14 10/17/16 09:45 Methadone HCl (Methadone Liq) 10 mg Q8H PO 10/16/16 20:00 10/17/16 12:02 Objective Remarks GENERAL: Lethargic man, Well-nourished, well-developed patient. SKIN: Warm and dry. HEAD: Normocephalic. EYES: No scleral icterus. No injection or drainage. NECK: Supple, trachea midline. No JVD or lymphadenopathy. LYMPHATIC: No adenopathy. CARDIOVASCULAR: Regular rate and rhythm without murmurs. RESPIRATORY: Breath sounds equal bilaterally. No accessory muscle use. GASTROINTESTINAL: Abdomen soft, non-tender, nondistended. EXTREMITIES: L arm slightly more prominent than R, IV site L side. MUSCULOSKELETAL: Adequate muscle tone. 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 Clinically improve w/ NSAIDS. Discussed plan to continue DVT prophylaxis. No additional therapy for chronic superficial vein phlebitis since no symptomatic complaint. Assessment 41 y/o man with addiction, endocarditis on abx therapy. Course complicated by BL LE superficial vein thrombosis improve w/ local therapy and NSAIDS. Plan 1. Continue Lovenox for DVT prophylaxis. 2. Recommend treat UE superficial thrombosis locally- conservatively. 3. We will follow peripherally. Liz Serra MD Oct 17, 2016 17:59
[2016-10-17 20:00] VITALS: BP 100/74; PULSE 89; RESP 16; TEMP 96.1; O2SAT 97
[2016-10-17] MEDS: ZOLPIDEM TARTRATE 10 MG TAB PO PRN (20:06)
[2016-10-17] MEDS: CYCLOBENZAPRINE HCL 10 MG TAB PO PRN (20:06)
[2016-10-18] MEDS: METHADONE HCL 10 MG/10 ML ORAL SOLUTION PO SCH ×3 (04:18→20:20)
[2016-10-18 08:00] VITALS: BP 97/65; PULSE 89; RESP 18; TEMP 97; O2SAT 95
[2016-10-18] MEDS: PANTOPRAZOLE SOD 20 MG DELAYED RELEASE TAB PO SCH (08:52)
[2016-10-18] MEDS: NICOTINE 7 MG/24 HR PATCH T-DERMAL SCH (08:52)
[2016-10-18] MEDS: ENOXAPARIN SODIUM 40 MG/0.4 ML SYRINGE SQ SCH (08:52)
[2016-10-18] MEDS: IBUPROFEN 400 MG TAB PO SCH (08:52)
[2016-10-18] MEDS: SODIUM CHLORIDE 0.9% FLUSH 10 ML FLUSH IVF SCH (08:52)
[2016-10-18] MEDS: clonazePAM 0.5 MG TAB PO SCH ×2 (08:52→20:20)
[2016-10-18] MEDS: REMOVE OLD PATCH T-DERMAL SCH (08:55)
[2016-10-18] MEDS: DOCUSATE SODIUM 50 MG/SENNA 8.6 MG TAB PO SCH ×2 (08:56→21:00)
--- NOTE | 2016-10-18 10:59 | HHI.PR ---
Subjective Remarks Patient seen and examined today for follow-up on bacterial endocarditis, thrombophlebitis. Patient is doing well. Denies any new complaints. Awaiting response from cardiovascular surgery for discharge planning tomorrow. Objective Vitals Vital Signs Date Time Temp Pulse Resp B/P Pulse Ox O2 Delivery O2 Flow Rate FiO2 10/18/16 10:03 18 10/18/16 08:00 97.0 89 18 97/65 95 10/18/16 05:18 16 10/17/16 20:00 96.1 89 16 100/74 97 I/O 10/17/16 10/17/16 10/17/16 10/18/16 10/18/16 10/18/16 07:00 15:00 23:00 07:00 15:00 23:00 Intake Total 480 ml 580 ml 720 ml Balance 480 ml 580 ml 720 ml Intake Oral 480 ml 580 ml 720 ml # Voids 3 5 3 # Bowel Movements 2 0 Result Diagram: 10/16/16804 Objective Remarks GENERAL: Well-developed, well-nourished, in no acute distress. alert and orientated HEENT: Head is normocephalic without any lesions or masses noted. Facial features are symmetric. Eyes: extraocular muscles are intact. Conjunctivae were clear. NECK: Trachea midline no deviation. CARDIAC: Regular rhythm, regular rate. S1/S2 are heard. No murmurs gallops or rubs. LUNGS: Clear to auscultation bilaterally. No wheeze, rhonchi or rales. No use of accessory muscles on inspiration or expiration. ABDOMEN: Soft, nontender. Nondistended. Bowel sounds heard in all 4 quadrants. No organomegaly or masses. Negative rebound, negative guarding, EXTREMITIES: No edema, pulses are equal bilaterally. No cyanosis or clubbing. NEUROLOGY: Mood and affect appear appropriate. Cranial nerves II through XII grossly intact. Moving all extremities, speech is clear. Procedures Left knee arthrotomy, debridement and irrigation (09/09/16). 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 Left septic knee joint Patient remains afebrile since 09/19/16 Echocardiogram indicates tricuspid valve vegetation 1.1 x 1.8 cm, Repeat echocardiogram shows tricuspid valve vegetation 1.3 x 1.6 cm MRI of the knee shows large nonspecific joint effusion with enhancement of synovial lining which is generally seen with synovitis Status post left knee arthrotomy, irrigation and debridement on 09/09/16 Orthopedic following the patient Negative blood culture since 09/10/16 Infectious disease following the patient and recommended total of 6 weeks of antibiotics from first negative culture, end date would be October 19, 2016 Infectious disease recommended repeat echocardiogram to be done this week Antibiotics changed to Teflaro, Cardiovascular surgery evaluated patient and recommended antibiotic therapy, and follow-up in the office but will need to have repeat echocardiogram will need to have a clean negative urine toxicology screen to evaluate for possible surgery. Discussed with lens block gauger for surgery 10/17/16 who indicated they'll review the echocardiogram. Need to arrange for outpatient urine drug screen, follow-up for outpatient appointment. Reiterated the fact that he still needed to be off narcotic medication and to be cleaned prior to surgery Narcotic dependency, Pain control, patient is manipulative with his pain management and withdrawal symptoms, patient was restarted on methadone, will be unable to wean patient off methadone prior to completion of antibiotics. Patient will need outpatient rehabilitation upon discharge Pain control, continue to wean off methadone every 5 days, if pain allows Methadone 10 mg every 8 hours, Superficial thrombophlebitis, improving Doppler ultrasound was performed and indicates occlusive thrombus throughout the cephalic vein, no DVT Patient was seen by hematology who recommended warm compresses, ibuprofen, continue DVT prophylactic dose of Lovenox Questionable right apical pneumothorax, asymptomatic Patient had chest x-ray performed which did show questional right apical pneumothorax with subtle patchy densities Patient is asymptomatic. Continue monitor Recurrent sepsis, hypotensive, febrile, tachycardia. Unknown etiology at this time, could be secondary to recurrent endocarditis, septic arthritis, line sepsis, continued IV drug use while in the hospital, resolved Patient afebrile now, since central line removed Infectious disease consulted for recommendations CT scan chest shows septic emboli of at least 10 small areas involving all lobes. Previous chest x-rays do not indicate any abnormality indicating septic pneumonia Blood cultures negative for 5 day Discontinued central line per infectious disease, placed peripheral IV Antibiotics changed to Teflaro 10/04/16, discussed with infectious disease who recommended removal of central line. Continuation of Teflaro. Monitoring blood cultures. Acute on chronic microcytic anemia. With rouleaux effect on blood smear Possible etiology would be secondary to vancomycin, will need to rule out other etiologies B12 was mildly low, folate normal, ferritin was normal, sedimentation rate elevated, reticulocyte count was normal, LDH was normal, haptoglobin mildly elevated, stool for occult blood negative Status post transfusion of one unit packed red blood cell Hematology evaluated patient and recommended IV iron 1 Acute renal failure, improved Could be secondary to sepsis, dehydration, septic emboli to the kidney Continue IV fluids Continue monitor renal function Avoid nephrotoxins Left hip pain MRI shows myositis and possible bone marrow edema Orthopedic to follow-up, who indicates continuation of IV antibiotics per ID and medical management CK was originally elevated, we continued IV fluids and CK has returned to normal History of IV drug abuse, narcotic dependency: Patient counseled on cessation HIV testing negative Symptomatic treatment for withdrawal symptoms Insomnia Ambien 10 mg as needed Muscle spasms Flexeril 5 mg twice daily as needed Nausea vomiting Zofran Diarrhea Imodium Anxiety Klonopin 0.5 mg every 12 hours Benadryl Hepatitis C: Follow up for outpatient treatment Nicotine dependence: NicoDerm patch 7 mg. Encourage cessation. DVT prophylaxis: Lovenox. Discharge Planning Discharge planning after completion of antibiotics, with likely outpatient follow-up with cardiovascular surgery Mann Ramsey Oct 18, 2016 10:59
[2016-10-18] MEDS: CEFTAROLINE INJ 600 MG in SODIUM CHLORIDE 0.9% INJ 100 ML IV SCH ×2 (11:43→22:49)
--- NOTE | 2016-10-18 15:09 | HHI.DCPOC ---
Discharge Care Plan Diagnosis: (1) Endocarditis of tricuspid valve (2) Superficial venous thrombosis of both arms (3) IVDU (intravenous drug user) Goals to Promote Your Health * To prevent worsening of your condition and complications * To maintain your health at the optimal level Directions to Meet Your Goals Take your medications as prescribed Follow your dietary instruction Follow activity as directed Keep your appointments as scheduled Take your immunizations and boosters as scheduled If your symptoms worsen call your PCP, if no PCP go to Urgent Care Center or Emergency Room Smoking is Dangerous to Your Health. Avoid second hand smoke Call the 24-hour hour crisis hotline for domestic abuse at Mann Ramsey Oct 18, 2016 15:09
[2016-10-18 20:00] VITALS: BP 142/89; PULSE 77; RESP 16; TEMP 95.8; O2SAT 99
[2016-10-18] MEDS: CYCLOBENZAPRINE HCL 10 MG TAB PO PRN (20:20)
[2016-10-18] MEDS: ZOLPIDEM TARTRATE 10 MG TAB PO PRN (20:20)
[2016-10-19] MEDS: METHADONE HCL 10 MG/10 ML ORAL SOLUTION PO SCH (04:13)
--- NOTE | 2016-10-19 06:28 | RADRPT ---
EXAM DATE/TIME: 10/19/2016 06:08 [facility] COMPARISON: CHEST SINGLE AP, September 30, 2013, 5:48. CHEST SINGLE AP, October 02, 2016, 8:30. CHEST PA & LAT, September, 11:40. INDICATIONS : Short of breath. MEDICAL HISTORY : Hypertension. Hepatitis C. Palpitations. Asthma. Dyspnea. Depression. Anxiety, Dilaudid IV user. MRSA . Anticoagulant therapy. SURGICAL HISTORY : Cholecystectomy. Fracture neck with halo. ENCOUNTER: Subsequent ACUITY: 2 weeks PAIN SCORE: Non-responsive. LOCATION: Bilateral chest FINDINGS: A lateral view of the chest demonstrates a small opacity in the lateral right midlung measuring less than 1 cm. The remainder of the lungs are clear. No evidence of pleural effusion. Both hemidiaphra gms well delineated. The heart is normal size. CONCLUSION: Stable small opacity in the lateral right lung. Since this has not resolved, recommend further norman cterization with CT thorax. Cristofer Acosta MD on October 19, 2016 at 6:24 Board Certified Radiologist. This report was verified electronically.
[2016-10-19] MEDS: SODIUM CHLORIDE 0.9% FLUSH 10 ML FLUSH IVF SCH (07:58)
[2016-10-19] MEDS: REMOVE OLD PATCH T-DERMAL SCH (07:58)
[2016-10-19] MEDS: NICOTINE 7 MG/24 HR PATCH T-DERMAL SCH (07:58)
[2016-10-19] MEDS: clonazePAM 0.5 MG TAB PO SCH (07:59)
[2016-10-19] MEDS: DOCUSATE SODIUM 50 MG/SENNA 8.6 MG TAB PO SCH (08:00)
[2016-10-19] MEDS: ENOXAPARIN SODIUM 40 MG/0.4 ML SYRINGE SQ SCH (08:00)
[2016-10-19 08:43] VITALS: BP 120/69; PULSE 85; RESP 19; TEMP 96.6; O2SAT 99
--- NOTE | 2016-10-19 11:35 | HHI.DS ---
Discharge Summary Admission Date Sep 02, 2016 at 14:43 Discharge Date: Oct 19, 2016 Admitting Diagnosis fever,IVDA,SIRS (1) Superficial venous thrombosis of both arms ICD Code: I82.613 (2) Sepsis ICD Code: A41.9 (3) Endocarditis of tricuspid valve ICD Code: I36.8 (4) Septic embolism ICD Code: I26.90 (5) Myositis of thigh ICD Code: M60.859 (6) JORGE (acute kidney injury) ICD Code: N17.9 (7) Hypoxia ICD Code: R09.02 (8) IVDU (intravenous drug user) ICD Code: F19.90 (9) Hepatitis C ICD Code: B19.20 Procedures Left knee arthrotomy, debridement and irrigation (09/09/16). Brief History - From Admission Patient is a 41-year-old homeless gentleman with a known history of IV Dilaudid and heroin use. He was brought to the emergency room by a long-time friend who said for the last 9 days he was sleeping and having fevers up to 105. Patient had no nausea or vomiting but had stopped eating and was grossly diaphoretic. He did come to the emergency room on her advice. He has had some increased swelling in the right arm as well as some calf pain in the left leg. There is no neck stiffness no sore throat no nausea or vomiting and no chest pain. Patient has had complaints of a dry cough and has been trying to take ibuprofen for management of his symptoms. He did come to the emergency room for further evaluation and has been found to the septic with evidence of pneumonia on chest x-ray and he is tachypneic, oliguric, tachycardic with gross delirium and tachypnea. Patient admitted for sepsis evaluation and treatment CBC/BMP: 10/16/16 0805 Imaging Last Impressions Chest X-Ray 10/19/16 0600 Signed Impressions: Service Date/Time: , October 19, 2016 06:08 - CONCLUSION: Stable small opacity in the lateral right lung. Since this has not resolved, recommend further characterization with CT thorax. Cristofer Acosta MD Upper Extremity Ultrasound 10/13/16 1111 Signed Impressions: Service Date/Time: Thursday, October 13, 2016 12:06 - CONCLUSION: Superficial venous thrombosis involving the cephalic vein. No evidence of DVT. Jacob Najera MD Hip MRI 10/03/16 0000 Signed Impressions: Service Date/Time: Monday, October 03, 2016 13:02 - CONCLUSION: 1. Abnormal edema and swelling in the lateral gluteal musculature, left greater than right extending over the greater trochanter into the proximal lateral thigh musculature. There is also subcutaneous edema. Findings are most characteristic of a cellulitis and myositis. No enhancing fluid collections to suggest abscess formation. There is a mild marrow edema in the greater trochanter on the left side and to a lesser extent on the right probably representing some reactive edema. Wilfred Cho MD CT Angiography 10/02/16 0000 Signed Impressions: Service Date/Time: Sunday, October 02, 2016 15:40 - CONCLUSION: 1. Examination quality is degraded by respiratory motion artifact. However, no PE is identified. 2. There are at least 10 small pulmonary nodules bilaterally involving all lobes. The appearance and distribution is suggestive of either septic emboli or metastatic disease. Given the patient's history of endocarditis, septic emboli is the most likely etiology. 3. Mediastinal and bilateral hilar lymphadenopathy. 4. Mild splenomegaly. Silvestre Brunner MD Central Venous Line 09/18/16 0000 Signed Impressions: Service Date/Time: Sunday, September 18, 2016 15:39 - CONCLUSION: Uncomplicated line placement as above. Catheter tip is near the atriocaval junction. Cain Ferraro MD Knee MRI 09/08/16 0000 Signed Impressions: Service Date/Time: Thursday, September 08, 2016 11:07 - CONCLUSION: 1. There is a large nonspecific joint effusion with some enhancement of the synovial lining. This is nonspecific but is generally seen with synovitis. 2. There is normal signal intensity in the bony structures. There is no evidence of any bony erosions or destruction to suggest osteomyelitis. 3. Nonspecific soft tissue swelling and soft tissues that surrounds the knee joint. Asaf Payne MD Knee X-Ray 09/06/16 0000 Signed Impressions: Service Date/Time: Tuesday, September 06, 2016 13:06 - CONCLUSION: 1. Nonspecific joint effusion. 2. Mild narrowing of the medial joint compartment. Asaf Payne MD Lower Extremity Ultrasound 09/02/16 0000 Signed Impressions: Service Date/Time: Friday, September 02, 2016 18:16 - CONCLUSION: No DVT. Silvestre Ashraf MD PE at Discharge GENERAL: Well-developed, well-nourished, in no acute distress. alert and orientated HEENT: Head is normocephalic without any lesions or masses noted. Facial features are symmetric. Eyes: extraocular muscles are intact. Conjunctivae were clear. NECK: Trachea midline no deviation. CARDIAC: Regular rhythm, regular rate. S1/S2 are heard. No murmurs gallops or rubs. LUNGS: Clear to auscultation bilaterally. No wheeze, rhonchi or rales. No use of accessory muscles on inspiration or expiration. ABDOMEN: Soft, nontender. Nondistended. Bowel sounds heard in all 4 quadrants. No organomegaly or masses. Negative rebound, negative guarding, EXTREMITIES: No edema, pulses are equal bilaterally. No cyanosis or clubbing. NEUROLOGY: Mood and affect appear appropriate. Cranial nerves II through XII grossly intact. Moving all extremities, speech is clear. Hospital Course 41 year-old male who originally presented to hospital on 09/02/16 because of febrile illness. Patient does have history of IV drug use in which he states that is clean for a while however he started back up again injecting Dilaudid and heroin. 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 Patient also had significant left knee pain and swelling in which he underwent surgical intervention on 09/09/16 for septic arthritis. Patient underwent left knee arthrotomy with urination and debridement. Patient did have evaluation with cardiovascular surgery who agreed to entertain the possibility of valvular replacement when patient completes antibiotic regimen, repeat echocardiogram and clean drug screen. Patient is undergoing antibiotic treatment at this time with gentamicin and vancomycin. Patient has remained afebrile since 09/19/16. Patient has had clean blood cultures since 09/10/16. Infectious disease is following the patient and recommended total of 6 weeks of antibiotics from last negative blood culture which would have been October 19, 2016. Pain control and opiate withdrawal management was discussed with the patient extensively considering the patient needed to be cleaned prior to evaluation for valve replacement. Multiple options were given to the patient for management. Patient did not agree with any plan that would wean him off of narcotics at this time. The patient was started on a regimen to safely wean patient off narcotics which included Percocet, trazodone for insomnia, Flexeril for muscle spasms, Zofran for nausea, Imodium for diarrhea, Benadryl for anxiety. However , patient did not like that regimen and had complaints, augmentation on a daily basis that he wanted to be on methadone. The patient was changed to methadone 20 mg 3 times daily, Ambien for insomnia, Klonopin for anxiety. It was indicated to wean the patient down 5-10 mg every 3-5 days. Patient was being weaned on appropriate time. However, patient was found to getting his methadone to his girlfriend in the room. At that point is recommended that the patient no longer receive any visitors. Patient was notified multiple times of the continued use of the narcotic medications that he would not be cleaned for possible surgical intervention. It was discussed with cardiology for surgery extensively the patient's care and management. They reviewed the case again with repeat echocardiogram and indicated patient is not a surgical candidate at this time. The patient would have to be approved through the [facility] prior to surgical intervention. Patient was notified of this discussion. Patient's last day of antibiotics was to be today, patient did know this. The only question that the patient had was if we are going to fill a prescription for methadone, Ambien, Klonopin. I notified the patient that it is unsafe for us to prescribe him medication for active withdrawals from narcotics/opiates that he needed to go to [facility] upon discharge as well as get evaluated at the methadone clinic for continued management and care. All the patient's questions were answered at that time. I did come back to evaluate the patient because he was time for his last dose of antibiotics, however nursing staff indicates that the patient had eloped, he is now are to be found in the building. Hence, patient left AGAINST MEDICAL ADVICE. Pt Condition on Discharge: Guarded Discharge Disposition: Discharge Home Discharge Time: <= 30 minutes Mann Ramsey Oct 19, 2016 11:35
== END 2016-10-19 10:30 | disposition left against medical advice (07) | DRG 853 ==
LOC: PHED 13:13 → PHEDA 14:43 → PH3B 16:05 → N07B 09-08 19:03 → PH5A 09-24 18:52
PROVIDERS: ADMIT Hospitalist; ATTEND Family Medicine
PROC: 0S9D0ZZ Drainage of Left Knee Joint, Open Approach (ICD-10-PCS; principal; 2016-09-09 14:01)
PROC: 02HV33Z Insertion of Infusion Device into Superior Vena Cava, Percutaneous Approach (ICD-10-PCS; 2016-09-18)
PROC: 30233N1 Transfusion of Nonautologous Red Blood Cells into Peripheral Vein, Percutaneous Approach (ICD-10-PCS; 2016-10-04)
DX: A41.02 Sepsis due to Methicillin resistant Staphylococcus aureus (principal); J18.9 Pneumonia, unspecified organism; I26.90 Septic pulmonary embolism without acute cor pulmonale; I33.0 Acute and subacute infective endocarditis; I76 Septic arterial embolism; D69.6 Thrombocytopenia, unspecified; N17.9 Acute kidney failure, unspecified; L03.116 Cellulitis of left lower limb; M00.9 Pyogenic arthritis, unspecified; I82.611 Acute embolism and thrombosis of superficial veins of right upper extremity; F11.23 Opioid dependence with withdrawal; J93.9 Pneumothorax, unspecified; E83.42 Hypomagnesemia; E86.0 Dehydration; R65.20 Severe sepsis without septic shock; B19.20 Unspecified viral hepatitis C without hepatic coma; E87.6 Hypokalemia; F17.210 Nicotine dependence, cigarettes, uncomplicated; M25.462 Effusion, left knee; K59.00 Constipation, unspecified; M60.9 Myositis, unspecified; D50.9 Iron deficiency anemia, unspecified; R09.02 Hypoxemia; K40.90 Unilateral inguinal hernia, without obstruction or gangrene, not specified as recurrent
CPT/HCPCS: 36430; 36556; 36600; 71010; 71020; 71275; 73564; 73723; 76937; 77001; 80048; 80053; 80076; 80202; 80307; 81001; 82272; 82550; 82552; 82565; 82607; 82728; 82746; 82805; 83010; 83540; 83550; 83605; 83615; 83735; 84100; 84155; 84484; 84520; 85007; 85014; 85018; 85025; 85027; 85044; 85610; 85652; 85730; 86140; 86403; 86703; 86850; 86900; 86901; 86920; 87015; 87040; 87070; 87071; 87102; 87116; 87147; 87149; 87186; 87205; 87206; 93005; 93306; 93971; 94150; 96365; A9579; C1751; J0456; J0610; J0692; J0712; J1580; J1650; J1756; J1885; J1956; J2250; J2270; J2405; J2543; J2997; J3010; J3370; J7030; J7040; J7050; P9016; Q0163; Q9967

== ENCOUNTER 2016-10-20 13:49 | Emergency (ER) | payer SELFPAY ==
[~2016-10-20] VITALS: Ht 167.6 cm; Wt 64.0 kg
[2016-10-20 14:02] VITALS: BP 102/54; PULSE 101; RESP 16; TEMP 97.3; O2SAT 100
--- NOTE | 2016-10-20 15:24 | PD ---
HPI Chief Complaint: Chest Pain Time Seen by Provider: 14:59 Travel History International Travel<30 days: No Contact w/Intl Traveler<30days: No Traveled to known affect area: No History of Present Illness HPI He was discharged yesterday after lengthy stay for endocarditis/septic emboli. Was upset he didnt get narcotic meds at discharge. came here today to ask for narcotics. long history of IVDA. symptom severity is mild PFSH Past Medical History Asthma: Yes (as a kid he used an inhaler) Autoimmune Disease: No Anxiety: Yes Depression: Yes Heart Rhythm Problems: No Cancer: No Cardiovascular Problems: No High Cholesterol: No Chest Pain: Yes Congestive Heart Failure: No COPD: No Cerebrovascular Accident: No Diabetes: No Diminished Hearing: No Endocrine: No Gastrointestinal Disorders: No GERD: No Genitourinary: No Hepatitis: Yes (C) Immune Disorder: No Kidney Stones: No Musculoskeletal: Yes Neurologic: No Reproductive: No Respiratory: Yes Immunizations Current: Yes Migraines: No Renal Failure: No Seizures: No Sickle Cell Disease: No Sleep Apnea: No Thyroid Disease: No Ulcer: No Past Surgical History Abdominal Surgery: Yes (gallbadder removed ) AICD: No Arteriovenous Shunt: No Cardiac Surgery: No Ear Surgery: No Endocrine Surgery: No Eye Surgery: No Genitourinary Surgery: No Gynecologic Surgery: No Insulin Pump: No Joint Replacement: Yes Neurologic Surgery: Yes (FX NECK WITH HALO IN 1997) Oral Surgery: No Pacemaker: No Other Surgery: Yes (right knee surgery/ PINS AND SCREWS IN RIGHT ANKLE) Social History Alcohol Use: No Tobacco Use: Yes (1.5 PPD) Substance Use: Yes (dilaudid IV user) Allergies-Medications (Allergen,Severity, Reaction): Coded Allergies: avocado (Unverified Allergy, Severe, 10/20/16) shrimp (Unverified Allergy, Severe, Anaphylaxis, 10/20/16) *MDRO Multi-Drug Resistant Organism (Verified Adverse Reaction, Unknown, ) MRSA (blood)-09/02/16, 09/05/16 MRSA (finger)-12/16/03 Reported Meds & Prescriptions Reported Meds & Active Scripts Active No Active Prescriptions or Reported Medications Review of Systems General / Constitutional: No: Fever HENT: No: Headaches Respiratory: No: Cough Physical Exam Narrative GASTROINTESTINAL: Abdomen soft, non-tender, nondistended. Positive bowel sounds. No hepato-splenomegaly, or palpable masses. No guarding. RESPIRATORY: Respiratory effort unlabored, no retractions or use of accessory muscles. Breath sounds are clear and symmetric. NECK: Symmetrical appearance, midline trachea. No mass or crepitus. Thyroid without enlargement, tenderness, or mass. Data Data Last Documented VS Vital Signs Date Time Temp Pulse Resp B/P Pulse Ox O2 Delivery O2 Flow Rate FiO2 10/20/16 14:02 97.3 101 16 102/54 100 Orders Electrocardiogram (10/20/16 13:56) MDM Medical Decision Making Medical Screen Exam Complete: Yes Emergency Medical Condition: Yes Medical Record Reviewed: Yes Differential Diagnosis narcotic seeking behavior, chronic pain Narrative Course I have reviewed the patient's electronic medical record. reviewed that his medical team did not want him on any addictive meds. He is upset with this but I am not writing him any narcotics Diagnosis Primary Impression: Endocarditis of tricuspid valve Additional Impression: IVDU history Additional Instructions: The patient was advised to follow up with their physician and return if they worsen. Med/Other Pt SpecificInfo: Other Scripts No Active Prescriptions or Reported Meds Disposition: DISCHARGE HOME Condition: Stable Mann Phipps MD Oct 20, 2016 15:24
--- NOTE | 2016-10-21 15:26 | EKG ---
Date Performed: 10/20/2016 Time Performed: 13:56:33 PTAGE: 41 years EKG: SINUS TACHYCARDIA Compared to previous tracing, no significant change ABNORMAL RHYTHM ECG PREVIOUS TRACING : 10/02/2016 08.23 DOCTOR: Kirk Chow Interpretating Date/Time 10/21/2016 15:24:47
== END 2016-10-20 15:31 | disposition home or self-care (01) ==
LOC: PHED 13:49
DX: I07.9 Rheumatic tricuspid valve disease, unspecified (principal); R94.31 Abnormal electrocardiogram [ECG] [EKG]; F17.200 Nicotine dependence, unspecified, uncomplicated; Z87.898 Personal history of other specified conditions; Z87.09 Personal history of other diseases of the respiratory system; Z86.59 Personal history of other mental and behavioral disorders; Z86.19 Personal history of other infectious and parasitic diseases; Z87.39 Personal history of other diseases of the musculoskeletal system and connective tissue
CPT/HCPCS: 93005; 99283